=== PATIENT | male | born 1955 | race Caucasian/White ===

== ENCOUNTER 2018-03-10 09:08 | Inpatient (IN) ==
[2018-03-10 09:27] LABS: Baso % (Auto) 0.3 % (0.0-2.0); Eos % (Auto) 0.3 % (0.0-4.0); Hematocrit 37.7 % (39.0-51.0); Hemoglobin 12.7 gm/dL (13.0-17.0); Lymph % (Auto) 12.6 % (9.0-44.0); Mean Corpuscular HGB Conc 33.8 % (32.0-36.0); Mean Corpuscular Volume 94.7 fL (80.0-100.0); Mean Platelet Volume 7.2 fL (7.0-11.0); Mono # (Auto) 0.6 th/mm3 (0.0-0.9); Mono % (Auto) 8.1 % (0.0-8.0); Neut % (Auto) 78.7 % (16.0-70.0); Platelet Count 133 th/mm3 (150-450); Red Blood Count 3.98 mil/mm3 (4.50-5.90); Red Cell Distribution Width 14.2 % (11.6-17.2); White Blood Count 7.6 th/mm3 (4.0-11.0)
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
[2018-03-10 09:37] LABS: Activated Partial Thrombo Time 24.5 sec (24.3-30.1); INR 1.1 Ratio
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
[2018-03-10] MEDS ORDERED: Morphine Inj 4 MG/ML Vial IV.PUSH ONE (10:08)
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
[2018-03-10] MEDS ORDERED: HYDROmorphone PF Inj 1 MG/ML Ampul IV.PUSH PRN (11:00)
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
[2018-03-10 11:29] LABS: Bilirubin,Urine Negative (Negative); Clarity,Urine Clear (Clear); Color,Urine Straw (Yellw/Straw); Glucose,Urine (UA) Negative (Negative); Leukocyte Esterase,Urine Negative (Negative); Mucus,Urine Few /lpf (Occasional); Nitrite,Urine Negative (Negative); Specific Gravity,Urine 1.031 (1.002-1.035)
[2018-03-10 11:32] LABS: Amphetamine Screen,Urine Neg (Neg); Barbiturate Screen,Urine Neg (Neg); Cannabinoid Screen,Urine Neg (Neg); Cocaine Screen,Urine Neg (Neg)
[2018-03-10 11:38] LABS: Opiate Screen,Urine Neg (Neg)
--- NOTE | 2018-03-10 12:10 | P.CONNS ---
History of Present Illness Service: Neurosurgery Consult date: 03/10/18 Requesting Physician: Suzie Ardon Reason for Consult: Trauma alert/paraplegia Primary Care Provider: UNKNOWN History of Present Illness: 62-year-old obese gentleman who presented to [facility] as a trauma alert with the inability to move his lower extremities and numbness with incontinence. He relates that he is homeless and has no family members in town. He drinks heavily 15-20 beers a day and fell asleep on a [place] last night and fell off the [place] although he is not sure exactly what time this occurred and states that it may been some time last night or early this morning. He denies losing consciousness. He was brought to [facility] and trauma workup reveals a T11-10 fracture subluxation with jumped facets and T11, in the vertebral body and facet fractures. He relates that he has a history of calcifications in his cervical spine as well as poor circulation in his legs. His complaint is of neck pain and left hand and finger numbness as well as back pain with inability to move his legs with numbness from his wound along with incontinence. Review of Systems Constitutional: Denies anorexia, Denies body ache(s), Denies chills, Denies daytime sleepiness, Denies excessive sweating, Denies fatigue, Denies fever(s), Denies headache(s), Denies increased appetite, Denies lack of energy, Denies malaise, Denies night sweats, Denies weakness, Denies weight gain, Denies weight loss, Denies other Eyes: Denies blind spots, Denies blurry vision, Denies bulging eyes, Denies change in vision, Denies double vision, Denies discharge, Denies dry eyes, Denies floaters, Denies irritation, Denies itchy eyes, Denies loss of vision, Denies pain, Denies requires corrective lenses, Denies sensitivity to light, Denies other Ears, Nose, Mouth, and Throat: Denies abnormal hearing, Denies bleeding gums, Denies bad breath, Denies change in voice, Denies dental pain, Denies difficulty swallowing, Denies dizziness, Denies dry mouth, Denies ear discharge , Denies ear pain, Denies facial pain, Denies headache(s), Denies hearing loss, Denies hoarseness, Denies lip swelling, Denies nosebleed, Denies mouth lesions, Denies mouth pain, Denies nasal congestion, Denies nasal discharge, Denies nasal obstruction, Denies nasal trauma, Denies neck lump, Denies neck pain, Denies nose pain, Denies pain with swallowing, Denies poor balance, Denies post nasal drip, Denies ringing in the ears, Denies sinus pain, Denies sinus pressure , Denies sore throat, Denies throat swelling, Denies tongue swelling, Denies other Cardiovascular: Denies chest pain, Denies chest pain at rest, Denies chest pain with activity, Denies excessive sweating, Denies fainting, Denies fast heart rate, Denies foot swelling, Denies generalized swelling, Denies irregular heart rhythm, Denies leg pain with activity, Denies leg sores, Denies leg swelling, Denies lightheadedness, Denies radiating jaw, neck or arm pain, Denies rapid, pounding, or irregular heartbeat, Denies shortness of breath, Denies shortness of breath with activity, Denies shortness of breath when lying down, Denies shortness of breath causing sudden awakening, Denies slow heart rate, Denies other Respiratory: Denies change in phlegm color, Denies chest congestion, Denies cough, Denies coughing up blood, Denies excessive phlegm production, Denies pain on inspiration, Denies pain with cough, Denies shortness of breath, Denies shortness of breath with activity, Denies snoring, Denies stridor, Denies wheezing, Denies other Gastrointestinal: Reports incontinent of stools, Denies abdominal pain, Denies belching, Denies black, tarry stools, Denies bloating, Denies bright, red blood in stools, Denies change in bowel habits, Denies constant urge to pass stool, Denies change in stools, Denies coffee ground vomit, Denies constipation, Denies cramping, Denies difficulty swallowing, Denies excessive passing of gas, Denies feeling full early, Denies heartburn, Denies loose stools, Denies nausea , Denies pain with swallowing, Denies vomiting, Denies vomiting blood, Denies other Genitourinary: Reports difficulty urinating, Reports urinary incontinence, Denies blood in semen, Denies blood in urine, Denies decreased urination, Denies difficulty with ejaculations, Denies erectile dysfunction, Denies genital lesions, Denies genital pain, Denies painful urination, Denies side pain , Denies frequent nighttime urination, Denies painful ejaculations, Denies penile discharge, Denies scrotal swelling, Denies testicle lump, Denies testicle pain, Denies urinary frequency, Denies urinary hesitancy, Denies urinary urgency, Denies other Musculoskeletal: Reports back pain, Reports muscle weakness, Reports neck pain, Reports numbness, Reports tingling, Denies abnormal walking, Denies body aches, Denies decreased muscle mass, Denies deformity, Denies joint pain, Denies joint swelling, Denies limited joint movement, Denies loss of height, Denies muscle cramps, Denies radiating pain into limb, Denies stiffness, Denies other Comments: Complains of chronic peripheral neuropathy in his feet with difficulty wiggling his toes and numbness Skin/Breast: Denies acne, Denies bleeding lesions, Denies boil, Denies breast swelling, Denies breast skin changes, Denies breast pain, Denies breast lump, Denies change in breast shape, Denies change in hair, Denies change in skin color, Denies changing lesions, Denies dry skin, Denies excessive hair growth, Denies hair loss, Denies itching, Denies lesions, Denies nail changes, Denies new lesions, Denies nipple discharge, Denies non-healing lesions, Denies redness , Denies sensitivity to light, Denies rash, Denies skin pain, Denies skin ulcer , Denies sores, Denies stretch ivye, Denies unusual bruising, Denies wounds, Denies yellowing of the skin, Denies other Neurologic: Reports numbness, Reports weakness (Unable to move his legs bilaterally), Denies abnormal hearing, Denies abnormal movements, Denies abnormal speech, Denies abnormal walking, Denies behavioral changes, Denies burning sensations, Denies confusion, Denies dizziness, Denies fainting, Denies frequent falls, Denies headache(s), Denies lack of coordination, Denies localized weakness, Denies loss of vision, Denies memory loss, Denies other visual disturbances, Denies radiating pain, Denies restless legs, Denies convulsions, Denies seizure-like activity, Denies sensory deficit, Denies tingling, Denies tingling/numbness/burning sensations, Denies tremor(s), Denies unsteadiness, Denies other Comments: Complains of numbness in his left hand diffusely and inability to feel his legs from his groins down bilaterally Psychiatric: Denies abnormal sleep pattern, Denies anxiety, Denies behavioral changes, Denies change in appetite, Denies change in sex drive, Denies confusion , Denies depression, Denies difficulty concentrating, Denies hearing things others do not hear, Denies hopelessness, Denies irritability, Denies lack of enjoyment, Denies memory loss, Denies mood swings, Denies panic attacks, Denies paranoia, Denies seeing things others do not see, Denies sensing things others do not sense, Denies tactile hallucinations, Denies thoughts of hurting/killing others, Denies thoughts of hurting/killing yourself, Denies other Endocrine: Denies cold intolerance, Denies excessive sweating, Denies flushing, Denies heat intolerance, Denies increased hunger, Denies increased thirst, Denies increased urination, Denies rapid, pounding, or irregular heartbeat, Denies other Hematologic/Lymphatic: Denies easy bleeding, Denies easy bruising, Denies enlarged lymph nodes, Denies other Allergic/Immunologic: Denies GI upset with certain foods, Denies hives, Denies itchy eyes, Denies lip swelling, Denies seasonal runny nose, Denies throat swelling, Denies tongue swelling, Denies wheezing, Denies other PMFSH - History History Provided By: Patient - Medical History Medical History: Medical History (Last Updated 03/10/18 @ 12:02 by Rayray Mclean MD) Depression High cholesterol Neck pain Neuropathy Peripheral vascular disease Prostate asymmetry - Tobacco History Smoking Status: Unknown if ever smoked - Alcohol History How Often Do You Have a Drink Containing Alcohol: 4 or more times a week - Substance Use History Substance History: No History of Abuse - Substance Use Type Alcohol Status: Active Route Used: By Mouth Frequency: drinks "first 2 weeks of the month and then runs out of money" - Immunization History Tetanus Immunization: Unsure Hx Influenza Vaccine This Season: No Medications and Allergies Active Medications: Active Medications Bacitracin (Baciguent Oint) 1 applicatio TOPICAL BID TANO Chlorhexidine Gluconate (Chlorhexidine 2% Cloth) 3 pack TOPICAL DAILY@0400 TANO Stop: 03/16/18 03:59 Chlorhexidine Gluconate (Chlorhexidine 2% Cloth) 3 pack TOPICAL DAILY@0400 PRN PRN Reason: Extra cloth needed Stop: 03/16/18 03:59 Docusate Sodium (Colace) 100 mg PO BID TANO Enalaprilat (Vasotec Inj) 1.25 mg IV.PUSH Q8H PRN PRN Reason: Blood pressure 180/95 Hydromorphone HCl (Dilaudid Pf Inj) 1 mg IV.PUSH Q1H PRN PRN Reason: Break through pain Sodium Chloride (Ns Inj) 1,000 mls @ 100 mls/hr IV.CONT .Q10H TANO Ondansetron HCl (Zofran Inj) 4 mg IV.PUSH Q6H PRN PRN Reason: NAUSEA OR VOMITING Pantoprazole Sodium (Protonix Inj) 40 mg IV.PUSH Q24H TANO Sodium Chloride (Ns Flush) 2 ml IV.FLUSH UNSCH PRN PRN Reason: FLUSH AFTER USING IV ACCESS Allergies Allergy/AdvReac Type Severity Reaction Status Date / Time No Known Allergies Allergy Verified 03/10/18 10:29 Home Medications Medication Instructions Recorded Confirmed Type atorvastatin [Lipitor] 40 mg PO DAILY 03/10/18 03/10/18 History duloxetine [Cymbalta] 60 mg PO DAILY 03/10/18 03/10/18 History gabapentin 600 mg PO TID 03/10/18 03/10/18 History tamsulosin [Flomax] 0.4 mg PO DAILY 03/10/18 03/10/18 History Exam Vital signs: Vital Signs 03/10/18 09:18 03/10/18 10:22 03/10/18 10:24 Pulse Rate Respiratory Rate Blood Pressure Pulse Oximetry 97 98 98 03/10/18 10:40 03/10/18 10:41 Pulse Rate 80 Respiratory Rate 20 20 Blood Pressure 158/85 H Pulse Oximetry 97 - Constitutional obese - Routine HEENT Exam Head: Present: normocephalic, atraumatic Eye: Present: EOMI, PERRL ENT: Present: mucous membranes moist, oropharynx clear, nares patent, external ear normal - Routine Neck Exam Comments: Hard cervical collar in place - Routine Respiratory Exam Present: CTA bilaterally - Routine Cardiovascular Exam Present: RRR, S1, S2 - Routine Extremities Exam Present: edema - Routine Skin Exam Present: ecchymosis - Routine Neurological Exam Present: oriented X3, CN II-XII intact, sensory deficit (Complete sensory loss T11 level down with no pinprick or light touch sensation in the lower extremities; complains of numbness in his left hand and fingers), motor deficit (No rectal tone noticed and no sensory sacral sparing noted either), normal speech He moves his upper extremities with relatively good strength, left lower extremity 0/5 strength, right lower extremity iliopsoas quadriceps hamstrings 0/ 5 dorsiflexion plantarflexion 1/5 Results - Laboratory Findings CBC and BMP: 03/11/18 04:25 03/11/18 04:25 Abnormal lab findings: Abnormal Labs 03/10/18 03/10/18 03/10/18 09:12 09:12 10:50 RBC 3.98 L Hgb 12.7 L POC Hgb (Calc) 12.2 L Hct 37.7 L POC Hct 36.0 L Plt Count 133 L Neut % (Auto) 78.7 H [place] % (Auto) 8.1 H POC Potassium 3.2 L POC BUN 3 L POC Glucose 160 H Urine Occult Blood Large H Urine Mucus Few H - Diagnostic Findings Additional findings: Impressions Abdomen/Pelvis CT 03/10/18 00:00 CONCLUSION: 1. Severe comminuted compression fracture involving the body of T11. 2. Nondisplaced fracture involving the left transverse process of T10 and the right transverse process of T11. 3. Grade 2 anterior spondylolisthesis of T10 over T11 creating spinal canal stenosis at this level. 4. Diffuse fatty infiltration of the liver. 5. Midline anterior abdominal wall hernia containing loop of transverse colon without obstruction at this time. Chest X-Ray 03/10/18 09:10 CONCLUSION: No acute cardiopulmonary process. Right clavicle fracture indeterminant age. Pelvis X-Ray 03/10/18 09:10 CONCLUSION: The bony structures are grossly intact on this limited single AP view. Chest CT 03/10/18 09:23 CONCLUSION: 1. Severely comminuted fracture through the body of T11. 2. Grade 2 anterior spondylolisthesis of T10 over T11 with locked facets bilaterally causing spinal canal stenosis.. 3. Nondisplaced fractures involving the left transverse process of T10 and the right transverse process of T11. 4. Nondisplaced fractures involving bilateral ribs. 5. Nonspecific infiltrate right perihilar area and bibasilar atelectasis. Cervical Spine CT 03/10/18 09:24 CONCLUSION: 1. Nondisplaced fracture of the left aspect of C6 vertebral body. 2. No spondylolisthesis. 3. Degenerative changes. Head CT 03/10/18 09:24 CONCLUSION: 1. Unremarkable CT scan of the brain. . Lumbar Spine CT 03/10/18 09:24 CONCLUSION: 1. No fracture or subluxation. 2. Multilevel protrusions as above. Thoracic Spine CT 03/10/18 09:24 CONCLUSION: 1. Severely comminuted fracture through the body of T11. 2. Grade 2 anterior spondylolisthesis of T10 over T11 with bilateral locked facets. This is causing focal severe spinal canal stenosis at this level. There are some fractures of the posterior facets at T10. 3. Nondisplaced fractures involving the left transverse process of T10 and the right transverse process of T11. 4. Diffuse paraspinal soft tissue swelling. Assessment and Plan - Assessment (1) Burst fracture of thoracic spine at T10-T11 level Status: Acute (2) Complete lesion at T10 level of thoracic spinal cord Code(s): S24.113A - Complete lesion at T7-T10 level of thoracic spinal cord, initial encounter Status: Acute (3) Closed spinal subluxation with complete thoracic cord lesion Status: Acute (4) Traumatic compression fracture of T11 thoracic vertebra Code(s): S22.080A - Wedge compression fracture of T11-T12 vertebra, initial encounter for closed fracture Status: Acute (5) Closed cervical spine fracture Code(s): S12.9XXA - Fracture of neck, unspecified, initial encounter Status: Acute - Plan 62-year-old gentleman with paraplegia and sensory loss/incontinence after a fall some time last evening. He has suffered from a T11 vertebral body comminuted fracture which also involves the bilateral facets with jumped facets and T10-11 fracture subluxation and complete spinal cord injury. Also complains of numbness in his left hand and fingers and may have cervical spinal cord injury or nerve root irritation syndrome with the possible C6 vertebrae fracture along with the C5-6 and anterior osteophyte fractures. He has extensive anterior cervical osteophytes throughout his spine. He will be maintained in a cervical collar and spinal logroll precautions. MRI scan of the complete spine will be obtained to assess for spinal cord injury/stenosis and soft tissue/ligamentous injury. He will likely require thoracolumbar stabilization given the unstable T10-11 fracture subluxation although understands that the bilateral lower extremity paralysis/incontinence will likely not improve and will need extended spinal cord injury rehabilitation. He is also at high risk for alcohol withdrawal symptoms and has mild thrombocytopenia which is likely to worsen and complicate his recuperation. Further treatment plan for his spinal injuries will be outlined once the MRI scan and thoracic spine have been undertaken and reviewed. I have discussed the findings at length with the patient who understands. (5) Closed cervical spine fracture Qualifiers: Encounter type: initial encounter Cervical vertebra fracture level: C6 Fracture alignment: nondisplaced
[2018-03-10] MEDS ORDERED: Post-op Orders (for Pharmacy) OTHER ONE (14:25)
[2018-03-10] MEDS ORDERED: Naloxone Inj 0.4 MG/ML Vial IV.PUSH PRN (14:25)
[2018-03-10] MEDS ORDERED: Morphine Inj 4 MG/ML Vial IV.PUSH PRN (14:25)
[2018-03-10] MEDS ORDERED: Bisacodyl 10 MG Supp RECTAL PRN (14:25)
[2018-03-10] MEDS: Pantoprazole Inj 40 MG Vial IV.PUSH SCH (15:30)
[2018-03-10] MEDS: dilTIAZem Inj 125 MG in Sodium Chlor 0.9% Inj 100 ML IV.CONT PRN (15:30)
[2018-03-10] MEDS: Sod Chloride 0.9% Inj 1,000 ML IV.CONT SCH ×2 (15:30→22:02)
[2018-03-10 17:36] LABS: Magnesium 1.1 mg/dL (1.5-2.5)
--- NOTE | 2018-03-10 18:01 | MR ---
EXAM DATE: 03/10/2018 5:52 PM EDT AGE/SEX: 62 years / Male INDICATIONS: Fracture. Trauma. CLINICAL DATA: This is the patient's subsequent encounter. Patient reports that signs and symptoms h ave been present for 1 day and indicates a pain score of 0/10. MEDICAL/SURGICAL HISTORY: None. None. COMPARISON: [facility] – [place], [place] THORACIC SPINE W CONTRAST, 03/10/2018. . TECHNIQUE: Multiplanar, multisequence MRI of the thoracic spine was performed. FINDINGS: Vertebrae: There is abnormal increased T2 and decreased T1 signal identified within the T11 vertebra l body with fracture lines identified through the superior endplate on the T1 weighted sequences. Alignment: There is 1.3 cm of anterolisthesis of T10 on T11 with compression of the cord at this lev el and abnormal increased T2 signal identified within the cord just superior to this level at the lev el of T10. There is a extensive amount of paraspinal hematoma present through the anterior and purchasing engineer ior spine at this level. Cord: Cord compression at the level of T10/T11. CONCLUSION: 1. Comminuted fracture involving the T11 vertebral body, better visualized on comparison CT. There i s anterolisthesis of T10 with respect to T11 resulting in cord compression and abnormal increased T2 signal identified within the cord. There is extensive anterior posterior paraspinal hematoma present. Electronically signed by: Angelica Tejada MD 03/10/2018 6:00 PM EDT
--- NOTE | 2018-03-10 18:11 | MR ---
EXAM DATE: 03/10/2018 6:03 PM EDT AGE/SEX: 62 years / Male INDICATIONS: Trauma. CLINICAL DATA: This is the patient's subsequent encounter. Patient reports that signs and symptoms h ave been present for 1 day and indicates a pain score of 0/10. MEDICAL/SURGICAL HISTORY: None. None. COMPARISON: None. TECHNIQUE: Multiplanar, multisequence MRI examination of the cervical spine was performed without co ntrast. FINDINGS: Vertebrae: Normal vertebral body height. Homogeneous marrow signal. Alignment: Normal. Cord: Normal configuration and signal. Post Fossa: The cerebellar tonsils are normal in position. C2-C3: The thecal sac has a normal configuration. There is no evidence of disc herniation or spinal canal stenosis. The neural foramina are patent bilaterally. C3-C4: Moderate circumferential spinal stenosis is noted secondary to diffuse disc bulge, uncoverteb ral joint spurring and facet joint hypertrophy. Moderate bilateral foraminal narrowing is noted. No f ocal disc herniation is noted. C4-C5: The thecal sac has a normal configuration. There is no evidence of disc herniation or spinal canal stenosis. Mild left neuroforaminal narrowing is noted secondary to facet joint hypertrophy. Th e right neuroforamen is patent. C5-C6: Mild diffuse asymmetric disc osteophyte complex to the right is noted and results in mild effa cement of the anterior thecal sac but no spinal stenosis. Mild bilateral foraminal narrowing is noted . No focal disc herniation is noted. Facet joint hypertrophy is noted bilaterally. C6-C7: The thecal sac has a normal configuration. There is no evidence of disc herniation or spinal canal stenosis. Mild bilateral foraminal narrowing is noted. C7-T1: No epidural impressions seen. CONCLUSION: 1. Moderate spinal stenosis and bilateral foraminal narrowing at C3-4. 2. Mild bilateral foraminal narrowing at C5-6 and C6-7 as well as mild left neuroforaminal narrowing at C4-5. Electronically signed by: Wilfredo Henriquez MD 03/10/2018 6:10 PM EDT
--- NOTE | 2018-03-10 18:19 | MR ---
EXAM DATE: 03/10/2018 6:08 PM EDT AGE/SEX: 62 years / Male INDICATIONS: Trauma. CLINICAL DATA: This is the patient's subsequent encounter. Patient reports that signs and symptoms h ave been present for 1 day and indicates a pain score of 0/10. MEDICAL/SURGICAL HISTORY: None. None. COMPARISON: . TECHNIQUE: Multiplanar, multisequence MRI of the lumbar spine was performed without contrast. Patie nt was scanned in a sitting position; neutral, flexion, and extension scans were performed in the sa gittal plane. FINDINGS: Degenerative disc disease is noted from L2 through S1 with loss of disc signal at all levels and loss of disc height at L2-3. The lumbar vertebral bodies are normal in height and marrow intensity. T12-L1: The thecal sac has a normal diameter. No evidence of disc bulge or protrusion. The neural foramina are patent bilaterally. L1-L2: The thecal sac has a normal diameter. No evidence of disc bulge or protrusion. The neural foramina are patent bilaterally. L2-L3: Mild to moderate spinal stenosis and bilateral foraminal narrowing is noted secondary to dif fuse disc osteophyte complex, facet joint hypertrophy and ligamentous laxity. No focal disc herniatio n is noted. L3-L4: The thecal sac has a normal diameter. No evidence of disc bulge or protrusion. Mild to mode rate bilateral foraminal narrowing is noted secondary to diffuse disc bulge, facet joint hypertrophy and ligamentous laxity. No spinal stenosis is noted. L4-L5: The thecal sac has a normal diameter. No evidence of disc bulge or protrusion. Mild to mode rate bilateral foraminal narrowing is noted secondary to diffuse disc bulge, facet joint hypertrophy and ligamentous laxity. No spinal stenosis is noted. L5-S1: The thecal sac has a normal diameter. No evidence of disc bulge or protrusion. The neural foramina are patent bilaterally. CONCLUSION: 1. Mild to moderate spinal stenosis and bilateral foraminal narrowing at L2-3. 2. Mild to moderate bilateral foraminal narrowing at L3-4 and L4-5 without spinal stenosis. 3. Degenerative disc disease from L2 through S1. Electronically signed by: Wilfredo Henriquez MD 03/10/2018 6:18 PM EDT
--- NOTE | 2018-03-10 20:00 | P.PNCC ---
Subjective Brief History: 62-year-old male was drunk and fell off of some wall onto the sand on the beach from about 8 feet height. Details are not known patient was transferred to our institution as priority 1 trauma alert spinal board with c-collar in place. Patient is complaining about numbness and weakness in the left arm and the left leg as well as neck and back pain. He is heavily intoxicated at the time of arrival. Physical examination reveals patient to be awake alert and somewhat confused but oriented answering simple questions appropriately not really remembering what happened to him. On physical examination patient has bilateral equal strength in the arms however unable to lift the left leg off the bed and he can only slide it along making this 1/5 motoric deficit Decreased sensation in the left leg to the knee Patient underwent full diagnostic and clinical workup and appropriate services have been consulted patients placed in ICU for further care CT scan of the cervical thoracic and lumbar spine was performed followed by the MRI of the thoracic spine Final diagnoses 1. Severely comminuted fracture through the body of T11. 2. Grade 2 anterior spondylolisthesis of T10 over T11 with locked facets bilaterally causing spinal canal stenosis. 3. Nondisplaced fractures involving the left transverse process of T10 and the right transverse process of T11. 4. Nondisplaced fractures involving bilateral ribs. 5. Mild right pulmonary contusion and likely aspiration 7. Nondisplaced fracture of the left aspect of C6 vertebral body. Objective Vital Signs / I&O: Vital Signs 03/10/18 09:18 03/10/18 10:22 03/10/18 10:24 Pulse Rate Respiratory Rate Blood Pressure Pulse Oximetry 97 98 98 03/10/18 10:40 03/10/18 10:41 03/10/18 15:02 Pulse Rate 80 Respiratory Rate 20 20 Blood Pressure 158/85 H Pulse Oximetry 97 98 Result Diagrams: 03/10/18 09:12 Imaging: Impressions Abdomen/Pelvis CT 03/10/18 00:00 CONCLUSION: 1. Severe comminuted compression fracture involving the body of T11. 2. Nondisplaced fracture involving the left transverse process of T10 and the right transverse process of T11. 3. Grade 2 anterior spondylolisthesis of T10 over T11 creating spinal canal stenosis at this level. 4. Diffuse fatty infiltration of the liver. 5. Midline anterior abdominal wall hernia containing loop of transverse colon without obstruction at this time. Chest X-Ray 03/10/18 09:10 CONCLUSION: No acute cardiopulmonary process. Right clavicle fracture indeterminant age. Pelvis X-Ray 03/10/18 09:10 CONCLUSION: The bony structures are grossly intact on this limited single AP view. Chest CT 03/10/18 09:23 CONCLUSION: 1. Severely comminuted fracture through the body of T11. 2. Grade 2 anterior spondylolisthesis of T10 over T11 with locked facets bilaterally causing spinal canal stenosis.. 3. Nondisplaced fractures involving the left transverse process of T10 and the right transverse process of T11. 4. Nondisplaced fractures involving bilateral ribs. 5. Nonspecific infiltrate right perihilar area and bibasilar atelectasis. Cervical Spine CT 03/10/18 09:24 CONCLUSION: 1. Nondisplaced fracture of the left aspect of C6 vertebral body. 2. No spondylolisthesis. 3. Degenerative changes. Head CT 03/10/18 09:24 CONCLUSION: 1. Unremarkable CT scan of the brain. . Lumbar Spine CT 03/10/18 09:24 CONCLUSION: 1. No fracture or subluxation. 2. Multilevel protrusions as above. Thoracic Spine CT 03/10/18 09:24 CONCLUSION: 1. Severely comminuted fracture through the body of T11. 2. Grade 2 anterior spondylolisthesis of T10 over T11 with bilateral locked facets. This is causing focal severe spinal canal stenosis at this level. There are some fractures of the posterior facets at T10. 3. Nondisplaced fractures involving the left transverse process of T10 and the right transverse process of T11. 4. Diffuse paraspinal soft tissue swelling. Cervical Spine MRI 03/10/18 11:31 CONCLUSION: 1. Moderate spinal stenosis and bilateral foraminal narrowing at C3-4. 2. Mild bilateral foraminal narrowing at C5-6 and C6-7 as well as mild left neuroforaminal narrowing at C4-5. Lumbar Spine MRI 03/10/18 11:31 CONCLUSION: 1. Mild to moderate spinal stenosis and bilateral foraminal narrowing at L2-3. 2. Mild to moderate bilateral foraminal narrowing at L3-4 and L4-5 without spinal stenosis. 3. Degenerative disc disease from L2 through S1. Thoracic Spine MRI 03/10/18 11:31 CONCLUSION: 1. Comminuted fracture involving the T11 vertebral body, better visualized on comparison CT. There is anterolisthesis of T10 with respect to T11 resulting in cord compression and abnormal increased T2 signal identified within the cord. There is extensive anterior posterior paraspinal hematoma present.
[2018-03-10] MEDS ORDERED: Magnesium Oxide 400 MG Tablet PO PRN (20:01)
[2018-03-10] MEDS ORDERED: Potassium Phosphate 500 MG Soluble Tablet PO PRN ×2 (20:01)
[2018-03-10] MEDS ORDERED: Potassium Chlor 40 mEq Premix 40 MEQ/100 ML PIGGYBACK IV.SIG PRN ×2 (20:01)
[2018-03-10] MEDS ORDERED: Magnesium Sulfate Inj 4 GM in Sodium Chlor 0.9% Inj 92 ML IV.SIG PRN (20:01)
[2018-03-10] MEDS ORDERED: Sodium Phosphate Inj 30 MMOL in Sodium Chlor 0.9% Inj 250 ML IV.SIG PRN (20:01)
[2018-03-10] MEDS ORDERED: Magnesium Sulfate Inj 2 GM in Sodium Chlor 0.9% Inj 96 ML IV.SIG PRN (20:01)
[2018-03-10] MEDS ORDERED: Potassium Chloride 25 MEQ Effervescent Tablet PO PRN (20:01)
[2018-03-10] MEDS ORDERED: Potassium Phosphate Inj 30 MMOL in Sodium Chlor 0.9% Inj 250 ML IV.SIG PRN (20:01)
[2018-03-10] MEDS ORDERED: Potassium Chlor 20 mEq Premix 20 MEQ/100 ML PIGGYBACK IV.SIG PRN (20:01)
[2018-03-10] MEDS: Docusate Sodium 100 MG Capsule PO SCH (21:50)
[2018-03-10] MEDS: Senna/Docusate Sodium 8.6/50 MG Tablet PO SCH (21:50)
[2018-03-10] MEDS: Gabapentin 300 MG Capsule PO SCH (21:50)
[2018-03-10] MEDS: Morphine Inj 4 MG/ML Vial IV.PUSH PRN (22:00)
[2018-03-10] MEDS: HYDROmorphone PF Inj 2 MG/ML Vial IV.PUSH PRN (23:09)
--- NOTE | 2018-03-11 00:38 | MH ---
cc: Axel Cruz MD DATE OF ADMISSION: 03/10/2018 CHIEF COMPLAINT: Trauma alert, fall from [place]. HISTORY OF PRESENT ILLNESS: The patient is a 62-year-old male, status post fall from wall. The patient noted to be sleepy and positive ETOH, and noted to fall from [place] on to the beach and dirt. Currently, the patient was complaining of bilateral lower extremity numbness. He was able to move bilateral lower extremities. He was answering questions appropriately. He denied any loss of consciousness. He came to the emergency department for further evaluation including primary and secondary survey. Again, noted positive ETOH. He was taken to the CT scanner with findings of C6 spine fracture, T11 comminuted body fracture, bilateral rib fractures. He was taken to the ICU with consultation by neurosurgery. PAST MEDICAL HISTORY: Atrial fibrillation, hypercholesterolemia, neuropathy, depression, prostate issues. PAST SURGICAL HISTORY: No surgeries noted. SOCIAL HISTORY: He denied smoking. Positive ETOH, 15 beers per day. He denies IVDA. ALLERGIES: NO KNOWN DRUG ALLERGIES. MEDICATIONS: See EMR. FAMILY HISTORY: He denies diabetes or hypertension. REVIEW OF SYSTEMS: A 12-point review of systems done, otherwise negative except as above. PHYSICAL EXAMINATION: GENERAL: No acute distress. HEENT: Pupils equal, round, reactive. Head atraumatic, normocephalic. NECK: C-collar in place. CARDIAC: Irregular rhythm. S1, S2. ABDOMEN: Soft, nontender, nondistended. Palpable, reducible ventral hernia. EXTREMITIES: Warm, well perfused. Minimal abrasions. Loss of sensation in bilateral lower extremities, 3/5 motor in bilateral lower extremities. NEUROLOGIC: GCS of 15. PSYCHIATRIC: Appropriate mood, appropriate affect. LABORATORY AND DIAGNOSTIC DATA: WBC 7.6, hemoglobin 12.7, hematocrit 37.7, platelets 133. Sodium 144, potassium 3.2, chloride 104, BUN 3, creatinine 0.7, glucose 160. INR is 1.1. Neck CT is reviewed by myself. CT head: No evidence of fracture. CT C-spine: C6 fracture. T-spine: T11 comminuted body fracture. CT chest: Bilateral rib fractures, ribs 5 and 7 on right, rib 4 on the left. 2D abdomen and pelvis: No evidence of acute traumatic pathology. Fracture of the spine as above. Fatty liver. Abdominal wall hernia. ASSESSMENT: The patient is a 62-year-old male, status post fall, severe T11 comminuted spine fracture, C6 fracture, rib fractures. PLAN: After a full workup, the patient noted to have the above-named issues. At this point, the patient needs to go ICU with close monitoring. The patient will have consultation with neurosurgery. We will follow up recommendations and treatment with this. The patient will need pulmonary toilet, pain control, IV fluids, incentive spirometry. We will check a chest x-ray in the morning. Give again pain control for multiple rib fractures. I have discussed with the patient. The patient will be on cardiac monitoring for a history of atrial fibrillation and again will have close management with ICU. Discussed with Dr. Samuel. MD ELVI Mobley/rm/do , 11:37 PM , 11:48 PM ABRIL
[2018-03-11] MEDS: dilTIAZem Inj 125 MG in Sodium Chlor 0.9% Inj 100 ML IV.CONT PRN (01:57)
[2018-03-11] MEDS: Chlorhexidine Gluconate 2% 1 Pack (2 Cloths) TOPICAL SCH (03:27)
[2018-03-11] MEDS ORDERED: Chlorhexidine Gluconate 2% 1 Pack (2 Cloths) TOPICAL PRN (04:00)
[2018-03-11] MEDS ORDERED: Chlorhexidine Gluconate 2% 1 Pack (2 Cloths) TOPICAL ONE (04:53)
[2018-03-11] MEDS ORDERED: Sodium Chlor 0.9% Inj 500 ML IV.SIG SCH (05:00)
[2018-03-11] MEDS: HYDROmorphone PF Inj 2 MG/ML Vial IV.PUSH PRN (05:02)
[2018-03-11 05:15] LABS: Baso % (Auto) 0.1 % (0.0-2.0); Hematocrit 36.7 % (39.0-51.0); Hemoglobin 12.7 gm/dL (13.0-17.0); Lymph # (Auto) 0.5 th/mm3 (1.0-4.8); Lymph % (Auto) 6.9 % (9.0-44.0); Mean Corpuscular HGB Conc 34.6 % (32.0-36.0); Mean Corpuscular Hemoglobin 32.8 pg (27.0-34.0); Mean Corpuscular Volume 94.8 fL (80.0-100.0); Mean Platelet Volume 8.1 fL (7.0-11.0); Mono # (Auto) 0.8 th/mm3 (0.0-0.9); Mono % (Auto) 11.1 % (0.0-8.0); Neut # (Auto) 6.1 th/mm3 (1.8-7.7); Neut % (Auto) 81.9 % (16.0-70.0); Platelet Count 138 th/mm3 (150-450); Red Blood Count 3.87 mil/mm3 (4.50-5.90); Red Cell Distribution Width 14.1 % (11.6-17.2); White Blood Count 7.5 th/mm3 (4.0-11.0)
--- NOTE | 2018-03-11 05:27 | XR ---
EXAM DATE: 03/11/2018 5:21 AM EDT AGE/SEX: 62 years / Male INDICATIONS: Shortness of breath. CLINICAL DATA: This is the patient's subsequent encounter. Patient reports that signs and symptoms h ave been present for 2 days and indicates a pain score of Nonresponsive. MEDICAL/SURGICAL HISTORY: None. None. COMPARISON: [facility] [place], CT CHEST W CONTRAST, 03/10/2018. [facility] [place], CHEST 1V SINGLE AP, 03/10/2018. . FINDINGS: Rotated portable AP view of the chest demonstrates a normal-sized cardiac silhouette. EKG lines overl ie the patient. Lungs are underinflated with mild atelectasis at the lung bases. No pleural effusion or pneumothorax is identified. Bones and soft tissues demonstrate no acute abnormality. CONCLUSION: Underinflated examination with atelectasis at the lung bases. Otherwise, no acute finding is identifi ed. Electronically signed by: Shine Brown MD 03/11/2018 5:25 AM EDT
[2018-03-11 05:35] LABS: Anion Gap 10 meq/L (5-15); Blood Urea Nitrogen 6 mg/dL (7-18); Calcium 7.8 mg/dL (8.5-10.1); Chloride 102 meq/L (98-107); Glomerular Filtration Rate Greater Than 89 mL/min (>89); Glucose,Random 140 mg/dL (74-106); Potassium 3.4 meq/L (3.5-5.1); Sodium 145 meq/L (136-145)
[2018-03-11] MEDS: Sod Chloride 0.9% Inj 1,000 ML IV.CONT SCH ×2 (06:21→19:00)
[2018-03-11] MEDS: Potassium Chlor 20 mEq Premix 20 MEQ/100 ML PIGGYBACK IV.SIG PRN ×2 (06:54→09:17)
[2018-03-11] MEDS: Senna/Docusate Sodium 8.6/50 MG Tablet PO SCH ×2 (09:30→22:16)
[2018-03-11] MEDS: Gabapentin 300 MG Capsule PO SCH ×3 (09:30→19:00)
[2018-03-11] MEDS: Docusate Sodium 100 MG Capsule PO SCH ×2 (09:31→22:16)
[2018-03-11] MEDS: Morphine Inj 4 MG/ML Vial IV.PUSH PRN ×2 (09:38→12:25)
[2018-03-11] MEDS: dilTIAZem 60 MG Tablet PO SCH ×3 (10:18→22:24)
[2018-03-11] MEDS: Multivitamin Inj 10 ML, Thiamine Inj 100 MG, Folic Acid Inj 1 MG in Sodium Chlor 0.9% I... IV.SIG SCH (10:40)
--- NOTE | 2018-03-11 11:24 | P.PNCC ---
Subjective Brief History: 62-year-old male was drunk and fell off of some wall onto the sand on the beach from about 8 feet height. Details are not known patient was transferred to our institution as priority 1 trauma alert spinal board with c-collar in place. Patient is complaining about numbness and weakness in the left arm and the left leg as well as neck and back pain. He is heavily intoxicated at the time of arrival. Physical examination reveals patient to be awake alert and somewhat confused but oriented answering simple questions appropriately not really remembering what happened to him. On physical examination patient has bilateral equal strength in the arms however unable to lift the left leg off the bed and he can only slide it along making this 1/5 motoric deficit Decreased sensation in the left leg to the knee Patient underwent full diagnostic and clinical workup and appropriate services have been consulted patients placed in ICU for further care CT scan of the cervical thoracic and lumbar spine was performed followed by the MRI of the thoracic spine Final diagnoses 1. Severely comminuted fracture through the body of T11. 2. Grade 2 anterior spondylolisthesis of T10 over T11 with locked facets bilaterally causing spinal canal stenosis. 3. Nondisplaced fractures involving the left transverse process of T10 and the right transverse process of T11. 4. Nondisplaced fractures involving bilateral ribs. 5. Mild right pulmonary contusion and likely aspiration 7. Nondisplaced fracture of the left aspect of C6 vertebral body. 24 Hour Review/Hospital Course: 03/11/2018 Patient was admitted yesterday after falling off of a [place] while he was asleep and intoxicated. He suffered a C6 fracture right clavicle fracture T10 and 11 fracture as well as multiple rib fractures. Plan is to go to the operating room today to address his T11 compression fracture Objective Vital Signs / I&O: Vital Signs 03/10/18 12:00 03/10/18 12:10 03/10/18 15:02 Temperature 97.4 F L Pulse Rate 79 79 Respiratory Rate 23 Blood Pressure 160/95 H 160/95 H Pulse Oximetry 95 98 03/10/18 16:00 03/10/18 18:37 03/10/18 20:00 Temperature 98.0 F 97.7 F Pulse Rate 120 H 88 Respiratory Rate 18 27 H 17 Blood Pressure 150/85 H 162/94 H Pulse Oximetry 95 96 03/10/18 20:27 03/10/18 22:02 03/10/18 22:19 Temperature Pulse Rate Respiratory Rate 24 20 Blood Pressure Pulse Oximetry 96 03/10/18 22:54 03/11/18 00:00 03/11/18 00:23 Temperature 97.6 F Pulse Rate 90 Respiratory Rate 23 17 17 Blood Pressure 151/79 H Pulse Oximetry 97 03/11/18 04:00 03/11/18 06:21 03/11/18 08:18 Temperature 98.0 F Pulse Rate 78 Respiratory Rate 19 21 Blood Pressure 140/90 Pulse Oximetry 98 96 Intake & Output 03/10/18 03/11/18 03/11/18 18:59 06:59 18:59 Intake Total 2200 / 2200 100 / 100 Output Total 1700 / 1700 2800 / 2800 Balance -1700 / -1700 -600 / -600 100 / 100 Weight 113.2 kg Intake: IV 2100 / 2100 100 / 100 NS Inj 1,000 ML @ 100 mls/hr IV 1999 / 1999 .CONT .Q10H [facility] Rx#:[id number] Cardizem Inj 125 MG In NS Inj 100 / 100 100 ML @ 5 MG/HR 5 mls/hr IV. CONT TITRATE PRN Rx#:[id number] KCl 20 mEq Premix Inj 20 meq In 100 / 100 100 ml @ 50 mls/hr IV.SIG Q2H PRN Rx#:[id number] Oral 100 / 100 Output: Urine Amount (Catheter) 1700 / 1700 2800 / 2800 Condom 1700 / 1700 2800 / 2800 Other: Date of Last Bowel Movement 03/10/18 03/10/18 # Bowel Movements 1 # Incontinent Bowel Movements 1 Weight On Admission 113.2 kg Result Diagrams: 03/12/18 03:30 03/12/18 03:30 Imaging: Impressions Cervical Spine MRI 03/10/18 11:31 CONCLUSION: 1. Moderate spinal stenosis and bilateral foraminal narrowing at C3-4. 2. Mild bilateral foraminal narrowing at C5-6 and C6-7 as well as mild left neuroforaminal narrowing at C4-5. Lumbar Spine MRI 03/10/18 11:31 CONCLUSION: 1. Mild to moderate spinal stenosis and bilateral foraminal narrowing at L2-3. 2. Mild to moderate bilateral foraminal narrowing at L3-4 and L4-5 without spinal stenosis. 3. Degenerative disc disease from L2 through S1. Thoracic Spine MRI 03/10/18 11:31 CONCLUSION: 1. Comminuted fracture involving the T11 vertebral body, better visualized on comparison CT. There is anterolisthesis of T10 with respect to T11 resulting in cord compression and abnormal increased T2 signal identified within the cord. There is extensive anterior posterior paraspinal hematoma present. Chest X-Ray 03/11/18 06:00 CONCLUSION: Underinflated examination with atelectasis at the lung bases. Otherwise, no acute finding is identified. Aggression Score: 21.00 Lability Score: 14.00 - Exam [employer]: Awake alert answers questions appropriately and moving all 4 extremities Hemodynamic/Cardiac: Regular rate and rhythm Pulmonary/Respiratory: Clear to auscultation bilaterally Abdomen/GI Nutrition: Soft nontender nondistended Assessment and Plan Plan: OR today with neurosurgery Patient is high risk for alcohol withdrawal we will implement withdrawal prophylactic strategies postop
[2018-03-11] MEDS: Pantoprazole Inj 40 MG Vial IV.PUSH SCH (11:26)
[2018-03-11] MEDS ORDERED: SUFentanil Inj 250 MCG/5 ML Ampul ONE (13:20)
--- NOTE | 2018-03-11 13:20 | ECG ---
Date Performed: 03/10/2018 Time Performed: 14:15:50 PTAGE: 62 years EKG: Atrial fibrillation with rapid ventricular response Extensive ST-T changes may be due to my ocardial ischemia Abnormal ECG NO PREVIOUS TRACING DOCTOR: Jose David Calhoun Interpretating Date/Time 03/11/2018 13:19:59
[2018-03-11] MEDS ORDERED: Propofol Inj 500 MG/50 ML Vial ONE ×3 (13:21→18:35)
[2018-03-11] MEDS ORDERED: Gelatin Size 100 Topical Foam ONE ×4 (13:29→17:06)
[2018-03-11] MEDS ORDERED: Thrombin Topical Soln 5,000 UNIT Vial TOPICAL ONE ×4 (13:29→17:06)
[2018-03-11] MEDS ORDERED: Bupivacaine/Epinephrine 0.5% Inj 50 ML Vial ONE (13:34)
[2018-03-11] MEDS ORDERED: Heparin - SQ 10,000 UNITS/ML Vial ONE (13:36)
[2018-03-11] MEDS ORDERED: Lidocaine PF 1% Inj 5 ML Syringe OTHER ONE (13:50)
[2018-03-11] MEDS ORDERED: Phenylephrine/NS 1000 MCG/10ML Syringe IV.PUSH ONE (13:50)
[2018-03-11] MEDS ORDERED: Glycopyrrolate Inj 1 MG/5 ML Syringe IV.PUSH ONE (13:50)
--- NOTE | 2018-03-11 14:51 | P.PNNS ---
Physical Exam Vital signs: Vital Signs 03/10/18 15:02 03/10/18 16:00 03/10/18 18:37 Temperature 98.0 F Pulse Rate 120 H Respiratory Rate 18 27 H Blood Pressure 150/85 H Pulse Oximetry 98 95 03/10/18 20:00 03/10/18 20:27 03/10/18 22:02 Temperature 97.7 F Pulse Rate 88 Respiratory Rate 17 24 Blood Pressure 162/94 H Pulse Oximetry 96 96 03/10/18 22:19 03/10/18 22:54 03/11/18 00:00 Temperature 97.6 F Pulse Rate 90 Respiratory Rate 20 23 17 Blood Pressure 151/79 H Pulse Oximetry 97 03/11/18 00:23 03/11/18 04:00 03/11/18 06:21 Temperature 98.0 F Pulse Rate 78 Respiratory Rate 17 19 21 Blood Pressure 140/90 Pulse Oximetry 98 03/11/18 08:18 03/11/18 11:40 03/11/18 11:55 Temperature 98 F Pulse Rate 77 73 Respiratory Rate 16 16 Blood Pressure 155/81 H 149/80 H Pulse Oximetry 96 94 L 93 L 03/11/18 12:10 03/11/18 12:25 03/11/18 12:40 Temperature Pulse Rate 79 76 75 Respiratory Rate 14 12 13 Blood Pressure 148/67 H 140/70 145/80 H Pulse Oximetry 96 97 94 L 03/11/18 12:54 03/11/18 12:55 03/11/18 13:10 Temperature Pulse Rate 80 82 Respiratory Rate 16 13 Blood Pressure 161/90 H 155/82 H Pulse Oximetry 90 L 94 L 98 03/11/18 13:25 Temperature Pulse Rate 79 Respiratory Rate 13 Blood Pressure 158/84 H Pulse Oximetry 97 Intake & Output 03/10/18 03/11/18 03/11/18 18:59 06:59 18:59 Intake Total 2200 / 2200 100 / 100 Output Total 1700 / 1700 2800 / 2800 Balance -1700 / -1700 -600 / -600 100 / 100 Weight 113.2 kg Intake: IV 2099 / 2099 100 / 100 NS Inj 1,000 ML @ 100 mls/hr IV 1999 / 1999 .CONT .Q10H [facility] Rx#:[id number] Cardizem Inj 125 MG In NS Inj 100 / 100 100 ML @ 5 MG/HR 5 mls/hr IV. CONT TITRATE PRN Rx#:[id number] KCl 20 mEq Premix Inj 20 meq In 100 / 100 100 ml @ 50 mls/hr IV.SIG Q2H PRN Rx#:[id number] Oral 100 / 100 Output: Urine Amount (Catheter) 1700 / 1700 2800 / 2800 Condom 1700 / 1700 2800 / 2800 Other: Date of Last Bowel Movement 03/10/18 03/10/18 # Bowel Movements 1 # Incontinent Bowel Movements 1 Weight On Admission 113.2 kg - Additional findings Additional findings: Impressions Cervical Spine MRI 03/10/18 11:31 CONCLUSION: 1. Moderate spinal stenosis and bilateral foraminal narrowing at C3-4. 2. Mild bilateral foraminal narrowing at C5-6 and C6-7 as well as mild left neuroforaminal narrowing at C4-5. Lumbar Spine MRI 03/10/18 11:31 CONCLUSION: 1. Mild to moderate spinal stenosis and bilateral foraminal narrowing at L2-3. 2. Mild to moderate bilateral foraminal narrowing at L3-4 and L4-5 without spinal stenosis. 3. Degenerative disc disease from L2 through S1. Thoracic Spine MRI 03/10/18 11:31 CONCLUSION: 1. Comminuted fracture involving the T11 vertebral body, better visualized on comparison CT. There is anterolisthesis of T10 with respect to T11 resulting in cord compression and abnormal increased T2 signal identified within the cord. There is extensive anterior posterior paraspinal hematoma present. Chest X-Ray 03/11/18 06:00 CONCLUSION: Underinflated examination with atelectasis at the lung bases. Otherwise, no acute finding is identified. - Urinary Catheter Management Condom Cath placed during this visit: no Assessment and Plan - Assessment (1) Burst fracture of thoracic spine at T10-T11 level Status: Acute (2) Complete lesion at T10 level of thoracic spinal cord Code(s): S24.113A - Complete lesion at T7-T10 level of thoracic spinal cord, initial encounter Status: Acute (3) Closed spinal subluxation with complete thoracic cord lesion Status: Acute (4) Traumatic compression fracture of T11 thoracic vertebra Code(s): S22.080A - Wedge compression fracture of T11-T12 vertebra, initial encounter for closed fracture Status: Acute (5) Closed cervical spine fracture Code(s): S12.9XXA - Fracture of neck, unspecified, initial encounter Status: Acute Qualifiers: Encounter type: initial encounter Cervical vertebra fracture level: C6 Fracture alignment: nondisplaced - Plan 62-year-old gentleman with paraplegia and sensory loss/incontinence after a fall some time last evening. He has suffered from a T11 vertebral body comminuted fracture which also involves the bilateral facets with jumped facets and T10-11 fracture subluxation and complete spinal cord injury. Also complains of numbness in his left hand and fingers and may have cervical spinal cord injury or nerve root irritation syndrome with the possible C6 vertebrae fracture along with the C5-6 and anterior osteophyte fractures. He has extensive anterior cervical osteophytes throughout his spine. MRI scan cervical spine reveals stenosis at C3-4 level from a disc protrusion with cord compression along with multilevel anterior osteophytes. MRI scan of the thoracic/lumbar spine reveals T10-11 fracture subluxation with the level #2 body fractures and bilateral facet fractures with cord contusion and compression. The procedure of thoracolumbar decompression with stabilization pedicle screw fixation was discussed along the risks and benefits involved. He has no movement in his legs bilaterally and loss of sensation and incontinence which has not changed since yesterday. Also discussed staged procedure after the thoracic spine stabilization of anterior C3-4 discectomy with fusion along the risks and benefits involved as well as the option of nonsurgical management. He is requesting that we proceed with surgery and gives informed consent.
[2018-03-11 17:05] LABS: ABG Base Excess 2.7 mmol/L (-2-2); ABG PCO2 37 mmHg (38-42); ABG PO2 221 mmHG (61-120)
[2018-03-11] MEDS ORDERED: Propofol 1000 mg/100 ml Inj 1,000 MG/100 ML BOTTLE ONE (19:39)
--- NOTE | 2018-03-11 19:47 | P.OP ---
- Preoperative Diagnosis (1) Burst fracture of thoracic spine at T10-T11 level Comment: Trauma alert (2) Closed spinal subluxation with complete thoracic cord lesion Date of procedure: 03/12/18 Procedure: Posterior T9, T10, T11, T12, and L1 fusion; T10-11 laminectomy; T10-11 open reduction of the fracture subluxation; T9-L1 pedicle screw fixation; microsurgical technique Anesthesia: GETA Surgeon: Rayray Mclean MD Pitch Gatherer: Willa Randall Estimated blood loss (mL): 600 Operation and Findings: The procedure along with the risks and benefits involved were discussed with the patient including the option of nonsurgical management. He requested that we proceed with surgery and informed consent was obtained. Following initiation of a general endotracheal anesthesia with the neck maintained in a [place] J collar neutral position during the intubation and throughout the case, patient a Carrillo catheter placed on the sequential compression devices and was log rolled on a Xavier table on chest rolls in the prone position and all pressure points adequately padded. The posterior thoracic lumbar area was then shaved and prepped with alcohol along with ChloraPrep and sterilely draped with Ioban along with the usual sterile draping. Intraoperative fluoroscopy was used for level confirmation an incision in the midline made extending from that T9 to the L1 levels after infiltrating the skin with 0.5% Marcaine with epinephrine solution. The incision was extended down through the fascia and then using the subperiosteal plane the muscle attachments spinous processes and lamina along with the facets were detached from the T10 to L1 levels bilaterally. Self-retaining retractor was used for exposure and the T10-11 jumped facets with fractures and ligamentous disruption along with the T10 ventral subluxation relative to T11 was noted. We had corrected the kyphosis to some extent with the positioning also. Further dissection was undertaken using microtechnique with microscope magnification. The T10 and T11 lamina were resected with the drill bit and [place] and the jumped facet overlapping were also drilled out and with the [place] and towel clip we undertook reduction of this T10-11 fracture subluxation. Epidural venous stasis achieved with bipolar cautery along with Gelfoam and thrombin. No retraction or impingement of the thecal sac was undertaken for spinal canal decompression. Subsequently pedicle screw fixation was undertaken using [place] spine screws with the entry point ejection of the transverse process and facet at the T10 and T11 levels as well as T12 and L1 levels bilaterally. AP and lateral fluoroscopy guidance was used to and subsequently tap and screw placement bilaterally extending from T10 to the L1 levels which were then connected with the rods and locked in place with caps. I then decorticated the posterior lateral remnants of the laminae and facet lumbar transverse processes on the right side extending from T10 to L1 levels with a drill bit for posterolateral fusion. The local autograft bone from the laminectomy as well as demineralized bone matrix was then packed overlying the decorticated the posterior lateral elements extending from the T10 to the L1 level. A JOSE J 10 mm drain was also placed in the muscular layer which is then tunneled under the skin and secured at separate exit site and connected to a suction bulb. The area was copiously irrigated with vancomycin solution. AP and lateral fluoroscopy confirmed good placement of the construct as well as nondenominational of the spinal alignment. The muscle and fascia was then approximated using 2-0 Vicryl interrupted stitches and 3-0 Vicryl subcuticular interrupted stitches were also placed with final skin closure using carlos. Sterile dressings were then applied and he was then log roll supine position and extubated and taken recovery room. There were no intraoperative complications and all sponge and needle count was correct at the end the procedure. Estimated blood loss about 600 cc which was replaced Via Cell Saver. Patient also received packed red blood, platelet and cryoprecipitate intraoperative transfusion. Intraoperative neurologic monitoring was also undertaken which remained stable throughout the surgery. He was then taken to the intensive care unit.
[2018-03-11 20:04] LABS: Baso % (Auto) 0.2 % (0.0-2.0); Eos # (Auto) 0.3 th/mm3 (0.0-0.4); Eos % (Auto) 3.7 % (0.0-4.0); Hematocrit 40.9 % (39.0-51.0); Hemoglobin 13.7 gm/dL (13.0-17.0); Lymph # (Auto) 2.1 th/mm3 (1.0-4.8); Lymph % (Auto) 24.9 % (9.0-44.0); Mean Corpuscular HGB Conc 33.5 % (32.0-36.0); Mean Corpuscular Hemoglobin 28.6 pg (27.0-34.0); Mean Corpuscular Volume 85.2 fL (80.0-100.0); Mean Platelet Volume 9.4 fL (7.0-11.0); Mono # (Auto) 1.2 th/mm3 (0.0-0.9); Neut # (Auto) 4.9 th/mm3 (1.8-7.7); Neut % (Auto) 57.2 % (16.0-70.0); Platelet Count 189 th/mm3 (150-450); Red Blood Count 4.79 mil/mm3 (4.50-5.90); Red Cell Distribution Width 15.1 % (11.6-17.2); White Blood Count 8.5 th/mm3 (4.0-11.0)
[2018-03-11 20:14] LABS: Activated Partial Thrombo Time 26.9 sec (24.3-30.1); INR 1.1 Ratio; Prothrombin Time 10.9 sec (9.8-11.6)
[2018-03-11] MEDS ORDERED: fentaNYL Citrate Inj 100 MCG/2 ML Ampul ONE (20:27)
[2018-03-11 20:38] LABS: Calcium 7.9 mg/dL (8.5-10.1); Carbon Dioxide 23.9 meq/L (21.0-32.0); Potassium 4.1 meq/L (3.5-5.1)
--- NOTE | 2018-03-11 20:46 | XR ---
EXAM DATE: 03/11/2018 8:37 PM EDT AGE/SEX: 62 years / Male INDICATIONS: T9-L1 fusion. CLINICAL DATA: This is the patient's subsequent encounter. Patient reports that signs and symptoms h ave been present for 1 day and indicates a pain score of Nonresponsive. MEDICAL/SURGICAL HISTORY: Non-responsive. Non-responsive. COMPARISON: [facility] [place], MR THORACIC SPINE W/O CONTRAST, 03/10/2018. . FINDINGS: The patient is status post fusion extending from T9 through L1 with compression deformity involving T 11. Hardware appears to be in good position. CONCLUSION: Status post fusion from T9 through L1 with stable compression deformity of T11 and hardware in good p osition. Electronically signed by: Wilfredo Henriquez MD 03/11/2018 8:44 PM EDT
[2018-03-11] MEDS ORDERED: *morphine SULFATE 4 MG/ML PERIprocedure ONLY ONE (20:47)
[2018-03-11 21:30] LABS: ABG Base Excess 3.3 mmol/L (-2-2); ABG PCO2 45 mmHg (38-42); ABG PO2 131 mmHG (61-120)
[2018-03-11 21:38] LABS: Baso % (Auto) 0.1 % (0.0-2.0); Hematocrit 30.4 % (39.0-51.0); Hemoglobin 10.1 gm/dL (13.0-17.0); Lymph # (Auto) 0.4 th/mm3 (1.0-4.8); Lymph % (Auto) 3.8 % (9.0-44.0); Mean Corpuscular HGB Conc 33.4 % (32.0-36.0); Mean Corpuscular Hemoglobin 31.6 pg (27.0-34.0); Mean Corpuscular Volume 94.6 fL (80.0-100.0); Mono # (Auto) 0.5 th/mm3 (0.0-0.9); Mono % (Auto) 5.6 % (0.0-8.0); Neut # (Auto) 8.7 th/mm3 (1.8-7.7); Neut % (Auto) 90.5 % (16.0-70.0); Platelet Count 109 th/mm3 (150-450); Red Blood Count 3.21 mil/mm3 (4.50-5.90); Red Cell Distribution Width 15.6 % (11.6-17.2); White Blood Count 9.6 th/mm3 (4.0-11.0)
[2018-03-11 21:55] LABS: Anion Gap 7 meq/L (5-15); Blood Urea Nitrogen 5 mg/dL (7-18); Chloride 107 meq/L (98-107); Glomerular Filtration Rate Greater Than 89 mL/min (>89); Glucose,Random 156 mg/dL (74-106); Potassium 3.8 meq/L (3.5-5.1); Sodium 145 meq/L (136-145)
[2018-03-11 22:00] LABS: Activated Partial Thrombo Time 26.4 sec (24.3-30.1); Prothrombin Time 10.6 sec (9.8-11.6)
[2018-03-11 22:14] LABS: Total Protein 5.3 g/dL (6.4-8.2)
[2018-03-11 23:23] LABS: ABG PCO2 40 mmHg (38-42); ABG PO2 293 mmHG (61-120)
[2018-03-12] MEDS: Propofol 1000 mg/100 ml Inj 1,000 MG/100 ML BOTTLE IV.CONT PRN ×2 (01:38→05:06)
[2018-03-12] MEDS: dilTIAZem 60 MG Tablet PO SCH ×3 (03:21→21:06)
[2018-03-12] MEDS: Morphine Sulfate Inj 2 MG/ML Vial IV.PUSH PRN ×2 (03:35)
[2018-03-12 03:53] LABS: Hematocrit 27.8 % (39.0-51.0); Hemoglobin 9.4 gm/dL (13.0-17.0); Lymph # (Auto) 0.5 th/mm3 (1.0-4.8); Lymph % (Auto) 5.6 % (9.0-44.0); Mean Corpuscular HGB Conc 33.8 % (32.0-36.0); Mean Corpuscular Volume 94.8 fL (80.0-100.0); Mean Platelet Volume 8.2 fL (7.0-11.0); Mono # (Auto) 0.9 th/mm3 (0.0-0.9); Neut # (Auto) 7.4 th/mm3 (1.8-7.7); Neut % (Auto) 84.4 % (16.0-70.0); Platelet Count 104 th/mm3 (150-450); Red Blood Count 2.94 mil/mm3 (4.50-5.90); Red Cell Distribution Width 15.3 % (11.6-17.2); White Blood Count 8.8 th/mm3 (4.0-11.0)
[2018-03-12 04:33] LABS: Alanine Aminotransferase 50 U/L (12-78); Albumin 2.5 g/dL (3.4-5.0); Alkaline Phosphatase 77 U/L (45-117); Anion Gap 7 meq/L (5-15); Aspartate Aminotransferase 108 U/L (15-37); Blood Urea Nitrogen 6 mg/dL (7-18); Calcium 6.8 mg/dL (8.5-10.1); Carbon Dioxide 30.7 meq/L (21.0-32.0); Chloride 110 meq/L (98-107); Glomerular Filtration Rate Greater Than 89 mL/min (>89); Glucose,Random 138 mg/dL (74-106); Potassium 4.1 meq/L (3.5-5.1); Sodium 148 meq/L (136-145); Total Protein 5.3 g/dL (6.4-8.2)
[2018-03-12] MEDS: Chlorhexidine Gluconate 2% 1 Pack (2 Cloths) TOPICAL SCH (04:38)
[2018-03-12] MEDS ORDERED: fentaNYL 10 mcg/mL Premix Drip 2,500 MCG/250 ML BAG IV.SIG PRN (05:05)
--- NOTE | 2018-03-12 05:41 | XR ---
EXAM DATE: 03/12/2018 5:28 AM EDT AGE/SEX: 62 years / Male INDICATIONS: Shortness of breath. CLINICAL DATA: This is the patient's subsequent encounter. Patient reports that signs and symptoms h ave been present for 3 days and indicates a pain score of Nonresponsive. MEDICAL/SURGICAL HISTORY: None. None. COMPARISON: [facility] [place], CHEST 1V SINGLE AP, 03/11/2018. [facility] [place], CT CHEST W CONTRAST, 03/10/2018. . FINDINGS: Portable AP view of the chest demonstrates a normal-sized cardiac silhouette. ETT and nasogastric tub e are present. Lungs are underinflated. There is a partially visualized opacity at the visualized lef t base. The complete left base was not imaged on this examination. There is mild atelectasis at the r ight lung base. No pneumothorax is seen. Bones demonstrate no acute finding. CONCLUSION: Underinflated examination with suspected airspace opacity at the left lung base which is only partial ly visualized on this examination. The chest x-ray image does not completely evaluate the left lung b ase. Electronically signed by: Shine Brown MD 03/12/2018 5:40 AM EDT
[2018-03-12] MEDS ORDERED: Chlorhexidine 0.12% Oral Kit 15 ML UDC OROPHARYNG SCH (08:00)
[2018-03-12] MEDS: Sod Chloride 0.9% Inj 1,000 ML IV.CONT SCH ×2 (08:44→14:24)
[2018-03-12] MEDS: Senna/Docusate Sodium 8.6/50 MG Tablet PO SCH ×2 (09:09→21:07)
[2018-03-12] MEDS: Docusate Sodium 100 MG Capsule PO SCH ×2 (09:09→21:07)
[2018-03-12] MEDS: Gabapentin 300 MG Capsule PO SCH ×3 (09:09→17:30)
[2018-03-12] MEDS: Oral Hygiene Kit OROPHARYNG SCH ×2 (11:12→16:16)
[2018-03-12] MEDS: Multivitamin Inj 10 ML, Thiamine Inj 100 MG, Folic Acid Inj 1 MG in Sodium Chlor 0.9% I... IV.SIG SCH (11:12)
--- NOTE | 2018-03-12 12:22 | P.PNCC ---
Subjective Brief History: 62-year-old male was drunk and [place] 8 [place] height. Details are not known patient was transferred to our institution as priority 1 trauma alert spinal board with c-collar in place. Patient is complaining about numbness and weakness in the left arm and the left leg as well as neck and back pain. He is heavily intoxicated at the time of arrival. Physical examination reveals patient to be awake alert and somewhat confused but oriented answering simple questions appropriately not really remembering what happened to him. On physical examination patient has bilateral equal strength in the arms however unable to lift the left leg off the bed and he can only slide it along making this 1/5 motoric deficit Decreased sensation in the left leg to the knee Patient underwent full diagnostic and clinical workup and appropriate services have been consulted patients placed in ICU for further care CT scan of the cervical thoracic and lumbar spine was performed followed by the MRI of the thoracic spine Final diagnoses 1. Severely comminuted fracture through the body of T11. 2. Grade 2 anterior spondylolisthesis of T10 over T11 with locked facets bilaterally causing spinal canal stenosis. 3. Nondisplaced fractures involving the left transverse process of T10 and the right transverse process of T11. 4. Nondisplaced fractures involving bilateral ribs. 5. Mild right pulmonary contusion and likely aspiration 7. Nondisplaced fracture of the left aspect of C6 vertebral body. 24 Hour Review/Hospital Course: 03/11/2018 Patient was admitted yesterday after falling off of a [place] while he was asleep and intoxicated. He suffered a C6 fracture right clavicle fracture T10 and 11 fracture as well as multiple rib fractures. Plan is to go to the operating room today to address his T11 compression fracture 03/12/2018 Patient underwentPosterior T9, T10, T11, T12, and L1 fusion; T10-11 laminectomy ; T10-11 open reduction of the fracture subluxation; T9-L1 pedicle screw fixation yesterday, and remained intubated postoperatively. He is currently awake and meets criteria for extubation. We will extubate today Objective Vital Signs / I&O: Vital Signs 03/11/18 12:25 03/11/18 12:40 03/11/18 12:54 Temperature Pulse Rate 76 75 Respiratory Rate 12 13 Blood Pressure 140/70 145/80 H Pulse Oximetry 97 94 L 90 L 03/11/18 12:55 03/11/18 13:10 03/11/18 13:25 Temperature Pulse Rate 80 82 79 Respiratory Rate 16 13 13 Blood Pressure 161/90 H 155/82 H 158/84 H Pulse Oximetry 94 L 98 97 03/11/18 17:29 03/11/18 17:40 03/11/18 19:07 Temperature 96.6 F L 96.3 F L 97.3 F L Pulse Rate 77 80 75 Respiratory Rate 12 12 14 Blood Pressure 92/63 L 92/63 L 121/71 Pulse Oximetry 100 100 99 03/11/18 20:13 03/11/18 20:15 03/11/18 20:18 Temperature 98.1 F Pulse Rate 66 67 Respiratory Rate 14 14 14 Blood Pressure 91/54 L 117/57 L Pulse Oximetry 100 100 100 03/11/18 20:23 03/11/18 20:30 03/11/18 20:45 Temperature Pulse Rate 70 73 103 H Respiratory Rate 14 14 14 Blood Pressure 122/79 137/72 126/81 Pulse Oximetry 100 100 03/11/18 21:00 03/11/18 21:15 03/11/18 21:30 Temperature 98.8 F Pulse Rate 69 78 81 Respiratory Rate 14 14 14 Blood Pressure 127/65 120/69 132/73 Pulse Oximetry 100 100 100 03/11/18 21:52 03/11/18 22:00 03/12/18 00:00 Temperature 98.1 F 98.0 F Pulse Rate 77 67 Respiratory Rate 19 17 14 Blood Pressure 124/64 105/59 L Pulse Oximetry 100 100 100 03/12/18 00:28 03/12/18 02:00 03/12/18 04:00 Temperature 98.6 F Pulse Rate 69 72 Respiratory Rate 14 15 Blood Pressure 96/56 L Pulse Oximetry 99 100 03/12/18 04:07 03/12/18 06:00 03/12/18 08:00 Temperature 99.3 F Pulse Rate 79 85 Respiratory Rate 15 14 Blood Pressure 134/71 Pulse Oximetry 100 100 03/12/18 08:28 03/12/18 08:32 03/12/18 10:00 Temperature Pulse Rate 87 84 Respiratory Rate 20 16 Blood Pressure Pulse Oximetry 100 03/12/18 12:00 Temperature 98.5 F Pulse Rate 68 Respiratory Rate 12 Blood Pressure 127/71 Pulse Oximetry 97 Intake & Output 03/11/18 03/12/18 03/12/18 18:59 06:59 18:59 Intake Total 865 / 865 2782.2 / 2782.2 130 / 130 Output Total 50 / 50 1640 / 1640 Balance 815 / 815 1142.2 / 1142.2 130 / 130 Weight 119.8 kg Intake: IV 225 / 225 1911.2 / 1911.2 130 / 130 Diprivan 1000 mg/100 ml Inj 1, 100 / 100 000 mg In 100 ml @ 0 mls/hr . ROUTE .[facility] Rx#:[id number] Diprivan 1000 mg/100 ml Inj 1, 100 / 100 80 / 80 000 mg In 100 ml @ 5 MCG/KG/MIN 3.396 mls/hr IV.CONT TITRATE PRN Rx#:[id number] NS Inj 1,000 ML @ 100 mls/hr IV 1000 / 1000 .CONT .Q10H [facility] Rx#:[id number] Cardizem Inj 125 MG In NS Inj 25 / 25 100 ML @ 5 MG/HR 5 mls/hr IV. CONT TITRATE PRN Rx#:[id number] MVI-12 Inj 10 ML Thiamine Inj 511.2 / 511.2 100 MG Folvite Inj 1 MG In NS Inj 500 ML @ 127.8 mls/hr IV. SIG Q24H [facility] Rx#:[id number] KCl 20 mEq Premix Inj 20 meq In 200 / 200 100 ml @ 50 mls/hr IV.SIG Q2H [facility] Rx#:[id number] Ancef Inj 1,000 MG In NS Inj 200 / 200 100 ML @ 200 mls/hr IV.SIG Q8H [facility] Rx#:[id number] fentaNYL 10 mcg/mL Premix Drip 50 / 50 2,500 mcg In 250 ml @ 50 MCG/HR 5 mls/hr IV.SIG TITRATE PRN Rx #:[id number] Oral 240 / 240 Tube Irrigant 40 / 40 Intake (Blood Product) Amt 400 / 400 231 / 231 Plt Pheresis A Leukoreduced 0 / 0 Unit [id number] Pre-Pooled Cryo Thawed 10units 0 / 0 Unit [id number] Pre-Pooled Cryo Thawed 10units 231 / 231 Unit [id number] Rbc As-3 Leukoreduced Unit 400 / 400 [id number] Cell Saver Amount 600 / 600 Output: Urine Amount (Catheter) 50 / 50 1550 / 1550 Condom 50 / 50 Indwelling Urethral Catheter 1550 / 1550 Wound Drainage 90 / 90 # 1 Left Upper Back 40 / 40 Back 50 / 50 Other: Date of Last Bowel Movement 03/10/18 03/10/18 03/10/18 # Bowel Movements 0 Result Diagrams: 03/12/18 03:30 03/12/18 03:30 Imaging: Impressions Thoracolumbar Spine 03/11/18 00:00 CONCLUSION: Status post fusion from T9 through L1 with stable compression deformity of T11 and hardware in good position. Chest X-Ray 03/12/18 06:00 CONCLUSION: Underinflated examination with suspected airspace opacity at the left lung base which is only partially visualized on this examination. The chest x-ray image does not completely evaluate the left lung base. 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 Pain control and aggressive pulmonary toilet
--- NOTE | 2018-03-12 12:59 | P.PNNS ---
Subjective Interval history: Pt s/p Posterior T9, T10, T11, T12, and L1 fusion; T10-11 laminectomy; T10-11 open reduction of the fracture subluxation; T9-L1 pedicle screw fixation; microsurgical technique by Dr. Mclean on 03/11/18. He is intubated. He is agitated with tremors in UEs. <GloriaBlakeIsai - Last Filed: 03/12/18 12:49> Physical Exam Vital signs: Vital Signs 03/11/18 12:54 03/11/18 12:55 03/11/18 13:10 Temperature Pulse Rate 80 82 Respiratory Rate 16 13 Blood Pressure 161/90 H 155/82 H Pulse Oximetry 90 L 94 L 98 03/11/18 13:25 03/11/18 17:29 03/11/18 17:40 Temperature 96.6 F L 96.3 F L Pulse Rate 79 77 80 Respiratory Rate 13 12 12 Blood Pressure 158/84 H 92/63 L 92/63 L Pulse Oximetry 97 100 100 03/11/18 19:07 03/11/18 20:13 03/11/18 20:15 Temperature 97.3 F L 98.1 F Pulse Rate 75 66 Respiratory Rate 14 14 14 Blood Pressure 121/71 91/54 L Pulse Oximetry 99 100 100 03/11/18 20:18 03/11/18 20:23 03/11/18 20:30 Temperature Pulse Rate 67 70 73 Respiratory Rate 14 14 14 Blood Pressure 117/57 L 122/79 137/72 Pulse Oximetry 100 100 100 03/11/18 20:45 03/11/18 21:00 03/11/18 21:15 Temperature 98.8 F Pulse Rate 103 H 69 78 Respiratory Rate 14 14 14 Blood Pressure 126/81 127/65 120/69 Pulse Oximetry 100 100 03/11/18 21:30 03/11/18 21:52 03/11/18 22:00 Temperature 98.1 F Pulse Rate 81 77 Respiratory Rate 14 19 17 Blood Pressure 132/73 124/64 Pulse Oximetry 100 100 100 03/12/18 00:00 03/12/18 00:28 03/12/18 02:00 Temperature 98.0 F Pulse Rate 67 69 Respiratory Rate 14 14 Blood Pressure 105/59 L Pulse Oximetry 100 99 03/12/18 04:00 03/12/18 04:07 03/12/18 06:00 Temperature 98.6 F Pulse Rate 72 79 Respiratory Rate 15 15 Blood Pressure 96/56 L Pulse Oximetry 100 100 03/12/18 08:00 03/12/18 08:28 03/12/18 08:32 Temperature 99.3 F Pulse Rate 85 87 Respiratory Rate 14 20 16 Blood Pressure 134/71 Pulse Oximetry 100 100 03/12/18 10:00 03/12/18 12:00 Temperature 98.5 F Pulse Rate 84 68 Respiratory Rate 12 Blood Pressure 127/71 Pulse Oximetry 97 Intake & Output 03/11/18 03/12/18 03/12/18 18:59 06:59 18:59 Intake Total 865 / 865 2782.2 / 2782.2 130 / 130 Output Total 50 / 50 1640 / 1640 Balance 815 / 815 1142.2 / 1142.2 130 / 130 Weight 119.8 kg Intake: IV 225 / 225 1911.2 / 1911.2 130 / 130 Diprivan 1000 mg/100 ml Inj 1, 100 / 100 000 mg In 100 ml @ 0 mls/hr . R[facility]TE [facility] Rx#:[id number] Diprivan 1000 mg/100 ml Inj 1, 100 / 100 80 / 80 000 mg In 100 ml @ 5 MCG/KG/MIN 3.396 mls/hr IV.CONT TITRATE PRN Rx#:[id number] NS Inj 1,000 ML @ 100 mls/hr IV 1000 / 1000 .CONT .Q10H [facility] Rx#:[id number] Cardizem Inj 125 MG In NS Inj 25 / 25 100 ML @ 5 MG/HR 5 mls/hr IV. CONT TITRATE PRN Rx#:[id number] MVI-12 Inj 10 ML Thiamine Inj 511.2 / 511.2 100 MG Folvite Inj 1 MG In NS Inj 500 ML @ 127.8 mls/hr IV. SIG Q24H [facility] Rx#:[id number] KCl 20 mEq Premix Inj 20 meq In 200 / 200 100 ml @ 50 mls/hr IV.SIG Q2H [facility] Rx#:[id number] Ancef Inj 1,000 MG In NS Inj 200 / 200 100 ML @ 200 mls/hr IV.SIG Q8H [facility] Rx#:[id number] fentaNYL 10 mcg/mL Premix Drip 50 / 50 2,500 mcg In 250 ml @ 50 MCG/HR 5 mls/hr IV.SIG TITRATE PRN Rx #:[id number] Oral 240 / 240 Tube Irrigant 40 / 40 Intake (Blood Product) Amt 400 / 400 231 / 231 Plt Pheresis A Leukoreduced 0 / 0 Unit [id number] Pre-Pooled Cryo Thawed 10units 0 / 0 Unit [id number] Pre-Pooled Cryo Thawed 10units 231 / 231 Unit [id number] Rbc As-3 Leukoreduced Unit 400 / 400 [id number] Cell Saver Amount 600 / 600 Output: Urine Amount (Catheter) 50 / 50 1550 / 1550 Condom 50 / 50 Indwelling Urethral Catheter 1550 / 1550 Wound Drainage 90 / 90 # 1 Left Upper Back 40 / 40 Back 50 / 50 Other: Date of Last Bowel Movement 03/10/18 03/10/18 03/10/18 # Bowel Movements 0 - Constitutional obese, agitated - Routine HEENT Exam Head: Present: normocephalic, atraumatic Eye: Present: PERRL. Absent: conjunctival icterus ENT: Absent: oropharynx clear (ET intubated.) - Routine Neck Exam Present: trachea midline - Routine Respiratory Exam Present: patient mechanically ventilated, CTA bilaterally. Absent: respiratory distress, rhonchi, wheezes - Routine Cardiovascular Exam Present: S1, S2, tachycardia - Routine Abdominal Exam Present: soft. Absent: normoactive bowel sounds (decreased.), distended, firm - Routine Skin Exam Absent: cyanosis, erythema Comments: SCDs in place. - Routine Neurological Exam Present: alert, sensory deficit (Pt not able to feel painful stimulation in LEs. He indicated he is able to feel me touching his abdomen.), motor deficit ( No movement in LEs. UEs in restraings given his agitation. ). Absent: moving all extremities (No movement in LEs. Moves UEs well requires restraints.) - Detailed Neurological Exam: Coma Scale Eye Opening: Spontaneous Verbal Response: None Motor Response: Obey commands (UEs. and nods to questions.) Guicho Coma Scale Total: 11 - Routine Psychiatric Exam Present: agitated - Urinary Catheter Management Condom Cath placed during this visit: no Reason for continuing: Not indwelling catheter Indwelling Urethral Catheter Cath placed during this visit: yes Reason for continuing: Hourly intake/output Insertion date: 03/11/18 Insertion time: 14:30 <Isai Castro - Last Filed: 03/12/18 12:49> Vital signs: Vital Signs 03/11/18 17:29 03/11/18 17:40 03/11/18 19:07 Temperature 96.6 F L 96.3 F L 97.3 F L Pulse Rate 77 80 75 Respiratory Rate 12 12 14 Blood Pressure 92/63 L 92/63 L 121/71 Pulse Oximetry 100 100 99 03/11/18 20:13 03/11/18 20:15 03/11/18 20:18 Temperature 98.1 F Pulse Rate 66 67 Respiratory Rate 14 14 14 Blood Pressure 91/54 L 117/57 L Pulse Oximetry 100 100 100 03/11/18 20:23 03/11/18 20:30 03/11/18 20:45 Temperature Pulse Rate 70 73 103 H Respiratory Rate 14 14 14 Blood Pressure 122/79 137/72 126/81 Pulse Oximetry 100 100 03/11/18 21:00 03/11/18 21:15 03/11/18 21:30 Temperature 98.8 F Pulse Rate 69 78 81 Respiratory Rate 14 14 14 Blood Pressure 127/65 120/69 132/73 Pulse Oximetry 100 100 100 03/11/18 21:52 03/11/18 22:00 03/12/18 00:00 Temperature 98.1 F 98.0 F Pulse Rate 77 67 Respiratory Rate 19 17 14 Blood Pressure 124/64 105/59 L Pulse Oximetry 100 100 100 03/12/18 00:28 03/12/18 02:00 03/12/18 04:00 Temperature 98.6 F Pulse Rate 69 72 Respiratory Rate 14 15 Blood Pressure 96/56 L Pulse Oximetry 99 100 03/12/18 04:07 03/12/18 06:00 03/12/18 08:00 Temperature 99.3 F Pulse Rate 79 85 Respiratory Rate 15 14 Blood Pressure 134/71 Pulse Oximetry 100 100 03/12/18 08:28 03/12/18 08:32 03/12/18 10:00 Temperature Pulse Rate 87 84 Respiratory Rate 20 16 Blood Pressure Pulse Oximetry 100 03/12/18 12:00 03/12/18 14:00 Temperature 98.5 F Pulse Rate 68 76 Respiratory Rate 12 Blood Pressure 127/71 Pulse Oximetry 97 Intake & Output 03/11/18 03/12/18 03/12/18 18:59 06:59 18:59 Intake Total 865 / 865 2782.2 / 2782.2 1741.2 / 1741.2 Output Total 50 / 50 1640 / 1640 Balance 815 / 815 1142.2 / 1142.2 1741.2 / 1741.2 Weight 119.8 kg Intake: IV 225 / 225 1911.2 / 1911.2 1741.2 / 1741.2 Diprivan 1000 mg/100 ml Inj 1, 100 / 100 000 mg In 100 ml @ 0 mls/hr . ROUTE .[facility] Rx#:[id number] Diprivan 1000 mg/100 ml Inj 1, 100 / 100 80 / 80 000 mg In 100 ml @ 5 MCG/KG/MIN 3.396 mls/hr IV.CONT TITRATE PRN Rx#:[id number] NS Inj 1,000 ML @ 100 mls/hr IV 1000 / 1000 .CONT .Q10H [facility] Rx#:[id number] Cardizem Inj 125 MG In NS Inj 25 / 25 100 ML @ 5 MG/HR 5 mls/hr IV. CONT TITRATE PRN Rx#:[id number] LR 1000 mL Inj 1,000 ML @ 30 1000 / 1000 mls/hr IV.SIG .Q24H [facility] Rx#: [id number] MVI-12 Inj 10 ML Thiamine Inj 511.2 / 511.2 511.2 / 511.2 100 MG Folvite Inj 1 MG In NS Inj 500 ML @ 127.8 mls/hr IV. SIG Q24H [facility] Rx#:[id number] KCl 20 mEq Premix Inj 20 meq In 200 / 200 100 ml @ 50 mls/hr IV.SIG Q2H [facility] Rx#:[id number] Ancef Inj 1,000 MG In NS Inj 200 / 200 100 / 100 100 ML @ 200 mls/hr IV.SIG Q8H [facility] Rx#:[id number] fentaNYL 10 mcg/mL Premix Drip 50 / 50 2,500 mcg In 250 ml @ 50 MCG/HR 5 mls/hr IV.SIG TITRATE PRN Rx #:[id number] Oral 240 / 240 Tube Irrigant 40 / 40 Intake (Blood Product) Amt 400 / 400 231 / 231 Plt Pheresis A Leukoreduced 0 / 0 Unit [id number] Pre-Pooled Cryo Thawed 10units 0 / 0 Unit [id number] Pre-Pooled Cryo Thawed 10units 231 / 231 Unit [id number] Rbc As-3 Leukoreduced Unit 400 / 400 [id number] Cell Saver Amount 600 / 600 Output: Urine Amount (Catheter) 50 / 50 1550 / 1550 Condom 50 / 50 Indwelling Urethral Catheter 1550 / 1550 Wound Drainage 90 / 90 # 1 Left Upper Back 40 / 40 Back 50 / 50 Other: Date of Last Bowel Movement 03/10/18 03/10/18 03/10/18 # Bowel Movements 0 - Urinary Catheter Management Condom Cath placed during this visit: no Indwelling Urethral Catheter Cath placed during this visit: no <Rayray Mclean - Last Filed: 03/12/18 16:25> Assessment and Plan - Assessment (1) Closed rib fracture Code(s): S22.39XA - Fracture of one rib, unspecified side, initial encounter for closed fracture Status: Acute (2) Traumatic compression fracture of T11 thoracic vertebra Code(s): S22.080A - Wedge compression fracture of T11-T12 vertebra, initial encounter for closed fracture Status: Acute (3) Fracture of rib Code(s): S22.39XA - Fracture of one rib, unspecified side, initial encounter for closed fracture Status: Acute (4) Burst fracture of thoracic spine at T10-T11 level Status: Acute (5) Complete lesion at T10 level of thoracic spinal cord Code(s): S24.113A - Complete lesion at T7-T10 level of thoracic spinal cord, initial encounter Status: Acute (6) Closed spinal subluxation with complete thoracic cord lesion Status: Acute (7) Closed cervical spine fracture Code(s): S12.9XXA - Fracture of neck, unspecified, initial encounter Status: Acute Qualifiers: Encounter type: initial encounter Cervical vertebra fracture level: C6 Fracture alignment: nondisplaced - Plan 62-year-old gentleman with paraplegia and sensory loss/incontinence after a fall some time last evening. He has suffered from a T11 vertebral body comminuted fracture which also involves the bilateral facets with jumped facets and T10-11 fracture subluxation and complete spinal cord injury. Also complains of numbness in his left hand and fingers and may have cervical spinal cord injury or nerve root irritation syndrome with the possible C6 vertebrae fracture along with the C5-6 and anterior osteophyte fractures. He has extensive anterior cervical osteophytes throughout his spine. MRI scan cervical spine reveals stenosis at C3-4 level from a disc protrusion with cord compression along with multilevel anterior osteophytes. MRI scan of the thoracic/lumbar spine reveals T10-11 fracture subluxation with the level #2 body fractures and bilateral facet fractures with cord contusion and compression. The procedure of thoracolumbar decompression with stabilization pedicle screw fixation was discussed along the risks and benefits involved. He has no movement in his legs bilaterally and loss of sensation and incontinence which has not changed since yesterday. Also discussed staged procedure after the thoracic spine stabilization of anterior C3-4 discectomy with fusion along the risks and benefits involved as well as the option of nonsurgical management. He is requesting that we proceed with surgery and gives informed consent. Pt s/p Posterior T9, T10, T11, T12, and L1 fusion; T10-11 laminectomy; T10-11 open reduction of the fracture subluxation; T9-L1 pedicle screw fixation; microsurgical technique by Dr. Mclean on 03/11/18. P: Continue with post op surgical current care Continue to monitor Continue with GI prophylaxis Continue with SCDs for DVT prophylaxis <Isai Castro - Last Filed: 03/12/18 12:49> - Assessment (1) Burst fracture of thoracic spine at T10-T11 level Status: Acute (2) Complete lesion at T10 level of thoracic spinal cord Code(s): S24.113A - Complete lesion at T7-T10 level of thoracic spinal cord, initial encounter Status: Acute (3) Closed spinal subluxation with complete thoracic cord lesion Status: Acute (4) Traumatic compression fracture of T11 thoracic vertebra Code(s): S22.080A - Wedge compression fracture of T11-T12 vertebra, initial encounter for closed fracture Status: Acute (5) Closed cervical spine fracture Code(s): S12.9XXA - Fracture of neck, unspecified, initial encounter Status: Acute Qualifiers: Encounter type: initial encounter Cervical vertebra fracture level: C6 Fracture alignment: nondisplaced - Attending Attestation The exam, history, and the medical decision-making described in the above note were completed with the assistance of the mid-level provider. I reviewed and agree with the findings presented. I attest that I had a [id number] encounter with the patient on the same day, and personally performed and documented my assessment and findings in the medical record. Patient extubated and updated on thoracic spine surgery and condition all of his questions answered. We discussed treatment options for the cervical stenosis with cord compression at C3-4 level from a disc osteophyte complex including surgery as well as nonsurgical management. He is requesting that we proceed with surgery and accordingly we will schedule this for tomorrow. Informed consent obtained. <Rayray Mclean - Last Filed: 03/12/18 16:25>
[2018-03-12] MEDS: Lidocaine 5% Patch T-DERMAL SCH (14:29)
[2018-03-12] MEDS ORDERED: Enoxaparin Inj 30 MG/0.3 ML Syringe SQ SCH (21:00)
[2018-03-13] MEDS: Sod Chloride 0.9% Inj 1,000 ML IV.CONT SCH ×3 (00:13→18:28)
[2018-03-13] MEDS: Morphine Sulfate Inj 2 MG/ML Vial IV.PUSH PRN ×3 (00:14→12:00)
[2018-03-13] MEDS: Oral Hygiene Kit OROPHARYNG SCH ×4 (01:53→18:21)
--- NOTE | 2018-03-13 04:25 | XR ---
EXAM DATE: 03/13/2018 4:16 AM EDT AGE/SEX: 62 years / Male INDICATIONS: Follow up trauma alert. CLINICAL DATA: This is the patient's subsequent encounter. Patient reports that signs and symptoms h ave been present for 4 - 6 days and indicates a pain score of Nonresponsive. MEDICAL/SURGICAL HISTORY: Non-responsive. Non-responsive. COMPARISON: [facility], CHEST 1V SINGLE AP, 03/12/2018. [facility], CT CHEST W CONTRAST, 03/10/2018. . FINDINGS: Interval extubation and removal of gastric tube. There is persisting consolidation in the medial left lower lung with loss of delineation of the left hemidiaphragm. No infiltrates seen in the right lung . Along the lateral left chest wall is a horizontal lucency which is of uncertain significance; this could be external to the chest or represent a pneumothorax. The heart is normal size. Hardware in the thoracolumbar spine. CONCLUSION: 1. Persistent left lower lobe consolidation. 2. Horizontal lucency adjacent to the lateral left chest wall of uncertain significance, cannot excl ude pneumothorax. Recommend expiratory upright view of the chest or noncontrast CT thorax if an uprig ht view cannot be performed. Electronically signed by: Macario Aden MD 03/13/2018 4:23 AM EDT
[2018-03-13 05:18] LABS: Baso % (Auto) 0.1 % (0.0-2.0); Eos % (Auto) 0.1 % (0.0-4.0); Hematocrit 25.4 % (39.0-51.0); Hemoglobin 8.5 gm/dL (13.0-17.0); Lymph # (Auto) 1.4 th/mm3 (1.0-4.8); Lymph % (Auto) 18.5 % (9.0-44.0); Mean Corpuscular HGB Conc 33.5 % (32.0-36.0); Mean Corpuscular Hemoglobin 32.1 pg (27.0-34.0); Mean Corpuscular Volume 95.8 fL (80.0-100.0); Mean Platelet Volume 8.4 fL (7.0-11.0); Mono # (Auto) 0.9 th/mm3 (0.0-0.9); Mono % (Auto) 11.1 % (0.0-8.0); Neut # (Auto) 5.4 th/mm3 (1.8-7.7); Neut % (Auto) 70.2 % (16.0-70.0); Platelet Count 114 th/mm3 (150-450); Red Blood Count 2.65 mil/mm3 (4.50-5.90); Red Cell Distribution Width 14.6 % (11.6-17.2); White Blood Count 7.7 th/mm3 (4.0-11.0)
[2018-03-13] MEDS: dilTIAZem 60 MG Tablet PO SCH ×3 (05:21→18:28)
[2018-03-13] MEDS: Chlorhexidine Gluconate 2% 1 Pack (2 Cloths) TOPICAL SCH (05:21)
[2018-03-13 05:51] LABS: Alanine Aminotransferase 58 U/L (12-78); Albumin 2.7 g/dL (3.4-5.0); Alkaline Phosphatase 81 U/L (45-117); Anion Gap 8 meq/L (5-15); Aspartate Aminotransferase 128 U/L (15-37); Blood Urea Nitrogen 6 mg/dL (7-18); Calcium 7.5 mg/dL (8.5-10.1); Carbon Dioxide 29.8 meq/L (21.0-32.0); Chloride 107 meq/L (98-107); Glomerular Filtration Rate Greater Than 89 mL/min (>89); Glucose,Random 102 mg/dL (74-106); Potassium 3.2 meq/L (3.5-5.1); Sodium 145 meq/L (136-145); Total Protein 5.7 g/dL (6.4-8.2)
[2018-03-13] MEDS ORDERED: Gelatin Size 100 Topical Foam ONE (06:47)
[2018-03-13] MEDS ORDERED: Bupivacaine/Epinephrine 0.5% Inj 50 ML Vial ONE (06:47)
[2018-03-13] MEDS ORDERED: methylPREDNISolone acetate 40 MG/ML VIAL ONE (06:47)
[2018-03-13] MEDS ORDERED: Thrombin Topical Soln 5,000 UNIT Vial TOPICAL ONE (06:51)
[2018-03-13] MEDS: Gabapentin 300 MG Capsule PO SCH ×3 (08:32→18:28)
[2018-03-13] MEDS: Lidocaine 5% Patch T-DERMAL SCH (08:32)
[2018-03-13] MEDS: Senna/Docusate Sodium 8.6/50 MG Tablet PO SCH ×2 (08:32→21:54)
[2018-03-13] MEDS: Docusate Sodium 100 MG Capsule PO SCH ×2 (08:32→21:55)
[2018-03-13] MEDS: Multivitamin Inj 10 ML, Thiamine Inj 100 MG, Folic Acid Inj 1 MG in Sodium Chlor 0.9% I... IV.SIG SCH (10:39)
--- NOTE | 2018-03-13 11:32 | P.PNCC ---
Subjective Brief History: 62-year-old male was drunk and fell off of some wall [place] 8 feet height. Details are not known patient was transferred to our institution as priority 1 trauma alert spinal board with c-collar in place. Patient is complaining about numbness and weakness in the left arm and the left leg as well as neck and back pain. He is heavily intoxicated at the time of arrival. Physical examination reveals patient to be awake alert and somewhat confused but oriented answering simple questions appropriately not really remembering what happened to him. On physical examination patient has bilateral equal strength in the arms however unable to lift the left leg off the bed and he can only slide it along making this 1/5 motoric deficit Decreased sensation in the left leg to the knee Patient underwent full diagnostic and clinical workup and appropriate services have been consulted patients placed in ICU for further care CT scan of the cervical thoracic and lumbar spine was performed followed by the MRI of the thoracic spine Final diagnoses 1. Severely comminuted fracture through the body of T11. 2. Grade 2 anterior spondylolisthesis of T10 over T11 with locked facets bilaterally causing spinal canal stenosis. 3. Nondisplaced fractures involving the left transverse process of T10 and the right transverse process of T11. 4. Nondisplaced fractures involving bilateral ribs. 5. Mild right pulmonary contusion and likely aspiration 7. Nondisplaced fracture of the left aspect of C6 vertebral body. 24 Hour Review/Hospital Course: 03/11/2018 Patient was admitted yesterday after falling off of a [place] while he was asleep and intoxicated. He suffered a C6 fracture right clavicle fracture T10 and 11 fracture as well as multiple rib fractures. Plan is to go to the operating room today to address his T11 compression fracture 03/12/2018 Patient underwentPosterior T9, T10, T11, T12, and L1 fusion; T10-11 laminectomy ; T10-11 open reduction of the fracture subluxation; T9-L1 pedicle screw fixation yesterday, and remained intubated postoperatively. He is currently awake and meets criteria for extubation. We will extubate today 03/13/2018 Patient was extubated yesterday and doing well. Librium has controlled his resting tremor very well, will continue that for alcohol withdrawal prophylaxis He is scheduled to go down for cervical fixation today and will likely return intubated but hopefully not Objective Vital Signs / I&O: Vital Signs 03/12/18 12:00 03/12/18 14:00 03/12/18 16:00 Temperature 98.5 F 98.9 F Pulse Rate 68 76 104 H Respiratory Rate 12 19 Blood Pressure 127/71 137/74 Pulse Oximetry 97 100 03/12/18 17:08 03/12/18 18:00 03/12/18 20:00 Temperature 98.7 F Pulse Rate 69 72 78 Respiratory Rate 12 18 Blood Pressure 147/85 H Pulse Oximetry 100 03/12/18 20:45 03/12/18 22:00 03/13/18 00:00 Temperature 98.8 F Pulse Rate 102 H 79 88 Respiratory Rate 17 18 Blood Pressure 130/71 Pulse Oximetry 96 99 03/13/18 02:00 03/13/18 04:00 03/13/18 06:00 Temperature 98.7 F Pulse Rate 85 75 72 Respiratory Rate 13 Blood Pressure 140/80 Pulse Oximetry 99 03/13/18 08:00 03/13/18 08:16 03/13/18 08:21 Temperature 98.5 F Pulse Rate 71 85 Respiratory Rate 23 12 Blood Pressure 152/89 H Pulse Oximetry 99 99 03/13/18 10:00 Temperature Pulse Rate 67 Respiratory Rate Blood Pressure Pulse Oximetry Intake & Output 03/12/18 03/13/18 03/13/18 18:59 06:59 18:59 Intake Total 3541.2 / 3541.2 1000 / 1000 Output Total 2040 / 2040 1850 / 1850 Balance 1501.2 / 1501.2 -1850 / -1850 1000 / 1000 Weight 119.4 kg Intake: IV 2741.2 / 2741.2 1000 / 1000 Diprivan 1000 mg/100 ml Inj 1, 80 / 80 000 mg In 100 ml @ 5 MCG/KG/MIN 3.396 mls/hr IV.CONT TITRATE PRN Rx#:[id number] NS Inj 1,000 ML @ 100 mls/hr IV 1000 / 1000 1000 / 1000 .CONT .Q10H [facility] Rx#:[id number] LR 1000 mL Inj 1,000 ML @ 30 1000 / 1000 mls/hr IV.SIG .Q24H [facility] Rx#: [id number] MVI-12 Inj 10 ML Thiamine Inj 511.2 / 511.2 100 MG Folvite Inj 1 MG In NS Inj 500 ML @ 127.8 mls/hr IV. SIG Q24H [facility] Rx#:[id number] Ancef Inj 1,000 MG In NS Inj 100 / 100 100 ML @ 200 mls/hr IV.SIG Q8H [facility] Rx#:[id number] fentaNYL 10 mcg/mL Premix Drip 50 / 50 2,500 mcg In 250 ml @ 50 MCG/HR 5 mls/hr IV.SIG TITRATE PRN Rx #:[id number] Oral 800 / 800 Output: Urine 1900 / 1900 Urine Amount (Catheter) 1849 / 0 Indwelling Urethral Catheter 1849 Wound Drainage 140 / 140 # 1 Left Upper Back 140 / 140 Other: Date of Last Bowel Movement 03/10/18 03/10/18 03/10/18 Result Diagrams: 03/13/18 04:00 03/13/18 04:00 Imaging: Impressions Chest X-Ray 03/13/18 06:00 CONCLUSION: 1. Persistent left lower lobe consolidation. 2. Horizontal lucency adjacent to the lateral left chest wall of uncertain significance, cannot exclude pneumothorax. Recommend expiratory upright view of the chest or noncontrast CT thorax if an upright view cannot be performed. Disinhibition Score: 14.00 Aggression Score: 14.00 Lability Score: 14.00 Agitated Behavior Total Score: 14 - Exam FRUIT DUMPER: Awake alert no acute distress, cervical collar in place Hemodynamic/Cardiac: Regular rate and rhythm stable Pulmonary/Respiratory: Clear to auscultation bilaterally but diminished Abdomen/GI Nutrition: Soft nontender nondistended Assessment and Plan Plan: OR today with neurosurgery for cervical fixation We will provide postoperative care, hopefully he returns extubated, if not we will wean
[2018-03-13] MEDS ORDERED: Propofol Inj 500 MG/50 ML Vial ONE ×2 (13:39→15:37)
[2018-03-13] MEDS ORDERED: Phenylephrine/NS 1000 MCG/10ML Syringe IV.PUSH ONE (14:15)
[2018-03-13] MEDS ORDERED: Lidocaine PF 1% Inj 5 ML Syringe OTHER ONE (14:15)
[2018-03-13] MEDS ORDERED: fentaNYL Citrate Inj 100 MCG/2 ML Ampul ONE ×2 (15:36→17:41)
--- NOTE | 2018-03-13 16:58 | P.OP ---
- Preoperative Diagnosis (1) Stenosis of cervical spine with myelopathy Comment: Trauma alert (2) Closed cervical spine fracture Date of procedure: 03/13/18 Procedure: Anterior cervical C3 and C4 partial corpectomies; C3-4 interbody fusion; anterior C3-4 cervical plate placement; C3-4 interbody cage placement; microsurgical technique Anesthesia: YELENAA Surgeon: Rayray Mclean MD Assistant Farm Operations Manager: Willa Randall Estimated blood loss (mL): 50 Operation and Findings: Following administration of general endotracheal anesthesia with the neck maintaining a neutral position in a [place] J collar, the patient received a gram of vancomycin and Decadron 10 mg intravenously. Sequential compression devices were placed in supine position on a Xavier table and all pressure points adequately padded. The head secured in a donut and anterior cervical region then shaved and prepped with Chloraprep and sterilely draped with Ioban along with the usual sterile draping. A transverse skin incision on the left side of the neck was then made after infiltrating the skin with 0.5% Marcaine with epinephrine solution extending down through the platysma. At the anterior border of the sternocleidomastoid further dissection was undertaken developing a plane between the carotid sheath laterally and the trachea esophagus medially. The prevertebral fascia was exposed and dissected out. The medial attachments of the longus colli muscles were detached and a self-retaining retractor used for exposure. There was significant disruption of the interphalangeal ligament as well as large osteophytes noted at the C3-4 and C4- 5 and C5-6 levels also with fracture of the anterior osteophytes. The large anterior osteophytes at C3-4 were resected with a Leksell and the disc space was localized with a marking the disc space using lateral fluoroscopy. Canadensis distraction screws 14 mm length were placed one in the C3 and one in the C4 body interbody distraction and exposure. There was significant disc degeneration with disc height collapse and annulus incised with a 15 blade and further dissection undertaken using microtechnique with microscope magnification. Diskectomy was undertaken with pituitaries and the endplates were also decorticated with curettes and drill bit. And more posteriorly there was disk osteophyte complex compressing the thecal sac along with a significant uncovertebral joint hypertrophy with foraminal stenosis which was decompressed along with removal of the posterior longitudinal ligaments at both levels. The foramen was decompressed bilaterally using a Kerrison's and palpation with a nerve hook, the exiting nerve roots were felt to be free. Resection of the osteophytes and spinal canal decompression required partial corpectomies with inferior half of the C3 and superior at the C4 body resection. The area was then copiously irrigated. I then placed a 12 mm height peek cage packed with local autograft bone at the C3-4 interspace under fluoroscopy guidance. Canadensis distraction pins were removed and the holes plugged with Gelfoam for hemostasis. In order to facilitate the fusion and provide stabilization, a Precision spine cervical plate was then placed with two 16 mm variable angle screws in the C3 body and two 16 mm fixed angle screws in the C4 body. The plate screw locking mechanism was then engaged. AP and lateral fluoroscopy confirmed good placement of the construct and the retractor was then removed. Muscular bleeding points were cauterized with bipolar cautery and Gelfoam was then also used for hemostasis which was removed. The platysma was then approximated using 3-0 Vicryl interrupted stitches and 3-0 Vicryl subcuticular stitch also placed in an interrupted fashion, and final skin closure was with Mastisol and Steri-Strips. Sterile dressing was then applied. The neck immobilized in a [place] J collar and the patient was then extubated and taken to the recovery room. There were no intraoperative complications and all sponge and needle counts were correct at the end of procedure. Estimated blood loss was about 50 cc. The patient did undergo intraoperative neurologic monitoring which remained stable throughout the surgery.
--- NOTE | 2018-03-13 17:10 | XR ---
EXAM DATE: 03/13/2018 5:08 PM EDT AGE/SEX: 62 years / Male INDICATIONS: Fusion C3,C4 with screw and plate placement. CLINICAL DATA: This is the patient's subsequent encounter. Patient reports that signs and symptoms h ave been present for 1 week and indicates a pain score of Nonresponsive. MEDICAL/SURGICAL HISTORY: . Trauma. Fusion, thoracic. COMPARISON: No prior exams available for comparison. FINDINGS: Status post anterior cervical fusion C3-C4 in anatomic alignment. CONCLUSION: Anatomic alignment following fusion at C3-C4 Electronically signed by: Jorge Pickard MD 03/13/2018 5:09 PM EDT
[2018-03-13 18:02] LABS: Hematocrit 24.3 % (39.0-51.0); Hemoglobin 8.3 gm/dL (13.0-17.0); Mean Corpuscular HGB Conc 34.2 % (32.0-36.0); Mean Corpuscular Hemoglobin 32.2 pg (27.0-34.0); Mean Corpuscular Volume 94.3 fL (80.0-100.0); Mean Platelet Volume 7.7 fL (7.0-11.0); Platelet Count 129 th/mm3 (150-450); Red Blood Count 2.57 mil/mm3 (4.50-5.90); Red Cell Distribution Width 14.7 % (11.6-17.2); White Blood Count 6.9 th/mm3 (4.0-11.0)
[2018-03-13 18:16] LABS: Anion Gap 11 meq/L (5-15); Blood Urea Nitrogen 6 mg/dL (7-18); Calcium 7.5 mg/dL (8.5-10.1); Carbon Dioxide 28.6 meq/L (21.0-32.0); Chloride 105 meq/L (98-107); Glomerular Filtration Rate Greater Than 89 mL/min (>89); Glucose,Random 146 mg/dL (74-106); Potassium 3.5 meq/L (3.5-5.1); Sodium 145 meq/L (136-145)
[2018-03-14] MEDS: Oral Hygiene Kit OROPHARYNG SCH ×4 (02:02→16:16)
[2018-03-14] MEDS: dilTIAZem 60 MG Tablet PO SCH ×3 (02:02→18:09)
[2018-03-14] MEDS: oxyCODONE/Acetaminophen 10/325 Tablet PO PRN ×4 (02:11→18:10)
[2018-03-14] MEDS: Sod Chloride 0.9% Inj 1,000 ML IV.CONT SCH (05:06)
[2018-03-14] MEDS: Chlorhexidine Gluconate 2% 1 Pack (2 Cloths) TOPICAL SCH (05:09)
--- NOTE | 2018-03-14 06:20 | XR ---
EXAM DATE: 03/14/2018 5:50 AM EDT AGE/SEX: 62 years / Male INDICATIONS: Follow up trauma. Respiratory status. CLINICAL DATA: This is the patient's subsequent encounter. Patient reports that signs and symptoms h ave been present for 4 - 6 days and indicates a pain score of Nonresponsive. MEDICAL/SURGICAL HISTORY: Non-responsive. Non-responsive. COMPARISON: C, CHEST 1V SINGLE AP, 03/13/2018. . FINDINGS: There is persisting consolidation in the left lower lung with loss of delineation of the left hemidia phragm. The right lung is clear. No evidence of pneumothorax. The heart is stable in size and appeara nce. Posterior fixation hardware in the thoracolumbar spine. Fracture mid shaft right clavicle. CONCLUSION: Persistent left lower lung consolidation. Electronically signed by: Macario Aden MD 03/14/2018 6:19 AM EDT
[2018-03-14 06:35] LABS: Hematocrit 23.5 % (39.0-51.0); Hemoglobin 8.1 gm/dL (13.0-17.0); Lymph # (Auto) 0.4 th/mm3 (1.0-4.8); Lymph % (Auto) 5.7 % (9.0-44.0); Mean Corpuscular HGB Conc 34.6 % (32.0-36.0); Mean Corpuscular Hemoglobin 32.4 pg (27.0-34.0); Mean Corpuscular Volume 93.8 fL (80.0-100.0); Mean Platelet Volume 7.4 fL (7.0-11.0); Mono # (Auto) 0.5 th/mm3 (0.0-0.9); Mono % (Auto) 7.4 % (0.0-8.0); Neut # (Auto) 6.4 th/mm3 (1.8-7.7); Neut % (Auto) 86.9 % (16.0-70.0); Platelet Count 135 th/mm3 (150-450); Red Blood Count 2.51 mil/mm3 (4.50-5.90); Red Cell Distribution Width 14.4 % (11.6-17.2); White Blood Count 7.3 th/mm3 (4.0-11.0)
[2018-03-14 06:52] LABS: Alanine Aminotransferase 48 U/L (12-78); Albumin 2.4 g/dL (3.4-5.0); Anion Gap 9 meq/L (5-15); Aspartate Aminotransferase 71 U/L (15-37); Blood Urea Nitrogen 7 mg/dL (7-18); Calcium 7.9 mg/dL (8.5-10.1); Carbon Dioxide 29.2 meq/L (21.0-32.0); Chloride 105 meq/L (98-107); Glomerular Filtration Rate Greater Than 89 mL/min (>89); Glucose,Random 145 mg/dL (74-106); Potassium 3.6 meq/L (3.5-5.1); Sodium 143 meq/L (136-145)
[2018-03-14 06:55] LABS: Alkaline Phosphatase 73 U/L (45-117); Total Protein 5.8 g/dL (6.4-8.2)
[2018-03-14] MEDS: Gabapentin 300 MG Capsule PO SCH ×3 (08:47→17:16)
[2018-03-14] MEDS: Senna/Docusate Sodium 8.6/50 MG Tablet PO SCH ×2 (08:47→20:51)
[2018-03-14] MEDS: Docusate Sodium 100 MG Capsule PO SCH ×2 (08:47→20:51)
[2018-03-14] MEDS: Lidocaine 5% Patch T-DERMAL SCH (08:48)
--- NOTE | 2018-03-14 10:07 | P.PNNS ---
Subjective Interval history: patient reports improved pain control. tolerating diet this am. denies any dysphagia Physical Exam Vital signs: Vital Signs 03/13/18 11:50 03/13/18 12:00 03/13/18 13:00 Temperature 98.9 F Pulse Rate 74 69 69 Respiratory Rate 12 12 15 Blood Pressure 142/80 H 146/79 H 146/80 H Pulse Oximetry 99 98 98 03/13/18 14:00 03/13/18 17:23 03/13/18 17:30 Temperature 98.4 F Pulse Rate 72 81 87 Respiratory Rate 18 22 12 Blood Pressure 146/79 H 155/87 H 151/85 H Pulse Oximetry 99 98 95 03/13/18 17:45 03/13/18 18:00 03/13/18 20:00 Temperature 98.3 F 98.4 F Pulse Rate 84 84 80 Respiratory Rate 14 14 22 Blood Pressure 153/66 H 153/66 H 164/84 H Pulse Oximetry 98 98 97 03/13/18 20:55 03/13/18 22:00 03/14/18 00:00 Temperature 98.6 F Pulse Rate 75 82 78 Respiratory Rate 16 15 Blood Pressure 148/73 H Pulse Oximetry 100 97 03/14/18 02:00 03/14/18 04:00 03/14/18 06:00 Temperature 98.4 F Pulse Rate 76 72 78 Respiratory Rate 11 L Blood Pressure 176/93 H Pulse Oximetry 100 03/14/18 08:28 Temperature Pulse Rate 66 Respiratory Rate 20 Blood Pressure Pulse Oximetry 100 Intake & Output 03/13/18 03/14/18 03/14/18 18:59 06:59 18:59 Intake Total 4050 / 4050 1000 / 1000 Output Total 3125 / 3125 3350 / 3350 Balance 925 / 925 -2350 / -2350 Weight 122 kg Intake: IV 1999 1000 / 1000 NS Inj 1,000 ML @ 100 mls/hr IV 1999 1000 / 1000 .CONT .Q10H [facility] Rx#:[id number] Oral 0 / 0 Anesthesia Amount 2049 Output: Estimated Blood Loss 50 / 50 Urine Amount (Catheter) 3050 / 3050 3350 / 3350 Indwelling Urethral Catheter 3050 / 3050 3350 / 3350 Wound Drainage # 1 Left Upper Back Other: Date of Last Bowel Movement 03/10/18 03/10/18 # Bowel Movements 0 Narrative: E4 AOx3 FC in the upper extremities at least antigravity in the uppers no movement in the lower extremities without sensation in the LE Triple flexion to painful stimulus in the LE In TLSO and cervical collar - Urinary Catheter Management Condom Cath placed during this visit: no Reason for continuing: Hourly intake/output Indwelling Urethral Catheter Cath placed during this visit: yes Reason for continuing: Hourly intake/output Insertion date: 03/11/18 Insertion time: 14:30 Assessment and Plan - Plan A/P: 62 yo POD 2 T9-11 fusion for T11 burst fracture, POD 1 C3-4 ACDF -Collar and TLSO at all times -Normalize: diet, dc lora (bladder scans and IO cath), PT/OT (activity as tolerated) -pain control
--- NOTE | 2018-03-14 11:18 | P.PNCC ---
Subjective Brief History: 62-year-old male was drunk and fell off of some wall [place] 8 feet height. Details are not known patient was transferred to our institution as priority 1 trauma alert spinal board with c-collar in place. Patient is complaining about numbness and weakness in the left arm and the left leg as well as neck and back pain. He is heavily intoxicated at the time of arrival. Physical examination reveals patient to be awake alert and somewhat confused but oriented answering simple questions appropriately not really remembering what happened to him. On physical examination patient has bilateral equal strength in the arms however unable to lift the left leg off the bed and he can only slide it along making this 1/5 motoric deficit Decreased sensation in the left leg to the knee Patient underwent full diagnostic and clinical workup and appropriate services have been consulted patients placed in ICU for further care CT scan of the cervical thoracic and lumbar spine was performed followed by the MRI of the thoracic spine Final diagnoses 1. Severely comminuted fracture through the body of T11. 2. Grade 2 anterior spondylolisthesis of T10 over T11 with locked facets bilaterally causing spinal canal stenosis. 3. Nondisplaced fractures involving the left transverse process of T10 and the right transverse process of T11. 4. Nondisplaced fractures involving bilateral ribs. 5. Mild right pulmonary contusion and likely aspiration 7. Nondisplaced fracture of the left aspect of C6 vertebral body. 24 Hour Review/Hospital Course: 03/11/2018 Patient was admitted yesterday after falling off of a [place] while he was asleep and intoxicated. He suffered a C6 fracture right clavicle fracture T10 and 11 fracture as well as multiple rib fractures. Plan is to go to the operating room today to address his T11 compression fracture 03/12/2018 Patient underwentPosterior T9, T10, T11, T12, and L1 fusion; T10-11 laminectomy ; T10-11 open reduction of the fracture subluxation; T9-L1 pedicle screw fixation yesterday, and remained intubated postoperatively. He is currently awake and meets criteria for extubation. We will extubate today 03/13/2018 Patient was extubated yesterday and doing well. Librium has controlled his resting tremor very well, will continue that for alcohol withdrawal prophylaxis He is scheduled to go down for cervical fixation today and will likely return intubated but hopefully not 03/14/2018 Patient who fell drunk off a wall sustaining the above-noted injuries underwent 2 distinct surgeries the first consisting of thoracic fusion and laminectomy of levels T9-L1 and second surgery consisting of C3-C4 fusion and cage Neurologically patient is improved he has function in both arms which is about 3 /5 and no function in the legs so patient is functionally paraplegic He is disabled 100% for the rest of his life Hemodynamically remains stable Bilateral breath sounds good inspiratory effort and normal pulmonary function Infiltrates in both lower lobes consistent with aspiration time of accident Transfer patient to floor and whenever bed available patient needs to be transferred to rehab for further care Objective Vital Signs / I&O: Vital Signs 03/13/18 11:50 03/13/18 12:00 03/13/18 13:00 Temperature 98.9 F Pulse Rate 74 69 69 Respiratory Rate 12 12 15 Blood Pressure 142/80 H 146/79 H 146/80 H Pulse Oximetry 99 98 98 03/13/18 14:00 03/13/18 17:23 03/13/18 17:30 Temperature 98.4 F Pulse Rate 72 81 87 Respiratory Rate 18 22 12 Blood Pressure 146/79 H 155/87 H 151/85 H Pulse Oximetry 99 98 95 03/13/18 17:45 03/13/18 18:00 03/13/18 20:00 Temperature 98.3 F 98.4 F Pulse Rate 84 84 80 Respiratory Rate 14 14 22 Blood Pressure 153/66 H 153/66 H 164/84 H Pulse Oximetry 98 98 97 03/13/18 20:55 03/13/18 22:00 03/14/18 00:00 Temperature 98.6 F Pulse Rate 75 82 78 Respiratory Rate 16 15 Blood Pressure 148/73 H Pulse Oximetry 100 97 03/14/18 02:00 03/14/18 04:00 03/14/18 06:00 Temperature 98.4 F Pulse Rate 76 72 78 Respiratory Rate 11 L Blood Pressure 176/93 H Pulse Oximetry 100 03/14/18 08:28 Temperature Pulse Rate 66 Respiratory Rate 20 Blood Pressure Pulse Oximetry 100 Intake & Output 03/13/18 03/14/18 03/14/18 18:59 06:59 18:59 Intake Total 4050 / 4050 1000 / 1000 500 / 500 Output Total 3125 / 3125 3350 / 3350 Balance 925 / 925 -2350 / -2350 500 / 500 Weight 122 kg Intake: IV 1999 / 1999 1000 / 1000 500 / 500 NS Inj 1,000 ML @ 100 mls/hr IV 1999 / 1999 1000 / 1000 500 / 500 .CONT .Q10H [facility] Rx#:[id number] Oral 0 / 0 Anesthesia Amount 2049 Output: Estimated Blood Loss 50 / 50 Urine Amount (Catheter) 3050 / 3050 3350 / 3350 Indwelling Urethral Catheter 305 / 3050 3350 / 3350 Wound Drainage # 1 Left Upper Back Other: Date of Last Bowel Movement 03/10/18 03/10/18 # Bowel Movements 0 Result Diagrams: 03/14/18 06:02 03/14/18 06:02 Imaging: Impressions Cervical Spine X-Ray 03/13/18 00:00 CONCLUSION: Anatomic alignment following fusion at C3-C4 Chest X-Ray 03/14/18 06:00 CONCLUSION: Persistent left lower lung consolidation. Disinhibition Score: 14.00 Aggression Score: 14.00 Lability Score: 14.00 Agitated Behavior Total Score: 14 - Exam WATCH DIAL MAKER: Patient who fell drunk off a wall sustaining the above-noted injuries underwent 2 distinct surgeries the first consisting of thoracic fusion and laminectomy of levels T9-L1 and second surgery consisting of C3-C4 fusion and cage Neurologically patient is improved he has function in both arms which is about 3 /5 and no function in the legs so patient is functionally paraplegic He is disabled 100% for the rest of his life Hemodynamic/Cardiac: Hemodynamically remains stable Pulmonary/Respiratory: Bilateral breath sounds good inspiratory effort and normal pulmonary function Infiltrates in both lower lobes consistent with aspiration time of accident Abdomen/GI Nutrition: Abdomen soft active bowel sounds will advance to mechanical soft diet consistent with recommendations of speech therapy Renal/I&O: Renal function preserved Assessment and Plan Plan: OR today with neurosurgery for cervical fixation We will provide postoperative care, hopefully he returns extubated, if not we will wean Attestation: Transfer patient to floor and whenever bed available patient needs to be transferred to rehab for further care Critical care 32 minutes
[2018-03-14] MEDS: Morphine Sulfate Inj 2 MG/ML Vial IV.PUSH PRN ×2 (16:20→20:53)
[2018-03-15] MEDS: Oral Hygiene Kit OROPHARYNG SCH ×4 (02:56→16:08)
[2018-03-15] MEDS: dilTIAZem 60 MG Tablet PO SCH ×3 (02:57→18:00)
[2018-03-15] MEDS: Chlorhexidine Gluconate 2% 1 Pack (2 Cloths) TOPICAL SCH (06:17)
[2018-03-15] MEDS ORDERED: Bisacodyl 10 MG Supp RECTAL ONE (07:21)
[2018-03-15] MEDS: Enoxaparin Inj 30 MG/0.3 ML Syringe SQ SCH ×2 (08:33→21:58)
[2018-03-15] MEDS: Gabapentin 300 MG Capsule PO SCH ×3 (08:34→17:58)
[2018-03-15] MEDS: Senna/Docusate Sodium 8.6/50 MG Tablet PO SCH ×2 (08:34→21:56)
--- NOTE | 2018-03-15 08:34 | P.PNNS ---
Subjective Interval history: refuses to answer any questions "i dont want to be woken up this early, Im fine " Physical Exam Vital signs: Vital Signs 03/14/18 10:00 03/14/18 12:00 03/14/18 13:34 Temperature 98.6 F 98.3 F Pulse Rate 88 72 75 Respiratory Rate 15 18 Blood Pressure 127/69 130/73 Pulse Oximetry 96 95 03/14/18 16:00 03/14/18 17:02 03/14/18 20:00 Temperature 98.2 F 98.5 F Pulse Rate 98 H 83 104 H Respiratory Rate 18 18 22 Blood Pressure 134/82 135/75 Pulse Oximetry 96 95 03/15/18 00:00 Temperature 98.2 F Pulse Rate 104 H Respiratory Rate 22 Blood Pressure 123/73 Pulse Oximetry 95 Intake & Output 03/14/18 03/15/18 03/15/18 18:59 06:59 18:59 Intake Total 1460 / 1460 Output Total 1500 / 1500 Balance -40 / -40 Weight 126.2 kg Intake: IV 500 / 500 NS Inj 1,000 ML @ 100 mls/hr IV 500 / 500 .CONT .Q10H [facility] Rx#:[id number] Oral 960 / 960 Output: Urine Amount (Catheter) 1500 / 1500 Indwelling Urethral Catheter 1500 / 1500 Other: Date of Last Bowel Movement 03/10/18 # Bowel Movements 0 Narrative: E4 AOx3 FC in the upper extremities at least antigravity in the uppers further exam deferred per patient request in c collar and TLSO - Urinary Catheter Management Condom Cath placed during this visit: no Reason for continuing: Not indwelling catheter Indwelling Urethral Catheter Cath placed during this visit: yes, but has since been removed by the nurse Reason for continuing: Decision to DC catheter Insertion date: 03/11/18 Insertion time: 14:30 Removal date: 03/14/18 Removal time: 10:45 Assessment and Plan - Plan A/P: 62 yo POD 3 T9-11 fusion for T11 burst fracture, POD 2 C3-4 ACDF -Collar and TLSO at all times -regular diet, bladder scans and IO cath, PT/OT (activity as tolerated) -pain control -please DC back JOSE J -dispo pending
[2018-03-15] MEDS: Lidocaine 5% Patch T-DERMAL SCH (08:40)
[2018-03-15] MEDS: Docusate Sodium 100 MG Capsule PO SCH ×2 (08:41→21:56)
--- NOTE | 2018-03-15 08:51 | P.PN ---
Subjective Interval history: TRAUMA PTD: 5 Patient lying in bed. Yelling and screaming that he wants to "get out of here. " 3 RNs at bedside assisting to restrain patient for his safety, as he was removing collar, and TLSO brace. Patient is alert and oriented. He knows he is in the hospital because he fell. He knows his hospital room number. Patient is able to recite the date, and year. "what do you think, I am brain- ?" Patient states, "I want a shot. Something strong. The strongest you got." Patient is complaining of back pain. Patient states that he drinks alcohol frequently. "I drink as much as I can. Beer, whiskey, wine." Patient is continually stating that he wants to leave. Reminded patient that he cannot walk at this time. Patient states, "I know. I do not care. I will crawl out of here on my knees." Physical Exam Vital signs: Vital Signs 03/14/18 10:00 03/14/18 12:00 03/14/18 13:34 Temperature 98.6 F 98.3 F Pulse Rate 88 72 75 Respiratory Rate 15 18 Blood Pressure 127/69 130/73 Pulse Oximetry 96 95 03/14/18 16:00 03/14/18 17:02 03/14/18 20:00 Temperature 98.2 F 98.5 F Pulse Rate 98 H 83 104 H Respiratory Rate 18 18 22 Blood Pressure 134/82 135/75 Pulse Oximetry 96 95 03/15/18 00:00 Temperature 98.2 F Pulse Rate 104 H Respiratory Rate 22 Blood Pressure 123/73 Pulse Oximetry 95 Intake & Output 03/14/18 03/15/18 03/15/18 18:59 06:59 18:59 Intake Total 1460 / 1460 Output Total 1500 / 1500 Balance -40 / -40 Weight 126.2 kg Intake: IV 500 / 500 NS Inj 1,000 ML @ 100 mls/hr IV 500 / 500 .CONT .Q10H TANO Rx#:[id number] Oral 960 / 960 Output: Urine Amount (Catheter) 1500 / 1500 Indwelling Urethral Catheter 1500 / 1500 Other: Date of Last Bowel Movement 03/10/18 # Bowel Movements 0 Narrative: GENERAL: This is a 62-year-old male lying in bed. Angry, yelling and screaming that he wants to leave. SKIN: Warm and dry. HEAD: Atraumatic. Normocephalic. EYES: PERRLA ENT: No nasal bleeding or discharge. Mucous membranes pink and moist. NECK: Trachea midline. No JVD. CARDIOVASCULAR: Regular rate and rhythm. RESPIRATORY: No accessory muscle use. Lungs are clear to auscultation. Breath sounds equal bilaterally. No distress or dyspnea. GASTROINTESTINAL: BS + x 4 quads. Abdomen soft, non-tender, nondistended. MUSCULOSKELETAL: Extremities without cyanosis, or edema. + peripheral pulses x 4 extremities. Warm with good capillary refill and sensation. Patient is able to move bilateral upper extremities well, equal and to command. Patient is not able to move lower bilateral extremities spontaneously or to command, however withdraws to pain in bilateral lower extremities. NEUROLOGICAL: Awake and alert. Normal speech and pattern. - Urinary Catheter Management Condom Cath placed during this visit: yes, but has since been removed by the nurse Reason for continuing: Not indwelling catheter Removal date: 03/18/18 Removal time: 14:30 Indwelling Urethral Catheter Cath placed during this visit: yes, but has since been removed by the nurse Reason for continuing: Decision to DC catheter Insertion date: 03/11/18 Insertion time: 14:30 Removal date: 03/14/18 Removal time: 10:45 Straight Cath placed during this visit: yes, but has since been removed by the nurse Reason for continuing: Chronic Urinary Retention Insertion date: 03/19/18 Insertion time: 03:00 Removal date: 03/19/18 Removal time: 03:30 Results - Labs CBC & Chem 7: 04/23/18 04:41 04/23/18 04:41 Assessment and Plan - Plan [place]: This is a 62-year-old male who sustained a fall. He was sleeping on a [place], and fell off. He fell approximately 7-8 feet. He was unable to move or ambulate after the fall. EtOH 230. INJURIES: C6 vetebral body fx RIGHT clavicle fx T10 over T11 spondylolisthesis w/ spinal canal stenosis T10 transverse process fx T11 Compression fx RIGHT rib fx (4, 5, 7) LEFT rib fx (5) Atelectesis *Midline abdominal wall hernia. PMHx: Neuropathy. ETOH (15 beers/day) Procedures: 03/10: Afib - Cardizem. 03/11: Posterior T9, T10, T11, T12, and L1 fusion; T10-11 laminectomy; T10-11 open reduction of the fracture subluxation; T9-L1 pedicle screw fixation; 03/11: RETURNED from OR INTUBATED 03/12: Extubated. 03/13: Anterior cervical C3 and C4 partial corpectomies; C3-4 interbody fusion; anterior C3-4 cervical plate placement; C3-4 interbody cage placement Consults: Neurosurgery. Case management. Diet: Regular. Diet with honey thick liquids. Diet. Tolerating po diet. Encourage good po intake with each meal. May have 1 beer with each meal. Pulmonary: Encourage good pulmonary toileting. IS and acapella at bedside and pt encouraged to use. Rationale for use explained to patient, and verbalized understanding. PAIN Management: Percocet 5-10 mg q 4h. Morphine 2 mg q 3h. Neurontin 600 mg TID. Lidoderm patch ETOH: Librium 10 mg q 8h. Added Ativan 1 mg q 4 hours as needed for withdrawal symptoms. Restraints for safety. Activity: BR. Pt and OT ordered. (Edilberto SERVIN) GI prophylaxis: Protonix 40 mg po. Bowel regimen: Colace. MOM. Lactulose. Bisacodyl PRN. LBM: 0. Intensified with bisacodyl P/AZ 1 dose today DVT prophylaxis: Mechanical VTE with SCDs. Chemical management with Lovenox 30 mg BID SQ. DC Planning: Case management consulted for assistance with final discharge disposition. Patient will need rehab placement. Emotional support provided to patient at bedside and plan of care discussed. Discussed with RN at bedside. Discussed pt condition and plan of care with collaborating trauma surgeon. Patient is hemodynamically stable and being managed on the med/surg floor. The trauma team will round each day, and evaluate plan of care on a daily basis. C6 vetebral body fx RIGHT clavicle fx T10 over T11 spondylolisthesis w/ spinal canal stenosis T10 transverse process fx T11 Compression fx Neurosurgery consulted and assisting in management and care 03/11: Posterior T9, T10, T11, T12, and L1 fusion; T10-11 laminectomy; T10-11 open reduction of the fracture subluxation; T9-L1 pedicle screw fixation; 03/13: Anterior cervical C3 and C4 partial corpectomies; C3-4 interbody fusion; anterior C3-4 cervical plate placement; C3-4 interbody cage placement Supportive care Serial neuro checks Pain management PT and OT ordered [place] J collar at all times TLSO brace when out of bed Surgical dressings per neurosurgery Bowel regimen Lovenox for DVT prophylaxis Speech therapy following Pured diet with honey thick liquids RIGHT rib fx (4, 5, 7) LEFT rib fx (5) Atelectesis 03/11: RETURNED from OR INTUBATED 03/12: Extubated O2 nasal cannula as needed Supportive care Aggressive pulmonary toileting Chest x-ray as needed Pain management PT and OT ordered Encourage out of bed Bowel regimen Lovenox for DVT prophylaxis EtOH withdrawal Supportive care Restraints for patient safety Librium 10 mg every 8 hours Ativan 1 mg every 4 hours for withdrawal symptoms Patient may have 1 beer with each meal tray - Attending Attestation The exam, history, and the medical decision-making described in the above note were completed with the assistance of the mid-level provider. I reviewed and agree with the findings presented. I attest that I had a [id number] encounter with the patient on the same day, and personally performed and documented my assessment and findings in the medical record.
[2018-03-15] MEDS ORDERED: Duloxetine 60 MG DR Capsule PO SCH (09:15)
[2018-03-15 11:57] LABS: Baso # (Auto) 0.1 th/mm3 (0.0-0.2); Baso % (Auto) 0.4 % (0.0-2.0); Eos % (Auto) 0.1 % (0.0-4.0); Hematocrit 27.5 % (39.0-51.0); Hemoglobin 9.4 gm/dL (13.0-17.0); Lymph # (Auto) 1.6 th/mm3 (1.0-4.8); Lymph % (Auto) 11.5 % (9.0-44.0); Mean Corpuscular HGB Conc 34.3 % (32.0-36.0); Mean Corpuscular Hemoglobin 32.3 pg (27.0-34.0); Mean Corpuscular Volume 94.2 fL (80.0-100.0); Mean Platelet Volume 8.5 fL (7.0-11.0); Mono % (Auto) 14.2 % (0.0-8.0); Neut # (Auto) 10.6 th/mm3 (1.8-7.7); Neut % (Auto) 73.8 % (16.0-70.0); Platelet Count 233 th/mm3 (150-450); Red Blood Count 2.92 mil/mm3 (4.50-5.90); Red Cell Distribution Width 15.2 % (11.6-17.2); White Blood Count 14.3 th/mm3 (4.0-11.0)
[2018-03-15] MEDS: Duloxetine 60 MG DR Capsule PO SCH (12:04)
[2018-03-15 12:24] LABS: Alanine Aminotransferase 53 U/L (12-78); Alkaline Phosphatase 84 U/L (45-117); Anion Gap 9 meq/L (5-15); Aspartate Aminotransferase 84 U/L (15-37); Blood Urea Nitrogen 15 mg/dL (7-18); Calcium 8.7 mg/dL (8.5-10.1); Carbon Dioxide 28.9 meq/L (21.0-32.0); Chloride 103 meq/L (98-107); Glomerular Filtration Rate Greater Than 89 mL/min (>89); Glucose,Random 108 mg/dL (74-106); Platelet Estimate Normal (Normal); Platelet Morphology Normal (Normal); Potassium 3.6 meq/L (3.5-5.1); Sodium 141 meq/L (136-145); Total Protein 6.7 g/dL (6.4-8.2)
[2018-03-15] MEDS: Morphine Sulfate Inj 2 MG/ML Vial IV.PUSH PRN (14:35)
[2018-03-16] MEDS: Oral Hygiene Kit OROPHARYNG SCH ×4 (03:42→17:32)
[2018-03-16] MEDS: dilTIAZem 60 MG Tablet PO SCH ×3 (05:44→18:27)
[2018-03-16] MEDS ORDERED: Magnesium Citrate Liq 300 ML Bottle PO ONE (09:00)
[2018-03-16] MEDS: oxyCODONE/Acetaminophen 10/325 Tablet PO PRN ×2 (09:43→17:28)
[2018-03-16] MEDS: Gabapentin 300 MG Capsule PO SCH ×3 (09:45→17:28)
[2018-03-16] MEDS: Enoxaparin Inj 30 MG/0.3 ML Syringe SQ SCH ×2 (09:45→21:54)
[2018-03-16] MEDS: Lidocaine 5% Patch T-DERMAL SCH (09:55)
[2018-03-16] MEDS: Senna/Docusate Sodium 8.6/50 MG Tablet PO SCH ×2 (09:56→21:53)
[2018-03-16] MEDS: Duloxetine 60 MG DR Capsule PO SCH (09:57)
--- NOTE | 2018-03-16 09:57 | P.PNNS ---
Subjective Interval history: Pt awake and alert. Complains of neck pain. No radiculopathy or paresthesias in UEs. He has no movement in LEs. Physical Exam Vital signs: Vital Signs 03/15/18 12:00 03/15/18 12:45 03/15/18 16:00 Temperature 98.1 F 98.2 F Pulse Rate 83 75 Respiratory Rate 18 18 18 Blood Pressure 149/82 H 137/74 Pulse Oximetry 92 L 91 L 03/15/18 17:23 03/15/18 19:15 03/15/18 20:00 Temperature 97.9 F Pulse Rate 110 H 89 Respiratory Rate 20 20 Blood Pressure 120/64 Pulse Oximetry 91 L 03/15/18 23:45 03/16/18 00:00 03/16/18 04:00 Temperature 98.7 F 98.4 F Pulse Rate 87 109 H 92 H Respiratory Rate 20 20 Blood Pressure 116/63 136/69 Pulse Oximetry 90 L 95 03/16/18 08:00 Temperature 98.3 F Pulse Rate 88 Respiratory Rate 18 Blood Pressure 129/71 Pulse Oximetry 93 L Intake & Output 03/15/18 03/16/18 03/16/18 18:59 06:59 18:59 Intake Total 1000 / 1000 480 / 480 Output Total 1800 / 1800 1550 / 1550 Balance -800 / -800 -1070 / -1070 Weight 118.6 kg Intake: IV 100 / 100 KCl 20 mEq Premix Inj 20 meq In 100 / 100 100 ml @ 50 mls/hr IV.SIG Q2H PRN Rx#:[id number] Oral 900 / 900 480 / 480 Output: Urine 1800 / 1800 Urine Amount (Catheter) 1550 / 1550 Indwelling Urethral Catheter 775 / 775 Straight 775 / 775 Other: # Bowel Movements 4 - Constitutional no acute distress, obese - Routine HEENT Exam Head: Present: normocephalic, atraumatic Eye: Present: PERRL. Absent: conjunctival icterus ENT: Present: oropharynx clear - Routine Neck Exam Present: trachea midline - Routine Respiratory Exam Present: CTA bilaterally, rhonchi, wheezes. Absent: respiratory distress - Routine Cardiovascular Exam Present: RRR, S1, S2. Absent: murmur - Routine Abdominal Exam Present: soft, normoactive bowel sounds - Routine Skin Exam Absent: cyanosis, erythema Comments: Cervical incision clean and dry without signs of infection or complication. Thoracic reportedly changed. - Routine Neurological Exam Present: alert, sensory deficit (No sensation in LEs.), motor deficit (No movement in LEs. Multipodus boots in place. Cervical collar inplace. Pt moves UEs with 4/5 HI bilaterally 4+ UEs otherwise.), normal speech. Absent: altered mental status, moving all extremities (No movement in LEs. ) - Detailed Neurological Exam: Coma Scale Eye Opening: Spontaneous Verbal Response: Oriented Motor Response: Obey commands [place] Coma Scale Total: 15 - Routine Psychiatric Exam Present: normal affect, cooperative - Urinary Catheter Management Condom Cath placed during this visit: no Reason for continuing: Not indwelling catheter Indwelling Urethral Catheter Cath placed during this visit: yes, but has since been removed by the nurse Reason for continuing: Acute urinary retention Insertion date: 03/16/18 Insertion time: 04:30 Removal date: 03/14/18 Removal time: 10:45 Straight Cath placed during this visit: no Assessment and Plan - Assessment (1) Closed rib fracture Code(s): S22.39XA - Fracture of one rib, unspecified side, initial encounter for closed fracture Status: Acute (2) Traumatic compression fracture of T11 thoracic vertebra Code(s): S22.080A - Wedge compression fracture of T11-T12 vertebra, initial encounter for closed fracture Status: Acute (3) Fracture of rib Code(s): S22.39XA - Fracture of one rib, unspecified side, initial encounter for closed fracture Status: Acute (4) Burst fracture of thoracic spine at T10-T11 level Status: Acute (5) Complete lesion at T10 level of thoracic spinal cord Code(s): S24.113A - Complete lesion at T7-T10 level of thoracic spinal cord, initial encounter Status: Acute (6) Closed spinal subluxation with complete thoracic cord lesion Status: Acute (7) Closed cervical spine fracture Code(s): S12.9XXA - Fracture of neck, unspecified, initial encounter Status: Acute Qualifiers: Encounter type: initial encounter Cervical vertebra fracture level: C6 Fracture alignment: nondisplaced - Plan A/P: 62 yo s/p T9-L1 fusion for T11 burst fracture on 03/12, s/p C3-4 ACDF on 03/13 P: -Collar and TLSO at all times -PT/OT OOB with TLSO brace. -pain control
[2018-03-16] MEDS: Docusate Sodium 100 MG Capsule PO SCH ×2 (09:58→21:53)
--- NOTE | 2018-03-16 10:23 | P.PN ---
Subjective Interval history: Trauma PTD: 6 Patient lying in bed. No distress noted. Patient noted to be incontinent of stool. Patient states, "all this shit is coming out of me. They gave me stool softeners -I told them I did not want them." Physical Exam Vital signs: Vital Signs 03/15/18 12:00 03/15/18 12:45 03/15/18 16:00 Temperature 98.1 F 98.2 F Pulse Rate 83 75 Respiratory Rate 18 18 18 Blood Pressure 149/82 H 137/74 Pulse Oximetry 92 L 91 L 03/15/18 17:23 03/15/18 19:15 03/15/18 20:00 Temperature 97.9 F Pulse Rate 110 H 89 Respiratory Rate 20 20 Blood Pressure 120/64 Pulse Oximetry 91 L 03/15/18 23:45 03/16/18 00:00 03/16/18 04:00 Temperature 98.7 F 98.4 F Pulse Rate 87 109 H 92 H Respiratory Rate 20 20 Blood Pressure 116/63 136/69 Pulse Oximetry 90 L 95 03/16/18 08:00 03/16/18 09:54 Temperature 98.3 F Pulse Rate 88 88 Respiratory Rate 18 16 Blood Pressure 129/71 Pulse Oximetry 93 L Intake & Output 03/15/18 03/16/18 03/16/18 18:59 06:59 18:59 Intake Total 1000 / 1000 480 / 480 Output Total 1800 / 1800 1550 / 1550 Balance -800 / -800 -1070 / -1070 Weight 118.6 kg Intake: IV 100 / 100 KCl 20 mEq Premix Inj 20 meq In 100 / 100 100 ml @ 50 mls/hr IV.SIG Q2H PRN Rx#:[id number] Oral 900 / 900 480 / 480 Output: Urine 1800 / 1800 Urine Amount (Catheter) 1550 / 1550 Indwelling Urethral Catheter 775 / 775 Straight 775 / 775 Other: # Bowel Movements 4 Narrative: GENERAL: This is a 62-year-old male lying in bed. No distress noted. SKIN: Warm and dry. HEAD: Atraumatic. Normocephalic. EYES: PERRLA ENT: No nasal bleeding or discharge. Mucous membranes pink and moist. NECK: Trachea midline. No JVD. CARDIOVASCULAR: Regular rate and rhythm. RESPIRATORY: No accessory muscle use. Lungs are clear to auscultation. Breath sounds equal bilaterally. No distress or dyspnea. GASTROINTESTINAL: BS + x 4 quads. Abdomen soft, non-tender, nondistended. MUSCULOSKELETAL: Extremities without cyanosis, or edema. + peripheral pulses x 4 extremities. Warm with good capillary refill and sensation. Patient is able to move bilateral upper extremities well, equal and to command. Patient is not able to move lower bilateral extremities spontaneously or to command, however withdraws to pain in bilateral lower extremities. Patient incontinent of bowels. NEUROLOGICAL: Awake and alert. Normal speech and pattern. - Urinary Catheter Management Condom Cath placed during this visit: no Reason for continuing: Not indwelling catheter Indwelling Urethral Catheter Cath placed during this visit: yes, but has since been removed by the nurse Reason for continuing: Acute urinary retention Insertion date: 03/16/18 Insertion time: 04:30 Removal date: 03/14/18 Removal time: 10:45 Straight Cath placed during this visit: no Results - Labs CBC & Chem 7: 04/23/18 04:41 04/23/18 04:41 Laboratory Results - last 24 hr 03/13/18 03/15/18 03/15/18 14:09 11:30 11:30 WBC 14.3 H RBC 2.92 L Hgb 9.4 L Hct 27.5 L MCV 94.2 MCH 32.3 MCHC 34.3 RDW 15.2 Plt Count 233 D MPV 8.5 Prelim Diff (Auto) Slide review pending Neut % (Auto) 73.8 H Lymph % (Auto) 11.5 Green % (Auto) 14.2 H Eos % (Auto) 0.1 Baso % (Auto) 0.4 Neut # (Auto) 10.6 H Lymph # (Auto) 1.6 Green # (Auto) 2.0 H Eos # (Auto) 0.0 Baso # (Auto) 0.1 WBC Differential . Diff Scan Auto diff confirmed Differential Comment . Platelet Estimate Normal Platelet Morphology Normal Hematology Comments Sodium 141 Potassium 3.6 Chloride 103 Carbon Dioxide 28.9 Anion Gap 9 BUN 15 Creatinine 0.78 Estimated GFR Greater than 89 Random Glucose 108 H Calcium 8.7 D Total Bilirubin 1.1 H AST 84 H ALT 53 Alkaline Phosphatase 84 Total Protein 6.7 D Albumin 3.0 L D MTS Gel Crossmatch See Detail Assessment and Plan - Plan [place]: This is a 62-year-old male who sustained a fall. He was sleeping on a [place], and fell off. He fell approximately 7-8 feet. He was unable to move or ambulate after the fall. EtOH 230. INJURIES: C6 vetebral body fx RIGHT clavicle fx T10 over T11 spondylolisthesis w/ spinal canal stenosis T10 transverse process fx T11 Compression fx RIGHT rib fx (4, 5, 7) LEFT rib fx (5) Atelectesis *Midline abdominal wall hernia. PMHx: Neuropathy. ETOH (15 beers/day) Procedures: 03/10: Afib - Cardizem. 03/11: Posterior T9, T10, T11, T12, and L1 fusion; T10-11 laminectomy; T10-11 open reduction of the fracture subluxation; T9-L1 pedicle screw fixation; 03/11: RETURNED from OR INTUBATED 03/12: Extubated. 03/13: Anterior cervical C3 and C4 partial corpectomies; C3-4 interbody fusion; anterior C3-4 cervical plate placement; C3-4 interbody cage placement Consults: Neurosurgery. Case management. WBC = 14.3. Afebrile. Monitor closely -repeat labs tomorrow for further evaluation. Diet: Regular. Diet with honey thick liquids. Diet. Tolerating po diet. Encourage good po intake with each meal. May have 1 beer with each meal. Pulmonary: Encourage good pulmonary toileting. IS and acapella at bedside and pt encouraged to use. Rationale for use explained to patient, and verbalized understanding. PAIN Management: Percocet 5-10 mg q 4h. Morphine 2 mg q 3h for breakthrough pain. Neurontin 600 mg TID. Lidoderm patch ETOH: Librium 10 mg q 8h. Ativan 1 mg q 4 hours as needed for withdrawal symptoms. Restraints for safety. Activity: OOB. Pt and OT ordered. (Edilberto SERVIN) GI prophylaxis: Protonix 40 mg po. Bowel regimen: Colace. MOM. Lactulose. Bisacodyl PRN. LBM: 03/16 DVT prophylaxis: Mechanical VTE with SCDs. Chemical management with Lovenox 30 mg BID SQ. DC Planning: Case management consulted for assistance with final discharge disposition. Patient will need rehab placement. Emotional support provided to patient at bedside and plan of care discussed. Discussed with RN at bedside. Discussed pt condition and plan of care with collaborating trauma surgeon. Patient is hemodynamically stable and being managed on the med/surg floor. The trauma team will round each day, and evaluate plan of care on a daily basis. C6 vertebral body fx RIGHT clavicle fx T10 over T11 spondylolisthesis w/ spinal canal stenosis T10 transverse process fx T11 Compression fx Neurosurgery consulted and assisting in management and care 03/11: Posterior T9, T10, T11, T12, and L1 fusion; T10-11 laminectomy; T10-11 open reduction of the fracture subluxation; T9-L1 pedicle screw fixation; 03/13: Anterior cervical C3 and C4 partial corpectomies; C3-4 interbody fusion; anterior C3-4 cervical plate placement; C3-4 interbody cage placement Supportive care Serial neuro checks Pain management PT and OT ordered [place] J collar at all times TLSO brace when out of bed Surgical dressings per neurosurgery Bowel regimen Lovenox for DVT prophylaxis Speech therapy following Pured diet with honey thick liquids RIGHT rib fx (4, 5, 7) LEFT rib fx (5) Atelectesis 03/11: RETURNED from OR INTUBATED 03/12: Extubated O2 nasal cannula as needed Supportive care Aggressive pulmonary toileting Chest x-ray as needed Pain management PT and OT ordered Encourage out of bed Bowel regimen Lovenox for DVT prophylaxis EtOH withdrawal Supportive care Restraints for patient safety Librium 10 mg every 8 hours Ativan 1 mg every 4 hours for withdrawal symptoms Patient may have 1 beer with each meal tray - Attending Attestation The exam, history, and the medical decision-making described in the above note were completed with the assistance of the mid-level provider. I reviewed and agree with the findings presented. I attest that I had a [id number] encounter with the patient on the same day, and personally performed and documented my assessment and findings in the medical record.
[2018-03-17] MEDS: dilTIAZem 60 MG Tablet PO SCH ×3 (03:07→18:27)
[2018-03-17] MEDS: Oral Hygiene Kit OROPHARYNG SCH ×4 (03:07→18:27)
[2018-03-17 04:56] LABS: Baso % (Auto) 0.1 % (0.0-2.0); Eos # (Auto) 0.1 th/mm3 (0.0-0.4); Eos % (Auto) 0.6 % (0.0-4.0); Hematocrit 28.4 % (39.0-51.0); Hemoglobin 9.4 gm/dL (13.0-17.0); Lymph # (Auto) 1.2 th/mm3 (1.0-4.8); Lymph % (Auto) 13.3 % (9.0-44.0); Mean Corpuscular Hemoglobin 31.6 pg (27.0-34.0); Mean Corpuscular Volume 95.9 fL (80.0-100.0); Mean Platelet Volume 7.8 fL (7.0-11.0); Mono # (Auto) 1.7 th/mm3 (0.0-0.9); Mono % (Auto) 19.2 % (0.0-8.0); Neut % (Auto) 66.8 % (16.0-70.0); Platelet Count 246 th/mm3 (150-450); Red Blood Count 2.96 mil/mm3 (4.50-5.90)
[2018-03-17 05:25] LABS: Albumin 2.6 g/dL (3.4-5.0); Anion Gap 9 meq/L (5-15); Aspartate Aminotransferase 106 U/L (15-37); Blood Urea Nitrogen 10 mg/dL (7-18); Calcium 8.3 mg/dL (8.5-10.1); Carbon Dioxide 29.8 meq/L (21.0-32.0); Chloride 101 meq/L (98-107); Glomerular Filtration Rate Greater Than 89 mL/min (>89); Glucose,Random 118 mg/dL (74-106); Potassium 3.3 meq/L (3.5-5.1); Sodium 140 meq/L (136-145)
[2018-03-17 05:26] LABS: Alanine Aminotransferase 51 U/L (12-78)
[2018-03-17 05:28] LABS: Alkaline Phosphatase 81 U/L (45-117); Total Protein 6.3 g/dL (6.4-8.2)
--- NOTE | 2018-03-17 08:58 | P.PN ---
Subjective Interval history: TRAUMA PTD: 7 Pt lying in bed. No distress noted. Pt states that he did not get OOB yesterday. "I can't get out of bed. I have no legs." " I would have remembered if they got me out of bed." Physical Exam Vital signs: Vital Signs 03/16/18 09:54 03/16/18 11:39 03/16/18 12:00 Temperature 98.2 F Pulse Rate 88 99 H Respiratory Rate 16 18 Blood Pressure 126/62 Pulse Oximetry 96 92 L 03/16/18 16:00 03/16/18 20:00 03/17/18 00:00 Temperature 97.9 F 97.6 F 97.5 F L Pulse Rate 89 80 84 Respiratory Rate 18 20 20 Blood Pressure 138/64 114/58 L 141/65 H Pulse Oximetry 95 94 L 94 L 03/17/18 04:00 Temperature 98.1 F Pulse Rate 87 Respiratory Rate 20 Blood Pressure 138/66 Pulse Oximetry 96 Intake & Output 03/16/18 03/17/18 03/17/18 18:59 06:59 18:59 Intake Total 720 / 720 Output Total 350 / 350 Balance 370 / 370 Weight 117 kg Intake: Oral 720 / 720 Output: Urine Amount (Catheter) 350 / 350 Straight 350 / 350 Other: # Voids 0 # Bowel Movements 4 0 Narrative: GENERAL: This is a 62-year-old male lying in bed. No distress noted. SKIN: Warm and dry. HEAD: Atraumatic. Normocephalic. EYES: PERRLA ENT: No nasal bleeding or discharge. Mucous membranes pink and moist. NECK: [place] J collar in place. Trachea midline. No JVD. CARDIOVASCULAR: Regular rate and rhythm. RESPIRATORY: No accessory muscle use. Lungs are clear to auscultation. Breath sounds equal bilaterally. No distress or dyspnea. GASTROINTESTINAL: BS + x 4 quads. Abdomen soft, non-tender, nondistended. MUSCULOSKELETAL: Extremities without cyanosis, or edema. TLSO brace in place. + peripheral pulses x 4 extremities. Warm with good capillary refill and sensation. Patient is able to move bilateral upper extremities well, equal and to command. Patient is not able to move lower bilateral extremities spontaneously or to command, however withdraws to pain in bilateral lower extremities. NEUROLOGICAL: Awake and alert. Normal speech and pattern. - Urinary Catheter Management Condom Cath placed during this visit: no Reason for continuing: Not indwelling catheter Indwelling Urethral Catheter Cath placed during this visit: yes, but has since been removed by the nurse Reason for continuing: Acute urinary retention Insertion date: 03/16/18 Insertion time: 04:30 Removal date: 03/14/18 Removal time: 10:45 Straight Cath placed during this visit: yes, but has since been removed by the nurse Reason for continuing: Acute urinary retention Insertion date: 03/17/18 Insertion time: 03:30 Removal date: 03/16/18 Removal time: 17:40 Results - Labs CBC & Chem 7: 04/23/18 04:41 04/23/18 04:41 Laboratory Results - last 24 hr 03/17/18 03/17/18 03:58 03:58 WBC 9.0 RBC 2.96 L Hgb 9.4 L Hct 28.4 L MCV 95.9 MCH 31.6 MCHC 33.0 RDW 15.0 Plt Count 246 MPV 7.8 Neut % (Auto) 66.8 Lymph % (Auto) 13.3 [place] % (Auto) 19.2 H Eos % (Auto) 0.6 Baso % (Auto) 0.1 Neut # (Auto) 6.0 Lymph # (Auto) 1.2 [place] # (Auto) 1.7 H Eos # (Auto) 0.1 Baso # (Auto) 0.0 WBC Differential . Differential Comment Auto diff final Sodium 140 Potassium 3.3 L Chloride 101 Carbon Dioxide 29.8 Anion Gap 9 BUN 10 Creatinine 0.61 Estimated GFR Greater than 89 Random Glucose 118 H Calcium 8.3 L Total Bilirubin 1.1 H AST 106 H ALT 51 Alkaline Phosphatase 81 Total Protein 6.3 L Albumin 2.6 L Assessment and Plan - Plan [place]: This is a 62-year-old male who sustained a fall. He was sleeping on a [place], and fell off. He fell approximately 7-8 feet. He was unable to move or ambulate after the fall. EtOH 230. INJURIES: C6 vetebral body fx RIGHT clavicle fx T10 over T11 spondylolisthesis w/ spinal canal stenosis T10 transverse process fx T11 Compression fx RIGHT rib fx (4, 5, 7) LEFT rib fx (5) Atelectasis *Midline abdominal wall hernia. PMHx: Neuropathy. ETOH (15 beers/day) Procedures: 03/10: Afib - Cardizem. 03/11: Posterior T9, T10, T11, T12, and L1 fusion; T10-11 laminectomy; T10-11 open reduction of the fracture subluxation; T9-L1 pedicle screw fixation; 03/11: RETURNED from OR INTUBATED 03/12: Extubated. 03/13: Anterior cervical C3 and C4 partial corpectomies; C3-4 interbody fusion; anterior C3-4 cervical plate placement; C3-4 interbody cage placement Consults: Neurosurgery. Case management. WBC = 9.0. Afebrile. Monitor closely. Diet: Pureed diet with honey thick liquids. Tolerating po diet. Encourage good po intake with each meal. May have 1 beer with each meal. Pulmonary: Encourage good pulmonary toileting. IS and acapella at bedside and pt encouraged to use. Rationale for use explained to patient, and verbalized understanding. PAIN Management: Percocet 5-10 mg q 4h. Morphine 2 mg q 3h for breakthrough pain. Neurontin 600 mg TID. Lidoderm patch ETOH: Librium 10 mg q 8h. Ativan 1 mg q 4 hours as needed for withdrawal symptoms. Activity: OOB TID with meals. PtTand OT ordered. (Edilberto SERVIN) GI prophylaxis: Protonix 40 mg po. Bowel regimen: Colace. MOM. Lactulose. Bisacodyl PRN. LBM: 03/16 DVT prophylaxis: Mechanical VTE with SCDs. Chemical management with Lovenox 30 mg BID SQ. DC Planning: Case management consulted for assistance with final discharge disposition. Patient is clear from a trauma surgery standpoint for transition and DC to rehab at this time. Emotional support provided to patient at bedside and plan of care discussed. Discussed with RN at bedside. Discussed pt condition and plan of care with collaborating trauma surgeon. Patient is hemodynamically stable and being managed on the med/surg floor. The trauma team will round each day, and evaluate plan of care on a daily basis. C6 vertebral body fx RIGHT clavicle fx T10 over T11 spondylolisthesis w/ spinal canal stenosis T10 transverse process fx T11 Compression fx Neurosurgery consulted and assisting in management and care 03/11: Posterior T9, T10, T11, T12, and L1 fusion; T10-11 laminectomy; T10-11 open reduction of the fracture subluxation; T9-L1 pedicle screw fixation; 03/13: Anterior cervical C3 and C4 partial corpectomies; C3-4 interbody fusion; anterior C3-4 cervical plate placement; C3-4 interbody cage placement Supportive care Serial neuro checks Pain management PT and OT ordered [place] J collar at all times TLSO brace when out of bed Surgical dressings per neurosurgery - plan for thoracic staple removal on 03/24 Bowel regimen Lovenox for DVT prophylaxis Speech therapy following Pured diet with honey thick liquids RIGHT rib fx (4, 5, 7) LEFT rib fx (5) Atelectesis 03/11: RETURNED from OR INTUBATED 03/12: Extubated O2 nasal cannula as needed Supportive care Aggressive pulmonary toileting Chest x-ray as needed Pain management PT and OT ordered Encourage out of bed Bowel regimen Lovenox for DVT prophylaxis EtOH withdrawal Supportive care Librium 10 mg every 8 hours Ativan 1 mg every 4 hours for withdrawal symptoms Patient may have 1 beer with each meal tray - Attending Attestation The exam, history, and the medical decision-making described in the above note were completed with the assistance of the mid-level provider. I reviewed and agree with the findings presented. I attest that I had a [id number] encounter with the patient on the same day, and personally performed and documented my assessment and findings in the medical record.
--- NOTE | 2018-03-17 09:28 | P.PNNS ---
Subjective Interval history: Pt awake and alert. When I entered the room he had front portion of his cervical collar undone and state she did that so he can watch TV. He has neck pain but no radiculopathy or paresthesias in UEs. No movement or sensation in LEs. Physical Exam Vital signs: Vital Signs 03/16/18 09:54 03/16/18 11:39 03/16/18 12:00 Temperature 98.2 F Pulse Rate 88 99 H Respiratory Rate 16 18 Blood Pressure 126/62 Pulse Oximetry 96 92 L 03/16/18 16:00 03/16/18 20:00 03/17/18 00:00 Temperature 97.9 F 97.6 F 97.5 F L Pulse Rate 89 80 84 Respiratory Rate 18 20 20 Blood Pressure 138/64 114/58 L 141/65 H Pulse Oximetry 95 94 L 94 L 03/17/18 04:00 Temperature 98.1 F Pulse Rate 87 Respiratory Rate 20 Blood Pressure 138/66 Pulse Oximetry 96 Intake & Output 03/16/18 03/17/18 03/17/18 18:59 06:59 18:59 Intake Total 720 / 720 Output Total 350 / 350 Balance 370 / 370 Weight 117 kg Intake: Oral 720 / 720 Output: Urine Amount (Catheter) 350 / 350 Straight 350 / 350 Other: # Voids 0 # Bowel Movements 4 0 - Constitutional no acute distress - Routine HEENT Exam Head: Present: normocephalic, atraumatic Eye: Present: PERRL. Absent: conjunctival icterus ENT: Present: oropharynx clear - Routine Neck Exam Present: trachea midline - Routine Respiratory Exam Present: CTA bilaterally. Absent: respiratory distress, rhonchi, wheezes - Routine Cardiovascular Exam Present: RRR, S1, S2. Absent: murmur - Routine Abdominal Exam Present: soft, normoactive bowel sounds. Absent: firm - Routine Extremities Exam Absent: cyanosis, full ROM Comments: SCDs and multipodus boots in place. - Routine Skin Exam Absent: cyanosis, erythema (Anterior cervical incision clean and dry without signs of infection.) - Routine Neurological Exam Present: alert, oriented X3, sensory deficit (Abdomen down to toes.), motor deficit (No movement in LEs. Moves his UEs well 4-4+/5 strength. Cervical collar and TLSO brace in place.), normal speech. Absent: altered mental status , moving all extremities - Routine Psychiatric Exam Present: normal affect, cooperative. Absent: anxious, agitated - Urinary Catheter Management Condom Cath placed during this visit: no Reason for continuing: Not indwelling catheter Indwelling Urethral Catheter Cath placed during this visit: yes, but has since been removed by the nurse Reason for continuing: Acute urinary retention Insertion date: 03/16/18 Insertion time: 04:30 Removal date: 03/14/18 Removal time: 10:45 Straight Cath placed during this visit: yes, but has since been removed by the nurse Reason for continuing: Acute urinary retention Insertion date: 03/17/18 Insertion time: 03:30 Removal date: 03/16/18 Removal time: 17:40 Assessment and Plan - Assessment (1) Closed rib fracture Code(s): S22.39XA - Fracture of one rib, unspecified side, initial encounter for closed fracture Status: Acute (2) Traumatic compression fracture of T11 thoracic vertebra Code(s): S22.080A - Wedge compression fracture of T11-T12 vertebra, initial encounter for closed fracture Status: Acute (3) Fracture of rib Code(s): S22.39XA - Fracture of one rib, unspecified side, initial encounter for closed fracture Status: Acute (4) Burst fracture of thoracic spine at T10-T11 level Status: Acute (5) Complete lesion at T10 level of thoracic spinal cord Code(s): S24.113A - Complete lesion at T7-T10 level of thoracic spinal cord, initial encounter Status: Acute (6) Closed spinal subluxation with complete thoracic cord lesion Status: Acute (7) Closed cervical spine fracture Code(s): S12.9XXA - Fracture of neck, unspecified, initial encounter Status: Acute Qualifiers: Encounter type: initial encounter Cervical vertebra fracture level: C6 Fracture alignment: nondisplaced - Plan A/P: 62 yo s/p T9-L1 fusion for T11 burst fracture on 03/12, s/p C3-4 ACDF on 03/13 P: -Collar and TLSO at all times. Advised pt he needs to be compliant or risk poor healing and further injury. -PT/OT OOB with TLSO brace. -pain control Remove thoracic skin carlos on 03/24. Neurosurgically stable for rehab placement. Follow up in 6 weeks from surgery with x-rays of cervical and thoracic/lumbar spine. Call office for follow up appt. [phone].
[2018-03-17] MEDS: Gabapentin 300 MG Capsule PO SCH ×3 (10:10→18:27)
[2018-03-17] MEDS: Docusate Sodium 100 MG Capsule PO SCH ×2 (10:11→22:00)
[2018-03-17] MEDS: Lidocaine 5% Patch T-DERMAL SCH (10:12)
[2018-03-17] MEDS: Duloxetine 60 MG DR Capsule PO SCH (10:12)
[2018-03-17] MEDS: Enoxaparin Inj 30 MG/0.3 ML Syringe SQ SCH ×2 (10:12→22:00)
[2018-03-17] MEDS: Senna/Docusate Sodium 8.6/50 MG Tablet PO SCH ×2 (10:13→22:00)
[2018-03-17] MEDS ORDERED: Magnesium Oxide 400 MG Tablet PO ONE (14:05)
[2018-03-18] MEDS: dilTIAZem 60 MG Tablet PO SCH ×3 (03:14→18:50)
[2018-03-18] MEDS: Oral Hygiene Kit OROPHARYNG SCH ×4 (03:14→16:44)
[2018-03-18] MEDS: Enoxaparin Inj 30 MG/0.3 ML Syringe SQ SCH ×2 (09:14→22:07)
[2018-03-18] MEDS: Gabapentin 300 MG Capsule PO SCH ×3 (09:15→17:20)
[2018-03-18] MEDS: Duloxetine 60 MG DR Capsule PO SCH (09:15)
[2018-03-18] MEDS: Docusate Sodium 100 MG Capsule PO SCH ×2 (09:15→22:07)
[2018-03-18] MEDS: oxyCODONE/Acetaminophen 10/325 Tablet PO PRN ×2 (09:15→17:19)
[2018-03-18] MEDS: Senna/Docusate Sodium 8.6/50 MG Tablet PO SCH ×2 (09:15→22:07)
[2018-03-18] MEDS: Lidocaine 5% Patch T-DERMAL SCH (09:16)
--- NOTE | 2018-03-18 11:40 | P.PN ---
Subjective Interval history: Trauma PTd: 8 Patient lying in bed. No distress noted. Patient states he has not gotten out of bed yet. Patient states that he does sit up when he eats. Patient states, "it hurts my back when I am up on an angle." Physical Exam Vital signs: Vital Signs 03/17/18 12:00 03/17/18 13:14 03/17/18 16:00 Temperature 98.5 F 98.3 F Pulse Rate 97 H 96 H Respiratory Rate 18 18 Blood Pressure 121/69 111/65 Pulse Oximetry 93 L 95 93 L 03/17/18 20:00 03/18/18 00:00 03/18/18 04:00 Temperature 98.5 F 99.3 F 98.1 F Pulse Rate 95 H 95 H 92 H Respiratory Rate 20 20 20 Blood Pressure 128/70 118/64 133/68 Pulse Oximetry 93 L 95 96 03/18/18 08:00 Temperature 97.7 F Pulse Rate 88 Respiratory Rate 19 Blood Pressure 139/80 Pulse Oximetry 94 L Intake & Output 03/17/18 03/18/18 03/18/18 18:59 06:59 18:59 Intake Total 620 / 620 Output Total 1700 / 1700 Balance 620 / 620 -1700 / -1700 Weight 117.1 kg Intake: Oral 620 / 620 Output: Urine Amount (Catheter) 1700 / 1700 Straight 1700 / 1700 Other: # Bowel Movements 0 Narrative: GENERAL: This is a 62-year-old male lying in bed. No distress noted. SKIN: Warm and dry. HEAD: Atraumatic. Normocephalic. EYES: PERRLA ENT: No nasal bleeding or discharge. Mucous membranes pink and moist. NECK: [place] J collar in place. Trachea midline. No JVD. CARDIOVASCULAR: Regular rate and rhythm. RESPIRATORY: No accessory muscle use. Lungs are clear to auscultation. Breath sounds equal bilaterally. No distress or dyspnea. GASTROINTESTINAL: BS + x 4 quads. Abdomen soft, non-tender, nondistended. MUSCULOSKELETAL: Extremities without cyanosis, or edema. TLSO brace in place. + peripheral pulses x 4 extremities. Warm with good capillary refill and sensation. Patient is able to move bilateral upper extremities well, equal and to command. Patient is not able to move lower bilateral extremities spontaneously or to command, however withdraws to pain in bilateral lower extremities. NEUROLOGICAL: Awake and alert. Normal speech and pattern. - Urinary Catheter Management Condom Cath placed during this visit: no Reason for continuing: Not indwelling catheter Indwelling Urethral Catheter Cath placed during this visit: yes, but has since been removed by the nurse Reason for continuing: Acute urinary retention Insertion date: 03/16/18 Insertion time: 04:30 Removal date: 03/14/18 Removal time: 10:45 Straight Cath placed during this visit: yes, but has since been removed by the nurse Reason for continuing: Acute urinary retention Insertion date: 03/17/18 Insertion time: 03:30 Removal date: 03/16/18 Removal time: 17:40 Results - Labs CBC & Chem 7: 04/23/18 04:41 04/23/18 04:41 Assessment and Plan - Plan [place]: This is a 62-year-old male who sustained a fall. He was sleeping on a [place], and fell off. He fell approximately 7-8 feet. He was unable to move or ambulate after the fall. EtOH 230. INJURIES: C6 vetebral body fx RIGHT clavicle fx T10 over T11 spondylolisthesis w/ spinal canal stenosis T10 transverse process fx T11 Compression fx RIGHT rib fx (4, 5, 7) LEFT rib fx (5) Atelectasis *Midline abdominal wall hernia. PMHx: Neuropathy. ETOH (15 beers/day) Procedures: 03/10: Afib - Cardizem. 03/11: Posterior T9, T10, T11, T12, and L1 fusion; T10-11 laminectomy; T10-11 open reduction of the fracture subluxation; T9-L1 pedicle screw fixation; 03/11: RETURNED from OR INTUBATED 03/12: Extubated. 03/13: Anterior cervical C3 and C4 partial corpectomies; C3-4 interbody fusion; anterior C3-4 cervical plate placement; C3-4 interbody cage placement Consults: Neurosurgery. Case management. Diet: Mechanical soft diet with Necter thick liquids. Tolerating po diet. Encourage good po intake with each meal. May have 1 beer with each meal. Pulmonary: Encourage good pulmonary toileting. IS and acapella at bedside and pt encouraged to use. Rationale for use explained to patient, and verbalized understanding. PAIN Management: Percocet 5-10 mg q 4h. Morphine 2 mg q 3h for breakthrough pain. Neurontin 600 mg TID. Lidoderm patch ETOH: Librium 10 mg q 8h. Ativan 1 mg q 4 hours as needed for withdrawal symptoms. Activity: OOB TID with meals to recliner chair stretcher chair. PT 7 days a week and OT ordered. ([place]-J. TLSO) GI prophylaxis: Protonix 40 mg po. Bowel regimen: Colace. MOM. Lactulose. Bisacodyl PRN. LBM: 03/16 DVT prophylaxis: Mechanical VTE with SCDs. Chemical management with Lovenox 30 mg BID SQ. DC Planning: Case management consulted for assistance with final discharge disposition. Patient is clear from a trauma surgery standpoint for transition and DC to rehab at this time. However, patient has been denied from 10 different facilities. Emotional support provided to patient at bedside and plan of care discussed. Discussed with RN at bedside. Discussed pt condition and plan of care with collaborating trauma surgeon. Patient is hemodynamically stable and being managed on the med/surg floor. The trauma team will round each day, and evaluate plan of care on a daily basis. C6 vertebral body fx RIGHT clavicle fx T10 over T11 spondylolisthesis w/ spinal canal stenosis T10 transverse process fx T11 Compression fx Neurosurgery consulted and assisting in management and care 03/11: Posterior T9, T10, T11, T12, and L1 fusion; T10-11 laminectomy; T10-11 open reduction of the fracture subluxation; T9-L1 pedicle screw fixation; 03/13: Anterior cervical C3 and C4 partial corpectomies; C3-4 interbody fusion; anterior C3-4 cervical plate placement; C3-4 interbody cage placement Supportive care Serial neuro checks Pain management PT 7 days a week and OT ordered OOB 3 x a day with meals [place] J collar at all times TLSO brace when out of bed Surgical dressings per neurosurgery - plan for thoracic staple removal on 03/24 Bowel regimen Lovenox for DVT prophylaxis Speech therapy following Pured diet with honey thick liquids RIGHT rib fx (4, 5, 7) LEFT rib fx (5) Atelectesis 03/11: RETURNED from OR INTUBATED 03/12: Extubated O2 nasal cannula as needed Supportive care Aggressive pulmonary toileting Chest x-ray as needed Pain management PT and OT ordered Encourage out of bed Bowel regimen Lovenox for DVT prophylaxis EtOH withdrawal Supportive care Librium 10 mg every 8 hours Ativan 1 mg every 4 hours for withdrawal symptoms Patient may have 1 beer with each meal tray - Attending Attestation The exam, history, and the medical decision-making described in the above note were completed with the assistance of the mid-level provider. I reviewed and agree with the findings presented. I attest that I had a [id number] encounter with the patient on the same day, and personally performed and documented my assessment and findings in the medical record.
--- NOTE | 2018-03-18 16:41 | P.PNNS ---
Subjective Interval history: Pt awake and alert. States he is participating with PT. Denies any paresthesias hands and states good strength in UEs. No movement in LEs. Physical Exam Vital signs: Vital Signs 03/17/18 20:00 03/18/18 00:00 03/18/18 04:00 Temperature 98.5 F 99.3 F 98.1 F Pulse Rate 95 H 95 H 92 H Respiratory Rate 20 20 20 Blood Pressure 128/70 118/64 133/68 Pulse Oximetry 93 L 95 96 03/18/18 08:00 03/18/18 12:00 03/18/18 14:50 Temperature 97.7 F 97.9 F Pulse Rate 88 96 H Respiratory Rate 19 19 16 Blood Pressure 139/80 123/75 Pulse Oximetry 94 L 94 L 03/18/18 15:36 Temperature 98 F Pulse Rate 103 H Respiratory Rate 19 Blood Pressure 124/73 Pulse Oximetry 91 L Intake & Output 03/17/18 03/18/18 03/18/18 18:59 06:59 18:59 Intake Total 620 / 620 Output Total 1700 / 1700 1500 / 1500 Balance 620 / 620 -1700 / -1700 -1500 / -1500 Weight 117.1 kg Intake: Oral 620 / 620 Output: Urine 1500 / 1500 Urine Amount (Catheter) 1700 / 1700 Straight 1700 / 1700 Other: # Bowel Movements 0 - Constitutional no acute distress, obese, cooperative - Routine HEENT Exam Head: Present: normocephalic, atraumatic Eye: Present: PERRL. Absent: conjunctival icterus ENT: Present: oropharynx clear - Routine Neck Exam Present: trachea midline. Absent: full ROM ([place] J cervical collar in place.) - Routine Respiratory Exam Present: CTA bilaterally. Absent: respiratory distress, rhonchi, wheezes - Routine Cardiovascular Exam Present: RRR, S1, S2. Absent: murmur - Routine Abdominal Exam Present: soft, normoactive bowel sounds. Absent: firm - Routine Skin Exam Absent: cyanosis, erythema - Routine Neurological Exam Present: alert, motor deficit (Good strength in UEs 4+/5. No movement in LEs. He has spasms in LEs. ), normal speech. Absent: moving all extremities - Urinary Catheter Management Condom Cath placed during this visit: yes, but has since been removed by the nurse Reason for continuing: Decision to DC catheter Removal date: 03/18/18 Removal time: 14:30 Indwelling Urethral Catheter Cath placed during this visit: yes, but has since been removed by the nurse Reason for continuing: Not indwelling catheter Insertion date: 03/16/18 Insertion time: 04:30 Removal date: 03/14/18 Removal time: 10:45 Straight Cath placed during this visit: yes, but has since been removed by the nurse Reason for continuing: Not indwelling catheter Insertion date: 03/18/18 Insertion time: 14:00 Removal date: 03/16/18 Removal time: 17:40 Assessment and Plan - Assessment (1) Closed rib fracture Code(s): S22.39XA - Fracture of one rib, unspecified side, initial encounter for closed fracture Status: Acute (2) Traumatic compression fracture of T11 thoracic vertebra Code(s): S22.080A - Wedge compression fracture of T11-T12 vertebra, initial encounter for closed fracture Status: Acute (3) Fracture of rib Code(s): S22.39XA - Fracture of one rib, unspecified side, initial encounter for closed fracture Status: Acute (4) Burst fracture of thoracic spine at T10-T11 level Status: Acute (5) Complete lesion at T10 level of thoracic spinal cord Code(s): S24.113A - Complete lesion at T7-T10 level of thoracic spinal cord, initial encounter Status: Acute (6) Closed spinal subluxation with complete thoracic cord lesion Status: Acute (7) Closed cervical spine fracture Code(s): S12.9XXA - Fracture of neck, unspecified, initial encounter Status: Acute Qualifiers: Encounter type: initial encounter Cervical vertebra fracture level: C6 Fracture alignment: nondisplaced - Plan A/P: 62 yo s/p T9-L1 fusion for T11 burst fracture on 03/12, s/p C3-4 ACDF on 03/13 P: -Collar and TLSO at all times. Advised pt he needs to be compliant or risk poor healing and further injury. -PT/OT OOB with TLSO brace. -pain control Remove thoracic skin carlos on 03/24. Neurosurgically stable for rehab placement. Follow up in 6 weeks from surgery with x-rays of cervical and thoracic/lumbar spine. Call office for follow up appt. [phone].
[2018-03-19] MEDS: Oral Hygiene Kit OROPHARYNG SCH ×2 (01:44→04:37)
[2018-03-19] MEDS: dilTIAZem 60 MG Tablet PO SCH ×3 (04:36→18:04)
[2018-03-19] MEDS: Duloxetine 60 MG DR Capsule PO SCH (08:29)
[2018-03-19] MEDS: Gabapentin 300 MG Capsule PO SCH ×3 (08:30→18:04)
[2018-03-19] MEDS: Enoxaparin Inj 30 MG/0.3 ML Syringe SQ SCH ×2 (08:31→21:35)
[2018-03-19] MEDS: Lidocaine 5% Patch T-DERMAL SCH (08:31)
[2018-03-19] MEDS: Senna/Docusate Sodium 8.6/50 MG Tablet PO SCH ×2 (08:40→21:35)
--- NOTE | 2018-03-19 10:18 | P.PN ---
Subjective Interval history: Patient has been requiring intermittent straight caths for urinary retention since Carrillo was removed on 03/14 RN reports hypotension after Cardizem given Physical Exam Vital signs: Vital Signs 03/18/18 12:00 03/18/18 14:50 03/18/18 15:36 Temperature 97.9 F 98 F Pulse Rate 96 H 103 H Respiratory Rate 19 16 19 Blood Pressure 123/75 124/73 Pulse Oximetry 94 L 91 L 03/18/18 19:43 03/18/18 20:00 03/19/18 00:00 Temperature 98.9 F 98.6 F Pulse Rate 104 H 98 H 87 Respiratory Rate 20 20 Blood Pressure 108/68 92/55 L Pulse Oximetry 90 L 90 L 03/19/18 04:00 03/19/18 07:58 Temperature 98 F 98.5 F Pulse Rate 81 99 H Respiratory Rate 20 20 Blood Pressure 112/66 116/65 Pulse Oximetry 94 L 92 L Intake & Output 03/18/18 03/19/18 03/19/18 18:59 06:59 18:59 Intake Total 720 / 720 Output Total 2500 / 2500 800 / 800 Balance -1780 / -1780 -800 / -800 Weight 114.6 kg Intake: Oral 720 / 720 Output: Urine 1500 / 1500 Urine Amount (Catheter) 1000 / 1000 800 / 800 Straight 1000 / 1000 800 / 800 Narrative: GENERAL: 62-year-old well-nourished male lying in bed. SKIN: Warm and dry. HEAD: Normocephalic. ENT: No nasal bleeding or discharge. Mucous membranes pink and moist. NECK: Trachea midline. No JVD. [place] J collar. CARDIOVASCULAR: Regular rate and rhythm. RESPIRATORY: Lungs are clear to auscultation. Breath sounds equal bilaterally. GASTROINTESTINAL: BS + Abdomen soft, non-tender, nondistended. MUSCULOSKELETAL: Extremities without cyanosis, or edema. TLSO brace in place. 5 /5 strength BUE. 0/5 strength BLE, withdrawals to noxious stimuli. + perfused. MPB in place on BLE. NEUROLOGICAL: Awake and alert. Normal speech. - Urinary Catheter Management Condom Cath placed during this visit: yes, but has since been removed by the nurse Reason for continuing: Decision to DC catheter Removal date: 03/18/18 Removal time: 14:30 Indwelling Urethral Catheter Cath placed during this visit: yes, but has since been removed by the nurse Reason for continuing: Not indwelling catheter Insertion date: 03/16/18 Insertion time: 04:30 Removal date: 03/14/18 Removal time: 10:45 Straight Cath placed during this visit: yes, but has since been removed by the nurse Reason for continuing: Not indwelling catheter Insertion date: 03/19/18 Insertion time: 03:00 Removal date: 03/19/18 Removal time: 03:30 Results - Labs CBC & Chem 7: 03/17/18 03:58 03/17/18 03:58 Assessment and Plan - Plan ANGOON: Sleeping on a sea wall, and fell off. Fell approx 7-8 feet. Unable to move or ambulate after the fall. ETOH = 230 INJURIES: C3-4 spinal stenosis w/ disc protrusion and cord compression C6 vertebral body fx RIGHT clavicle fx (no-op) T10 transverse process fx T11 burst fx w/ cord contusion and compression RIGHT rib fxs (4, 5, 7) LEFT rib fx (5) BILAT pulmonary contusions PMHx: Neuropathy. 03/10: Afib - Cardizem. 03/11: T9, T10, T11, T12, and L1 posterior fusion; T10-11 laminectomy; T10-11 open reduction of the fracture subluxation; T9-L1 pedicle screw fixation; 03/12: Extubated. 03/13: Anterior cervical C3 and C4 partial corpectomies; C3-4 interbody fusion; anterior C3-4 cervical plate placement; C3-4 interbody cage placement C3-4 spinal stenosis w/ disc protrusion and cord compression, C6 vertebral body fx, T10 over T11 spondylolisthesis w/ spinal canal stenosis, T10 transverse process fx, T11 burst fx w/ cord contusion and compression, Paraplegia Neurosurgery consulted 03/11: T9, T10, T11, T12, and L1 posterior fusion; T10-11 open reduction of the fracture subluxation; T9-L1 pedicle screw fixation; 03/13: Anterior cervical C3 and C4 partial corpectomies; C3-4 interbody fusion; anterior C3-4 cervical plate placement; C3-4 interbody cage placement Supportive care Serial neuro checks Pain control Bowel regimen PT 7 days a week. OT ordered [place] J collar at all times OOB with TLSO brace Surgical dressings per neurosurgery Specialty bed, MPB BLE Lovenox 30mg BID Rehab placement Dysphagia Speech therapy consulted Mechanical soft diet with nectar thick liquids Atrial fibrillation Tele Decrease Cardizem to 30mg PO q8h d/t hypotension Monitor BPs/HR AM labs RIGHT rib fxs, LEFT rib fx, BILAT pulmonary contusions 03/11: Intubated for OR 03/12: Extubated Supportive care Pulmonary toileting Chest x-ray as needed Pain control Bowel regimen OOB-PT and OT ordered Lovenox EtOH withdrawal Supportive care Urinary retention Continue Flomax Failed Carrillo removal and has been requiring intermittent straight caths since 03/14 Reinsert Carrillo catheter Plan of care discussed with patient and RN at bedside. Collaborating Trauma surgeon agrees with plan. Case management consulted to assist with discharge planning. Patient has an active DC to rehab and is clear to DC once arrangements made.
[2018-03-20] MEDS: dilTIAZem 60 MG Tablet PO SCH ×3 (02:53→18:12)
[2018-03-20 04:54] LABS: Baso % (Auto) 0.3 % (0.0-2.0); Eos # (Auto) 0.1 th/mm3 (0.0-0.4); Hematocrit 26.6 % (39.0-51.0); Hemoglobin 8.7 gm/dL (13.0-17.0); Lymph % (Auto) 14.9 % (9.0-44.0); Mean Corpuscular HGB Conc 32.7 % (32.0-36.0); Mean Corpuscular Hemoglobin 30.9 pg (27.0-34.0); Mean Corpuscular Volume 94.7 fL (80.0-100.0); Mean Platelet Volume 8.1 fL (7.0-11.0); Mono # (Auto) 1.9 th/mm3 (0.0-0.9); Mono % (Auto) 13.8 % (0.0-8.0); Neut # (Auto) 9.4 th/mm3 (1.8-7.7); Platelet Count 435 th/mm3 (150-450); Red Blood Count 2.81 mil/mm3 (4.50-5.90); White Blood Count 13.4 th/mm3 (4.0-11.0)
[2018-03-20 05:05] LABS: Anion Gap 11 meq/L (5-15); Blood Urea Nitrogen 12 mg/dL (7-18); Calcium 8.3 mg/dL (8.5-10.1); Carbon Dioxide 26.3 meq/L (21.0-32.0); Chloride 103 meq/L (98-107); Glomerular Filtration Rate Greater Than 89 mL/min (>89); Glucose,Random 113 mg/dL (74-106); Potassium 3.7 meq/L (3.5-5.1); Sodium 140 meq/L (136-145)
[2018-03-20] MEDS: Gabapentin 300 MG Capsule PO SCH ×3 (08:37→18:12)
[2018-03-20] MEDS: Senna/Docusate Sodium 8.6/50 MG Tablet PO SCH ×2 (08:38→21:38)
[2018-03-20] MEDS: Duloxetine 60 MG DR Capsule PO SCH (08:38)
[2018-03-20] MEDS: Lidocaine 5% Patch T-DERMAL SCH (08:39)
[2018-03-20] MEDS: Enoxaparin Inj 30 MG/0.3 ML Syringe SQ SCH ×2 (08:39→21:38)
--- NOTE | 2018-03-20 12:10 | P.PN ---
Subjective Interval history: PT reports patient has pressure wounds on his buttocks and bilateral heels from MPB NS wants his TLSO brace to stay on at all times which is also causing skin breakdown and causing the [place] J collar to not fit properly while patient lies in bed Pain controlled Physical Exam Vital signs: Vital Signs 03/19/18 16:00 03/19/18 20:00 03/20/18 00:00 Temperature 99.0 F 98.0 F 99.5 F Pulse Rate 96 H 97 H 98 H Respiratory Rate 18 Blood Pressure 121/72 121/69 120/67 Pulse Oximetry 95 92 L 93 L 03/20/18 04:00 03/20/18 08:00 Temperature 98.0 F 98.2 F Pulse Rate 91 H 88 Respiratory Rate 14 Blood Pressure 132/79 120/74 Pulse Oximetry 95 92 L Intake & Output 03/19/18 03/20/18 03/20/18 18:59 06:59 18:59 Intake Total 620 / 620 360 / 360 Output Total 400 / 400 1000 / 1000 Balance 220 / 220 -640 / -640 Weight 114.1 kg Intake: Oral 620 / 620 360 / 360 Output: Urine 400 / 400 1000 / 1000 Other: Date of Last Bowel Movement 03/18/18 03/20/18 # Bowel Movements 0 1 Narrative: GENERAL: 62-year-old well-nourished male lying in bed. SKIN: Warm and dry. HEAD: Normocephalic. ENT: No nasal bleeding or discharge. Mucous membranes pink and moist. NECK: Trachea midline. No JVD. [place] J collar. CARDIOVASCULAR: Regular rate and rhythm. RESPIRATORY: Lungs are clear to auscultation. Breath sounds equal bilaterally. GASTROINTESTINAL: BS + Abdomen soft, non-tender, nondistended. MUSCULOSKELETAL: Extremities without cyanosis, or edema. TLSO brace in place. 5 /5 strength BUE. 0/5 strength BLE, withdrawals to noxious stimuli. + perfused. MPB in place on BLE. NEUROLOGICAL: Awake and alert. Normal speech. - Urinary Catheter Management Condom Cath placed during this visit: yes, but has since been removed by the nurse Reason for continuing: Decision to DC catheter Removal date: 03/18/18 Removal time: 14:30 Indwelling Urethral Catheter Cath placed during this visit: yes, but has since been removed by the nurse Reason for continuing: Not indwelling catheter Insertion date: 03/16/18 Insertion time: 04:30 Removal date: 03/14/18 Removal time: 10:45 Straight Cath placed during this visit: yes, but has since been removed by the nurse Reason for continuing: Chronic Urinary Retention Insertion date: 03/19/18 Insertion time: 03:00 Removal date: 03/19/18 Removal time: 03:30 Results - Labs CBC & Chem 7: 03/20/18 03:19 03/20/18 03:19 Laboratory Results - last 24 hr 03/20/18 03/20/18 03:19 03:19 WBC 13.4 H RBC 2.81 L Hgb 8.7 L Hct 26.6 L MCV 94.7 MCH 30.9 MCHC 32.7 RDW 15.0 Plt Count 435 D MPV 8.1 Neut % (Auto) 70.0 Lymph % (Auto) 14.9 [place] % (Auto) 13.8 H Eos % (Auto) 1.0 Baso % (Auto) 0.3 Neut # (Auto) 9.4 H Lymph # (Auto) 2.0 [place] # (Auto) 1.9 H Eos # (Auto) 0.1 Baso # (Auto) 0.0 WBC Differential . Differential Comment Auto diff final Sodium 140 Potassium 3.7 Chloride 103 Carbon Dioxide 26.3 Anion Gap 11 BUN 12 Creatinine 0.55 L Estimated GFR Greater than 89 Random Glucose 113 H Calcium 8.3 L Assessment and Plan - Plan EYAK: Sleeping on a sea wall, and fell off. Fell approx 7-8 feet. Unable to move or ambulate after the fall. ETOH = 230 INJURIES: C3-4 spinal stenosis w/ disc protrusion and cord compression C6 vertebral body fx RIGHT clavicle fx (no-op) T10 transverse process fx T11 burst fx w/ cord contusion and compression RIGHT rib fxs (4, 5, 7) LEFT rib fx (5) BILAT pulmonary contusions PMHx: Neuropathy. 03/10: Afib - Cardizem. 03/11: T9, T10, T11, T12, and L1 posterior fusion; T10-11 laminectomy; T10-11 open reduction of the fracture subluxation; T9-L1 pedicle screw fixation; 03/12: Extubated. 03/13: Anterior cervical C3 and C4 partial corpectomies; C3-4 interbody fusion; anterior C3-4 cervical plate placement; C3-4 interbody cage placement C3-4 spinal stenosis w/ disc protrusion and cord compression, C6 vertebral body fx, T10 over T11 spondylolisthesis w/ spinal canal stenosis, T10 transverse process fx, T11 burst fx w/ cord contusion and compression, Paraplegia Neurosurgery consulted 03/11: T9, T10, T11, T12, and L1 posterior fusion; T10-11 open reduction of the fracture subluxation; T9-L1 pedicle screw fixation; 03/13: Anterior cervical C3 and C4 partial corpectomies; C3-4 interbody fusion; anterior C3-4 cervical plate placement; C3-4 interbody cage placement Supportive care Serial neuro checks Pain control Bowel regimen PT 7 days a week. OT ordered [place] J collar at all times OOB with TLSO brace Surgical dressings per neurosurgery Specialty bed, turn Q2H- D/W electrical unit rebuilder to check on specialty bed order that was placed yesterday Roho cushion when OOB in chair plc programmer consulted for pressure wounds MPB BLE- 4 hours on 4 hours off Lovenox 30mg BID Rehab placement Dysphagia Speech therapy consulted Mechanical soft diet with nectar thick liquids Atrial fibrillation Tele Cardizem 30mg PO q8h- BP improved Monitor BPs/HR AM labs RIGHT rib fxs, LEFT rib fx, BILAT pulmonary contusions 03/11: Intubated for OR 03/12: Extubated Supportive care Pulmonary toileting Chest x-ray as needed Pain control Bowel regimen OOB-PT and OT ordered Lovenox EtOH withdrawal Supportive care Urinary retention Continue Flomax Failed Carrillo removal and has been requiring intermittent straight caths since 03/14 Continue Carrillo catheter Urology consulted Plan of care discussed with patient at bedside. Collaborating Trauma surgeon agrees with plan. Case management consulted to assist with discharge planning. Patient has an active DC to rehab and is clear to DC once arrangements made. - Attending Attestation Patient overall stable continue physical therapy continue pain control continue DVT prophylaxis discharge planning
--- NOTE | 2018-03-20 12:20 | P.NPEVAL ---
Patient History - Record/History Review Reason for Referral: The patient is a 62 year old unknown handed male status post SCI 2T fall on 2017. The patient has a history of EtOH dependence and was intoxicated at the time of the injury, which included T11 and C6 fractures. He is referred for baseline neurobehavioral status examination per trauma protocol to assess cognitive, behavioral and emotional aspects of the injury and to provide treatment recommendations. [facility] - History History Provided By: Patient - Medical History Medical History: Medical History (Last Reviewed 03/19/18 @ 09:28 by Nicole Chávez) Depression High cholesterol Neck pain Neuropathy Peripheral vascular disease Prostate asymmetry - Tobacco History Second Hand Smoke Exposure: No Smoking Status: Unknown if ever smoked Tobacco Type: Cigarettes - Alcohol History How Often Do You Have a Drink Containing Alcohol: 4 or more times a week - Substance Use History Substance History: Active Abuse - Substance Use Type Alcohol Status: Active Route Used: By Mouth Frequency: drinks "first 2 weeks of the month and then runs out of money" - Immunization History Tetanus Immunization: Unsure Hx Influenza Vaccine This Season: No Medications Active Medications Al Hydroxide/Mg Hydroxide (Milk Of Margarito Hay) 30 ml PO BID [facility] Last Admin: 03/20/18 08:38 Dose: Not Given Albuterol (Duoneb Neb (Prn)) 1 ampul NEB Q2HR NEB PRN PRN Reason: WHEEZING Atorvastatin Calcium (Lipitor) 40 mg PO DAILY [facility] Last Admin: 03/20/18 08:37 Dose: 40 mg Bacitracin (Baciguent Oint) 1 applicatio TOPICAL BID [facility] Last Admin: 03/20/18 08:39 Dose: 1 applicatio Bisacodyl (Dulcolax Supp) 10 mg RECTAL DAILY PRN PRN Reason: SEVERE CONSITIPATION Diltiazem HCl (Cardizem) 30 mg PO Q8H [facility] Last Admin: 03/20/18 08:37 Dose: 30 mg Duloxetine HCl (Cymbalta) 60 mg PO DAILY [facility] Last Admin: 03/20/18 08:38 Dose: 60 mg Enalaprilat (Vasotec Inj) 1.25 mg IV.PUSH Q8H PRN PRN Reason: Blood pressure 180/95 Enoxaparin Sodium (Lovenox Inj) 30 mg SQ Q12HR [facility] Last Admin: 03/20/18 08:39 Dose: 30 mg Gabapentin (Neurontin) 600 mg PO TID [facility] Last Admin: 03/20/18 08:37 Dose: 600 mg Lactulose (Lactulose Liq) 30 ml PO DAILY [facility] Last Admin: 03/20/18 08:38 Dose: Not Given Lidocaine HCl (Lidoderm 5% Patch.12 Hr) 1 patch T-DERMAL DAILY [facility] Last Admin: 03/20/18 08:39 Dose: 1 patch Naloxone HCl (Narcan Inj) 0.4 mg IV.PUSH UNSCH PRN PRN Reason: SEE LABEL COMMENTS Ondansetron HCl (Zofran Inj) 4 mg IV.PUSH Q6H PRN PRN Reason: NAUSEA OR VOMITING Oxycodone/Acetaminophen (Percocet 10/325 Mg) 1 tab PO Q4H PRN PRN Reason: Acute Pain Last Admin: 03/18/18 17:19 Dose: 1 tab Oxycodone/Acetaminophen (Percocet 5/325 Mg) 1 tab PO Q4H PRN PRN Reason: Acute Pain Last Admin: 03/18/18 13:55 Dose: 1 tab Pantoprazole Sodium (Protonix) 40 mg PO DAILY [facility] Last Admin: 03/20/18 08:37 Dose: 40 mg Patch Removal (Remove Old Patch) 1 each T-DERMAL Q3D [facility] Last Admin: 03/19/18 21:38 Dose: Not Given Patch Removal (Remove Old Patch) 1 each T-DERMAL HS [facility] Last Admin: 03/19/18 21:37 Dose: 1 each Senna/Docusate Sodium (Mey-Colace) 1 tab PO BID [facility] Last Admin: 03/20/18 08:38 Dose: Not Given Sennosides (Senokot) 17.2 mg PO Q12H PRN PRN Reason: Moderate Constipation Sodium Chloride (Ns Flush) 2 ml IV.FLUSH UNSCH PRN PRN Reason: FLUSH AFTER USING IV ACCESS Last Admin: 03/14/18 20:54 Dose: 2 ml Tamsulosin HCl (Flomax) 0.4 mg PO DAILY [facility] Last Admin: 03/20/18 08:37 Dose: 0.4 mg Mental Status Assessment - Mental Status Orientation: oriented to: Self, Place, Time, Situation Mental Status: WFL: Language/interactions, Attention, Variable: Learning/memory , Problem-solving, Impaired: Thought processing Absent: Hallucinations, Delusions Adjustment/Coping Assessment - Adjustment/Coping Adjustment/Coping: Mild: Awareness, Insight - Observation In terms of emotional functioning, the patient demonstrated challenges. This patient demonstrated no present signs of agitation, impulsivity or disinhibition , nor was there remarkable evidence of a formal thought disorder or psychosis. There was no evidence of depression or anxiety. Thought content was free from suicidal, homicidal or paranoid ideation, and thought processes were bradyphrenic. The patients mood was anxious, and his affect was stable and but worrisome. The patient appears to possess limited insight and awareness into their situation and within the limits of this brief evaluation, limited judgment. Behavior - Behavior Agitation: Mild Treatment Engagement: Minimal - Observation Behaviorally, the patient demonstrated no signs of agitation, impulsivity or disinhibition. There was no remarkable evidence of a formal thought disorder or psychosis. - Goals LTG Status: Deferred STG Status: Deferred - Team Members Team Members: Neuropsychologist Diagnosis/Discharge Plan - Diagnosis (1) Alcohol dependence in controlled environment Status: Acute (2) Mild neurocognitive disorder Status: Acute Impression: 62 year old male s/p SCI 2T fall on 03/10/2018 with history of alcohol dependence. Disinhibition Score: 14.00 Aggression Score: 14.00 Lability Score: 14.00 Agitated Behavior Total Score: 14 Maximizing Acute Care Outcome: It is recommended that the patient be monitored for emergent behavioral impulsivity as the medical condition evolves. This patients neuropathological challenges may limit rehabilitation potential going forward, and these challenges will require specialized therapeutic skills to maximize outcome. Additionally, the patients family is experiencing ongoing issues of adjustment given the traumatic nature of the injury, and they may benefit from ongoing psychological assistance. At this point in the recovery process, the patient does have marginal decision making capacity as the patient is able to understand most aspects of a situation and its likely consequences, and he is able to manipulate information rationally. Cognitive capacity will be assessed throughout the recovery process. - Discharge Planning Anticipated Problems: Ongoing areas of concern will include behavioral impulsivity, lack of insight and judgment, which is expected to improve with time and treatment. Treatment Plan: This clinician will continue to follow with you throughout the course of this patients rehabilitation treatment, and I will be available to meet with the patients family/support system to facilitate their understanding and the ongoing care of their family member. The goals of neuropsychological intervention shall be both educational and supportive to the family/support system as is deemed clinically appropriate. Thank you for the opportunity to assist in this patients care. Stevie Vargas, Ph.D., ABPP Board Certified in Clinical Neuropsychology [place] [employer] [place] Licensed Psychologist #[id number]
--- NOTE | 2018-03-20 12:26 | P.PNWCN ---
Wound Care Nurse Consult Description: Wound consult ordered by for wound management Communicated with: Trey Stinson RN PRINTING SHOP SUPERVISOR Recommendation: 1. Manually reposition patient every 2 hours for comfort and offloading. 2. Please use only single layer UltraSorb underpad or flat sheet no cotton underpad. 3. Apply Calazime to open areas BID or as needed for incontinence. Additional information: Patient was seen today by lyric writer for wound management .Specialty bed evaluation.Patient alert in bed laying in supine position.Patient was assisted by lyric writer and SHOP HELPER to left side.Patient noted to have a beginning stage 1 pressure injury to left ischial.Non blanchable intact skin.Moisture associated denuded areas noted.Patient currently unable to reposition self or perform ROM.Patient does meet criteria for a specialty surface base on new paraplegic.patient offloaded to right side with use of pillow. Wound/Pressure Injury - Patient Status Premedicated for Pain Prior to Dressing Change: No - Wound Left Foot Wound Assessment: Ongoing Wound Type: Blister Dressing Status: Open to Air Right Foot Wound Assessment: Ongoing Wound Type: Blister Dressing Status: Open to Air Right Thigh Wound Assessment: Ongoing Wound Type: Abrasion Dressing Status: Open to Air Posterior Back Wound Assessment: Ongoing Is This a Chronic Wound: No Dressing Status: Dry & Intact Primary Dressing: Gauze Pad Left Buttocks Wound Assessment: Ongoing Wound Type: Pressure Injury Wound Bed Appearance: Peeling Skin, [place], Red, Shiny Surrounding Tissue Appearance: Bright Red, Erythema, [place], Shiny Surrounding Tissue Temperature: Warm Drainage Amount: None Drainage Odor: No Odor Dressing Status: Dry & Intact Cleansing Solution: Saline Primary Dressing: primapore Left Ishium Wound Assessment: Ongoing Wound Type: Pressure Injury Is This a Chronic Wound: No Requested from Provider a Wound Care Consult: No Wound Bed Appearance: Peeling Skin, [place] Surrounding Tissue Appearance: [place] Surrounding Tissue Temperature: Warm Drainage Description: Serous Drainage Amount: Scant Dressing Status: Changed Primary Dressing: primapore Left Ischial Wound Assessment: Ongoing Wound Type: Pressure Injury Is This a Chronic Wound: No Requested from Provider a Wound Care Consult: No Wound Bed Appearance: Peeling Skin, [place] Surrounding Tissue Appearance: [place] Wound Drain - Drain # 1 Left Upper Back Drainage Description: Sanguinous Drainage Odor: None/Absent Drain Removal Date: 03/13/18 Drain Removal Time: 17:00 Drain Removed By: Willa Randall Incision - Patient Status Premedicated for Pain Prior to Dressing Change: No - Incision Neck Incision/Surgery Date: 03/13/18
--- NOTE | 2018-03-20 19:49 | MB ---
cc: Evan Sorto DO DATE: 03/20/2018 HISTORY OF PRESENT ILLNESS: Mr. Plunkett is a pleasant 62-year-old male who sustained a spinal cord injury after falling from a wall. He denied any loss of consciousness. He did have a C6 spinal cord injury as well as a T11 comminuted body fracture with bilateral rib fractures. He underwent a neurosurgical procedure on 03/13/2018 with C3 and C4 partial corpectomies with interbody fusion, C3-C4 cervical plate placement and C3-C4 interbody cage placement. He does admit to a history of BPH prior to his hospitalization and was on Flomax 1 tablet p.o. at bedtime. He denies any urinary tract infections, hematuria or stones. PAST MEDICAL HISTORY: Includes atrial fibrillation, hypercholesterolemia, neuropathy, depression, BPH. PAST SURGICAL HISTORY: Denies any prior surgery. SOCIAL HISTORY: Denies smoking. He is a drinker. Denies IV drug abuse. ALLERGIES: HE HAS NO ALLERGIES. FAMILY HISTORY: He denies any prostate cancer history. REVIEW OF SYSTEMS: Notes difficulty with urination. No sensation in the lower extremities, unable to move. Does have a history of BPH. Denies chest pain, shortness of breath, headaches, skin lesions, prior neurologic problems. Remaining review of systems were reviewed and were negative. PHYSICAL EXAMINATION: VITAL SIGNS: Today, temperature 97.8, heart rate 79, respiratory rate 18, blood pressure 117/60. GENERAL: He is a well-developed, well-nourished, 62-year-old male in no acute distress. HEENT: Normocephalic, atraumatic. Pupils equal, round, regular, reactive to light. Extraocular movements intact. NECK: C-collar is in place. HEART: Regular rate and rhythm. LUNGS: Clear bilaterally. ABDOMEN: Soft, nontender, nondistended. GENITOURINARY: Carrillo catheter is currently in place. Testes descended. EXTREMITIES: Show no cyanosis, clubbing or edema. LABORATORY DATA: White count 13.4, hemoglobin 8.7, hematocrit 26.6, platelet count 435,000. PT 10.6, INR 1.0, PTT 26.4. Sodium 140, potassium 3.7, chloride 103, CO2 of 26.3, BUN 12, creatinine 0.55, glucose 113. Urinalysis shows less than 1 red cell, negative leukocyte esterase, negative nitrite. IMAGING DATA: A CT scan of the abdomen and pelvis showed a comminuted compression fracture of T11, nondisplaced fracture of T10 and right transverse process fracture of T11. Bladder was within normal limits, as well as the kidneys. No hydronephrosis was noted. ASSESSMENT AND PLAN: This is a 62-year-old male status post fall resulting in spinal cord injury. This could result in a neurogenic bladder. Continue Flomax 0.4 mg p.o. at bedtime for his history of benign prostatic hypertrophy. We will maintain Carrillo catheter now. Would leave Carrillo catheter until the patient is on rehabilitation and we will give him a void trial at that time. Wean pain medicine as appropriate as this will increase the risk of urinary retention. We will follow with you. Thank you for the consult and allowing me to participate in the care of this patient. DO Fan Walsh , 04:26 PM , 04:35 PM
[2018-03-20] MEDS: oxyCODONE/Acetaminophen 10/325 Tablet PO PRN (21:42)
[2018-03-21] MEDS: oxyCODONE/Acetaminophen 10/325 Tablet PO PRN ×3 (01:54→20:13)
[2018-03-21] MEDS: dilTIAZem 60 MG Tablet PO SCH ×3 (01:57→17:36)
--- NOTE | 2018-03-21 06:03 | XR ---
EXAM DATE: 03/21/2018 5:32 AM EDT AGE/SEX: 62 years / Male INDICATIONS: Follow up trauma. Respiratory status. CLINICAL DATA: This is the patient's subsequent encounter. Patient reports that signs and symptoms h ave been present for 1 week and indicates a pain score of Nonresponsive. MEDICAL/SURGICAL HISTORY: Non-responsive. Non-responsive. COMPARISON: C, CHEST 1V SINGLE AP, 03/14/2018. . FINDINGS: Improved aeration in the left lower lung zone. Cardiomediastinal contours are within normal limits. R emainder of the exam is unchanged. CONCLUSION: 1. Improved aeration in the left lower lung zone. Electronically signed by: Boyd Fay MD 03/21/2018 6:02 AM EDT
[2018-03-21] MEDS: Duloxetine 60 MG DR Capsule PO SCH (10:09)
[2018-03-21] MEDS: Gabapentin 300 MG Capsule PO SCH ×3 (10:09→17:36)
[2018-03-21] MEDS: Lidocaine 5% Patch T-DERMAL SCH (10:10)
[2018-03-21] MEDS: Senna/Docusate Sodium 8.6/50 MG Tablet PO SCH ×2 (10:12→20:15)
[2018-03-21] MEDS: Enoxaparin Inj 30 MG/0.3 ML Syringe SQ SCH ×2 (10:12→20:13)
--- NOTE | 2018-03-21 12:43 | P.DS ---
<Sarah Brand M - Last Filed: 03/21/18 12:36> Date of admission: 03/10/18 11:06 Primary care physician: UNKNOWN Brief History from admission: S/P Fall DS: Diagnosis - Discharge Diagnosis (1) Clavicle fracture Status: Acute (2) Closed rib fracture Status: Acute (3) Fracture of rib Status: Acute (4) Burst fracture of thoracic spine at T10-T11 level Status: Acute (5) Complete lesion at T10 level of thoracic spinal cord Status: Acute (6) Closed spinal subluxation with complete thoracic cord lesion Status: Acute (7) Stenosis of cervical spine with myelopathy Status: Acute DS: Summary Hospital Course: [place]: Sleeping on a sea wall, and fell off approx 7-8 feet. Unable to move or ambulate after the fall. ETOH = 230 INJURIES: C3-4 spinal stenosis w/ disc protrusion and cord compression C6 vertebral body fx RIGHT clavicle fx (no-op) T10 transverse process fx T11 burst fx w/ cord contusion and compression RIGHT rib fxs (4, 5, 7) LEFT rib fx (5) BILAT pulmonary contusions PMHx: Neuropathy. 03/10: Afib - Cardizem. 03/11: T9, T10, T11, T12, and L1 posterior fusion; T10-11 laminectomy; T10-11 open reduction of the fracture subluxation; T9-L1 pedicle screw fixation; 03/13: Anterior cervical C3 and C4 partial corpectomies; C3-4 interbody fusion; anterior C3-4 cervical plate placement; C3-4 interbody cage placement C3-4 spinal stenosis w/ disc protrusion and cord compression, C6 vertebral body fx, T10 over T11 spondylolisthesis w/ spinal canal stenosis, T10 transverse process fx, T11 burst fx w/ cord contusion and compression, Paraplegia Neurosurgery consulted 03/11: T9, T10, T11, T12, and L1 posterior fusion; T10-11 open reduction of the fracture subluxation; T9-L1 pedicle screw fixation; 03/13: Anterior cervical C3 and C4 partial corpectomies; C3-4 interbody fusion; anterior C3-4 cervical plate placement; C3-4 interbody cage placement Supportive care Serial neuro checks Pain control Bowel regimen PT 7 days a week. OT ordered [place] J collar at all times OOB with TLSO brace Surgical dressings per neurosurgery Specialty bed, turn Q2H Roho cushion when OOB in chair clinical training specialist consulted for pressure wounds MPB BLE- 4 hours on 4 hours off Lovenox 30mg BID Rehab placement Dysphagia Speech therapy consulted Mechanical soft diet with nectar thick liquids Atrial fibrillation Tele Cardizem 30mg PO q8h- BP improved Labs stable RIGHT rib fxs, LEFT rib fx, BILAT pulmonary contusions 03/11: Intubated for OR 03/12: Extubated Supportive care Pulmonary toileting Chest x-ray as needed Pain control Bowel regimen OOB-PT and OT ordered Lovenox EtOH abuse Supportive care Counselled on abstaining from ETOH Urinary retention Urology consulted Continue Flomax Continue Carrillo catheter per Urologist Plan of care discussed with patient at bedside. Collaborating Trauma surgeon agrees with plan. Case management consulted to assist with discharge planning. Patient has an active DC to rehab and is clear to DC once arrangements made. CM having difficulty finding a facility to accept the patient. Hospitalist consulted to assume medical management of patient as of 03/22. - Time Spent with Patient Total time spent providing and/or coordinating discharge services: Greater than 30 minutes - Quality: VTE Deep Vein Thrombosis/Pulmonary Embolism Present on Admission: No Exam Vital signs: Vital Signs 03/20/18 16:00 03/20/18 20:00 03/21/18 00:00 Temperature 97.8 F 98.7 F 98.6 F Pulse Rate 79 93 H 87 Respiratory Rate 16 20 20 Blood Pressure 117/68 120/58 L 114/62 Pulse Oximetry 94 L 97 96 03/21/18 04:00 03/21/18 08:00 03/21/18 12:00 Temperature 97.3 F L 97.6 F 97.4 F L Pulse Rate 77 71 69 Respiratory Rate 20 17 18 Blood Pressure 109/65 123/58 L 120/60 Pulse Oximetry 93 L 96 93 L Intake & Output 03/20/18 03/21/18 03/21/18 18:59 06:59 18:59 Intake Total 600 / 600 Output Total 1000 / 1000 1000 / 1000 Balance -400 / -400 -1000 / -1000 Intake: Oral 600 / 600 Output: Urine 1000 / 1000 1000 / 1000 Narrative: GENERAL: 62-year-old well-nourished male lying in bed with TLSO brace and [place] J collar on. SKIN: Warm and dry. HEAD: Normocephalic. ENT: No nasal bleeding or discharge. Mucous membranes pink and moist. NECK: Trachea midline. No JVD. [place] J collar. CARDIOVASCULAR: Regular rate and rhythm. RESPIRATORY: Lungs are clear to auscultation. Breath sounds equal bilaterally. GASTROINTESTINAL: BS + Abdomen soft, non-tender, nondistended. MUSCULOSKELETAL: Extremities without cyanosis, +1 generalized edema. TLSO brace in place. 5/5 strength BUE. 0/5 strength BLE, withdrawals to noxious stimuli. + perfused. NEUROLOGICAL: Awake and alert. Normal speech. Results Procedures completed during hospitalization: 03/11: T9, T10, T11, T12, and L1 posterior fusion; T10-11 laminectomy; T10-11 open reduction of the fracture subluxation; T9-L1 pedicle screw fixation; 03/13: Anterior cervical C3 and C4 partial corpectomies; C3-4 interbody fusion; anterior C3-4 cervical plate placement; C3-4 interbody cage placement - Impressions ITS Impressions Abdomen/Pelvis CT 03/10/18 00:00 CONCLUSION: 1. Severe comminuted compression fracture involving the body of T11. 2. Nondisplaced fracture involving the left transverse process of T10 and the right transverse process of T11. 3. Grade 2 anterior spondylolisthesis of T10 over T11 creating spinal canal stenosis at this level. 4. Diffuse fatty infiltration of the liver. 5. Midline anterior abdominal wall hernia containing loop of transverse colon without obstruction at this time. Pelvis X-Ray 03/10/18 09:10 CONCLUSION: The bony structures are grossly intact on this limited single AP view. Chest CT 03/10/18 09:23 CONCLUSION: 1. Severely comminuted fracture through the body of T11. 2. Grade 2 anterior spondylolisthesis of T10 over T11 with locked facets bilaterally causing spinal canal stenosis.. 3. Nondisplaced fractures involving the left transverse process of T10 and the right transverse process of T11. 4. Nondisplaced fractures involving bilateral ribs. 5. Nonspecific infiltrate right perihilar area and bibasilar atelectasis. Cervical Spine CT 03/10/18 09:24 CONCLUSION: 1. Nondisplaced fracture of the left aspect of C6 vertebral body. 2. No spondylolisthesis. 3. Degenerative changes. Head CT 03/10/18 09:24 CONCLUSION: 1. Unremarkable CT scan of the brain. . Lumbar Spine CT 03/10/18 09:24 CONCLUSION: 1. No fracture or subluxation. 2. Multilevel protrusions as above. Thoracic Spine CT 03/10/18 09:24 CONCLUSION: 1. Severely comminuted fracture through the body of T11. 2. Grade 2 anterior spondylolisthesis of T10 over T11 with bilateral locked facets. This is causing focal severe spinal canal stenosis at this level. There are some fractures of the posterior facets at T10. 3. Nondisplaced fractures involving the left transverse process of T10 and the right transverse process of T11. 4. Diffuse paraspinal soft tissue swelling. Cervical Spine MRI 03/10/18 11:31 CONCLUSION: 1. Moderate spinal stenosis and bilateral foraminal narrowing at C3-4. 2. Mild bilateral foraminal narrowing at C5-6 and C6-7 as well as mild left neuroforaminal narrowing at C4-5. Lumbar Spine MRI 03/10/18 11:31 CONCLUSION: 1. Mild to moderate spinal stenosis and bilateral foraminal narrowing at L2-3. 2. Mild to moderate bilateral foraminal narrowing at L3-4 and L4-5 without spinal stenosis. 3. Degenerative disc disease from L2 through S1. Thoracic Spine MRI 03/10/18 11:31 CONCLUSION: 1. Comminuted fracture involving the T11 vertebral body, better visualized on comparison CT. There is anterolisthesis of T10 with respect to T11 resulting in cord compression and abnormal increased T2 signal identified within the cord. There is extensive anterior posterior paraspinal hematoma present. Thoracolumbar Spine 03/11/18 00:00 CONCLUSION: Status post fusion from T9 through L1 with stable compression deformity of T11 and hardware in good position. Cervical Spine X-Ray 03/13/18 00:00 CONCLUSION: Anatomic alignment following fusion at C3-C4 Chest X-Ray 03/21/18 00:00 CONCLUSION: 1. Improved aeration in the left lower lung zone. <Hyun Price E - Last Filed: 03/22/18 13:45> Date of admission: 03/10/18 11:06 Primary care physician: UNKNOWN DS: Summary - Time Spent with Patient Total time spent providing and/or coordinating discharge services: Exam Vital signs: Vital Signs 03/21/18 16:00 03/21/18 20:00 03/22/18 00:00 Temperature 97.2 F L 97.9 F Pulse Rate 73 82 75 Respiratory Rate 18 18 Blood Pressure 119/67 111/69 Pulse Oximetry 97 96 03/22/18 00:38 03/22/18 04:00 03/22/18 04:27 Temperature 98.0 F 97.9 F Pulse Rate 83 78 86 Respiratory Rate 18 19 18 Blood Pressure 112/83 124/58 L Pulse Oximetry 95 96 03/22/18 08:00 03/22/18 09:37 03/22/18 12:00 Temperature 97.5 F L 97.6 F Pulse Rate 79 77 102 H Respiratory Rate 18 19 Blood Pressure 106/58 L 127/60 Pulse Oximetry 95 96 100 Intake & Output 03/21/18 03/22/18 03/22/18 18:59 06:59 18:59 Intake Total 100 / 100 360 / 360 Output Total 650 / 650 1000 / 1000 Balance -550 / -550 -640 / -640 Weight 114 kg Intake: Oral 100 / 100 360 / 360 Output: Urine 650 / 650 1000 / 1000 Other: Date of Last Bowel Movement 03/21/18 03/21/18 03/22/18 # Bowel Movements 2 Results - Impressions ITS Impressions Abdomen/Pelvis CT 03/10/18 00:00 CONCLUSION: 1. Severe comminuted compression fracture involving the body of T11. 2. Nondisplaced fracture involving the left transverse process of T10 and the right transverse process of T11. 3. Grade 2 anterior spondylolisthesis of T10 over T11 creating spinal canal stenosis at this level. 4. Diffuse fatty infiltration of the liver. 5. Midline anterior abdominal wall hernia containing loop of transverse colon without obstruction at this time. Pelvis X-Ray 03/10/18 09:10 CONCLUSION: The bony structures are grossly intact on this limited single AP view. Chest CT 03/10/18 09:23 CONCLUSION: 1. Severely comminuted fracture through the body of T11. 2. Grade 2 anterior spondylolisthesis of T10 over T11 with locked facets bilaterally causing spinal canal stenosis.. 3. Nondisplaced fractures involving the left transverse process of T10 and the right transverse process of T11. 4. Nondisplaced fractures involving bilateral ribs. 5. Nonspecific infiltrate right perihilar area and bibasilar atelectasis. Cervical Spine CT 03/10/18 09:24 CONCLUSION: 1. Nondisplaced fracture of the left aspect of C6 vertebral body. 2. No spondylolisthesis. 3. Degenerative changes. Head CT 03/10/18 09:24 CONCLUSION: 1. Unremarkable CT scan of the brain. . Lumbar Spine CT 03/10/18 09:24 CONCLUSION: 1. No fracture or subluxation. 2. Multilevel protrusions as above. Thoracic Spine CT 03/10/18 09:24 CONCLUSION: 1. Severely comminuted fracture through the body of T11. 2. Grade 2 anterior spondylolisthesis of T10 over T11 with bilateral locked facets. This is causing focal severe spinal canal stenosis at this level. There are some fractures of the posterior facets at T10. 3. Nondisplaced fractures involving the left transverse process of T10 and the right transverse process of T11. 4. Diffuse paraspinal soft tissue swelling. Cervical Spine MRI 03/10/18 11:31 CONCLUSION: 1. Moderate spinal stenosis and bilateral foraminal narrowing at C3-4. 2. Mild bilateral foraminal narrowing at C5-6 and C6-7 as well as mild left neuroforaminal narrowing at C4-5. Lumbar Spine MRI 03/10/18 11:31 CONCLUSION: 1. Mild to moderate spinal stenosis and bilateral foraminal narrowing at L2-3. 2. Mild to moderate bilateral foraminal narrowing at L3-4 and L4-5 without spinal stenosis. 3. Degenerative disc disease from L2 through S1. Thoracic Spine MRI 03/10/18 11:31 CONCLUSION: 1. Comminuted fracture involving the T11 vertebral body, better visualized on comparison CT. There is anterolisthesis of T10 with respect to T11 resulting in cord compression and abnormal increased T2 signal identified within the cord. There is extensive anterior posterior paraspinal hematoma present. Thoracolumbar Spine 03/11/18 00:00 CONCLUSION: Status post fusion from T9 through L1 with stable compression deformity of T11 and hardware in good position. Cervical Spine X-Ray 03/13/18 00:00 CONCLUSION: Anatomic alignment following fusion at C3-C4 Chest X-Ray 03/21/18 00:00 CONCLUSION: 1. Improved aeration in the left lower lung zone. Addendum No acute trauma issues left patient has multiple medical problems rehab is pending he will be transferred to the medical service Discharge Plan - Discharge Order Discharge Orders: Discharge Order (Routine); Ordered 03/17/18 Ordered By: Joceline Abdul - Physicians Team Primary Care Provider: UNKNOWN, Attending Provider: Juancarlos Flores Other Providers: Dru Meng MD ; Darnell Beckwith MD ; [facility] ; Luis Tatum MD ; Joceline Abdul ARNP ; Axel Cruz MD ; Hyun Price MD ; Sarah Brand ARNP ; Eugenia Samuel MD ; Rayray Mclean MD ; Rehab,[facility] ; [facility] ; Stevie Vargas, PhD ; Evan Sorto DO ; Maya Rodgers MD
[2018-03-22] MEDS: oxyCODONE/Acetaminophen 10/325 Tablet PO PRN ×3 (00:37→21:46)
[2018-03-22] MEDS: dilTIAZem 60 MG Tablet PO SCH ×3 (00:38→17:30)
[2018-03-22] MEDS: Gabapentin 300 MG Capsule PO SCH ×3 (09:37→17:30)
[2018-03-22] MEDS: Enoxaparin Inj 30 MG/0.3 ML Syringe SQ SCH ×2 (09:38→21:47)
[2018-03-22] MEDS: Lidocaine 5% Patch T-DERMAL SCH (09:38)
[2018-03-22] MEDS: Duloxetine 60 MG DR Capsule PO SCH (09:38)
[2018-03-22] MEDS: Senna/Docusate Sodium 8.6/50 MG Tablet PO SCH ×2 (09:39→21:50)
--- NOTE | 2018-03-22 10:34 | P.PN ---
Subjective Interval history: In bed, says he has more pain. He was up in the chair with the brace for 1 hour in the morning and he has pain at this time. Otherwise other concerns., Palpitations nausea vomiting diarrhea or constipation. Physical Exam Vital signs: Vital Signs 03/21/18 12:00 03/21/18 16:00 03/21/18 20:00 Temperature 97.4 F L 97.2 F L 97.9 F Pulse Rate 69 73 82 Respiratory Rate 18 18 18 Blood Pressure 120/60 119/67 111/69 Pulse Oximetry 93 L 97 96 03/22/18 00:00 03/22/18 00:38 03/22/18 04:00 Temperature 98.0 F Pulse Rate 75 83 78 Respiratory Rate 18 19 Blood Pressure 112/83 Pulse Oximetry 95 03/22/18 04:27 03/22/18 08:00 Temperature 97.9 F 97.5 F L Pulse Rate 86 79 Respiratory Rate 18 18 Blood Pressure 124/58 L 106/58 L Pulse Oximetry 96 95 Intake & Output 03/21/18 03/22/18 03/22/18 18:59 06:59 18:59 Intake Total 100 / 100 360 / 360 Output Total 650 / 650 1000 / 1000 Balance -550 / -550 -640 / -640 Weight 114 kg Intake: Oral 100 / 100 360 / 360 Output: Urine 650 / 650 1000 / 1000 Other: Date of Last Bowel Movement 03/21/18 03/21/18 # Bowel Movements 2 Narrative: GENERAL: Pleasant 62-year-old well-developed, well-nourished male lying in bed. SKIN: Warm and dry. HEAD: Normocephalic. ENT: No nasal bleeding or discharge. Mucous membranes pink and moist. NECK: Trachea midline. No JVD. [place] J collar. CARDIOVASCULAR: Regular rate and rhythm. RESPIRATORY: Lungs are clear to auscultation. Breath sounds equal bilaterally. GASTROINTESTINAL: BS + Abdomen soft, non-tender, nondistended. MUSCULOSKELETAL: Extremities without cyanosis, or edema. TLSO brace in place. 5 /5 strength BUE. 0/5 strength BLE, withdrawals to noxious stimuli. + perfused. MPB in place on BLE. NEUROLOGICAL: Awake and alert. Normal speech. - Urinary Catheter Management Condom Cath placed during this visit: yes, but has since been removed by the nurse Reason for continuing: Decision to DC catheter Removal date: 03/18/18 Removal time: 14:30 Indwelling Urethral Catheter Cath placed during this visit: yes, but has since been removed by the nurse Reason for continuing: Not indwelling catheter Insertion date: 03/16/18 Insertion time: 04:30 Removal date: 03/14/18 Removal time: 10:45 Straight Cath placed during this visit: yes, but has since been removed by the nurse Reason for continuing: Acute urinary retention Insertion date: 03/19/18 Insertion time: 03:00 Removal date: 03/19/18 Removal time: 03:30 Results - Labs CBC & Chem 7: 03/20/18 03:19 03/20/18 03:19 - Procedures 03/11: T9, T10, T11, T12, and L1 posterior fusion; T10-11 laminectomy; T10-11 open reduction of the fracture subluxation; T9-L1 pedicle screw fixation; 03/13: Anterior cervical C3 and C4 partial corpectomies; C3-4 interbody fusion; anterior C3-4 cervical plate placement; C3-4 interbody cage placement Assessment and Plan - Plan [place]: Sleeping on a sea wall, and fell off approx 7-8 feet. Unable to move or ambulate after the fall. ETOH = 230 on admission. INJURIES: C3-4 spinal stenosis w/ disc protrusion and cord compression C6 vertebral body fx RIGHT clavicle fx (no-op) T10 transverse process fx T11 burst fx w/ cord contusion and compression RIGHT rib fxs (4, 5, 7) LEFT rib fx (5) BILAT pulmonary contusions PMHx: Neuropathy. 03/10: Afib - Cardizem. 03/11: T9, T10, T11, T12, and L1 posterior fusion; T10-11 laminectomy; T10-11 open reduction of the fracture subluxation; T9-L1 pedicle screw fixation; 03/13: Anterior cervical C3 and C4 partial corpectomies; C3-4 interbody fusion; anterior C3-4 cervical plate placement; C3-4 interbody cage placement C3-4 spinal stenosis w/ disc protrusion and cord compression, C6 vertebral body fx, T10 over T11 spondylolisthesis w/ spinal canal stenosis, T10 transverse process fx, T11 burst fx w/ cord contusion and compression, Paraplegia Neurosurgery consulted 03/11: T9, T10, T11, T12, and L1 posterior fusion; T10-11 open reduction of the fracture subluxation; T9-L1 pedicle screw fixation; 03/13: Anterior cervical C3 and C4 partial corpectomies; C3-4 interbody fusion; anterior C3-4 cervical plate placement; C3-4 interbody cage placement Supportive care Serial neuro checks Pain control Bowel regimen PT 7 days a week. OT ordered [place] J collar at all times OOB with TLSO brace Surgical dressings per neurosurgery Specialty bed, turn Q2H Roho cushion when OOB in chair meter reader inspector consulted for pressure wounds MPB BLE- 4 hours on 4 hours off Lovenox 30mg BID Rehab placement Dysphagia Speech therapy consulted Mechanical soft diet with nectar thick liquids Atrial fibrillation Tele Cardizem 30mg PO q8h- BP improved Labs stable RIGHT rib fxs, LEFT rib fx, BILAT pulmonary contusions 03/11: Intubated for OR 03/12: Extubated Supportive care Pulmonary toileting Chest x-ray as needed Pain control Bowel regimen OOB-PT and OT ordered Lovenox EtOH abuse Supportive care Counselled on abstaining from ETOH Urinary retention Urology consulted Continue Flomax Continue Carrillo catheter per Urologist Case management consulted to assist with discharge planning. Patient has an active DC to rehab and is clear to DC once arrangements made. CM having difficulty finding a facility to accept the patient.
[2018-03-23] MEDS: dilTIAZem 60 MG Tablet PO SCH ×3 (01:36→17:07)
[2018-03-23] MEDS: Senna/Docusate Sodium 8.6/50 MG Tablet PO SCH ×2 (08:50→21:28)
[2018-03-23] MEDS: Gabapentin 300 MG Capsule PO SCH ×3 (08:51→17:07)
[2018-03-23] MEDS: Lidocaine 5% Patch T-DERMAL SCH (08:51)
[2018-03-23] MEDS: Enoxaparin Inj 30 MG/0.3 ML Syringe SQ SCH ×2 (08:51→21:27)
[2018-03-23] MEDS: Duloxetine 60 MG DR Capsule PO SCH (08:55)
[2018-03-23] MEDS: oxyCODONE/Acetaminophen 10/325 Tablet PO PRN ×2 (08:59→17:07)
--- NOTE | 2018-03-23 10:26 | P.PN ---
Subjective Interval history: Appears in nad In bed says his back hurts with the TLSO brace and today he was not in the chair. No palpitations. No n/v/d/c. Physical Exam Vital signs: Vital Signs 03/22/18 12:00 03/22/18 16:00 03/22/18 20:00 Temperature 97.6 F 98.0 F 98.6 F Pulse Rate 102 H 86 93 H Respiratory Rate 19 18 18 Blood Pressure 127/60 108/63 128/67 Pulse Oximetry 100 95 96 03/22/18 23:08 03/23/18 00:36 03/23/18 04:21 Temperature 97.2 F L 97.3 F L Pulse Rate 87 82 Respiratory Rate 20 18 18 Blood Pressure 148/72 H 114/66 Pulse Oximetry 94 L 98 03/23/18 08:00 Temperature 97.4 F L Pulse Rate 92 H Respiratory Rate 18 Blood Pressure 139/77 Pulse Oximetry 96 Intake & Output 03/22/18 03/23/18 03/23/18 18:59 06:59 18:59 Intake Total 200 / 200 240 / 240 Output Total 400 / 400 1000 / 1000 Balance -200 / -200 -760 / -760 Weight 114 kg Intake: Oral 200 / 200 240 / 240 Output: Urine 400 / 400 1000 / 1000 Other: Date of Last Bowel Movement 03/22/18 # Bowel Movements 0 Narrative: GENERAL: Pleasant 62-year-old well-developed, well-nourished male lying in bed. SKIN: Warm and dry. HEAD: Normocephalic. ENT: No nasal bleeding or discharge. Mucous membranes pink and moist. NECK: Trachea midline. No JVD. [place] J collar. CARDIOVASCULAR: Regular rate and rhythm. RESPIRATORY: Lungs are clear to auscultation. Breath sounds equal bilaterally. GASTROINTESTINAL: BS + Abdomen soft, non-tender, nondistended. MUSCULOSKELETAL: Extremities without cyanosis, or edema. TLSO brace in place. 5 /5 strength BUE. 0/5 strength BLE, withdrawals to noxious stimuli. + perfused. MPB in place on BLE. NEUROLOGICAL: Awake and alert. Normal speech. - Urinary Catheter Management Condom Cath placed during this visit: yes, but has since been removed by the nurse Reason for continuing: Decision to DC catheter Removal date: 03/18/18 Removal time: 14:30 Indwelling Urethral Catheter Cath placed during this visit: yes, but has since been removed by the nurse Reason for continuing: Not indwelling catheter Insertion date: 03/16/18 Insertion time: 04:30 Removal date: 03/14/18 Removal time: 10:45 Straight Cath placed during this visit: yes, but has since been removed by the nurse Reason for continuing: Chronic Urinary Retention Insertion date: 03/19/18 Insertion time: 03:00 Removal date: 03/19/18 Removal time: 03:30 Results - Labs CBC & Chem 7: 03/20/18 03:19 03/20/18 03:19 - Procedures 03/11: T9, T10, T11, T12, and L1 posterior fusion; T10-11 laminectomy; T10-11 open reduction of the fracture subluxation; T9-L1 pedicle screw fixation; 03/13: Anterior cervical C3 and C4 partial corpectomies; C3-4 interbody fusion; anterior C3-4 cervical plate placement; C3-4 interbody cage placement Assessment and Plan - Plan 03/23: in nad. MALATHI is bothering him says he has pain in his back with TSLO brace [place]: Sleeping on a sea wall, and fell off approx 7-8 feet. Unable to move or ambulate after the fall. ETOH = 230 on admission. INJURIES: C3-4 spinal stenosis w/ disc protrusion and cord compression C6 vertebral body fx RIGHT clavicle fx (no-op) T10 transverse process fx T11 burst fx w/ cord contusion and compression RIGHT rib fxs (4, 5, 7) LEFT rib fx (5) BILAT pulmonary contusions PMHx: Neuropathy. 03/10: Afib - Cardizem. 03/11: T9, T10, T11, T12, and L1 posterior fusion; T10-11 laminectomy; T10-11 open reduction of the fracture subluxation; T9-L1 pedicle screw fixation; 03/13: Anterior cervical C3 and C4 partial corpectomies; C3-4 interbody fusion; anterior C3-4 cervical plate placement; C3-4 interbody cage placement C3-4 spinal stenosis w/ disc protrusion and cord compression, C6 vertebral body fx, T10 over T11 spondylolisthesis w/ spinal canal stenosis, T10 transverse process fx, T11 burst fx w/ cord contusion and compression, Paraplegia Neurosurgery consulted 03/11: T9, T10, T11, T12, and L1 posterior fusion; T10-11 open reduction of the fracture subluxation; T9-L1 pedicle screw fixation; 03/13: Anterior cervical C3 and C4 partial corpectomies; C3-4 interbody fusion; anterior C3-4 cervical plate placement; C3-4 interbody cage placement Supportive care Serial neuro checks Pain control Bowel regimen PT 7 days a week. OT ordered [place] J collar at all times OOB with TLSO brace Surgical dressings per neurosurgery Specialty bed, turn Q2H Roho cushion when OOB in chair eastern philosophy professor consulted for pressure wounds MPB BLE- 4 hours on 4 hours off Lovenox 30mg BID Rehab placement Dysphagia Speech therapy consulted Mechanical soft diet with nectar thick liquids Atrial fibrillation Tele Cardizem 30mg PO q8h- BP improved Labs stable RIGHT rib fxs, LEFT rib fx, BILAT pulmonary contusions 03/11: Intubated for OR 03/12: Extubated Supportive care Pulmonary toileting Chest x-ray as needed Pain control Bowel regimen OOB-PT and OT ordered Lovenox EtOH abuse Supportive care Counselled on abstaining from ETOH Urinary retention Urology consulted Continue Flomax Continue Carrillo catheter per Urologist Case management consulted to assist with discharge planning. Patient has an active DC to rehab and is clear to DC once arrangements made. CM having difficulty finding a facility to accept the patient.
[2018-03-24] MEDS: dilTIAZem 60 MG Tablet PO SCH ×3 (01:26→16:55)
[2018-03-24] MEDS: Enoxaparin Inj 30 MG/0.3 ML Syringe SQ SCH ×2 (08:27→20:05)
[2018-03-24] MEDS: Gabapentin 300 MG Capsule PO SCH ×4 (08:28→17:01)
[2018-03-24] MEDS: Duloxetine 60 MG DR Capsule PO SCH (08:30)
[2018-03-24] MEDS: Senna/Docusate Sodium 8.6/50 MG Tablet PO SCH ×2 (08:30→20:05)
[2018-03-24] MEDS: Lidocaine 5% Patch T-DERMAL SCH (08:31)
--- NOTE | 2018-03-24 12:25 | P.PNURO ---
Subjective Patient symptoms today: Pt seen and examined. Objective Vital Signs: Vital Signs 03/23/18 15:00 03/23/18 16:00 03/23/18 20:00 Temperature 98.0 F 97.6 F Pulse Rate 79 83 84 Respiratory Rate 15 18 Blood Pressure 108/56 L 125/68 Pulse Oximetry 98 96 03/24/18 00:00 03/24/18 04:00 03/24/18 07:50 Temperature 97.9 F 97 F L 97.4 F L Pulse Rate 84 75 77 Respiratory Rate 17 17 17 Blood Pressure 128/65 127/62 130/77 Pulse Oximetry 97 96 97 03/24/18 08:00 03/24/18 11:50 Temperature 97.4 F L Pulse Rate 95 H 94 H Respiratory Rate 17 Blood Pressure 121/70 Pulse Oximetry 95 Intake & Output 03/23/18 03/24/18 03/24/18 18:59 06:59 18:59 Intake Total 1400 / 1400 Output Total 400 / 400 1100 / 1100 Balance 1000 / 1000 -1100 / -1100 Intake: Oral 1400 / 1400 Output: Urine 400 / 400 Urine Amount (Catheter) 1100 / 1100 Indwelling Urethral Catheter 1100 / 1100 Other: # Incontinent Bowel Movements 1 Result Diagrams: 03/20/18 03:19 03/20/18 03:19 Medications and IVs: Active Medications Generic Name Dose Route Start Last Admin Trade Name Freq PRN Reason Stop Dose Admin Albuterol 1 ampul 03/12/18 06:59 Duoneb Neb (Prn) NEB Q2HR NEB PRN WHEEZING Atorvastatin Calcium 40 mg 03/15/18 09:15 03/24/18 08:29 Lipitor PO 40 mg DAILY TANO Administration Bacitracin 1 applicatio 03/10/18 21:00 03/24/18 08:30 Baciguent Oint TOPICAL 1 applicatio BID TANO Administration Bisacodyl 10 mg 03/10/18 14:25 Dulcolax Supp RECTAL DAILY PRN SEVERE CONSITIPATION Diltiazem HCl 30 mg 03/19/18 17:00 03/24/18 08:28 Cardizem PO 30 mg Q8H TANO Administration Duloxetine HCl 60 mg 03/15/18 11:00 03/24/18 08:30 Cymbalta PO 60 mg DAILY TANO Administration Enalaprilat 1.25 mg 03/10/18 11:00 Vasotec Inj IV.PUSH Q8H PRN Blood pressure 180/95 Enoxaparin Sodium 30 mg 03/15/18 09:00 03/24/18 08:27 Lovenox Inj SQ 30 mg Q12HR TANO Administration Gabapentin 600 mg 03/10/18 20:30 03/24/18 08:28 Neurontin PO 600 mg TID TANO Administration Lidocaine HCl 1 patch 03/12/18 13:00 03/24/18 08:31 Lidoderm 5% Patch.12 Hr T-DERMAL 1 patch DAILY TANO Administration Naloxone HCl 0.4 mg 03/10/18 14:25 Narcan Inj IV.PUSH UNSCH PRN SEE LABEL COMMENTS Ondansetron HCl 4 mg 03/10/18 14:25 Zofran Inj IV.PUSH Q6H PRN NAUSEA OR VOMITING Oxycodone/Acetaminophen 1 tab 03/12/18 12:43 03/23/18 17:07 Percocet 10/325 Mg PO 1 tab Q4H PRN Administration Acute Pain Oxycodone/Acetaminophen 1 tab 03/12/18 12:43 03/18/18 13:55 Percocet 5/325 Mg PO 1 tab Q4H PRN Administration Acute Pain Pantoprazole Sodium 40 mg 03/10/18 14:30 03/24/18 08:30 Protonix PO 40 mg DAILY TANO Administration Patch Removal 1 each 03/13/18 21:00 03/22/18 21:51 Remove Old Patch T-DERMAL 1 each Q3D TANO Administration Patch Removal 1 each 03/12/18 21:00 03/23/18 21:28 Remove Old Patch T-DERMAL 1 each HS TANO Administration Senna/Docusate Sodium 1 tab 03/10/18 21:00 03/24/18 08:30 Mey-Colace PO Not Given BID TANO Sennosides 17.2 mg 03/10/18 14:25 Senokot PO Q12H PRN Moderate Constipation Sodium Chloride 2 ml 03/10/18 11:00 03/14/18 20:54 Ns Flush IV.FLUSH 2 ml UNSCH PRN Administration FLUSH AFTER USING IV ACCESS Tamsulosin HCl 0.4 mg 03/15/18 09:15 03/24/18 08:30 Flomax PO 0.4 mg DAILY TANO Administration Objective Remarks: Abd:soft,nt,nd Carrillo with clear urine Assessment and Plan - Plan 62 yo male s/p SCI with urinary retention Maintain catheter for now Rehab Void trial in future; if fails may need to learn CIC and urodynamics as outpt.
[2018-03-24] MEDS: oxyCODONE/Acetaminophen 10/325 Tablet PO PRN ×2 (12:58→16:56)
--- NOTE | 2018-03-24 17:23 | P.PN ---
Subjective Interval history: The patient was seen earlier today. Denies having any pain in his back at this time. However he was up in the chair with the brace and he has back pain at that time. Otherwise denies any palpitations, chest pain shortness of breath. No fever or chills. Had a bowel movement. Physical Exam Vital signs: Vital Signs 03/23/18 20:00 03/24/18 00:00 03/24/18 04:00 Temperature 97.6 F 97.9 F 97 F L Pulse Rate 84 84 75 Respiratory Rate 18 17 17 Blood Pressure 125/68 128/65 127/62 Pulse Oximetry 96 97 96 03/24/18 07:50 03/24/18 08:00 03/24/18 11:50 Temperature 97.4 F L 97.4 F L Pulse Rate 77 95 H 94 H Respiratory Rate 17 Blood Pressure 130/77 121/70 Pulse Oximetry 97 95 03/24/18 12:00 03/24/18 16:00 Temperature 98.1 F Pulse Rate 99 H 92 H Respiratory Rate 17 Blood Pressure 114/68 Pulse Oximetry 97 Intake & Output 03/23/18 03/24/18 03/24/18 18:59 06:59 18:59 Intake Total 1400 / 1400 Output Total 400 / 400 1100 / 1100 Balance 1000 / 1000 -1100 / -1100 Intake: Oral 1400 / 1400 Output: Urine 400 / 400 Urine Amount (Catheter) 1100 / 1100 Indwelling Urethral Catheter 1100 / 1100 Other: # Incontinent Bowel Movements 1 Narrative: GENERAL: Pleasant 62-year-old well-developed, well-nourished male lying in bed. SKIN: Warm and dry. HEAD: Normocephalic. ENT: No nasal bleeding or discharge. Mucous membranes pink and moist. NECK: Trachea midline. No JVD. [place] J collar. CARDIOVASCULAR: Regular rate and rhythm. RESPIRATORY: Lungs are clear to auscultation. Breath sounds equal bilaterally. GASTROINTESTINAL: BS + Abdomen soft, non-tender, nondistended. MUSCULOSKELETAL: Extremities without cyanosis, or edema. TLSO brace in place. 5 /5 strength BUE. 0/5 strength BLE, withdrawals to noxious stimuli. + perfused. MPB in place on BLE. NEUROLOGICAL: Awake and alert. Normal speech. - Urinary Catheter Management Condom Cath placed during this visit: yes, but has since been removed by the nurse Reason for continuing: Decision to DC catheter Removal date: 03/18/18 Removal time: 14:30 Indwelling Urethral Catheter Cath placed during this visit: yes, but has since been removed by the nurse Reason for continuing: Chronic Urinary Retention Insertion date: 03/19/18 Insertion time: 04:30 Removal date: 03/14/18 Removal time: 10:45 Straight Cath placed during this visit: yes, but has since been removed by the nurse Reason for continuing: Chronic Urinary Retention Insertion date: 03/19/18 Insertion time: 03:00 Removal date: 03/19/18 Removal time: 03:30 Results - Labs CBC & Chem 7: 03/20/18 03:19 03/20/18 03:19 - Procedures 03/11: T9, T10, T11, T12, and L1 posterior fusion; T10-11 laminectomy; T10-11 open reduction of the fracture subluxation; T9-L1 pedicle screw fixation; 03/13: Anterior cervical C3 and C4 partial corpectomies; C3-4 interbody fusion; anterior C3-4 cervical plate placement; C3-4 interbody cage placement Assessment and Plan - Plan 03/23: in nad. NAIDAO is bothering him says he has pain in his back with TSLO brace KNIK: Sleeping on a sea wall, and fell off approx 7-8 feet. Unable to move or ambulate after the fall. ETOH = 230 on admission. INJURIES: C3-4 spinal stenosis w/ disc protrusion and cord compression C6 vertebral body fx RIGHT clavicle fx (no-op) T10 transverse process fx T11 burst fx w/ cord contusion and compression RIGHT rib fxs (4, 5, 7) LEFT rib fx (5) BILAT pulmonary contusions PMHx: Neuropathy. 03/10: Afib - Cardizem. 03/11: T9, T10, T11, T12, and L1 posterior fusion; T10-11 laminectomy; T10-11 open reduction of the fracture subluxation; T9-L1 pedicle screw fixation; 03/13: Anterior cervical C3 and C4 partial corpectomies; C3-4 interbody fusion; anterior C3-4 cervical plate placement; C3-4 interbody cage placement C3-4 spinal stenosis w/ disc protrusion and cord compression, C6 vertebral body fx, T10 over T11 spondylolisthesis w/ spinal canal stenosis, T10 transverse process fx, T11 burst fx w/ cord contusion and compression, Paraplegia Neurosurgery consulted 03/11: T9, T10, T11, T12, and L1 posterior fusion; T10-11 open reduction of the fracture subluxation; T9-L1 pedicle screw fixation; 03/13: Anterior cervical C3 and C4 partial corpectomies; C3-4 interbody fusion; anterior C3-4 cervical plate placement; C3-4 interbody cage placement Supportive care Serial neuro checks Pain control Bowel regimen PT 7 days a week. OT ordered [place] J collar at all times OOB with TLSO brace Surgical dressings per neurosurgery Specialty bed, turn Q2H Roho cushion when OOB in chair rural health consultant consulted for pressure wounds MPB BLE- 4 hours on 4 hours off Lovenox 30mg BID Rehab placement Dysphagia Speech therapy consulted Mechanical soft diet with nectar thick liquids Atrial fibrillation Tele Cardizem 30mg PO q8h- BP improved Labs stable RIGHT rib fxs, LEFT rib fx, BILAT pulmonary contusions 03/11: Intubated for OR 03/12: Extubated Supportive care Pulmonary toileting Chest x-ray as needed Pain control Bowel regimen OOB-PT and OT ordered Lovenox EtOH abuse Supportive care Counselled on abstaining from ETOH Urinary retention Urology consulted Continue Flomax Continue Carrillo catheter per Urologist Case management consulted to assist with discharge planning. Patient has an active DC to rehab and is clear to DC once arrangements made. CM having difficulty finding a facility to accept the patient.
--- NOTE | 2018-03-24 18:35 | P.PNWCN ---
Wound Care Nurse Consult Description: Received Vocera call from MIKE Cleveland regarding worsening of wound on left buttock. Communicated with: Dr Ana Maria Cleveland, RN [facility] Recommendation: 1. Manually reposition patient every 2 hours for comfort and offloading. 2. Please use only single layer UltraSorb underpad or flat sheet NO COTTON UNDERPAD may be used with low airloss mattress. 3. Change outer dressing of ABD pad DAILY or as needed for incontinence. 4. Leave Versatel One contact layer dressing in place until Friday03/30/18. Additional information: Patient seen on for Stage 3 pressure injury to left buttock with surrounding moisture related skin damage extending to right buttock and anus. Per nursing the patient was found this morning to have had a dressing in place over the wound on left buttock, calazime surrounding the dressing, and cotton pull pads underneath him that were restricting air flow from mattress. Per nursing the patient had been refusing to turn and reposition. Patient was positioned to his right side for assessment. Bordered gauzes and maxorb II removed from bilateral buttocks. Wound on bilateral buttocks measured as a whole @ 10cm x 18cm x <0.1cm. Wound bed from left to right buttocks, encompassing the sacrum and coccyx, consisted of yellow adipose tissue indicating a Stage 3 pressure injury, pink tissue, and friable skin flaps. The wound was visualized with multiple friable non adherent/adherent skin flaps indicating a moisture and friction etiology. Wound edges @8o'clock were noted with non blanching purple discoloration underneath torn skin flap indicating deep tissue injury. Wound margins on left buttock were jagged and even with wound bed. Wound edges on right buttock were noted with attached friable skin flaps that were attempted to be approximated after cleansing with NS. Wound has no active drainage and no odor noted. Dressing of [place]atel One contact layer was applied to entire wound bed after cleansing with NS and gauze and may remain in place for up to 7 days. ABD pads were used to cover the contact layer dressing and should be changed daily and prn for saturation or dislodgement. Patient is noted to be laying on a low air loss mattress with one fitted sheet and staggered ultrasorb underpads for moisture. Patient was educated on the need to be turned from left to right sides only every 2 hours. Left medial foot is noted with a dry deflated blood blister measuring approximately 3cm x 2cm x 0cm indicating deep tissue injury that is to be left open to air and free of pressure. Right foot second digit is noted with a dry deflated blood blister indicating deep tissue injury measuring ~1cm x 0.5cm x 0cm left open to air.
[2018-03-25] MEDS: dilTIAZem 60 MG Tablet PO SCH ×3 (00:38→16:55)
[2018-03-25] MEDS: Enoxaparin Inj 30 MG/0.3 ML Syringe SQ SCH ×2 (08:08→20:53)
[2018-03-25] MEDS: oxyCODONE/Acetaminophen 10/325 Tablet PO PRN (08:09)
[2018-03-25] MEDS: Gabapentin 300 MG Capsule PO SCH ×3 (08:10→16:55)
[2018-03-25] MEDS: Senna/Docusate Sodium 8.6/50 MG Tablet PO SCH ×2 (08:11→20:53)
[2018-03-25] MEDS: Duloxetine 60 MG DR Capsule PO SCH (08:11)
[2018-03-25] MEDS: Lidocaine 5% Patch T-DERMAL SCH (08:12)
--- NOTE | 2018-03-25 11:41 | P.PN ---
Physical Exam Vital signs: Vital Signs 03/24/18 11:50 03/24/18 12:00 03/24/18 16:00 Temperature 97.4 F L 98.1 F Pulse Rate 94 H 99 H 92 H Respiratory Rate 17 17 Blood Pressure 121/70 114/68 Pulse Oximetry 95 97 03/24/18 20:00 03/25/18 00:00 03/25/18 00:39 Temperature 98.1 F 97.6 F Pulse Rate 97 H 90 92 H Respiratory Rate 18 18 Blood Pressure 115/61 129/78 Pulse Oximetry 96 96 03/25/18 04:00 03/25/18 08:00 Temperature 97.7 F 97.6 F Pulse Rate 96 H 87 Respiratory Rate 20 17 Blood Pressure 139/81 129/73 Pulse Oximetry 95 94 L Intake & Output 03/24/18 03/25/18 03/25/18 18:59 06:59 18:59 Intake Total 1200 / 1200 600 / 600 Output Total 800 / 800 Balance 400 / 400 600 / 600 Weight 110.8 kg Intake: Oral 1200 / 1200 600 / 600 Output: Urine 800 / 800 Other: Post Void Residual 900 # Bowel Movements 0 Narrative: GENERAL: Pleasant 62-year-old well-developed, well-nourished male lying in bed. SKIN: Warm and dry. Decub stage 3 ulcer HEAD: Normocephalic. ENT: No nasal bleeding or discharge. Mucous membranes pink and moist. NECK: Trachea midline. No JVD. [place] J collar. CARDIOVASCULAR: Regular rate and rhythm. RESPIRATORY: Lungs are clear to auscultation. Breath sounds equal bilaterally. GASTROINTESTINAL: BS + Abdomen soft, non-tender, nondistended. MUSCULOSKELETAL: Extremities without cyanosis, or edema. TLSO brace in place. 5 /5 strength BUE. 0/5 strength BLE, withdrawals to noxious stimuli. + perfused. MPB in place on BLE. NEUROLOGICAL: Awake and alert. Normal speech. - Urinary Catheter Management Condom Cath placed during this visit: yes, but has since been removed by the nurse Reason for continuing: Decision to DC catheter Removal date: 03/18/18 Removal time: 14:30 Indwelling Urethral Catheter Cath placed during this visit: yes, but has since been removed by the nurse Reason for continuing: Chronic Urinary Retention Insertion date: 03/19/18 Insertion time: 04:30 Removal date: 03/14/18 Removal time: 10:45 Straight Cath placed during this visit: yes, but has since been removed by the nurse Reason for continuing: Chronic Urinary Retention Insertion date: 03/19/18 Insertion time: 03:00 Removal date: 03/19/18 Removal time: 03:30 Results - Labs CBC & Chem 7: 03/20/18 03:19 03/20/18 03:19 - Procedures 03/11: T9, T10, T11, T12, and L1 posterior fusion; T10-11 laminectomy; T10-11 open reduction of the fracture subluxation; T9-L1 pedicle screw fixation; 03/13: Anterior cervical C3 and C4 partial corpectomies; C3-4 interbody fusion; anterior C3-4 cervical plate placement; C3-4 interbody cage placement Assessment and Plan - Plan 03/23: in nad. TLSO is bothering him says he has pain in his back with TSLO brace NIKOLAI: Sleeping on a sea wall, and fell off approx 7-8 feet. Unable to move or ambulate after the fall. ETOH = 230 on admission. INJURIES: C3-4 spinal stenosis w/ disc protrusion and cord compression C6 vertebral body fx RIGHT clavicle fx (no-op) T10 transverse process fx T11 burst fx w/ cord contusion and compression RIGHT rib fxs (4, 5, 7) LEFT rib fx (5) BILAT pulmonary contusions PMHx: Neuropathy. 03/10: Afib - Cardizem. 03/11: T9, T10, T11, T12, and L1 posterior fusion; T10-11 laminectomy; T10-11 open reduction of the fracture subluxation; T9-L1 pedicle screw fixation; 03/13: Anterior cervical C3 and C4 partial corpectomies; C3-4 interbody fusion; anterior C3-4 cervical plate placement; C3-4 interbody cage placement C3-4 spinal stenosis w/ disc protrusion and cord compression, C6 vertebral body fx, T10 over T11 spondylolisthesis w/ spinal canal stenosis, T10 transverse process fx, T11 burst fx w/ cord contusion and compression, Paraplegia Neurosurgery consulted 03/11: T9, T10, T11, T12, and L1 posterior fusion; T10-11 open reduction of the fracture subluxation; T9-L1 pedicle screw fixation; 03/13: Anterior cervical C3 and C4 partial corpectomies; C3-4 interbody fusion; anterior C3-4 cervical plate placement; C3-4 interbody cage placement Supportive care Serial neuro checks Pain control Bowel regimen PT 7 days a week. OT ordered [place] J collar at all times OOB with TLSO brace Surgical dressings per neurosurgery Specialty bed, turn Q2H Roho cushion when OOB in chair clinical reviewer consulted for pressure wounds MPB BLE- 4 hours on 4 hours off Lovenox 30mg BID Rehab placement Dysphagia Speech therapy consulted Mechanical soft diet with nectar thick liquids Atrial fibrillation Tele Cardizem 30mg PO q8h- BP improved Labs stable RIGHT rib fxs, LEFT rib fx, BILAT pulmonary contusions 03/11: Intubated for OR 03/12: Extubated Supportive care Pulmonary toileting Chest x-ray as needed Pain control Bowel regimen OOB-PT and OT ordered Lovenox EtOH abuse Supportive care Counselled on abstaining from ETOH Urinary retention Urology consulted Continue Flomax Continue Carrillo catheter per Urologist Stage 3 decubitus ulcer. Consult wound care appreciate recommendations. Spoke with Namrata from wound care. Case management consulted to assist with discharge planning. Patient has an active DC to rehab and is clear to DC once arrangements made. CM having difficulty finding a facility to accept the patient.
[2018-03-26] MEDS: dilTIAZem 60 MG Tablet PO SCH ×3 (01:13→18:38)
[2018-03-26] MEDS: Senna/Docusate Sodium 8.6/50 MG Tablet PO SCH ×3 (09:33→21:10)
[2018-03-26] MEDS: Gabapentin 300 MG Capsule PO SCH ×3 (09:33→18:38)
[2018-03-26] MEDS: Enoxaparin Inj 30 MG/0.3 ML Syringe SQ SCH ×2 (09:33→21:10)
[2018-03-26] MEDS: Lidocaine 5% Patch T-DERMAL SCH (09:38)
[2018-03-26] MEDS: Duloxetine 60 MG DR Capsule PO SCH (09:38)
[2018-03-26] MEDS: oxyCODONE/Acetaminophen 10/325 Tablet PO PRN ×2 (09:43→21:13)
--- NOTE | 2018-03-26 15:29 | P.PN ---
Subjective Interval history: Patient is in the chair with the brace on. Says he has back pain when he is in the chair. Denies any palpitations, chest pain or shortness of breath. Says he feels good otherwise, no complaints at this time. Physical Exam Vital signs: Vital Signs 03/25/18 15:31 03/25/18 16:00 03/25/18 20:00 Temperature 98.4 F 98 F Pulse Rate 87 86 Respiratory Rate 16 18 20 Blood Pressure 109/63 114/65 Pulse Oximetry 94 L 95 03/26/18 00:00 03/26/18 04:00 03/26/18 08:00 Temperature 98 F 98.3 F 97.8 F Pulse Rate 85 95 H 93 H Respiratory Rate 18 Blood Pressure 124/68 118/61 115/75 Pulse Oximetry 95 94 L 97 03/26/18 12:00 Temperature Pulse Rate 105 H Respiratory Rate Blood Pressure Pulse Oximetry Intake & Output 03/25/18 03/26/18 03/26/18 18:59 06:59 18:59 Intake Total 240 / 240 Output Total 1700 / 1700 850 / 850 Balance -1460 / -1460 -850 / -850 Weight 110.7 kg Intake: Oral 240 / 240 Output: Urine Amount (Catheter) 1700 / 1700 850 / 850 Indwelling Urethral Catheter 1700 / 1700 850 / 850 Narrative: GENERAL: Pleasant 62-year-old well-developed, well-nourished male lying in bed. SKIN: Warm and dry. Decub stage 3 ulcer HEAD: Normocephalic. ENT: No nasal bleeding or discharge. Mucous membranes pink and moist. NECK: Trachea midline. No JVD. [place] J collar. CARDIOVASCULAR: Regular rate and rhythm. RESPIRATORY: Lungs are clear to auscultation. Breath sounds equal bilaterally. GASTROINTESTINAL: BS + Abdomen soft, non-tender, nondistended. MUSCULOSKELETAL: Extremities without cyanosis, or edema. TLSO brace in place. 5 /5 strength BUE. 0/5 strength BLE, withdrawals to noxious stimuli. + perfused. MPB in place on BLE. NEUROLOGICAL: Awake and alert. Normal speech. - Urinary Catheter Management Condom Cath placed during this visit: yes, but has since been removed by the nurse Reason for continuing: Decision to DC catheter Removal date: 03/18/18 Removal time: 14:30 Indwelling Urethral Catheter Cath placed during this visit: yes, but has since been removed by the nurse Reason for continuing: Chronic Urinary Retention Insertion date: 03/19/18 Insertion time: 04:30 Removal date: 03/14/18 Removal time: 10:45 Straight Cath placed during this visit: yes, but has since been removed by the nurse Reason for continuing: Chronic Urinary Retention Insertion date: 03/19/18 Insertion time: 03:00 Removal date: 03/19/18 Removal time: 03:30 Results - Labs CBC & Chem 7: 03/20/18 03:19 03/20/18 03:19 - Procedures 03/11: T9, T10, T11, T12, and L1 posterior fusion; T10-11 laminectomy; T10-11 open reduction of the fracture subluxation; T9-L1 pedicle screw fixation; 03/13: Anterior cervical C3 and C4 partial corpectomies; C3-4 interbody fusion; anterior C3-4 cervical plate placement; C3-4 interbody cage placement Assessment and Plan - Plan 03/23: in nad. NAIDAO is bothering him says he has pain in his back with TSLO brace MENOMINEE: Sleeping on a sea wall, and fell off approx 7-8 feet. Unable to move or ambulate after the fall. ETOH = 230 on admission. INJURIES: C3-4 spinal stenosis w/ disc protrusion and cord compression C6 vertebral body fx RIGHT clavicle fx (no-op) T10 transverse process fx T11 burst fx w/ cord contusion and compression RIGHT rib fxs (4, 5, 7) LEFT rib fx (5) BILAT pulmonary contusions PMHx: Neuropathy. 03/10: Afib - Cardizem. 03/11: T9, T10, T11, T12, and L1 posterior fusion; T10-11 laminectomy; T10-11 open reduction of the fracture subluxation; T9-L1 pedicle screw fixation; 03/13: Anterior cervical C3 and C4 partial corpectomies; C3-4 interbody fusion; anterior C3-4 cervical plate placement; C3-4 interbody cage placement C3-4 spinal stenosis w/ disc protrusion and cord compression, C6 vertebral body fx, T10 over T11 spondylolisthesis w/ spinal canal stenosis, T10 transverse process fx, T11 burst fx w/ cord contusion and compression, Paraplegia Neurosurgery consulted 03/11: T9, T10, T11, T12, and L1 posterior fusion; T10-11 open reduction of the fracture subluxation; T9-L1 pedicle screw fixation; 03/13: Anterior cervical C3 and C4 partial corpectomies; C3-4 interbody fusion; anterior C3-4 cervical plate placement; C3-4 interbody cage placement Supportive care Serial neuro checks Pain control Bowel regimen PT 7 days a week. OT ordered [place] J collar at all times OOB with TLSO brace Surgical dressings per neurosurgery Specialty bed, turn Q2H Roho cushion when OOB in chair sdv pilot/navigator/dds operator consulted for pressure wounds MPB BLE- 4 hours on 4 hours off Lovenox 30mg BID Rehab placement Dysphagia Speech therapy consulted Mechanical soft diet with nectar thick liquids Atrial fibrillation Tele Cardizem 30mg PO q8h- BP improved Labs stable RIGHT rib fxs, LEFT rib fx, BILAT pulmonary contusions 03/11: Intubated for OR 03/12: Extubated Supportive care Pulmonary toileting Chest x-ray as needed Pain control Bowel regimen OOB-PT and OT ordered Lovenox EtOH abuse Supportive care Counselled on abstaining from ETOH Urinary retention Urology consulted Continue Flomax Continue Carrillo catheter per Urologist Stage 3 decubitus ulcer. Consult wound care appreciate recommendations. Spoke with Namrata from wound care. Case management consulted to assist with discharge planning. Patient has an active DC to rehab and is clear to DC once arrangements made. CM having difficulty finding a facility to accept the patient.
[2018-03-27] MEDS: dilTIAZem 60 MG Tablet PO SCH ×3 (01:33→17:42)
[2018-03-27] MEDS: Lidocaine 5% Patch T-DERMAL SCH (08:31)
[2018-03-27] MEDS: Duloxetine 60 MG DR Capsule PO SCH (08:35)
[2018-03-27] MEDS: Senna/Docusate Sodium 8.6/50 MG Tablet PO SCH ×2 (08:35→20:42)
[2018-03-27] MEDS: Enoxaparin Inj 30 MG/0.3 ML Syringe SQ SCH ×2 (08:36→20:42)
[2018-03-27] MEDS: Gabapentin 300 MG Capsule PO SCH ×3 (08:36→17:42)
[2018-03-27] MEDS: oxyCODONE/Acetaminophen 10/325 Tablet PO PRN (12:10)
--- NOTE | 2018-03-27 14:00 | P.PN ---
Subjective Interval history: The patient is in bed says he was up in the chair yesterday for 2 hours and he complains of more back pain and also shoulders pain. No fever or chills. No palpitations. He is not coughing. We will add incentive spirometry however. Physical Exam Vital signs: Vital Signs 03/26/18 16:00 03/26/18 20:00 03/27/18 00:00 Temperature 97.9 F 97.7 F 98.8 F Pulse Rate 92 H 89 83 Respiratory Rate 18 20 20 Blood Pressure 120/73 125/61 120/66 Pulse Oximetry 97 97 96 03/27/18 04:00 03/27/18 08:00 03/27/18 12:00 Temperature 97.7 F 97.4 F L 98.1 F Pulse Rate 75 79 103 H Respiratory Rate 20 16 18 Blood Pressure 113/72 144/79 H 118/73 Pulse Oximetry 97 97 96 Intake & Output 03/26/18 03/27/18 03/27/18 18:59 06:59 18:59 Intake Total 740 / 740 Output Total 1200 / 1200 1100 / 1100 Balance -460 / -460 -1100 / -1100 Weight 109.6 kg Intake: Oral 740 / 740 Output: Urine 350 / 350 Urine Amount (Catheter) 850 / 850 1100 / 1100 Indwelling Urethral Catheter 850 / 850 1100 / 1100 Other: # Bowel Movements 1 Narrative: GENERAL: Pleasant 62-year-old well-developed, well-nourished male lying in bed. SKIN: Warm and dry. Decub stage 3 ulcer HEAD: Normocephalic. ENT: No nasal bleeding or discharge. Mucous membranes pink and moist. NECK: Trachea midline. No JVD. [place] J collar. CARDIOVASCULAR: Regular rate and rhythm. RESPIRATORY: Lungs are clear to auscultation. Breath sounds equal bilaterally. GASTROINTESTINAL: BS + Abdomen soft, non-tender, nondistended. MUSCULOSKELETAL: Extremities without cyanosis, or edema. TLSO brace in place. 5 /5 strength BUE. 0/5 strength BLE, withdrawals to noxious stimuli. + perfused. MPB in place on BLE. NEUROLOGICAL: Awake and alert. Normal speech. - Urinary Catheter Management Condom Cath placed during this visit: yes, but has since been removed by the nurse Reason for continuing: Decision to DC catheter Removal date: 03/18/18 Removal time: 14:30 Indwelling Urethral Catheter Cath placed during this visit: yes, but has since been removed by the nurse Reason for continuing: Chronic Urinary Retention Insertion date: 03/19/18 Insertion time: 04:30 Removal date: 03/14/18 Removal time: 10:45 Straight Cath placed during this visit: yes, but has since been removed by the nurse Reason for continuing: Chronic Urinary Retention Insertion date: 03/19/18 Insertion time: 03:00 Removal date: 03/19/18 Removal time: 03:30 Results - Labs CBC & Chem 7: 03/20/18 03:19 03/20/18 03:19 - Procedures 03/11: T9, T10, T11, T12, and L1 posterior fusion; T10-11 laminectomy; T10-11 open reduction of the fracture subluxation; T9-L1 pedicle screw fixation; 03/13: Anterior cervical C3 and C4 partial corpectomies; C3-4 interbody fusion; anterior C3-4 cervical plate placement; C3-4 interbody cage placement Assessment and Plan - Plan 03/23: in nad. TLSO is bothering him says he has pain in his back with TSLO brace [place]: Sleeping on a sea wall, and fell off approx 7-8 feet. Unable to move or ambulate after the fall. ETOH = 230 on admission. INJURIES: C3-4 spinal stenosis w/ disc protrusion and cord compression C6 vertebral body fx RIGHT clavicle fx (no-op) T10 transverse process fx T11 burst fx w/ cord contusion and compression RIGHT rib fxs (4, 5, 7) LEFT rib fx (5) BILAT pulmonary contusions PMHx: Neuropathy. 03/10: Afib - Cardizem. 03/11: T9, T10, T11, T12, and L1 posterior fusion; T10-11 laminectomy; T10-11 open reduction of the fracture subluxation; T9-L1 pedicle screw fixation; 03/13: Anterior cervical C3 and C4 partial corpectomies; C3-4 interbody fusion; anterior C3-4 cervical plate placement; C3-4 interbody cage placement C3-4 spinal stenosis w/ disc protrusion and cord compression, C6 vertebral body fx, T10 over T11 spondylolisthesis w/ spinal canal stenosis, T10 transverse process fx, T11 burst fx w/ cord contusion and compression, Paraplegia Neurosurgery consulted 03/11: T9, T10, T11, T12, and L1 posterior fusion; T10-11 open reduction of the fracture subluxation; T9-L1 pedicle screw fixation; 03/13: Anterior cervical C3 and C4 partial corpectomies; C3-4 interbody fusion; anterior C3-4 cervical plate placement; C3-4 interbody cage placement Supportive care Serial neuro checks Pain control Bowel regimen PT 7 days a week. 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 for pressure wounds MPB BLE- 4 hours on 4 hours off Lovenox 30mg BID Rehab placement Dysphagia Speech therapy consulted Mechanical soft diet with nectar thick liquids, advance diet per St recommendations Atrial fibrillation Tele Cardizem 30mg PO q8h- BP improved Labs stable RIGHT rib fxs, LEFT rib fx, BILAT pulmonary contusions 03/11: Intubated for OR 03/12: Extubated Supportive care Pulmonary toileting Chest x-ray as needed Pain control Bowel regimen OOB-PT and OT ordered Lovenox Encourage IS EtOH abuse Supportive care Counselled on abstaining from ETOH Urinary retention Urology consulted Continue Flomax Continue Carrillo catheter per Urologist Stage 3 decubitus ulcer. Consult wound care appreciate recommendations. Spoke with Namrata from wound care. Case management consulted to assist with discharge planning. Patient has an active DC to rehab and is clear to DC once arrangements made. CM having difficulty finding a facility to accept the patient.
--- NOTE | 2018-03-27 14:05 | P.PNNS ---
Subjective Interval history: Pt awake and alert. He states he is doing well. No back or neck pain. No change in exam. No sensation or movement in his legs. Physical Exam Vital signs: Vital Signs 03/26/18 16:00 03/26/18 20:00 03/27/18 00:00 Temperature 97.9 F 97.7 F 98.8 F Pulse Rate 92 H 89 83 Respiratory Rate 18 20 20 Blood Pressure 120/73 125/61 120/66 Pulse Oximetry 97 97 96 03/27/18 04:00 03/27/18 08:00 03/27/18 12:00 Temperature 97.7 F 97.4 F L 98.1 F Pulse Rate 75 79 103 H Respiratory Rate 20 16 18 Blood Pressure 113/72 144/79 H 118/73 Pulse Oximetry 97 97 96 Intake & Output 03/26/18 03/27/18 03/27/18 18:59 06:59 18:59 Intake Total 740 / 740 Output Total 1200 / 1200 1100 / 1100 Balance -460 / -460 -1100 / -1100 Weight 109.6 kg Intake: Oral 740 / 740 Output: Urine 350 / 350 Urine Amount (Catheter) 850 / 850 1100 / 1100 Indwelling Urethral Catheter 850 / 850 1100 / 1100 Other: # Bowel Movements 1 - Constitutional no acute distress, cooperative - Routine HEENT Exam Head: Present: normocephalic, atraumatic Eye: Present: PERRL - Routine Neck Exam Absent: full ROM ([place] J collar in place.) - Routine Respiratory Exam Present: CTA bilaterally. Absent: respiratory distress, rhonchi, wheezes - Routine Cardiovascular Exam Present: RRR, S1, S2. Absent: murmur - Routine Abdominal Exam Present: normoactive bowel sounds. Absent: distended, firm - Routine Skin Exam Absent: cyanosis, erythema Comments: Incision healing well without any signs of infection. Pt has some skin breakdown on his buttocks that is being treated. - Routine Neurological Exam Present: alert, oriented X3, sensory deficit (No sensation in LEs. Some sensation in lower abdoment but diminished.), motor deficit (No movement in LEs. ), normal speech. Absent: moving all extremities - Routine Psychiatric Exam Present: normal affect. Absent: anxious, agitated - Urinary Catheter Management Condom Cath placed during this visit: yes, but has since been removed by the nurse Reason for continuing: Decision to DC catheter Removal date: 03/18/18 Removal time: 14:30 Indwelling Urethral Catheter Cath placed during this visit: yes, but has since been removed by the nurse Reason for continuing: Chronic Urinary Retention Insertion date: 03/19/18 Insertion time: 04:30 Removal date: 03/14/18 Removal time: 10:45 Straight Cath placed during this visit: yes, but has since been removed by the nurse Reason for continuing: Chronic Urinary Retention Insertion date: 03/19/18 Insertion time: 03:00 Removal date: 03/19/18 Removal time: 03:30 Assessment and Plan - Assessment (1) Closed rib fracture Code(s): S22.39XA - Fracture of one rib, unspecified side, initial encounter for closed fracture Status: Acute (2) Traumatic compression fracture of T11 thoracic vertebra Code(s): S22.080A - Wedge compression fracture of T11-T12 vertebra, initial encounter for closed fracture Status: Acute (3) Fracture of rib Code(s): S22.39XA - Fracture of one rib, unspecified side, initial encounter for closed fracture Status: Acute (4) Burst fracture of thoracic spine at T10-T11 level Status: Acute (5) Complete lesion at T10 level of thoracic spinal cord Code(s): S24.113A - Complete lesion at T7-T10 level of thoracic spinal cord, initial encounter Status: Acute (6) Closed spinal subluxation with complete thoracic cord lesion Status: Acute (7) Closed cervical spine fracture Code(s): S12.9XXA - Fracture of neck, unspecified, initial encounter Status: Acute - Plan A/P: 62 yo s/p T9-L1 fusion for T11 burst fracture on 03/12, s/p C3-4 ACDF on 03/13 P: -Collar and TLSO at all times. Advised pt he needs to be compliant or risk poor healing and further injury. -PT/OT OOB with TLSO brace. -pain control Neurosurgically stable for rehab placement. Follow up in 6 weeks from surgery with x-rays of cervical and thoracic/lumbar spine. Call office for follow up appt. [phone].
[2018-03-28] MEDS: dilTIAZem 60 MG Tablet PO SCH ×3 (00:22→17:14)
[2018-03-28] MEDS: Lidocaine 5% Patch T-DERMAL SCH (08:23)
[2018-03-28] MEDS: Enoxaparin Inj 30 MG/0.3 ML Syringe SQ SCH ×2 (08:24→20:57)
[2018-03-28] MEDS: Duloxetine 60 MG DR Capsule PO SCH (08:24)
[2018-03-28] MEDS: Gabapentin 300 MG Capsule PO SCH ×3 (08:24→17:15)
[2018-03-28] MEDS: Senna/Docusate Sodium 8.6/50 MG Tablet PO SCH ×2 (08:25→20:58)
[2018-03-28] MEDS: oxyCODONE/Acetaminophen 10/325 Tablet PO PRN ×4 (08:32→21:05)
--- NOTE | 2018-03-28 08:48 | P.PN ---
Subjective Interval history: No pain in his back. Is not up in the chair so far today does not have the brace on when lying in bed. No chest pain or palpitations. Physical Exam Vital signs: Vital Signs 03/27/18 12:00 03/27/18 16:00 03/27/18 20:00 Temperature 98.1 F 97.5 F L Pulse Rate 103 H 91 H 98 H Respiratory Rate 18 18 Blood Pressure 118/73 100/71 Pulse Oximetry 96 94 L 03/27/18 20:13 03/28/18 00:00 03/28/18 00:22 Temperature 98.7 F 98.4 F Pulse Rate 94 H 96 H 88 Respiratory Rate 20 18 Blood Pressure 146/80 H 112/65 Pulse Oximetry 97 96 03/28/18 04:38 03/28/18 04:56 03/28/18 08:00 Temperature 98.1 F 98.0 F Pulse Rate 83 85 80 Respiratory Rate 18 17 Blood Pressure 122/69 125/71 Pulse Oximetry 96 96 Intake & Output 03/27/18 03/28/18 03/28/18 18:59 06:59 18:59 Intake Total 560 / 560 240 / 240 Output Total 1600 / 1600 1000 / 1000 Balance -1040 / -1040 -760 / -760 Weight 109 kg Intake: Oral 560 / 560 240 / 240 Output: Urine 1000 / 1000 Urine Amount (Catheter) 1600 / 1600 Indwelling Urethral Catheter 1600 / 1600 Other: Date of Last Bowel Movement 03/27/18 # Bowel Movements 1 Narrative: GENERAL: Pleasant 62-year-old well-developed, well-nourished male lying in bed. SKIN: Warm and dry. Decub stage 3 ulcer NECK: Trachea midline. No JVD. [place] J collar. CARDIOVASCULAR: Regular rate and rhythm. RESPIRATORY: Lungs are clear to auscultation. Breath sounds equal bilaterally. GASTROINTESTINAL: BS + Abdomen soft, non-tender, nondistended. MUSCULOSKELETAL: Extremities without cyanosis, or edema. TLSO brace in place. 5 /5 strength BUE. 0/5 strength BLE, withdrawals to noxious stimuli. + perfused. MPB in place on BLE. NEUROLOGICAL: Awake and alert. Normal speech. - Urinary Catheter Management Condom Cath placed during this visit: yes, but has since been removed by the nurse Reason for continuing: Decision to DC catheter Removal date: 03/18/18 Removal time: 14:30 Indwelling Urethral Catheter Cath placed during this visit: yes, but has since been removed by the nurse Reason for continuing: Chronic Urinary Retention Insertion date: 03/19/18 Insertion time: 04:30 Removal date: 03/14/18 Removal time: 10:45 Straight Cath placed during this visit: yes, but has since been removed by the nurse Reason for continuing: Chronic Urinary Retention Insertion date: 03/19/18 Insertion time: 03:00 Removal date: 03/19/18 Removal time: 03:30 Results - Labs CBC & Chem 7: 03/20/18 03:19 03/20/18 03:19 - Procedures 03/11: T9, T10, T11, T12, and L1 posterior fusion; T10-11 laminectomy; T10-11 open reduction of the fracture subluxation; T9-L1 pedicle screw fixation; 03/13: Anterior cervical C3 and C4 partial corpectomies; C3-4 interbody fusion; anterior C3-4 cervical plate placement; C3-4 interbody cage placement Assessment and Plan - Plan 03/28: in nad. No events overnight. No change in management. [place]: Sleeping on a sea wall, and fell off approx 7-8 feet. Unable to move or ambulate after the fall. ETOH = 230 on admission. INJURIES: C3-4 spinal stenosis w/ disc protrusion and cord compression C6 vertebral body fx RIGHT clavicle fx (no-op) T10 transverse process fx T11 burst fx w/ cord contusion and compression RIGHT rib fxs (4, 5, 7) LEFT rib fx (5) BILAT pulmonary contusions PMHx: Neuropathy. 03/10: Afib - Cardizem. 03/11: T9, T10, T11, T12, and L1 posterior fusion; T10-11 laminectomy; T10-11 open reduction of the fracture subluxation; T9-L1 pedicle screw fixation; 03/13: Anterior cervical C3 and C4 partial corpectomies; C3-4 interbody fusion; anterior C3-4 cervical plate placement; C3-4 interbody cage placement C3-4 spinal stenosis w/ disc protrusion and cord compression, C6 vertebral body fx, T10 over T11 spondylolisthesis w/ spinal canal stenosis, T10 transverse process fx, T11 burst fx w/ cord contusion and compression, Paraplegia Neurosurgery consulted 03/11: T9, T10, T11, T12, and L1 posterior fusion; T10-11 open reduction of the fracture subluxation; T9-L1 pedicle screw fixation; 03/13: Anterior cervical C3 and C4 partial corpectomies; C3-4 interbody fusion; anterior C3-4 cervical plate placement; C3-4 interbody cage placement Supportive care Serial neuro checks Pain control Bowel regimen PT 7 days a week. 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 MPB BLE- 4 hours on 4 hours off Lovenox 30mg BID Rehab placement Dysphagia Speech therapy consulted Mechanical soft diet with nectar thick liquids, advance diet per St recommendations Atrial fibrillation Tele Cardizem 30mg PO q8h- BP improved Labs stable RIGHT rib fxs, LEFT rib fx, BILAT pulmonary contusions 03/11: Intubated for OR 03/12: Extubated Supportive care Pulmonary toileting Chest x-ray as needed Pain control Bowel regimen OOB-PT and OT ordered Lovenox Encourage IS EtOH abuse Supportive care Counselled on abstaining from ETOH Urinary retention Urology consulted Continue Flomax Continue Carrillo catheter per Urologist Stage 3 decubitus ulcer. Consult wound care appreciate recommendations. Spoke with Namrata from wound care. Case management consulted to assist with discharge planning. Patient has an active DC to rehab and is clear to DC once arrangements made. CM having difficulty finding a facility to accept the patient.
[2018-03-29] MEDS: dilTIAZem 60 MG Tablet PO SCH ×3 (03:44→17:50)
[2018-03-29] MEDS: oxyCODONE/Acetaminophen 10/325 Tablet PO PRN ×3 (03:45→21:07)
[2018-03-29] MEDS: Enoxaparin Inj 30 MG/0.3 ML Syringe SQ SCH ×2 (09:59→21:06)
[2018-03-29] MEDS: Lidocaine 5% Patch T-DERMAL SCH (09:59)
[2018-03-29] MEDS: Gabapentin 300 MG Capsule PO SCH ×3 (10:00→17:50)
[2018-03-29] MEDS: Senna/Docusate Sodium 8.6/50 MG Tablet PO SCH ×2 (10:00→21:07)
[2018-03-29] MEDS: Duloxetine 60 MG DR Capsule PO SCH (10:00)
--- NOTE | 2018-03-29 14:06 | P.PN ---
Subjective Interval history: She was up in the chair yesterday. Since still with back pain. Feels tired today. No pain at this time. Encouraged to turn every 2 hours to prevent skin breakdown and decubitus ulcers. Patient expressed understanding. Physical Exam Vital signs: Vital Signs 03/28/18 16:00 03/28/18 20:00 03/28/18 21:50 Temperature 97.7 F 97.7 F Pulse Rate 84 86 Respiratory Rate 18 18 17 Blood Pressure 107/67 122/75 Pulse Oximetry 95 98 03/29/18 00:00 03/29/18 04:00 03/29/18 08:00 Temperature 98.2 F 98.0 F 97.5 F L Pulse Rate 94 H 85 89 Respiratory Rate 18 18 16 Blood Pressure 122/71 110/66 134/64 Pulse Oximetry 95 94 L 95 03/29/18 11:53 Temperature 97.5 F L Pulse Rate 82 Respiratory Rate 16 Blood Pressure 121/64 Pulse Oximetry 96 Intake & Output 03/28/18 03/29/18 03/29/18 18:59 06:59 18:59 Output Total 800 / 800 Balance -800 / -800 Weight 110.4 kg Output: Urine 800 / 800 Other: # Bowel Movements 1 Narrative: GENERAL: Pleasant 62-year-old well-developed, well-nourished male lying in bed. SKIN: Warm and dry. Decub stage 3 ulcer NECK: Trachea midline. No JVD. [place] J collar. CARDIOVASCULAR: Regular rate and rhythm. RESPIRATORY: Lungs are clear to auscultation. Breath sounds equal bilaterally. GASTROINTESTINAL: BS + Abdomen soft, non-tender, nondistended. MUSCULOSKELETAL: Extremities without cyanosis, or edema. TLSO brace in place. 5 /5 strength BUE. 0/5 strength BLE, withdrawals to noxious stimuli. + perfused. MPB in place on BLE. NEUROLOGICAL: Awake and alert. Normal speech. - Urinary Catheter Management Condom Cath placed during this visit: yes, but has since been removed by the nurse Reason for continuing: Decision to DC catheter Removal date: 03/18/18 Removal time: 14:30 Indwelling Urethral Catheter Cath placed during this visit: yes, but has since been removed by the nurse Reason for continuing: Acute urinary retention Insertion date: 03/19/18 Insertion time: 04:30 Removal date: 03/14/18 Removal time: 10:45 Straight Cath placed during this visit: yes, but has since been removed by the nurse Reason for continuing: Chronic Urinary Retention Insertion date: 03/19/18 Insertion time: 03:00 Removal date: 03/19/18 Removal time: 03:30 Results - Labs CBC & Chem 7: 03/20/18 03:19 03/20/18 03:19 - Procedures 03/11: T9, T10, T11, T12, and L1 posterior fusion; T10-11 laminectomy; T10-11 open reduction of the fracture subluxation; T9-L1 pedicle screw fixation; 03/13: Anterior cervical C3 and C4 partial corpectomies; C3-4 interbody fusion; anterior C3-4 cervical plate placement; C3-4 interbody cage placement Assessment and Plan - Plan 03/28: in nad. No events overnight. No change in management. [place]: Sleeping on a sea wall, and fell off approx 7-8 feet. Unable to move or ambulate after the fall. ETOH = 230 on admission. INJURIES: C3-4 spinal stenosis w/ disc protrusion and cord compression C6 vertebral body fx RIGHT clavicle fx (no-op) T10 transverse process fx T11 burst fx w/ cord contusion and compression RIGHT rib fxs (4, 5, 7) LEFT rib fx (5) BILAT pulmonary contusions PMHx: Neuropathy. 03/10: Afib - Cardizem. 03/11: T9, T10, T11, T12, and L1 posterior fusion; T10-11 laminectomy; T10-11 open reduction of the fracture subluxation; T9-L1 pedicle screw fixation; 03/13: Anterior cervical C3 and C4 partial corpectomies; C3-4 interbody fusion; anterior C3-4 cervical plate placement; C3-4 interbody cage placement C3-4 spinal stenosis w/ disc protrusion and cord compression, C6 vertebral body fx, T10 over T11 spondylolisthesis w/ spinal canal stenosis, T10 transverse process fx, T11 burst fx w/ cord contusion and compression, Paraplegia Neurosurgery consulted 03/11: T9, T10, T11, T12, and L1 posterior fusion; T10-11 open reduction of the fracture subluxation; T9-L1 pedicle screw fixation; 03/13: Anterior cervical C3 and C4 partial corpectomies; C3-4 interbody fusion; anterior C3-4 cervical plate placement; C3-4 interbody cage placement Supportive care Serial neuro checks Pain control Bowel regimen PT 7 days a week. OT ordered [place] J collar at all times OOB with TLSO brace Surgical dressings per neurosurgery Specialty bed, turn Q2H Roho cushion when OOB in chair clinical faculty consulted for pressure wounds MPB BLE- 4 hours on 4 hours off Lovenox 30mg BID Rehab placement Dysphagia Speech therapy consulted Mechanical soft diet with nectar thick liquids, advance diet per St recommendations Atrial fibrillation Tele Cardizem 30mg PO q8h- BP improved Labs stable RIGHT rib fxs, LEFT rib fx, BILAT pulmonary contusions 03/11: Intubated for OR 03/12: Extubated Supportive care Pulmonary toileting Chest x-ray as needed Pain control Bowel regimen OOB-PT and OT ordered Lovenox Encourage IS EtOH abuse Supportive care Counselled on abstaining from ETOH Urinary retention Urology consulted Continue Flomax Continue Carrillo catheter per Urologist Stage 3 decubitus ulcer. Consult wound care appreciate recommendations. Spoke with Namrata from wound care. Case management consulted to assist with discharge planning. Patient has an active DC to rehab and is clear to DC once arrangements made. CM having difficulty finding a facility to accept the patient.
[2018-03-30] MEDS: dilTIAZem 60 MG Tablet PO SCH ×3 (02:39→17:31)
[2018-03-30] MEDS: oxyCODONE/Acetaminophen 10/325 Tablet PO PRN ×5 (02:40→21:35)
[2018-03-30] MEDS: Gabapentin 300 MG Capsule PO SCH ×3 (09:20→17:31)
[2018-03-30] MEDS: Lidocaine 5% Patch T-DERMAL SCH (09:20)
[2018-03-30] MEDS: Senna/Docusate Sodium 8.6/50 MG Tablet PO SCH ×2 (09:22→21:34)
[2018-03-30] MEDS: Enoxaparin Inj 30 MG/0.3 ML Syringe SQ SCH ×2 (09:23→21:34)
[2018-03-30] MEDS: Duloxetine 60 MG DR Capsule PO SCH (09:23)
--- NOTE | 2018-03-30 17:28 | P.PN ---
Subjective Interval history: Was up in the chair for 2.5 hours. Says he has pain in his hips. No palpitations. No chest pain. No fever or chills. No nausea vomiting. Physical Exam Vital signs: Vital Signs 03/29/18 19:45 03/29/18 20:00 03/30/18 00:00 Temperature 97.9 F 98.4 F Pulse Rate 72 81 83 Respiratory Rate 18 18 Blood Pressure 121/62 108/57 L Pulse Oximetry 96 97 03/30/18 00:22 03/30/18 04:00 03/30/18 08:00 Temperature 97.6 F 97.6 F Pulse Rate 81 77 Respiratory Rate 16 18 16 Blood Pressure 111/56 L 135/72 Pulse Oximetry 96 97 03/30/18 12:00 Temperature 99.1 F Pulse Rate 106 H Respiratory Rate 18 Blood Pressure 113/65 Pulse Oximetry 95 Intake & Output 03/29/18 03/30/18 03/30/18 18:59 06:59 18:59 Output Total 1550 / 1550 Balance -1550 / -1550 Weight 110.7 kg Output: Urine 1550 / 1550 Other: Date of Last Bowel Movement 03/30/18 # Bowel Movements 1 Narrative: GENERAL: Pleasant 62-year-old well-developed, well-nourished male lying in bed. SKIN: Warm and dry. Decub stage 3 ulcer NECK: Trachea midline. No JVD. [place] J collar. CARDIOVASCULAR: Regular rate and rhythm. RESPIRATORY: Lungs are clear to auscultation. Breath sounds equal bilaterally. GASTROINTESTINAL: BS + Abdomen soft, non-tender, nondistended. MUSCULOSKELETAL: Extremities without cyanosis, or edema. TLSO brace in place. 5 /5 strength BUE. 0/5 strength BLE, withdrawals to noxious stimuli. + perfused. MPB in place on BLE. NEUROLOGICAL: Awake and alert. Normal speech. - Urinary Catheter Management Condom Cath placed during this visit: yes, but has since been removed by the nurse Reason for continuing: Decision to DC catheter Removal date: 03/18/18 Removal time: 14:30 Indwelling Urethral Catheter Cath placed during this visit: yes, but has since been removed by the nurse Reason for continuing: Acute urinary retention Insertion date: 03/19/18 Insertion time: 04:30 Removal date: 09/08/18 Removal time: 10:45 Straight Cath placed during this visit: yes, but has since been removed by the nurse Reason for continuing: Chronic Urinary Retention Insertion date: 03/19/18 Insertion time: 03:00 Removal date: 03/19/18 Removal time: 03:30 Results - Labs CBC & Chem 7: 03/20/18 03:19 03/20/18 03:19 - Procedures 03/11: T9, T10, T11, T12, and L1 posterior fusion; T10-11 laminectomy; T10-11 open reduction of the fracture subluxation; T9-L1 pedicle screw fixation; 03/13: Anterior cervical C3 and C4 partial corpectomies; C3-4 interbody fusion; anterior C3-4 cervical plate placement; C3-4 interbody cage placement Assessment and Plan - Plan 03/30: in nad. No events overnight. No change in management. [place]: Sleeping on a sea wall, and fell off approx 7-8 feet. Unable to move or ambulate after the fall. ETOH = 230 on admission. INJURIES: C3-4 spinal stenosis w/ disc protrusion and cord compression C6 vertebral body fx RIGHT clavicle fx (no-op) T10 transverse process fx T11 burst fx w/ cord contusion and compression RIGHT rib fxs (4, 5, 7) LEFT rib fx (5) BILAT pulmonary contusions PMHx: Neuropathy. 03/10: Afib - Cardizem. 03/11: T9, T10, T11, T12, and L1 posterior fusion; T10-11 laminectomy; T10-11 open reduction of the fracture subluxation; T9-L1 pedicle screw fixation; 03/13: Anterior cervical C3 and C4 partial corpectomies; C3-4 interbody fusion; anterior C3-4 cervical plate placement; C3-4 interbody cage placement C3-4 spinal stenosis w/ disc protrusion and cord compression, C6 vertebral body fx, T10 over T11 spondylolisthesis w/ spinal canal stenosis, T10 transverse process fx, T11 burst fx w/ cord contusion and compression, Paraplegia Neurosurgery consulted 03/11: T9, T10, T11, T12, and L1 posterior fusion; T10-11 open reduction of the fracture subluxation; T9-L1 pedicle screw fixation; 03/13: Anterior cervical C3 and C4 partial corpectomies; C3-4 interbody fusion; anterior C3-4 cervical plate placement; C3-4 interbody cage placement Supportive care Serial neuro checks Pain control Bowel regimen PT 7 days a week. OT ordered [place] J collar at all times OOB with TLSO brace Surgical dressings per neurosurgery Specialty bed, turn Q2H Roho cushion when OOB in chair experimental plastics fabricator consulted for pressure wounds MPB BLE- 4 hours on 4 hours off Lovenox 30mg BID Rehab placement Dysphagia Speech therapy consulted Mechanical soft diet with nectar thick liquids, advance diet per St recommendations Atrial fibrillation Tele Cardizem 30mg PO q8h- BP improved Labs stable RIGHT rib fxs, LEFT rib fx, BILAT pulmonary contusions 03/11: Intubated for OR 03/12: Extubated Supportive care Pulmonary toileting Chest x-ray as needed Pain control Bowel regimen OOB-PT and OT ordered Lovenox Encourage IS EtOH abuse Supportive care Counselled on abstaining from ETOH Urinary retention Urology consulted Continue Flomax Continue Carrillo catheter per Urologist Stage 3 decubitus ulcer. Consult wound care appreciate recommendations. Spoke with Namrata from wound care. Case management consulted to assist with discharge planning. Patient has an active DC to rehab and is clear to DC once arrangements made. CM having difficulty finding a facility to accept the patient.
--- NOTE | 2018-03-30 17:39 | P.PNWCN ---
Wound Care Nurse Consult Description: Received Vocera call from MIKE Silva regarding dressing on left buttock. Communicated with: MIKE Silva Recommendation: 1. Manually reposition patient every 2 hours for comfort and offloading. 2. Please use only single layer UltraSorb underpad for moisture and flat sheet for repositioning NO COTTON UNDERPAD may be used with low airloss mattress. 3. Cleanse left buttock and gluteal cleft wounds with NORMAL SALINE only. 4. Apply nickel thick Santyl to NS moistened gauze and place on wound bed ensuring Santyl covers wound from edge to edge. 5. Change DAILY or as needed for saturation or dislodgement. Additional information: Patient seen on for re-evaluation of left buttock wound. Wound/Pressure Injury - Wound Left Buttock Wound Staging: Stage III Wound Assessment: Ongoing Wound Type: Pressure Injury Length: 7 (cm) Width: 10 (cm) Depth: 0.1 (cm) Wound Bed Appearance: [place], Shiny, Yellow Surrounding Tissue Appearance: Bright Red, Erythema, Indurated, [place], Shiny Drainage Amount: None Drainage Odor: No Odor Dressing Status: Changed Cleansing Solution: Saline Primary Dressing: Maxorb II (moistened) Cover Dressing: Bordered Gauze Wound Dressing Change Date: 03/30/18 Gluteal cleft Wound Staging: Stage IV Wound Assessment: Ongoing Wound Type: Pressure Injury Length: 3.3 (cm) Width: 1.3 (cm) Depth: 0.3 (cm) Wound Bed Appearance: White Wound Bed Appearance: 100% fascia Surrounding Tissue Appearance: [place] Surrounding Tissue Temperature: Warm Drainage Amount: None Drainage Odor: No Odor Dressing Status: Changed Cleansing Solution: Saline Primary Dressing: Maxorb II (moistened) Cover Dressing: Bordered gauze Wound Dressing Change Date: 03/30/18 - Additional Information One ultrasorb was noted under patient for moisture and patient was positioned on right side when entering patient room. Patient turned to his left side for assessment. ABD pad was removed from right side of buttock with Versatel One noted to be pushed off of wound bed from left buttock. All dressings removed from left buttock and right buttock. Right buttock wound has closed and was noted with pink intact tissue that was cleansed and an absorbant transparent film placed. Left buttock is a full thickness wound with ~50% adipose tissue, ~ 45% pink tissue, and ~5% necrotic tissue noted. Wound margins are open, jagged, and even with wound bed. Wound has no odor and no active drainage. Periwound is red blanching erythema and warm to touch. Gluteal cleft is noted with a full thickness wound with jagged wound margins, no odor, no active drainage, and erythematous macerated periwound. All periwounds were sprayed with Cavilon skin barrier film prior to placing temporary dressing of Maxorb II and bordered gauze until order for Santyl could be obtained.
[2018-03-31] MEDS: dilTIAZem 60 MG Tablet PO SCH ×3 (02:14→16:47)
[2018-03-31] MEDS: Duloxetine 60 MG DR Capsule PO SCH (08:28)
[2018-03-31] MEDS: Gabapentin 300 MG Capsule PO SCH ×3 (08:29→17:00)
[2018-03-31] MEDS: Lidocaine 5% Patch T-DERMAL SCH (08:29)
[2018-03-31] MEDS: Senna/Docusate Sodium 8.6/50 MG Tablet PO SCH ×2 (08:29→20:50)
[2018-03-31] MEDS: Enoxaparin Inj 30 MG/0.3 ML Syringe SQ SCH ×2 (08:32→20:49)
[2018-03-31] MEDS: oxyCODONE/Acetaminophen 10/325 Tablet PO PRN ×3 (08:32→16:51)
--- NOTE | 2018-03-31 17:40 | P.PN ---
Subjective Interval history: Reevaluated by wound care discussed with all drop. Patient with worsening wounds discussed at length with the patient turning full side. Added Santyl. He has no fever or chills. Physical Exam Vital signs: Vital Signs 03/30/18 20:00 03/31/18 00:00 03/31/18 04:00 Temperature 98.0 F 98.5 F 97.8 F Pulse Rate 96 H 92 H 86 Respiratory Rate 17 18 16 Blood Pressure 103/59 L 110/62 118/67 Pulse Oximetry 96 95 96 03/31/18 08:00 03/31/18 09:02 03/31/18 12:00 Temperature 97.8 F 98.2 F Pulse Rate 101 H 110 H Respiratory Rate 16 17 16 Blood Pressure 133/75 95/68 L Pulse Oximetry 95 94 L 03/31/18 12:10 03/31/18 13:08 03/31/18 16:00 Temperature Pulse Rate 91 H Respiratory Rate 18 Blood Pressure 102/71 Pulse Oximetry Intake & Output 03/30/18 03/31/18 03/31/18 18:59 06:59 18:59 Intake Total 1200 / 1200 180 / 180 Output Total 500 / 500 680 / 680 625 / 625 Balance 700 / 700 -500 / -500 -625 / -625 Weight 111.6 kg Intake: Oral 1200 / 1200 180 / 180 Output: Urine Amount (Catheter) 500 / 500 680 / 680 625 / 625 Indwelling Urethral Catheter 500 / 500 680 / 680 625 / 625 Other: Date of Last Bowel Movement 03/30/18 03/31/18 # Bowel Movements 2 Narrative: GENERAL: Pleasant 62-year-old well-developed, well-nourished male lying in bed. SKIN: Warm and dry. 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 No JVD. [place] J collar. CARDIOVASCULAR: Regular rate and rhythm. RESPIRATORY: Lungs are clear to auscultation. Breath sounds equal bilaterally. GASTROINTESTINAL: BS + Abdomen soft, non-tender, nondistended. MUSCULOSKELETAL: Extremities without cyanosis, or edema. TLSO brace in place. 5 /5 strength BUE. 0/5 strength BLE, withdrawals to noxious stimuli. + perfused. MPB in place on BLE. NEUROLOGICAL: Awake and alert. Normal speech. - Urinary Catheter Management Condom Cath placed during this visit: yes, but has since been removed by the nurse Reason for continuing: Decision to DC catheter Removal date: 03/18/18 Removal time: 14:30 Indwelling Urethral Catheter Cath placed during this visit: yes, but has since been removed by the nurse Reason for continuing: Chronic Urinary Retention Insertion date: 03/19/18 Insertion time: 04:30 Removal date: 03/14/18 Removal time: 10:45 Straight Cath placed during this visit: yes, but has since been removed by the nurse Reason for continuing: Chronic Urinary Retention Insertion date: 03/19/18 Insertion time: 03:00 Removal date: 03/19/18 Removal time: 03:30 Results - Labs CBC & Chem 7: 03/20/18 03:19 03/20/18 03:19 - Procedures 03/11: T9, T10, T11, T12, and L1 posterior fusion; T10-11 laminectomy; T10-11 open reduction of the fracture subluxation; T9-L1 pedicle screw fixation; 03/13: Anterior cervical C3 and C4 partial corpectomies; C3-4 interbody fusion; anterior C3-4 cervical plate placement; C3-4 interbody cage placement Assessment and Plan - Plan 03/31: in nad. Decub stage 3 left buttock and stage 4 gluteal cleft ulcers . Decubitus ulcers worsening. Turn every 2 hours completely on his sides. The dressing changes with Yasmeenyl for wound recommendations discussed with Namrata. [place]: Sleeping on a sea wall, and fell off approx 7-8 feet. Unable to move or ambulate after the fall. ETOH = 230 on admission. INJURIES: C3-4 spinal stenosis w/ disc protrusion and cord compression C6 vertebral body fx RIGHT clavicle fx (no-op) T10 transverse process fx T11 burst fx w/ cord contusion and compression RIGHT rib fxs (4, 5, 7) LEFT rib fx (5) BILAT pulmonary contusions PMHx: Neuropathy. 03/10: Afib - Cardizem. 03/11: T9, T10, T11, T12, and L1 posterior fusion; T10-11 laminectomy; T10-11 open reduction of the fracture subluxation; T9-L1 pedicle screw fixation; 03/13: Anterior cervical C3 and C4 partial corpectomies; C3-4 interbody fusion; anterior C3-4 cervical plate placement; C3-4 interbody cage placement C3-4 spinal stenosis w/ disc protrusion and cord compression, C6 vertebral body fx, T10 over T11 spondylolisthesis w/ spinal canal stenosis, T10 transverse process fx, T11 burst fx w/ cord contusion and compression, Paraplegia Neurosurgery consulted 03/11: T9, T10, T11, T12, and L1 posterior fusion; T10-11 open reduction of the fracture subluxation; T9-L1 pedicle screw fixation; 03/13: Anterior cervical C3 and C4 partial corpectomies; C3-4 interbody fusion; anterior C3-4 cervical plate placement; C3-4 interbody cage placement Supportive care Serial neuro checks Pain control Bowel regimen PT 7 days a week. OT ordered [place] J collar at all times OOB with TLSO brace Surgical dressings per neurosurgery Specialty bed, turn Q2H Roho cushion when OOB in chair glass installer consulted for pressure wounds MPB BLE- 4 hours on 4 hours off Lovenox 30mg BID Rehab placement Dysphagia Speech therapy consulted Mechanical soft diet with nectar thick liquids, advance diet per St recommendations Atrial fibrillation Tele Cardizem 30mg PO q8h- BP improved Labs stable RIGHT rib fxs, LEFT rib fx, BILAT pulmonary contusions 03/11: Intubated for OR 03/12: Extubated Supportive care Pulmonary toileting Chest x-ray as needed Pain control Bowel regimen OOB-PT and OT ordered Lovenox Encourage IS EtOH abuse Supportive care Counselled on abstaining from ETOH Urinary retention Urology consulted Continue Flomax Continue Carrillo catheter per Urologist Decub stage 3 left buttock and stage 4 gluteal cleft ulcers . Turn every 2 hours completely on his sides. The dressing changes with Santyl for wound recommendations discussed with Namrata. Case management consulted to assist with discharge planning. Patient has an active DC to rehab and is clear to DC once arrangements made. CM having difficulty finding a facility to accept the patient.
[2018-03-31] MEDS: Collagenase Oint 30 GM Tube TOPICAL SCH (18:19)
[2018-04-01] MEDS: dilTIAZem 60 MG Tablet PO SCH ×3 (01:07→16:46)
[2018-04-01] MEDS: Enoxaparin Inj 30 MG/0.3 ML Syringe SQ SCH ×2 (08:01→20:44)
[2018-04-01] MEDS: Gabapentin 300 MG Capsule PO SCH ×3 (08:02→17:10)
[2018-04-01] MEDS: Duloxetine 60 MG DR Capsule PO SCH (08:04)
[2018-04-01] MEDS: Lidocaine 5% Patch T-DERMAL SCH (08:05)
[2018-04-01] MEDS: Senna/Docusate Sodium 8.6/50 MG Tablet PO SCH ×2 (08:53→20:46)
[2018-04-01] MEDS: Collagenase Oint 30 GM Tube TOPICAL SCH (08:54)
--- NOTE | 2018-04-01 11:38 | P.PN ---
Subjective Interval history: The patient is in the chair No events overnight Physical Exam Vital signs: Vital Signs 03/31/18 12:00 03/31/18 12:10 03/31/18 13:08 Temperature 98.2 F Pulse Rate 110 H Respiratory Rate 16 18 Blood Pressure 95/68 L 102/71 Pulse Oximetry 94 L 03/31/18 16:00 03/31/18 17:21 03/31/18 20:00 Temperature 98.3 F 98.9 F Pulse Rate 94 H 87 Respiratory Rate 17 18 18 Blood Pressure 112/65 121/60 Pulse Oximetry 94 L 95 04/01/18 00:00 04/01/18 04:00 04/01/18 07:05 Temperature 98.5 F 99.1 F 99.1 F Pulse Rate 86 91 H 84 Respiratory Rate 18 18 18 Blood Pressure 100/56 L 109/62 117/69 Pulse Oximetry 94 L 96 88 L 04/01/18 08:00 Temperature Pulse Rate 84 Respiratory Rate Blood Pressure Pulse Oximetry Intake & Output 03/31/18 04/01/18 04/01/18 18:59 06:59 18:59 Intake Total 400 / 400 180 / 180 Output Total 1075 / 1075 1225 / 1225 700 / 700 Balance -675 / -675 -1045 / -1045 -700 / -700 Weight 111.6 kg Intake: Oral 400 / 400 180 / 180 Output: Urine 450 / 450 1225 / 1225 700 / 700 Urine Amount (Catheter) 625 / 625 Indwelling Urethral Catheter 625 / 625 Other: Date of Last Bowel Movement 03/31/18 03/31/18 # Bowel Movements 0 Narrative: GENERAL: Pleasant 62-year-old well-developed, well-nourished male lying in bed. SKIN: Warm and dry. 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 No JVD. [place] J collar. CARDIOVASCULAR: Regular rate and rhythm. RESPIRATORY: Lungs are clear to auscultation. Breath sounds equal bilaterally. GASTROINTESTINAL: BS + Abdomen soft, non-tender, nondistended. MUSCULOSKELETAL: Extremities without cyanosis, or edema. TLSO brace in place. 5 /5 strength BUE. 0/5 strength BLE, withdrawals to noxious stimuli. + perfused. MPB in place on BLE. NEUROLOGICAL: Awake and alert. Normal speech. - Urinary Catheter Management Condom Cath placed during this visit: yes, but has since been removed by the nurse Reason for continuing: Decision to DC catheter Removal date: 03/18/18 Removal time: 14:30 Indwelling Urethral Catheter Cath placed during this visit: yes, but has since been removed by the nurse Reason for continuing: Chronic Urinary Retention Insertion date: 03/19/18 Insertion time: 04:30 Removal date: 03/14/18 Removal time: 10:45 Straight Cath placed during this visit: yes, but has since been removed by the nurse Reason for continuing: Chronic Urinary Retention Insertion date: 03/19/18 Insertion time: 03:00 Removal date: 03/19/18 Removal time: 03:30 Results - Labs CBC & Chem 7: 03/20/18 03:19 03/20/18 03:19 - Procedures 03/11: T9, T10, T11, T12, and L1 posterior fusion; T10-11 laminectomy; T10-11 open reduction of the fracture subluxation; T9-L1 pedicle screw fixation; 03/13: Anterior cervical C3 and C4 partial corpectomies; C3-4 interbody fusion; anterior C3-4 cervical plate placement; C3-4 interbody cage placement Assessment and Plan - Plan 04/01 no change. Continue the same medical management 03/31: in nad. Decub stage 3 left buttock and stage 4 gluteal cleft ulcers . Decubitus ulcers worsening. Turn every 2 hours completely on his sides. The dressing changes with Santyl for wound recommendations discussed with Namrata. [place]: Sleeping on a sea wall, and fell off approx 7-8 feet. Unable to move or ambulate after the fall. ETOH = 230 on admission. INJURIES: C3-4 spinal stenosis w/ disc protrusion and cord compression C6 vertebral body fx RIGHT clavicle fx (no-op) T10 transverse process fx T11 burst fx w/ cord contusion and compression RIGHT rib fxs (4, 5, 7) LEFT rib fx (5) BILAT pulmonary contusions PMHx: Neuropathy. 03/10: Afib - Cardizem. 03/11: T9, T10, T11, T12, and L1 posterior fusion; T10-11 laminectomy; T10-11 open reduction of the fracture subluxation; T9-L1 pedicle screw fixation; 9/7: Anterior cervical C3 and C4 partial corpectomies; C3-4 interbody fusion; anterior C3-4 cervical plate placement; C3-4 interbody cage placement C3-4 spinal stenosis w/ disc protrusion and cord compression, C6 vertebral body fx, T10 over T11 spondylolisthesis w/ spinal canal stenosis, T10 transverse process fx, T11 burst fx w/ cord contusion and compression, Paraplegia Neurosurgery consulted 03/11: T9, T10, T11, T12, and L1 posterior fusion; T10-11 open reduction of the fracture subluxation; T9-L1 pedicle screw fixation; 03/13: Anterior cervical C3 and C4 partial corpectomies; C3-4 interbody fusion; anterior C3-4 cervical plate placement; C3-4 interbody cage placement Supportive care Serial neuro checks Pain control Bowel regimen PT 7 days a week. OT ordered [place] J collar at all times OOB with TLSO brace Surgical dressings per neurosurgery Specialty bed, turn Q2H Roho cushion when OOB in chair educational psychology teacher consulted for pressure wounds MPB BLE- 4 hours on 4 hours off Lovenox 30mg BID Rehab placement Dysphagia Speech therapy consulted Mechanical soft diet with nectar thick liquids, advance diet per St recommendations Atrial fibrillation Tele Cardizem 30mg PO q8h- BP improved Labs stable RIGHT rib fxs, LEFT rib fx, BILAT pulmonary contusions 03/11: Intubated for OR 03/12: Extubated Supportive care Pulmonary toileting Chest x-ray as needed Pain control Bowel regimen OOB-PT and OT ordered Lovenox Encourage IS EtOH abuse Supportive care Counselled on abstaining from ETOH Urinary retention Urology consulted Continue Flomax Continue Carrillo catheter per Urologist Decub stage 3 left buttock and stage 4 gluteal cleft ulcers . Turn every 2 hours completely on his sides. The dressing changes with Yasmeenyl for wound recommendations discussed with Namrata. Case management consulted to assist with discharge planning. Patient has an active DC to rehab and is clear to DC once arrangements made. CM having difficulty finding a facility to accept the patient.
[2018-04-01] MEDS: oxyCODONE/Acetaminophen 10/325 Tablet PO PRN (12:31)
[2018-04-02] MEDS: dilTIAZem 60 MG Tablet PO SCH ×3 (00:23→16:34)
[2018-04-02] MEDS: Duloxetine 60 MG DR Capsule PO SCH (08:55)
[2018-04-02] MEDS: Senna/Docusate Sodium 8.6/50 MG Tablet PO SCH ×2 (08:55→21:01)
[2018-04-02] MEDS: Gabapentin 300 MG Capsule PO SCH ×3 (08:55→17:02)
[2018-04-02] MEDS: Enoxaparin Inj 30 MG/0.3 ML Syringe SQ SCH ×2 (08:55→21:03)
[2018-04-02] MEDS: Lidocaine 5% Patch T-DERMAL SCH (08:55)
[2018-04-02] MEDS: Collagenase Oint 30 GM Tube TOPICAL SCH (08:56)
--- NOTE | 2018-04-02 12:15 | P.PN ---
Subjective Interval history: Is in bed leaning fully on one side for pressure wound prevention. Has no back pain at this time. He was more up yesterday. No fever or chills. Physical Exam Vital signs: Vital Signs 04/01/18 16:00 04/01/18 20:00 04/02/18 08:00 Temperature 98.1 F 99.1 F 98.5 F Pulse Rate 90 89 85 Respiratory Rate 18 16 18 Blood Pressure 124/72 105/58 L 115/72 Pulse Oximetry 94 L 96 96 04/02/18 11:52 Temperature 98.3 F Pulse Rate 82 Respiratory Rate 18 Blood Pressure 119/66 Pulse Oximetry 95 Intake & Output 04/01/18 04/02/18 04/02/18 18:59 06:59 18:59 Intake Total 840 / 840 Output Total 1800 / 1800 Balance -960 / -960 Intake: Oral 840 / 840 Output: Urine 1800 / 1800 Other: Date of Last Bowel Movement 03/31/18 03/31/18 03/31/18 # Bowel Movements 0 Narrative: GENERAL: Pleasant 62-year-old well-developed, well-nourished male lying in bed. SKIN: Warm and dry. 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 No JVD. [place] J collar. CARDIOVASCULAR: Regular rate and rhythm. RESPIRATORY: Lungs are clear to auscultation. Breath sounds equal bilaterally. GASTROINTESTINAL: BS + Abdomen soft, non-tender, nondistended. MUSCULOSKELETAL: Extremities without cyanosis, or edema. TLSO brace in place. 5 /5 strength BUE. 0/5 strength BLE, withdrawals to noxious stimuli. + perfused. MPB in place on BLE. NEUROLOGICAL: Awake and alert. Normal speech. - Urinary Catheter Management Condom Cath placed during this visit: yes, but has since been removed by the nurse Reason for continuing: Decision to DC catheter Removal date: 03/18/18 Removal time: 14:30 Indwelling Urethral Catheter Cath placed during this visit: yes, but has since been removed by the nurse Reason for continuing: Chronic Urinary Retention Insertion date: 03/19/18 Insertion time: 04:30 Removal date: 03/14/18 Removal time: 10:45 Straight Cath placed during this visit: yes, but has since been removed by the nurse Reason for continuing: Chronic Urinary Retention Insertion date: 03/19/18 Insertion time: 03:00 Removal date: 03/19/18 Removal time: 03:30 Results - Labs CBC & Chem 7: 03/20/18 03:19 03/20/18 03:19 - Procedures 03/11: T9, T10, T11, T12, and L1 posterior fusion; T10-11 laminectomy; T10-11 open reduction of the fracture subluxation; T9-L1 pedicle screw fixation; 03/13: Anterior cervical C3 and C4 partial corpectomies; C3-4 interbody fusion; anterior C3-4 cervical plate placement; C3-4 interbody cage placement Assessment and Plan - Plan 04/01 no change. Continue the same medical management 03/31: in nad. Decub stage 3 left buttock and stage 4 gluteal cleft ulcers . Decubitus ulcers worsening. Turn every 2 hours completely on his sides. The dressing changes with Yasmeenyl for wound recommendations discussed with Namrata. [place]: Sleeping on a sea wall, and fell off approx 7-8 feet. Unable to move or ambulate after the fall. ETOH = 230 on admission. INJURIES: C3-4 spinal stenosis w/ disc protrusion and cord compression C6 vertebral body fx RIGHT clavicle fx (no-op) T10 transverse process fx T11 burst fx w/ cord contusion and compression RIGHT rib fxs (4, 5, 7) LEFT rib fx (5) BILAT pulmonary contusions PMHx: Neuropathy. 03/10: Afib - Cardizem. 03/11: T9, T10, T11, T12, and L1 posterior fusion; T10-11 laminectomy; T10-11 open reduction of the fracture subluxation; T9-L1 pedicle screw fixation; 03/13: Anterior cervical C3 and C4 partial corpectomies; C3-4 interbody fusion; anterior C3-4 cervical plate placement; C3-4 interbody cage placement C3-4 spinal stenosis w/ disc protrusion and cord compression, C6 vertebral body fx, T10 over T11 spondylolisthesis w/ spinal canal stenosis, T10 transverse process fx, T11 burst fx w/ cord contusion and compression, Paraplegia Neurosurgery consulted 03/11: T9, T10, T11, T12, and L1 posterior fusion; T10-11 open reduction of the fracture subluxation; T9-L1 pedicle screw fixation; 03/13: Anterior cervical C3 and C4 partial corpectomies; C3-4 interbody fusion; anterior C3-4 cervical plate placement; C3-4 interbody cage placement Supportive care Serial neuro checks Pain control Bowel regimen PT 7 days a week. OT ordered [place] J collar at all times OOB with TLSO brace Surgical dressings per neurosurgery Specialty bed, turn Q2H Roho cushion when OOB in chair performance improvement analyst consulted for pressure wounds MPB BLE- 4 hours on 4 hours off Lovenox 30mg BID Rehab placement Dysphagia Speech therapy consulted Mechanical soft diet with nectar thick liquids, advance diet per St recommendations Atrial fibrillation Tele Cardizem 30mg PO q8h- BP improved Labs stable RIGHT rib fxs, LEFT rib fx, BILAT pulmonary contusions 03/11: Intubated for OR 03/12: Extubated Supportive care Pulmonary toileting Chest x-ray as needed Pain control Bowel regimen OOB-PT and OT ordered Lovenox Encourage IS EtOH abuse Supportive care Counselled on abstaining from ETOH Urinary retention Urology consulted Continue Flomax Continue Carrillo catheter per Urologist Decub stage 3 left buttock and stage 4 gluteal cleft ulcers . Turn every 2 hours completely on his sides. The dressing changes with Santyl for wound recommendations discussed with Namrata. Case management consulted to assist with discharge planning. Patient has an active DC to rehab and is clear to DC once arrangements made. CM having difficulty finding a facility to accept the patient.
[2018-04-02] MEDS: oxyCODONE/Acetaminophen 10/325 Tablet PO PRN (13:47)
[2018-04-03] MEDS: dilTIAZem 60 MG Tablet PO SCH ×3 (00:52→17:18)
[2018-04-03] MEDS: Gabapentin 300 MG Capsule PO SCH ×3 (09:01→17:18)
[2018-04-03] MEDS: Duloxetine 60 MG DR Capsule PO SCH (09:04)
[2018-04-03] MEDS: Enoxaparin Inj 30 MG/0.3 ML Syringe SQ SCH ×2 (09:04→22:10)
[2018-04-03] MEDS: Lidocaine 5% Patch T-DERMAL SCH (09:05)
[2018-04-03] MEDS: Collagenase Oint 30 GM Tube TOPICAL SCH (09:06)
[2018-04-03] MEDS: Senna/Docusate Sodium 8.6/50 MG Tablet PO SCH ×2 (09:07→22:10)
--- NOTE | 2018-04-03 13:07 | P.PN ---
Subjective Interval history: In bed says she is starting every 2 hours in bed to prevent sores. No back pain. No fever or chills overnight. Physical Exam Vital signs: Vital Signs 04/02/18 15:47 04/02/18 20:00 04/03/18 00:00 Temperature 98.8 F 97.7 F 98.5 F Pulse Rate 120 H 100 H 93 H Respiratory Rate 18 18 18 Blood Pressure 119/78 136/68 132/63 Pulse Oximetry 98 98 96 04/03/18 08:00 04/03/18 12:00 Temperature 98.7 F 98.9 F Pulse Rate 83 81 Respiratory Rate 16 18 Blood Pressure 141/84 H 115/62 Pulse Oximetry 96 98 Intake & Output 04/02/18 04/03/18 04/03/18 18:59 06:59 18:59 Intake Total 1160 / 1160 Output Total 1000 / 1000 900 / 900 Balance 160 / 160 -900 / -900 Weight 107.5 kg Intake: Oral 1160 / 1160 Output: Urine 1000 / 1000 900 / 900 Other: Date of Last Bowel Movement 04/02/18 04/02/18 # Bowel Movements 1 1 Narrative: GENERAL: Pleasant 62-year-old well-developed, well-nourished male lying in bed. SKIN: Warm and dry. 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 No JVD. [place] J collar. CARDIOVASCULAR: Regular rate and rhythm. RESPIRATORY: Lungs are clear to auscultation. Breath sounds equal bilaterally. GASTROINTESTINAL: BS + Abdomen soft, non-tender, nondistended. MUSCULOSKELETAL: Extremities without cyanosis, or edema. TLSO brace in place. 5 /5 strength BUE. 0/5 strength BLE, withdrawals to noxious stimuli. + perfused. MPB in place on BLE. NEUROLOGICAL: Awake and alert. Normal speech. - Urinary Catheter Management Condom Cath placed during this visit: yes, but has since been removed by the nurse Reason for continuing: Decision to DC catheter Removal date: 03/18/18 Removal time: 14:30 Indwelling Urethral Catheter Cath placed during this visit: yes, but has since been removed by the nurse Reason for continuing: Chronic Urinary Retention Insertion date: 03/19/18 Insertion time: 04:30 Removal date: 03/14/18 Removal time: 10:45 Straight Cath placed during this visit: yes, but has since been removed by the nurse Reason for continuing: Chronic Urinary Retention Insertion date: 03/19/18 Insertion time: 03:00 Removal date: 03/19/18 Removal time: 03:30 Results - Labs CBC & Chem 7: 03/20/18 03:19 03/20/18 03:19 - Procedures 03/11: T9, T10, T11, T12, and L1 posterior fusion; T10-11 laminectomy; T10-11 open reduction of the fracture subluxation; T9-L1 pedicle screw fixation; 03/13: Anterior cervical C3 and C4 partial corpectomies; C3-4 interbody fusion; anterior C3-4 cervical plate placement; C3-4 interbody cage placement Assessment and Plan - Plan 04/02 no change. Continue the same medical management 03/31: in nad. Decub stage 3 left buttock and stage 4 gluteal cleft ulcers . Decubitus ulcers worsening. Turn every 2 hours completely on his sides. The dressing changes with Jeannie for wound recommendations discussed with Namrata. [place]: Sleeping on a sea wall, and fell off approx 7-8 feet. Unable to move or ambulate after the fall. ETOH = 230 on admission. INJURIES: C3-4 spinal stenosis w/ disc protrusion and cord compression C6 vertebral body fx RIGHT clavicle fx (no-op) T10 transverse process fx T11 burst fx w/ cord contusion and compression RIGHT rib fxs (4, 5, 7) LEFT rib fx (5) BILAT pulmonary contusions PMHx: Neuropathy. 03/10: Afib - Cardizem. 03/11: T9, T10, T11, T12, and L1 posterior fusion; T10-11 laminectomy; T10-11 open reduction of the fracture subluxation; T9-L1 pedicle screw fixation; 03/13: Anterior cervical C3 and C4 partial corpectomies; C3-4 interbody fusion; anterior C3-4 cervical plate placement; C3-4 interbody cage placement C3-4 spinal stenosis w/ disc protrusion and cord compression, C6 vertebral body fx, T10 over T11 spondylolisthesis w/ spinal canal stenosis, T10 transverse process fx, T11 burst fx w/ cord contusion and compression, Paraplegia Neurosurgery consulted 03/11: T9, T10, T11, T12, and L1 posterior fusion; T10-11 open reduction of the fracture subluxation; T9-L1 pedicle screw fixation; 03/13: Anterior cervical C3 and C4 partial corpectomies; C3-4 interbody fusion; anterior C3-4 cervical plate placement; C3-4 interbody cage placement Supportive care Serial neuro checks Pain control Bowel regimen PT 7 days a week. OT ordered [place] J collar at all times OOB with TLSO brace Surgical dressings per neurosurgery Specialty bed, turn Q2H Roho cushion when OOB in chair clerical support specialist consulted for pressure wounds MPB BLE- 4 hours on 4 hours off Lovenox 30mg BID Rehab placement Dysphagia Speech therapy consulted Mechanical soft diet with nectar thick liquids, advance diet per St recommendations Atrial fibrillation Tele Cardizem 30mg PO q8h- BP improved Labs stable RIGHT rib fxs, LEFT rib fx, BILAT pulmonary contusions 03/11: Intubated for OR 03/12: Extubated Supportive care Pulmonary toileting Chest x-ray as needed Pain control Bowel regimen OOB-PT and OT ordered Lovenox Encourage IS EtOH abuse Supportive care Counselled on abstaining from ETOH Urinary retention Urology consulted Continue Flomax Continue Carrillo catheter per Urologist Decub stage 3 left buttock and stage 4 gluteal cleft ulcers . Turn every 2 hours completely on his sides. The dressing changes with Yasmeenyl for wound recommendations discussed with Namrata. Case management consulted to assist with discharge planning. Patient has an active DC to rehab and is clear to DC once arrangements made. CM having difficulty finding a facility to accept the patient.
[2018-04-03] MEDS: oxyCODONE/Acetaminophen 10/325 Tablet PO PRN (14:25)
[2018-04-04] MEDS: dilTIAZem 60 MG Tablet PO SCH ×3 (01:42→17:39)
[2018-04-04] MEDS: oxyCODONE/Acetaminophen 10/325 Tablet PO PRN ×4 (06:27→21:42)
[2018-04-04] MEDS: Collagenase Oint 30 GM Tube TOPICAL SCH (08:01)
[2018-04-04] MEDS: Enoxaparin Inj 30 MG/0.3 ML Syringe SQ SCH ×2 (08:01→20:22)
[2018-04-04] MEDS: Gabapentin 300 MG Capsule PO SCH ×3 (08:01→17:39)
[2018-04-04] MEDS: Duloxetine 60 MG DR Capsule PO SCH (08:02)
[2018-04-04] MEDS: Senna/Docusate Sodium 8.6/50 MG Tablet PO SCH ×2 (08:02→20:20)
[2018-04-04] MEDS: Lidocaine 5% Patch T-DERMAL SCH (08:02)
--- NOTE | 2018-04-04 12:30 | P.PN ---
Subjective Interval history: No events overnight No fever or chills No n/v/d/c. Physical Exam Vital signs: Vital Signs 04/03/18 16:00 04/03/18 20:00 04/04/18 00:00 Temperature 98.9 F 98.5 F 98.1 F Pulse Rate 96 H 99 H 86 Respiratory Rate 16 17 17 Blood Pressure 121/68 108/68 114/65 Pulse Oximetry 95 93 L 98 04/04/18 04:00 04/04/18 08:00 Temperature 98.7 F 98.0 F Pulse Rate 90 88 Respiratory Rate 17 17 Blood Pressure 105/61 115/56 L Pulse Oximetry 94 L 96 Intake & Output 04/03/18 04/04/18 04/04/18 18:59 06:59 18:59 Intake Total 1200 / 1200 480 / 480 Output Total 800 / 800 500 / 500 Balance 400 / 400 -20 / -20 Weight 108.2 kg Intake: Oral 1200 / 1200 480 / 480 Output: Urine Amount (Catheter) 800 / 800 500 / 500 Indwelling Urethral Catheter 800 / 800 500 / 500 Other: Date of Last Bowel Movement 04/02/18 # Incontinent Bowel Movements 1 Narrative: GENERAL: Pleasant 62-year-old well-developed, well-nourished male lying in bed. SKIN: Warm and dry. 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 No JVD. [place] J collar. CARDIOVASCULAR: Regular rate and rhythm. RESPIRATORY: Lungs are clear to auscultation. Breath sounds equal bilaterally. GASTROINTESTINAL: BS + Abdomen soft, non-tender, nondistended. MUSCULOSKELETAL: Extremities without cyanosis, or edema. TLSO brace in place. 5 /5 strength BUE. 0/5 strength BLE, withdrawals to noxious stimuli. + perfused. MPB in place on BLE. NEUROLOGICAL: Awake and alert. Normal speech. - Urinary Catheter Management Condom Cath placed during this visit: yes, but has since been removed by the nurse Reason for continuing: Decision to DC catheter Removal date: 03/18/18 Removal time: 14:30 Indwelling Urethral Catheter Cath placed during this visit: yes, but has since been removed by the nurse Reason for continuing: Chronic Urinary Retention Insertion date: 03/19/18 Insertion time: 04:30 Removal date: 03/14/18 Removal time: 10:45 Straight Cath placed during this visit: yes, but has since been removed by the nurse Reason for continuing: Chronic Urinary Retention Insertion date: 03/19/18 Insertion time: 03:00 Removal date: 03/19/18 Removal time: 03:30 Results - Labs CBC & Chem 7: 03/20/18 03:19 03/20/18 03:19 - Procedures 03/11: T9, T10, T11, T12, and L1 posterior fusion; T10-11 laminectomy; T10-11 open reduction of the fracture subluxation; T9-L1 pedicle screw fixation; 03/13: Anterior cervical C3 and C4 partial corpectomies; C3-4 interbody fusion; anterior C3-4 cervical plate placement; C3-4 interbody cage placement Assessment and Plan - Plan 04/04 No change. Continue the same medical management Decub stage 3 left buttock and stage 4 gluteal cleft ulcers . Decubitus ulcers worsening. Turn every 2 hours completely on his sides. The dressing changes with Jeannie for wound recommendations discussed with Namrata. [place]: Sleeping on a sea wall, and fell off approx 7-8 feet. Unable to move or ambulate after the fall. ETOH = 230 on admission. INJURIES: C3-4 spinal stenosis w/ disc protrusion and cord compression C6 vertebral body fx RIGHT clavicle fx (no-op) T10 transverse process fx T11 burst fx w/ cord contusion and compression RIGHT rib fxs (4, 5, 7) LEFT rib fx (5) BILAT pulmonary contusions PMHx: Neuropathy. 03/10: Afib - Cardizem. 03/11: T9, T10, T11, T12, and L1 posterior fusion; T10-11 laminectomy; T10-11 open reduction of the fracture subluxation; T9-L1 pedicle screw fixation; 03/13: Anterior cervical C3 and C4 partial corpectomies; C3-4 interbody fusion; anterior C3-4 cervical plate placement; C3-4 interbody cage placement C3-4 spinal stenosis w/ disc protrusion and cord compression, C6 vertebral body fx, T10 over T11 spondylolisthesis w/ spinal canal stenosis, T10 transverse process fx, T11 burst fx w/ cord contusion and compression, Paraplegia Neurosurgery consulted 03/11: T9, T10, T11, T12, and L1 posterior fusion; T10-11 open reduction of the fracture subluxation; T9-L1 pedicle screw fixation; 03/13: Anterior cervical C3 and C4 partial corpectomies; C3-4 interbody fusion; anterior C3-4 cervical plate placement; C3-4 interbody cage placement Supportive care Serial neuro checks Pain control Bowel regimen PT 7 days a week. OT ordered [place] J collar at all times OOB with TLSO brace Surgical dressings per neurosurgery Specialty bed, turn Q2H Roho cushion when OOB in chair care assistant consulted for pressure wounds MPB BLE- 4 hours on 4 hours off Lovenox 30mg BID Rehab placement Dysphagia Speech therapy consulted Mechanical soft diet with nectar thick liquids, advance diet per St recommendations Atrial fibrillation Tele Cardizem 30mg PO q8h- BP improved Labs stable RIGHT rib fxs, LEFT rib fx, BILAT pulmonary contusions 03/11: Intubated for OR 03/12: Extubated Supportive care Pulmonary toileting Chest x-ray as needed Pain control Bowel regimen OOB-PT and OT ordered Lovenox Encourage IS EtOH abuse Supportive care Counselled on abstaining from ETOH Urinary retention Urology consulted Continue Flomax Continue Carrillo catheter per Urologist Decub stage 3 left buttock and stage 4 gluteal cleft ulcers . Turn every 2 hours completely on his sides. The dressing changes with Santyl for wound recommendations discussed with Namrata. Case management consulted to assist with discharge planning. Patient has an active DC to rehab and is clear to DC once arrangements made. CM having difficulty finding a facility to accept the patient.
[2018-04-05] MEDS: dilTIAZem 60 MG Tablet PO SCH ×3 (01:33→17:48)
[2018-04-05] MEDS: Senna/Docusate Sodium 8.6/50 MG Tablet PO SCH ×2 (09:37→21:54)
[2018-04-05] MEDS: Duloxetine 60 MG DR Capsule PO SCH (09:38)
[2018-04-05] MEDS: oxyCODONE/Acetaminophen 10/325 Tablet PO PRN ×4 (09:39→21:54)
[2018-04-05] MEDS: Gabapentin 300 MG Capsule PO SCH ×3 (09:40→17:48)
[2018-04-05] MEDS: Enoxaparin Inj 30 MG/0.3 ML Syringe SQ SCH ×2 (09:40→21:55)
[2018-04-05] MEDS: Lidocaine 5% Patch T-DERMAL SCH (09:40)
[2018-04-05] MEDS: Collagenase Oint 30 GM Tube TOPICAL SCH (09:41)
--- NOTE | 2018-04-05 15:11 | P.PN ---
Subjective Interval history: No events overnight. He is in the chair, has pain at the wound site. No fever or chills overnight. Physical Exam Vital signs: Vital Signs 04/04/18 16:00 04/04/18 20:00 04/05/18 00:00 Temperature 98.5 F 98.0 F 98.8 F Pulse Rate 88 93 H 92 H Respiratory Rate 19 19 18 Blood Pressure 105/63 119/69 107/56 L Pulse Oximetry 95 95 95 04/05/18 00:51 04/05/18 04:00 04/05/18 04:58 Temperature 97.8 F Pulse Rate 88 85 79 Respiratory Rate 18 Blood Pressure 115/63 Pulse Oximetry 96 04/05/18 08:00 04/05/18 12:00 Temperature 98.0 F 98.7 F Pulse Rate 80 105 H Respiratory Rate 17 18 Blood Pressure 116/73 139/85 Pulse Oximetry 95 95 Intake & Output 04/04/18 04/05/18 04/05/18 18:59 06:59 18:59 Intake Total 440 / 440 120 / 120 Output Total 875 / 875 625 / 625 Balance -435 / -435 -505 / -505 Weight 109 kg Intake: Oral 440 / 440 120 / 120 Output: Urine 875 / 875 625 / 625 Other: Date of Last Bowel Movement 04/02/18 # Bowel Movements 0 Narrative: GENERAL: Pleasant 62-year-old well-developed, well-nourished male lying in bed. SKIN: Warm and dry. 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 No JVD. [place] J collar. CARDIOVASCULAR: Regular rate and rhythm. RESPIRATORY: Lungs are clear to auscultation. Breath sounds equal bilaterally. GASTROINTESTINAL: BS + Abdomen soft, non-tender, nondistended. MUSCULOSKELETAL: Extremities without cyanosis, or edema. TLSO brace in place. 5 /5 strength BUE. 0/5 strength BLE, withdrawals to noxious stimuli. + perfused. MPB in place on BLE. NEUROLOGICAL: Awake and alert. Normal speech. - Urinary Catheter Management Condom Cath placed during this visit: yes, but has since been removed by the nurse Reason for continuing: Decision to DC catheter Removal date: 03/18/18 Removal time: 14:30 Indwelling Urethral Catheter Cath placed during this visit: yes, but has since been removed by the nurse Reason for continuing: Acute urinary retention Insertion date: 03/19/18 Insertion time: 04:30 Removal date: 03/14/18 Removal time: 10:45 Straight Cath placed during this visit: yes, but has since been removed by the nurse Reason for continuing: Chronic Urinary Retention Insertion date: 03/19/18 Insertion time: 03:00 Removal date: 03/19/18 Removal time: 03:30 Results - Labs CBC & Chem 7: 03/20/18 03:19 03/20/18 03:19 - Procedures 03/11: T9, T10, T11, T12, and L1 posterior fusion; T10-11 laminectomy; T10-11 open reduction of the fracture subluxation; T9-L1 pedicle screw fixation; 03/13: Anterior cervical C3 and C4 partial corpectomies; C3-4 interbody fusion; anterior C3-4 cervical plate placement; C3-4 interbody cage placement Assessment and Plan - Plan 04/05 No change. Continue the same medical management Decub stage 3 left buttock and stage 4 gluteal cleft ulcers . Decubitus ulcers worsening. Turn every 2 hours completely on his sides. The dressing changes with Yasmeenyl for wound recommendations discussed with Namrata. [place]: Sleeping on a sea wall, and fell off approx 7-8 feet. Unable to move or ambulate after the fall. ETOH = 230 on admission. INJURIES: C3-4 spinal stenosis w/ disc protrusion and cord compression C6 vertebral body fx RIGHT clavicle fx (no-op) T10 transverse process fx T11 burst fx w/ cord contusion and compression RIGHT rib fxs (4, 5, 7) LEFT rib fx (5) BILAT pulmonary contusions PMHx: Neuropathy. 03/10: Afib - Cardizem. 03/11: T9, T10, T11, T12, and L1 posterior fusion; T10-11 laminectomy; T10-11 open reduction of the fracture subluxation; T9-L1 pedicle screw fixation; 03/13: Anterior cervical C3 and C4 partial corpectomies; C3-4 interbody fusion; anterior C3-4 cervical plate placement; C3-4 interbody cage placement C3-4 spinal stenosis w/ disc protrusion and cord compression, C6 vertebral body fx, T10 over T11 spondylolisthesis w/ spinal canal stenosis, T10 transverse process fx, T11 burst fx w/ cord contusion and compression, Paraplegia Neurosurgery consulted 03/11: T9, T10, T11, T12, and L1 posterior fusion; T10-11 open reduction of the fracture subluxation; T9-L1 pedicle screw fixation; 03/13: Anterior cervical C3 and C4 partial corpectomies; C3-4 interbody fusion; anterior C3-4 cervical plate placement; C3-4 interbody cage placement Supportive care Serial neuro checks Pain control Bowel regimen PT 7 days a week. OT ordered [place] J collar at all times OOB with TLSO brace Surgical dressings per neurosurgery Specialty bed, turn Q2H Roho cushion when OOB in chair defence force senior officer consulted for pressure wounds MPB BLE- 4 hours on 4 hours off Lovenox 30mg BID Rehab placement Dysphagia Speech therapy consulted Mechanical soft diet with nectar thick liquids, advance diet per St recommendations Atrial fibrillation Tele Cardizem 30mg PO q8h- BP improved Labs stable RIGHT rib fxs, LEFT rib fx, BILAT pulmonary contusions 03/11: Intubated for OR 03/12: Extubated Supportive care Pulmonary toileting Chest x-ray as needed Pain control Bowel regimen OOB-PT and OT ordered Lovenox Encourage IS EtOH abuse Supportive care Counselled on abstaining from ETOH Urinary retention Urology consulted Continue Flomax Continue Carrillo catheter per Urologist Decub stage 3 left buttock and stage 4 gluteal cleft ulcers . Turn every 2 hours completely on his sides. The dressing changes with Santyl for wound recommendations discussed with Namrata. Discharge plan: Case management consulted to assist with discharge planning. Patient has an active DC to rehab and is clear to DC once arrangements made. CM having difficulty finding a facility to accept the patient.
[2018-04-06] MEDS: dilTIAZem 60 MG Tablet PO SCH ×3 (01:46→17:55)
[2018-04-06] MEDS: oxyCODONE/Acetaminophen 10/325 Tablet PO PRN ×4 (01:46→20:43)
[2018-04-06] MEDS: Enoxaparin Inj 30 MG/0.3 ML Syringe SQ SCH ×2 (08:45→20:43)
[2018-04-06] MEDS: Gabapentin 300 MG Capsule PO SCH ×3 (08:46→17:56)
[2018-04-06] MEDS: Lidocaine 5% Patch T-DERMAL SCH (08:48)
[2018-04-06] MEDS: Duloxetine 60 MG DR Capsule PO SCH (08:48)
[2018-04-06] MEDS: Collagenase Oint 30 GM Tube TOPICAL SCH (08:49)
[2018-04-06] MEDS: Senna/Docusate Sodium 8.6/50 MG Tablet PO SCH ×2 (09:52→20:41)
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
[2018-04-07] MEDS: dilTIAZem 60 MG Tablet PO SCH ×3 (00:03→17:49)
[2018-04-07] MEDS: oxyCODONE/Acetaminophen 10/325 Tablet PO PRN ×3 (00:47→22:16)
[2018-04-07] MEDS: Duloxetine 60 MG DR Capsule PO SCH (08:34)
[2018-04-07] MEDS: Lidocaine 5% Patch T-DERMAL SCH (08:34)
[2018-04-07] MEDS: Gabapentin 300 MG Capsule PO SCH ×3 (08:34→17:48)
[2018-04-07] MEDS: Enoxaparin Inj 30 MG/0.3 ML Syringe SQ SCH ×2 (08:34→22:17)
[2018-04-07] MEDS: Senna/Docusate Sodium 8.6/50 MG Tablet PO SCH ×2 (08:39→22:17)
[2018-04-07] MEDS: Collagenase Oint 30 GM Tube TOPICAL SCH (08:39)
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
[2018-04-08] MEDS: dilTIAZem 60 MG Tablet PO SCH ×3 (01:36→18:32)
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
[2018-04-08] MEDS: oxyCODONE/Acetaminophen 10/325 Tablet PO PRN ×3 (10:50→22:18)
[2018-04-08] MEDS: Duloxetine 60 MG DR Capsule PO SCH (10:52)
[2018-04-08] MEDS: Gabapentin 300 MG Capsule PO SCH ×3 (10:52→18:37)
[2018-04-08] MEDS: Enoxaparin Inj 30 MG/0.3 ML Syringe SQ SCH ×2 (10:56→21:12)
[2018-04-08] MEDS: Lidocaine 5% Patch T-DERMAL SCH (10:59)
[2018-04-08] MEDS: Senna/Docusate Sodium 8.6/50 MG Tablet PO SCH ×2 (11:00→21:12)
[2018-04-08] MEDS: Collagenase Oint 30 GM Tube TOPICAL SCH (14:07)
[2018-04-09] MEDS: dilTIAZem 60 MG Tablet PO SCH ×3 (00:24→17:33)
[2018-04-09] MEDS: Senna/Docusate Sodium 8.6/50 MG Tablet PO SCH ×2 (09:17→20:50)
[2018-04-09] MEDS: Lidocaine 5% Patch T-DERMAL SCH (09:18)
[2018-04-09] MEDS: Enoxaparin Inj 30 MG/0.3 ML Syringe SQ SCH ×2 (09:18→20:49)
[2018-04-09] MEDS: Duloxetine 60 MG DR Capsule PO SCH (09:19)
[2018-04-09] MEDS: Gabapentin 300 MG Capsule PO SCH ×3 (09:19→17:33)
[2018-04-09] MEDS: oxyCODONE/Acetaminophen 10/325 Tablet PO PRN ×4 (09:19→21:58)
[2018-04-09] MEDS: Collagenase Oint 30 GM Tube TOPICAL SCH (09:20)
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
[2018-04-10] MEDS: dilTIAZem 60 MG Tablet PO SCH ×3 (00:44→16:20)
[2018-04-10] MEDS: oxyCODONE/Acetaminophen 10/325 Tablet PO PRN ×4 (08:14→20:55)
[2018-04-10] MEDS: Collagenase Oint 30 GM Tube TOPICAL SCH (08:15)
[2018-04-10] MEDS: Enoxaparin Inj 30 MG/0.3 ML Syringe SQ SCH ×2 (08:16→20:37)
[2018-04-10] MEDS: Senna/Docusate Sodium 8.6/50 MG Tablet PO SCH ×2 (08:16→20:37)
[2018-04-10] MEDS: Gabapentin 300 MG Capsule PO SCH ×3 (08:16→17:18)
[2018-04-10] MEDS: Duloxetine 60 MG DR Capsule PO SCH (08:16)
[2018-04-10] MEDS: Lidocaine 5% Patch T-DERMAL SCH (08:17)
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
[2018-04-11] MEDS: dilTIAZem 60 MG Tablet PO SCH ×3 (01:08→16:29)
[2018-04-11] MEDS: Gabapentin 300 MG Capsule PO SCH ×3 (08:40→17:07)
[2018-04-11] MEDS: Lidocaine 5% Patch T-DERMAL SCH (08:40)
[2018-04-11] MEDS: Duloxetine 60 MG DR Capsule PO SCH (08:40)
[2018-04-11] MEDS: Senna/Docusate Sodium 8.6/50 MG Tablet PO SCH ×3 (08:40→20:26)
[2018-04-11] MEDS: Enoxaparin Inj 30 MG/0.3 ML Syringe SQ SCH ×2 (08:41→20:25)
[2018-04-11] MEDS: Collagenase Oint 30 GM Tube TOPICAL SCH (08:41)
[2018-04-11] MEDS: oxyCODONE/Acetaminophen 10/325 Tablet PO PRN (08:46)
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
[2018-04-11] MEDS: Baclofen 10 MG Tablet PO SCH (23:13)
[2018-04-12] MEDS: dilTIAZem 60 MG Tablet PO SCH ×3 (00:56→17:10)
[2018-04-12] MEDS: oxyCODONE/Acetaminophen 10/325 Tablet PO PRN ×3 (00:59→18:18)
[2018-04-12] MEDS: Baclofen 10 MG Tablet PO SCH ×3 (05:22→21:10)
[2018-04-12] MEDS: Duloxetine 60 MG DR Capsule PO SCH (08:34)
[2018-04-12] MEDS: Gabapentin 300 MG Capsule PO SCH ×3 (08:34→17:10)
[2018-04-12] MEDS: Lidocaine 5% Patch T-DERMAL SCH (08:34)
[2018-04-12] MEDS: Enoxaparin Inj 30 MG/0.3 ML Syringe SQ SCH ×2 (08:35→20:21)
[2018-04-12] MEDS: Collagenase Oint 30 GM Tube TOPICAL SCH (08:35)
[2018-04-12] MEDS: Senna/Docusate Sodium 8.6/50 MG Tablet PO SCH ×2 (08:35→20:21)
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
[2018-04-13] MEDS: dilTIAZem 60 MG Tablet PO SCH ×3 (00:09→16:52)
[2018-04-13] MEDS: Baclofen 10 MG Tablet PO SCH ×3 (05:20→21:11)
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
[2018-04-13 10:35] LABS: Hematocrit 34.7 % (39.0-51.0); Hemoglobin 11.5 gm/dL (13.0-17.0); Mean Corpuscular Hemoglobin 28.8 pg (27.0-34.0); Mean Corpuscular Volume 87.2 fL (80.0-100.0); Mean Platelet Volume 7.9 fL (7.0-11.0); Platelet Count 378 th/mm3 (150-450); Red Blood Count 3.98 mil/mm3 (4.50-5.90); Red Cell Distribution Width 15.8 % (11.6-17.2); White Blood Count 10.9 th/mm3 (4.0-11.0)
[2018-04-13] MEDS: oxyCODONE/Acetaminophen 10/325 Tablet PO PRN ×3 (10:40→21:11)
[2018-04-13] MEDS: Duloxetine 60 MG DR Capsule PO SCH (10:42)
[2018-04-13] MEDS: Gabapentin 300 MG Capsule PO SCH ×3 (10:42→18:00)
[2018-04-13] MEDS: Senna/Docusate Sodium 8.6/50 MG Tablet PO SCH ×2 (10:43→20:46)
[2018-04-13] MEDS: Lidocaine 5% Patch T-DERMAL SCH (10:43)
[2018-04-13] MEDS: Enoxaparin Inj 30 MG/0.3 ML Syringe SQ SCH ×2 (10:43→20:46)
[2018-04-13] MEDS: Collagenase Oint 30 GM Tube TOPICAL SCH (10:47)
[2018-04-13 10:58] LABS: Anion Gap 9 meq/L (5-15); Blood Urea Nitrogen 11 mg/dL (7-18); Calcium 9.3 mg/dL (8.5-10.1); Carbon Dioxide 28.2 meq/L (21.0-32.0); Chloride 103 meq/L (98-107); Glomerular Filtration Rate Greater Than 89 mL/min (>89); Glucose,Random 106 mg/dL (74-106); Magnesium 1.5 mg/dL (1.5-2.5); Phosphorus 3.3 mg/dL (2.5-4.9); Potassium 3.9 meq/L (3.5-5.1); Sodium 140 meq/L (136-145)
[2018-04-13] MEDS ORDERED: Magnesium Oxide 400 MG Tablet PO ONE (11:28)
[2018-04-14] MEDS: dilTIAZem 60 MG Tablet PO SCH ×3 (00:38→16:50)
[2018-04-14] MEDS: Baclofen 10 MG Tablet PO SCH ×3 (05:37→21:58)
[2018-04-14] MEDS: Senna/Docusate Sodium 8.6/50 MG Tablet PO SCH ×2 (09:03→20:19)
[2018-04-14] MEDS: Duloxetine 60 MG DR Capsule PO SCH (09:04)
[2018-04-14] MEDS: Gabapentin 300 MG Capsule PO SCH ×3 (09:04→17:00)
[2018-04-14] MEDS: Enoxaparin Inj 30 MG/0.3 ML Syringe SQ SCH ×2 (09:06→20:19)
[2018-04-14] MEDS: Collagenase Oint 30 GM Tube TOPICAL SCH (09:13)
[2018-04-14] MEDS: Lidocaine 5% Patch T-DERMAL SCH (09:13)
--- NOTE | 2018-04-14 10:04 | P.PN ---
Subjective Interval history: Nursing denies any deterioration since last night. Patient himself has no new complaints. Physical Exam Vital signs: Vital Signs 04/13/18 11:40 04/13/18 12:00 04/13/18 16:00 Temperature 98.4 F 98.1 F Pulse Rate 88 85 Respiratory Rate 17 18 20 Blood Pressure 117/64 96/58 L Pulse Oximetry 95 93 L 04/13/18 18:00 04/13/18 20:00 04/14/18 00:12 Temperature 98.8 F 97.5 F L Pulse Rate 84 79 Respiratory Rate 16 20 17 Blood Pressure 106/66 112/65 Pulse Oximetry 98 96 04/14/18 08:00 Temperature 98.7 F Pulse Rate 84 Respiratory Rate 16 Blood Pressure 108/66 Pulse Oximetry 94 L Intake & Output 04/13/18 04/14/18 04/14/18 18:59 06:59 18:59 Intake Total 720 / 720 600 / 600 Output Total 400 / 400 1000 / 1000 Balance 320 / 320 -400 / -400 Weight 109.8 kg Intake: Oral 720 / 720 600 / 600 Output: Urine 400 / 400 Urine Amount (Catheter) 1000 / 1000 Indwelling Urethral Catheter 1000 / 1000 Other: # Bowel Movements 0 1 Narrative: Heart sounds regular rate rhythm no murmurs Clear lungs bilaterally - Urinary Catheter Management Condom Cath placed during this visit: yes, but has since been removed by the nurse Reason for continuing: Decision to DC catheter Removal date: 03/18/18 Removal time: 14:30 Indwelling Urethral Catheter Cath placed during this visit: yes, but has since been removed by the nurse Reason for continuing: Chronic Urinary Retention Insertion date: 03/19/18 Insertion time: 04:30 Removal date: 03/14/18 Removal time: 10:45 Straight Cath placed during this visit: yes, but has since been removed by the nurse Reason for continuing: Chronic Urinary Retention Insertion date: 03/19/18 Insertion time: 03:00 Removal date: 03/19/18 Removal time: 03:30 Results - Labs CBC & Chem 7: 04/13/18 10:10 04/13/18 10:10 Laboratory Results - last 24 hr 04/13/18 04/13/18 10:10 10:10 WBC 10.9 RBC 3.98 L Hgb 11.5 L Hct 34.7 L MCV 87.2 MCH 28.8 MCHC 33.0 RDW 15.8 Plt Count 378 MPV 7.9 Sodium 140 Potassium 3.9 Chloride 103 Carbon Dioxide 28.2 Anion Gap 9 BUN 11 Creatinine 0.63 Estimated GFR Greater than 89 Random Glucose 106 Calcium 9.3 Phosphorus 3.3 Magnesium 1.5 - Procedures 03/11: T9, T10, T11, T12, and L1 posterior fusion; T10-11 laminectomy; T10-11 open reduction of the fracture subluxation; T9-L1 pedicle screw fixation; 03/13: Anterior cervical C3 and C4 partial corpectomies; C3-4 interbody fusion; anterior C3-4 cervical plate placement; C3-4 interbody cage placement Assessment and Plan - Assessment (1) Closed rib fracture Code(s): S22.39XA - Fracture of one rib, unspecified side, initial encounter for closed fracture Status: Acute (2) Traumatic compression fracture of T11 thoracic vertebra Code(s): S22.080A - Wedge compression fracture of T11-T12 vertebra, initial encounter for closed fracture Status: Acute (3) Burst fracture of thoracic spine at T10-T11 level Status: Acute (4) Complete lesion at T10 level of thoracic spinal cord Code(s): S24.113A - Complete lesion at T7-T10 level of thoracic spinal cord, initial encounter Status: Acute (5) Closed cervical spine fracture Code(s): S12.9XXA - Fracture of neck, unspecified, initial encounter Status: Acute (6) Stenosis of cervical spine with myelopathy Code(s): M47.12 - Other spondylosis with myelopathy, cervical region Status: Acute - Plan 62 year old male with AFIB, HLD neuropathy, depression, and BPH admitted on 03/10 as a trauma after falling from a seaw[place]. Trauma/fall from seawall Injuries: * C3-4 spinal stenosis w/ disc protrusion and cord compression * C6 vertebral body fx * RIGHT clavicle fx (no-op) * T10 transverse process fx * T11 burst fx w/ cord contusion and compression * R rib fxs (4, 5, 7) * L rib fx (5) * Bilateral pulmonary contusions * Paraplegia Neurosurgery consulted earlier in course * 03/11: T9, T10, T11, T12, and L1 posterior fusion; T10-11 open reduction of the fracture subluxation; T9-L1 pedicle screw fixation; * 03/13: Anterior cervical C3 and C4 partial corpectomies; C3-4 interbody fusion; anterior C3-4 cervical plate placement; C3-4 interbody cage placement Supportive care Pain control, low-dose baclofen for spasms. PT/OT [place] J collar at all times OOB with TLSO brace. Incentive spirometer Atrial fibrillation Cardizem -BMP this morning reviewed, provide KCl p.o. along with magnesium. (Goal potassium level 4.0, goal magnesium level 2 or above) Pressure wounds: left buttock and gluteal cleft Change positions Q2H Wound care following Dressing changes Specialty bed Roho cushion when out of bed in chair Urinary retention Continue Flomax Continue Carrillo catheter EtOH abuse EtOH level elevated on admission Prior counseling provided on abstaining DVT prophylaxis: Lovenox Discussed Condition With: Discussed with patient, RN, Dr. Carlos. Discharge Planning: CM following for proper discharge arrangements. Patient is medically stable for discharge. (5) Closed cervical spine fracture Qualifiers: Encounter type: initial encounter Cervical vertebra fracture level: C6 Fracture alignment: nondisplaced
[2018-04-14] MEDS: oxyCODONE/Acetaminophen 10/325 Tablet PO PRN ×2 (14:05→20:19)
[2018-04-15] MEDS: dilTIAZem 60 MG Tablet PO SCH ×3 (00:21→17:29)
[2018-04-15] MEDS: Baclofen 10 MG Tablet PO SCH ×3 (06:21→21:18)
[2018-04-15] MEDS: Lidocaine 5% Patch T-DERMAL SCH (08:52)
[2018-04-15] MEDS: Duloxetine 60 MG DR Capsule PO SCH (08:52)
[2018-04-15] MEDS: Gabapentin 300 MG Capsule PO SCH ×3 (08:52→17:29)
[2018-04-15] MEDS: Enoxaparin Inj 30 MG/0.3 ML Syringe SQ SCH ×2 (08:52→21:17)
[2018-04-15] MEDS: oxyCODONE/Acetaminophen 10/325 Tablet PO PRN ×4 (09:06→21:19)
[2018-04-15] MEDS: Collagenase Oint 30 GM Tube TOPICAL SCH (09:07)
[2018-04-15] MEDS: Senna/Docusate Sodium 8.6/50 MG Tablet PO SCH ×2 (09:07→21:18)
--- NOTE | 2018-04-15 16:20 | P.PN ---
Subjective Interval history: Nursing denies any deterioration since last night. Patient himself vocalizes no new complaints. Physical Exam Vital signs: Vital Signs 04/14/18 20:17 04/15/18 00:19 04/15/18 08:00 Temperature 98.1 F 98.3 F 98.3 F Pulse Rate 85 79 88 Respiratory Rate 20 18 17 Blood Pressure 118/67 113/67 116/70 Pulse Oximetry 96 96 96 04/15/18 09:36 04/15/18 12:00 Temperature 98.7 F Pulse Rate 82 Respiratory Rate 17 16 Blood Pressure 116/65 Pulse Oximetry 93 L Intake & Output 04/14/18 04/15/18 04/15/18 18:59 06:59 18:59 Intake Total 1000 / 1000 480 / 480 120 / 120 Output Total 800 / 800 900 / 900 125 / 125 Balance 200 / 200 -420 / -420 -5 / -5 Weight 108.7 kg Intake: Oral 1000 / 1000 480 / 480 120 / 120 Output: Urine 800 / 800 900 / 900 125 / 125 Other: Date of Last Bowel Movement 04/13/18 04/15/18 Narrative: Clear lungs bilaterally, unlabored breathing Heart sounds regular rate rhythm, no murmurs - Urinary Catheter Management Condom Cath placed during this visit: yes, but has since been removed by the nurse Reason for continuing: Decision to DC catheter Removal date: 03/18/18 Removal time: 14:30 Indwelling Urethral Catheter Cath placed during this visit: yes, but has since been removed by the nurse Reason for continuing: Chronic Urinary Retention Insertion date: 03/19/18 Insertion time: 04:30 Removal date: 03/14/18 Removal time: 10:45 Straight Cath placed during this visit: yes, but has since been removed by the nurse Reason for continuing: Chronic Urinary Retention Insertion date: 03/19/18 Insertion time: 03:00 Removal date: 03/19/18 Removal time: 03:30 Results - Labs CBC & Chem 7: 04/13/18 10:10 04/13/18 10:10 - Procedures 03/11: T9, T10, T11, T12, and L1 posterior fusion; T10-11 laminectomy; T10-11 open reduction of the fracture subluxation; T9-L1 pedicle screw fixation; 03/13: Anterior cervical C3 and C4 partial corpectomies; C3-4 interbody fusion; anterior C3-4 cervical plate placement; C3-4 interbody cage placement Assessment and Plan - Assessment (1) Closed rib fracture Code(s): S22.39XA - Fracture of one rib, unspecified side, initial encounter for closed fracture Status: Acute (2) Traumatic compression fracture of T11 thoracic vertebra Code(s): S22.080A - Wedge compression fracture of T11-T12 vertebra, initial encounter for closed fracture Status: Acute (3) Burst fracture of thoracic spine at T10-T11 level Status: Acute (4) Complete lesion at T10 level of thoracic spinal cord Code(s): S24.113A - Complete lesion at T7-T10 level of thoracic spinal cord, initial encounter Status: Acute (5) Closed cervical spine fracture Code(s): S12.9XXA - Fracture of neck, unspecified, initial encounter Status: Acute (6) Stenosis of cervical spine with myelopathy Code(s): M47.12 - Other spondylosis with myelopathy, cervical region Status: Acute - Plan 62 year old male with AFIB, HLD neuropathy, depression, and BPH admitted on 03/10 as a trauma after falling from a seaw[place]. 04/15: no significant clinical change. Trauma/fall from seawall Injuries: * C3-4 spinal stenosis w/ disc protrusion and cord compression * C6 vertebral body fx * RIGHT clavicle fx (no-op) * T10 transverse process fx * T11 burst fx w/ cord contusion and compression * R rib fxs (4, 5, 7) * L rib fx (5) * Bilateral pulmonary contusions * Paraplegia Neurosurgery consulted earlier in course * 03/11: T9, T10, T11, T12, and L1 posterior fusion; T10-11 open reduction of the fracture subluxation; T9-L1 pedicle screw fixation; * 03/13: Anterior cervical C3 and C4 partial corpectomies; C3-4 interbody fusion; anterior C3-4 cervical plate placement; C3-4 interbody cage placement Supportive care Pain control, low-dose baclofen for spasms. PT/OT [place] J collar at all times OOB with TLSO brace. Incentive spirometer Atrial fibrillation Cardizem Pressure wounds: left buttock and gluteal cleft Change positions Q2H Wound care following Dressing changes Specialty bed Roho cushion when out of bed in chair Urinary retention Continue Flomax Continue Carrillo catheter EtOH abuse Prior counseling provided on abstaining DVT prophylaxis: Speedy Discussed Condition With: Discussed with patient, RN, Dr. Carlos. Discharge Planning: CM following for proper discharge arrangements. Patient is medically stable for discharge. (5) Closed cervical spine fracture Qualifiers: Encounter type: initial encounter Cervical vertebra fracture level: C6 Fracture alignment: nondisplaced
[2018-04-16] MEDS: dilTIAZem 60 MG Tablet PO SCH ×3 (01:46→16:55)
[2018-04-16] MEDS: oxyCODONE/Acetaminophen 10/325 Tablet PO PRN ×5 (01:46→23:32)
[2018-04-16] MEDS: Baclofen 10 MG Tablet PO SCH ×3 (06:21→21:02)
[2018-04-16] MEDS: Lidocaine 5% Patch T-DERMAL SCH (08:54)
[2018-04-16] MEDS: Enoxaparin Inj 30 MG/0.3 ML Syringe SQ SCH ×2 (08:56→21:02)
[2018-04-16] MEDS: Senna/Docusate Sodium 8.6/50 MG Tablet PO SCH ×2 (09:00→21:02)
[2018-04-16] MEDS: Collagenase Oint 30 GM Tube TOPICAL SCH (09:00)
[2018-04-16] MEDS: Gabapentin 300 MG Capsule PO SCH ×4 (09:00→18:48)
[2018-04-16] MEDS: Duloxetine 60 MG DR Capsule PO SCH (09:00)
--- NOTE | 2018-04-16 10:21 | P.PN ---
Subjective Interval history: Patient says he is doing fine. Has no complaints. Denies nausea vomiting. Physical Exam Vital signs: Vital Signs 04/15/18 12:00 04/15/18 13:32 04/15/18 16:00 Temperature 98.7 F 97.7 F Pulse Rate 82 87 Respiratory Rate 16 18 16 Blood Pressure 116/65 110/67 Pulse Oximetry 93 L 94 L 04/15/18 17:58 04/15/18 20:00 04/16/18 00:00 Temperature 98.4 F 97.8 F Pulse Rate 86 76 Respiratory Rate 17 19 19 Blood Pressure 110/59 L 111/61 Pulse Oximetry 94 L 96 04/16/18 08:00 Temperature 97.3 F L Pulse Rate 81 Respiratory Rate 16 Blood Pressure 107/62 Pulse Oximetry 95 Intake & Output 04/15/18 04/16/18 04/16/18 18:59 06:59 18:59 Intake Total 1560 / 1560 1000 / 1000 Output Total 1375 / 1375 600 / 600 Balance 185 / 185 400 / 400 Weight 107.5 kg Intake: Oral 1560 / 1560 1000 / 1000 Output: Urine 1375 / 1375 600 / 600 Other: Date of Last Bowel Movement 04/15/18 04/15/18 # Bowel Movements 2 Narrative: Heart sounds regular rate and rhythm, no murmurs Clear lungs bilaterally, unlabored breathing Energetic mood - Urinary Catheter Management Condom Cath placed during this visit: yes, but has since been removed by the nurse Reason for continuing: Decision to DC catheter Removal date: 03/18/18 Removal time: 14:30 Indwelling Urethral Catheter Cath placed during this visit: yes, but has since been removed by the nurse Reason for continuing: Chronic Urinary Retention Insertion date: 03/19/18 Insertion time: 04:30 Removal date: 03/14/18 Removal time: 10:45 Straight Cath placed during this visit: yes, but has since been removed by the nurse Reason for continuing: Chronic Urinary Retention Insertion date: 03/19/18 Insertion time: 03:00 Removal date: 03/19/18 Removal time: 03:30 Results - Labs CBC & Chem 7: 04/13/18 10:10 04/13/18 10:10 - Procedures 9/5: T9, T10, T11, T12, and L1 posterior fusion; T10-11 laminectomy; T10-11 open reduction of the fracture subluxation; T9-L1 pedicle screw fixation; 03/13: Anterior cervical C3 and C4 partial corpectomies; C3-4 interbody fusion; anterior C3-4 cervical plate placement; C3-4 interbody cage placement Assessment and Plan - Assessment (1) Closed rib fracture Code(s): S22.39XA - Fracture of one rib, unspecified side, initial encounter for closed fracture Status: Acute (2) Traumatic compression fracture of T11 thoracic vertebra Code(s): S22.080A - Wedge compression fracture of T11-T12 vertebra, initial encounter for closed fracture Status: Acute (3) Burst fracture of thoracic spine at T10-T11 level Status: Acute (4) Complete lesion at T10 level of thoracic spinal cord Code(s): S24.113A - Complete lesion at T7-T10 level of thoracic spinal cord, initial encounter Status: Acute (5) Closed cervical spine fracture Code(s): S12.9XXA - Fracture of neck, unspecified, initial encounter Status: Acute (6) Stenosis of cervical spine with myelopathy Code(s): M47.12 - Other spondylosis with myelopathy, cervical region Status: Acute - Plan 62 year old male with AFIB, HLD neuropathy, depression, and BPH admitted on 03/10 as a trauma after falling from a [place]. 04/16: no significant clinical change. Trauma/fall from seaw[place] Injuries: * C3-4 spinal stenosis w/ disc protrusion and cord compression * C6 vertebral body fx * RIGHT clavicle fx (no-op) * T10 transverse process fx * T11 burst fx w/ cord contusion and compression * R rib fxs (4, 5, 7) * L rib fx (5) * Bilateral pulmonary contusions * Paraplegia Neurosurgery consulted earlier in course * 03/11: T9, T10, T11, T12, and L1 posterior fusion; T10-11 open reduction of the fracture subluxation; T9-L1 pedicle screw fixation; * 03/13: Anterior cervical C3 and C4 partial corpectomies; C3-4 interbody fusion; anterior C3-4 cervical plate placement; C3-4 interbody cage placement Supportive care Pain control, low-dose baclofen for spasms. PT/OT [place] J collar at all times OOB with TLSO brace. Incentive spirometer Atrial fibrillation Cardizem Pressure wounds: left buttock and gluteal cleft Change positions Q2H Wound care following Dressing changes Specialty bed Roho cushion when out of bed in chair Urinary retention Continue Flomax Continue Carrillo catheter EtOH abuse Prior counseling provided on abstaining DVT prophylaxis: Lovenox Discussed Condition With: Discussed with patient, RN, Dr. Carlos. Discharge Planning: CM following for proper discharge arrangements. Patient is medically stable for discharge. (5) Closed cervical spine fracture Qualifiers: Encounter type: initial encounter Cervical vertebra fracture level: C6 Fracture alignment: nondisplaced
[2018-04-17] MEDS: dilTIAZem 60 MG Tablet PO SCH ×3 (00:43→17:56)
[2018-04-17] MEDS: Baclofen 10 MG Tablet PO SCH ×4 (04:56→21:58)
[2018-04-17] MEDS: Lidocaine 5% Patch T-DERMAL SCH (08:33)
[2018-04-17] MEDS: Enoxaparin Inj 30 MG/0.3 ML Syringe SQ SCH ×2 (08:34→21:58)
[2018-04-17] MEDS: Duloxetine 60 MG DR Capsule PO SCH (08:34)
[2018-04-17] MEDS: Gabapentin 300 MG Capsule PO SCH ×3 (08:35→17:56)
[2018-04-17] MEDS: Collagenase Oint 30 GM Tube TOPICAL SCH (08:37)
[2018-04-17] MEDS: oxyCODONE/Acetaminophen 10/325 Tablet PO PRN ×4 (08:44→21:59)
[2018-04-17] MEDS: Senna/Docusate Sodium 8.6/50 MG Tablet PO SCH ×2 (10:26→21:58)
--- NOTE | 2018-04-17 14:44 | P.PN ---
Subjective Interval history: Nursing denies any deterioration since last night patient has no new complaints. He is moving around with wheelchair. Physical Exam Vital signs: Vital Signs 04/16/18 20:00 04/17/18 00:00 04/17/18 04:00 Temperature 98.2 F 98.3 F Pulse Rate 91 H 85 Respiratory Rate 17 17 15 Blood Pressure 102/68 110/62 Pulse Oximetry 95 96 04/17/18 08:00 04/17/18 12:00 Temperature 98.4 F 98.3 F Pulse Rate 84 107 H Respiratory Rate 18 18 Blood Pressure 106/59 L 118/71 Pulse Oximetry 93 L 92 L Intake & Output 04/16/18 04/17/18 04/17/18 18:59 06:59 18:59 Intake Total 1000 / 1000 Output Total 675 / 675 Balance 325 / 325 Weight 107.4 kg Intake: Oral 1000 / 1000 Output: Urine 675 / 675 Narrative: Heart sounds regular rate rhythm, no murmurs Is clear lungs bilaterally, unlabored breathing - Urinary Catheter Management Condom Cath placed during this visit: yes, but has since been removed by the nurse Reason for continuing: Decision to DC catheter Removal date: 03/18/18 Removal time: 14:30 Indwelling Urethral Catheter Cath placed during this visit: yes, but has since been removed by the nurse Reason for continuing: Chronic Urinary Retention Insertion date: 03/19/18 Insertion time: 04:30 Removal date: 03/14/18 Removal time: 10:45 Straight Cath placed during this visit: yes, but has since been removed by the nurse Reason for continuing: Chronic Urinary Retention Insertion date: 03/19/18 Insertion time: 03:00 Removal date: 03/19/18 Removal time: 03:30 Results - Labs CBC & Chem 7: 04/13/18 10:10 04/13/18 10:10 - Procedures 03/11: T9, T10, T11, T12, and L1 posterior fusion; T10-11 laminectomy; T10-11 open reduction of the fracture subluxation; T9-L1 pedicle screw fixation; 03/13: Anterior cervical C3 and C4 partial corpectomies; C3-4 interbody fusion; anterior C3-4 cervical plate placement; C3-4 interbody cage placement Assessment and Plan - Assessment (1) Closed rib fracture Code(s): S22.39XA - Fracture of one rib, unspecified side, initial encounter for closed fracture Status: Acute (2) Traumatic compression fracture of T11 thoracic vertebra Code(s): S22.080A - Wedge compression fracture of T11-T12 vertebra, initial encounter for closed fracture Status: Acute (3) Burst fracture of thoracic spine at T10-T11 level Status: Acute (4) Complete lesion at T10 level of thoracic spinal cord Code(s): S24.113A - Complete lesion at T7-T10 level of thoracic spinal cord, initial encounter Status: Acute (5) Closed cervical spine fracture Code(s): S12.9XXA - Fracture of neck, unspecified, initial encounter Status: Acute (6) Stenosis of cervical spine with myelopathy Code(s): M47.12 - Other spondylosis with myelopathy, cervical region Status: Acute - Plan 62 year old male with AFIB, HLD neuropathy, depression, and BPH admitted on 03/10 as a trauma after falling from a seaw[place]. 04/17: no significant clinical change. Trauma/fall from seaw[place] Injuries: * C3-4 spinal stenosis w/ disc protrusion and cord compression * C6 vertebral body fx * RIGHT clavicle fx (no-op) * T10 transverse process fx * T11 burst fx w/ cord contusion and compression * R rib fxs (4, 5, 7) * L rib fx (5) * Bilateral pulmonary contusions * Paraplegia Neurosurgery consulted earlier in course * 03/11: T9, T10, T11, T12, and L1 posterior fusion; T10-11 open reduction of the fracture subluxation; T9-L1 pedicle screw fixation; * 03/13: Anterior cervical C3 and C4 partial corpectomies; C3-4 interbody fusion; anterior C3-4 cervical plate placement; C3-4 interbody cage placement Supportive care Pain control, low-dose baclofen for spasms. PT/OT [place] J collar at all times OOB with TLSO brace. Incentive spirometer Atrial fibrillation Cardizem Pressure wounds: left buttock and gluteal cleft Change positions Q2H Wound care following Dressing changes Specialty bed Roho cushion when out of bed in chair Urinary retention Continue Flomax Continue [place]illo catheter EtOH abuse Prior counseling provided on abstaining DVT prophylaxis: Lovenox Discussed Condition With: Discussed with patient, RN, Dr. Carlos. Discharge Planning: CM following for proper discharge arrangements. Patient is medically stable for discharge. (5) Closed cervical spine fracture Qualifiers: Encounter type: initial encounter Cervical vertebra fracture level: C6 Fracture alignment: nondisplaced
[2018-04-18] MEDS: dilTIAZem 60 MG Tablet PO SCH ×3 (04:23→17:48)
[2018-04-18] MEDS: Baclofen 10 MG Tablet PO SCH ×3 (05:09→23:09)
[2018-04-18] MEDS: oxyCODONE/Acetaminophen 10/325 Tablet PO PRN ×4 (05:09→19:49)
[2018-04-18] MEDS: Lidocaine 5% Patch T-DERMAL SCH (08:49)
[2018-04-18] MEDS: Duloxetine 60 MG DR Capsule PO SCH (08:49)
[2018-04-18] MEDS: Senna/Docusate Sodium 8.6/50 MG Tablet PO SCH ×2 (08:49→21:38)
[2018-04-18] MEDS: Enoxaparin Inj 30 MG/0.3 ML Syringe SQ SCH ×3 (08:49→21:38)
[2018-04-18] MEDS: Gabapentin 300 MG Capsule PO SCH ×3 (08:49→17:48)
[2018-04-18] MEDS: Collagenase Oint 30 GM Tube TOPICAL SCH (08:50)
--- NOTE | 2018-04-18 14:23 | P.PN ---
Subjective Interval history: Nursing denies any deterioration since last night. Patient himself has no new complaints. Nursing mentions a 30 days has passed for next Carrillo exchange. Physical Exam Vital signs: Vital Signs 04/17/18 16:00 04/17/18 20:00 04/17/18 23:00 Temperature 98.3 F 97.8 F Pulse Rate 86 86 Respiratory Rate 18 17 16 Blood Pressure 123/76 105/63 Pulse Oximetry 93 L 93 L 04/18/18 00:00 04/18/18 08:00 04/18/18 12:00 Temperature 97.6 F 98.3 F 97.9 F Pulse Rate 68 84 87 Respiratory Rate 17 17 17 Blood Pressure 110/62 101/63 114/70 Pulse Oximetry 95 93 L 93 L Intake & Output 04/17/18 04/18/18 04/18/18 18:59 06:59 18:59 Intake Total 1180 / 1180 1500 / 1500 Output Total 1000 / 1000 1000 / 1000 Balance 180 / 180 500 / 500 Weight 108.7 kg Intake: Oral 1180 / 1180 1500 / 1500 Output: Urine 1000 / 1000 1000 / 1000 Narrative: Clear lungs bilaterally, unlabored breathing Sitting up in chair, working on laptop - Urinary Catheter Management Condom Cath placed during this visit: yes, but has since been removed by the nurse Reason for continuing: Decision to DC catheter Removal date: 03/18/18 Removal time: 14:30 Indwelling Urethral Catheter Cath placed during this visit: yes, but has since been removed by the nurse Reason for continuing: Severe pressure ulcer/wound Insertion date: 03/19/18 Insertion time: 04:30 Removal date: 03/14/18 Removal time: 10:45 Straight Cath placed during this visit: yes, but has since been removed by the nurse Reason for continuing: Chronic Urinary Retention Insertion date: 03/19/18 Insertion time: 03:00 Removal date: 03/19/18 Removal time: 03:30 Results - Labs CBC & Chem 7: 04/13/18 10:10 04/13/18 10:10 - Procedures 03/11: T9, T10, T11, T12, and L1 posterior fusion; T10-11 laminectomy; T10-11 open reduction of the fracture subluxation; T9-L1 pedicle screw fixation; 03/13: Anterior cervical C3 and C4 partial corpectomies; C3-4 interbody fusion; anterior C3-4 cervical plate placement; C3-4 interbody cage placement Assessment and Plan - Assessment (1) Closed rib fracture Code(s): S22.39XA - Fracture of one rib, unspecified side, initial encounter for closed fracture Status: Acute (2) Traumatic compression fracture of T11 thoracic vertebra Code(s): S22.080A - Wedge compression fracture of T11-T12 vertebra, initial encounter for closed fracture Status: Acute (3) Burst fracture of thoracic spine at T10-T11 level Status: Acute (4) Complete lesion at T10 level of thoracic spinal cord Code(s): S24.113A - Complete lesion at T7-T10 level of thoracic spinal cord, initial encounter Status: Acute (5) Closed cervical spine fracture Code(s): S12.9XXA - Fracture of neck, unspecified, initial encounter Status: Acute (6) Stenosis of cervical spine with myelopathy Code(s): M47.12 - Other spondylosis with myelopathy, cervical region Status: Acute - Plan 62 year old male with AFIB, HLD neuropathy, depression, and BPH admitted on 03/10 as a trauma after falling from a [place]. 04/18: no significant clinical change. Carrillo exchange anticipated today Trauma/fall from [place] Injuries: * C3-4 spinal stenosis w/ disc protrusion and cord compression * C6 vertebral body fx * RIGHT clavicle fx (no-op) * T10 transverse process fx * T11 burst fx w/ cord contusion and compression * R rib fxs (4, 5, 7) * L rib fx (5) * Bilateral pulmonary contusions * Paraplegia Neurosurgery consulted earlier in course * 03/11: T9, T10, T11, T12, and L1 posterior fusion; T10-11 open reduction of the fracture subluxation; T9-L1 pedicle screw fixation; * 03/13: Anterior cervical C3 and C4 partial corpectomies; C3-4 interbody fusion; anterior C3-4 cervical plate placement; C3-4 interbody cage placement Supportive care Pain control, low-dose baclofen for spasms. PT/OT [place] J collar at all times OOB with TLSO brace. Incentive spirometer Atrial fibrillation Cardizem Pressure wounds: left buttock and gluteal cleft Change positions Q2H Wound care following Dressing changes Specialty bed Roho cushion when out of bed in chair Urinary retention Continue Flomax Continue Carrillo catheter, EtOH abuse Prior counseling provided on abstaining DVT prophylaxis: Speedy Discussed Condition With: Discussed with patient, RN, Dr. Carlos. Discharge Planning: CM following for proper discharge arrangements. Patient is medically stable for discharge. (5) Closed cervical spine fracture Qualifiers: Encounter type: initial encounter Cervical vertebra fracture level: C6 Fracture alignment: nondisplaced
[2018-04-19] MEDS: dilTIAZem 60 MG Tablet PO SCH ×3 (02:30→17:18)
[2018-04-19] MEDS: oxyCODONE/Acetaminophen 10/325 Tablet PO PRN ×4 (02:31→22:14)
[2018-04-19] MEDS: Baclofen 10 MG Tablet PO SCH ×4 (05:33→22:14)
[2018-04-19] MEDS: Enoxaparin Inj 30 MG/0.3 ML Syringe SQ SCH ×2 (08:59→20:34)
[2018-04-19] MEDS: Duloxetine 60 MG DR Capsule PO SCH (09:00)
[2018-04-19] MEDS: Lidocaine 5% Patch T-DERMAL SCH (09:00)
[2018-04-19] MEDS: Gabapentin 300 MG Capsule PO SCH ×3 (09:00→17:17)
[2018-04-19] MEDS: Senna/Docusate Sodium 8.6/50 MG Tablet PO SCH ×2 (09:00→20:35)
[2018-04-19] MEDS: Collagenase Oint 30 GM Tube TOPICAL SCH ×2 (10:36→17:21)
--- NOTE | 2018-04-19 12:41 | P.PN ---
Subjective Interval history: Nursing denies any deterioration since last night. Patient himself has no new complaints. Had his Carrillo exchanged yesterday. Physical Exam Vital signs: Vital Signs 04/18/18 16:00 04/18/18 20:00 04/18/18 21:37 Temperature 98.8 F 97.9 F Pulse Rate 94 H 85 Respiratory Rate 17 16 20 Blood Pressure 124/75 119/72 Pulse Oximetry 95 95 04/19/18 00:00 04/19/18 03:16 04/19/18 08:00 Temperature 98.0 F 97.7 F Pulse Rate 88 73 Respiratory Rate 16 20 17 Blood Pressure 111/65 107/67 Pulse Oximetry 92 L 95 04/19/18 12:00 Temperature 97.5 F L Pulse Rate 87 Respiratory Rate 17 Blood Pressure 115/70 Pulse Oximetry 96 Intake & Output 04/18/18 04/19/18 04/19/18 18:59 06:59 18:59 Intake Total 1678 / 1678 720 / 720 Output Total 850 / 850 600 / 600 Balance 828 / 828 120 / 120 Weight 107.7 kg Intake: Oral 1198 / 1198 720 / 720 Oral Supplement 480 / 480 Output: Urine 850 / 850 600 / 600 Other: Date of Last Bowel Movement 04/18/18 # Bowel Movements 1 Narrative: Lying in bed, no acute distress, unlabored breathing, clear lungs bilaterally - Urinary Catheter Management Condom Cath placed during this visit: yes, but has since been removed by the nurse Reason for continuing: Decision to DC catheter Removal date: 03/18/18 Removal time: 14:30 Indwelling Urethral Catheter Cath placed during this visit: yes, but has since been removed by the nurse Reason for continuing: Severe pressure ulcer/wound Insertion date: 04/18/18 Insertion time: 16:00 Removal date: 04/18/18 Removal time: 16:00 Straight Cath placed during this visit: yes, but has since been removed by the nurse Reason for continuing: Chronic Urinary Retention Insertion date: 03/19/18 Insertion time: 03:00 Removal date: 03/19/18 Removal time: 03:30 Results - Labs CBC & Chem 7: 04/13/18 10:10 04/13/18 10:10 - Procedures 9/5: T9, T10, T11, T12, and L1 posterior fusion; T10-11 laminectomy; T10-11 open reduction of the fracture subluxation; T9-L1 pedicle screw fixation; 03/13: Anterior cervical C3 and C4 partial corpectomies; C3-4 interbody fusion; anterior C3-4 cervical plate placement; C3-4 interbody cage placement Assessment and Plan - Assessment (1) Closed rib fracture Code(s): S22.39XA - Fracture of one rib, unspecified side, initial encounter for closed fracture Status: Acute (2) Traumatic compression fracture of T11 thoracic vertebra Code(s): S22.080A - Wedge compression fracture of T11-T12 vertebra, initial encounter for closed fracture Status: Acute (3) Burst fracture of thoracic spine at T10-T11 level Status: Acute (4) Complete lesion at T10 level of thoracic spinal cord Code(s): S24.113A - Complete lesion at T7-T10 level of thoracic spinal cord, initial encounter Status: Acute (5) Closed cervical spine fracture Code(s): S12.9XXA - Fracture of neck, unspecified, initial encounter Status: Acute (6) Stenosis of cervical spine with myelopathy Code(s): M47.12 - Other spondylosis with myelopathy, cervical region Status: Acute - Plan 62 year old male with AFIB, HLD neuropathy, depression, and BPH admitted on 03/10 as a trauma after falling from a [place]. 04/19: no significant clinical change. Carrillo exchange yesterday Trauma/fall from seawall Injuries: * C3-4 spinal stenosis w/ disc protrusion and cord compression * C6 vertebral body fx * RIGHT clavicle fx (no-op) * T10 transverse process fx * T11 burst fx w/ cord contusion and compression * R rib fxs (4, 5, 7) * L rib fx (5) * Bilateral pulmonary contusions * Paraplegia Neurosurgery consulted earlier in course * 03/11: T9, T10, T11, T12, and L1 posterior fusion; T10-11 open reduction of the fracture subluxation; T9-L1 pedicle screw fixation; * 03/13: Anterior cervical C3 and C4 partial corpectomies; C3-4 interbody fusion; anterior C3-4 cervical plate placement; C3-4 interbody cage placement Supportive care Pain control, low-dose baclofen for spasms. PT/OT [place] J collar at all times OOB with TLSO brace. Incentive spirometer Atrial fibrillation Cardizem Pressure wounds: left buttock and gluteal cleft Change positions Q2H Wound care following Dressing changes Specialty bed Roho cushion when out of bed in chair Urinary retention Continue Flomax Continue Carrillo catheter, EtOH abuse Prior counseling provided on abstaining DVT prophylaxis: Lovenox Discussed Condition With: Discussed with patient, RN, Dr. Carlos. Discharge Planning: CM following for proper discharge arrangements. Patient is medically stable for discharge. (5) Closed cervical spine fracture Qualifiers: Encounter type: initial encounter Cervical vertebra fracture level: C6 Fracture alignment: nondisplaced
[2018-04-20] MEDS: dilTIAZem 60 MG Tablet PO SCH ×3 (02:03→17:05)
[2018-04-20] MEDS: Baclofen 10 MG Tablet PO SCH ×2 (06:05→13:47)
[2018-04-20] MEDS: oxyCODONE/Acetaminophen 10/325 Tablet PO PRN ×3 (06:06→20:45)
[2018-04-20] MEDS: Duloxetine 60 MG DR Capsule PO SCH (09:03)
[2018-04-20] MEDS: Lidocaine 5% Patch T-DERMAL SCH (09:03)
[2018-04-20] MEDS: Gabapentin 300 MG Capsule PO SCH ×3 (09:03→17:05)
[2018-04-20] MEDS: Enoxaparin Inj 30 MG/0.3 ML Syringe SQ SCH ×2 (09:03→20:39)
[2018-04-20] MEDS: Collagenase Oint 30 GM Tube TOPICAL SCH (09:04)
[2018-04-20] MEDS: Senna/Docusate Sodium 8.6/50 MG Tablet PO SCH ×2 (09:04→20:46)
--- NOTE | 2018-04-20 12:33 | P.PN ---
Subjective Interval history: Nursing denies any deterioration since last night. Patient himself is about to undergo physical therapy, has no complaints. Physical Exam Vital signs: Vital Signs 04/19/18 16:00 04/19/18 20:00 04/19/18 23:28 Temperature 98 F 98.1 F Pulse Rate 91 H 84 Respiratory Rate 17 18 20 Blood Pressure 125/60 115/67 Pulse Oximetry 96 99 04/20/18 00:00 04/20/18 08:00 Temperature 98.6 F 98.0 F Pulse Rate 87 77 Respiratory Rate 20 18 Blood Pressure 105/59 L 114/56 L Pulse Oximetry 100 96 Intake & Output 04/19/18 04/20/18 04/20/18 18:59 06:59 18:59 Intake Total 1920 / 1920 860 / 860 Output Total 1150 / 1150 1100 / 1100 Balance 770 / 770 -240 / -240 Weight 109.4 kg Intake: Oral 1440 / 1440 860 / 860 Oral Supplement 480 / 480 Output: Urine 1150 / 1150 1100 / 1100 Other: Date of Last Bowel Movement 04/19/18 04/19/18 # Bowel Movements 1 Narrative: Clear lungs bilaterally, unlabored breathing Lying in bed flat comfortably - Urinary Catheter Management Condom Cath placed during this visit: yes, but has since been removed by the nurse Reason for continuing: Decision to DC catheter Removal date: 03/18/18 Removal time: 14:30 Indwelling Urethral Catheter Cath placed during this visit: yes, but has since been removed by the nurse Reason for continuing: Severe pressure ulcer/wound Insertion date: 04/18/18 Insertion time: 16:00 Removal date: 04/18/18 Removal time: 16:00 Straight Cath placed during this visit: yes, but has since been removed by the nurse Reason for continuing: Chronic Urinary Retention Insertion date: 03/19/18 Insertion time: 03:00 Removal date: 03/19/18 Removal time: 03:30 Results - Labs CBC & Chem 7: 04/13/18 10:10 04/13/18 10:10 - Procedures 03/11: T9, T10, T11, T12, and L1 posterior fusion; T10-11 laminectomy; T10-11 open reduction of the fracture subluxation; T9-L1 pedicle screw fixation; 03/13: Anterior cervical C3 and C4 partial corpectomies; C3-4 interbody fusion; anterior C3-4 cervical plate placement; C3-4 interbody cage placement Assessment and Plan - Assessment (1) Closed rib fracture Code(s): S22.39XA - Fracture of one rib, unspecified side, initial encounter for closed fracture Status: Acute (2) Traumatic compression fracture of T11 thoracic vertebra Code(s): S22.080A - Wedge compression fracture of T11-T12 vertebra, initial encounter for closed fracture Status: Acute (3) Burst fracture of thoracic spine at T10-T11 level Status: Acute (4) Complete lesion at T10 level of thoracic spinal cord Code(s): S24.113A - Complete lesion at T7-T10 level of thoracic spinal cord, initial encounter Status: Acute (5) Closed cervical spine fracture Code(s): S12.9XXA - Fracture of neck, unspecified, initial encounter Status: Acute (6) Stenosis of cervical spine with myelopathy Code(s): M47.12 - Other spondylosis with myelopathy, cervical region Status: Acute - Plan 62 year old male with AFIB, HLD neuropathy, depression, and BPH admitted on 03/10 as a trauma after falling from a seaw[place]. 04/20: no significant clinical change. Trauma/fall from seaw[place] Injuries: * C3-4 spinal stenosis w/ disc protrusion and cord compression * C6 vertebral body fx * RIGHT clavicle fx (no-op) * T10 transverse process fx * T11 burst fx w/ cord contusion and compression * R rib fxs (4, 5, 7) * L rib fx (5) * Bilateral pulmonary contusions * Paraplegia Neurosurgery consulted earlier in course * 03/11: T9, T10, T11, T12, and L1 posterior fusion; T10-11 open reduction of the fracture subluxation; T9-L1 pedicle screw fixation; * 03/13: Anterior cervical C3 and C4 partial corpectomies; C3-4 interbody fusion; anterior C3-4 cervical plate placement; C3-4 interbody cage placement Supportive care Pain control, low-dose baclofen for spasms. PT/OT [place] J collar at all times OOB with TLSO brace. Incentive spirometer Atrial fibrillation Cardizem Pressure wounds: left buttock and gluteal cleft Change positions Q2H Wound care following Dressing changes Specialty bed Roho cushion when out of bed in chair Urinary retention Continue Flomax Continue Carrillo catheter, EtOH abuse Prior counseling provided on abstaining DVT prophylaxis: Speedy Discussed Condition With: Discussed with patient, RN, Dr. Carlos. Discharge Planning: CM following for proper discharge arrangements. Patient is medically stable for discharge. (5) Closed cervical spine fracture Qualifiers: Encounter type: initial encounter Cervical vertebra fracture level: C6 Fracture alignment: nondisplaced
[2018-04-21] MEDS: Baclofen 10 MG Tablet PO SCH ×4 (00:54→20:20)
[2018-04-21] MEDS: oxyCODONE/Acetaminophen 10/325 Tablet PO PRN ×3 (00:55→20:20)
[2018-04-21] MEDS: dilTIAZem 60 MG Tablet PO SCH ×3 (00:55→17:36)
[2018-04-21] MEDS: Duloxetine 60 MG DR Capsule PO SCH (08:50)
[2018-04-21] MEDS: Lidocaine 5% Patch T-DERMAL SCH (08:50)
[2018-04-21] MEDS: Enoxaparin Inj 30 MG/0.3 ML Syringe SQ SCH ×2 (08:50→20:20)
[2018-04-21] MEDS: Senna/Docusate Sodium 8.6/50 MG Tablet PO SCH ×2 (08:51→20:25)
[2018-04-21] MEDS: Gabapentin 300 MG Capsule PO SCH ×3 (08:51→17:35)
[2018-04-21] MEDS: Collagenase Oint 30 GM Tube TOPICAL SCH (08:52)
--- NOTE | 2018-04-21 14:21 | P.PN ---
Subjective Interval history: Follow-up visit for traumatic fall resulting in cervical, thoracic, and lumbar injuries. Patient was seen and evaluated, laying in bed. Work with physical therapy this morning. States the pain is well controlled, no significant spasms at this time. No chest pain, no shortness of breath. Moving his bowels. No fever. Tolerating diet well. Physical Exam Vital signs: Vital Signs 04/20/18 16:00 04/20/18 20:00 04/21/18 00:00 Temperature 98.1 F 98.5 F 98.3 F Pulse Rate 88 80 82 Respiratory Rate Blood Pressure 121/61 106/66 124/69 Pulse Oximetry 94 L 92 L 96 04/21/18 04:00 04/21/18 08:00 04/21/18 12:00 Temperature 98.3 F 98.1 F Pulse Rate 77 88 Respiratory Rate 18 Blood Pressure 116/68 113/71 Pulse Oximetry 96 93 L Intake & Output 04/20/18 04/21/18 04/21/18 18:59 06:59 18:59 Intake Total 1800 / 1800 Output Total 700 / 700 1700 / 1700 Balance 1100 / 1100 -1700 / -1700 Weight 109.7 kg Intake: Oral 1800 / 1800 Output: Urine 700 / 700 1700 / 1700 Other: Date of Last Bowel Movement 04/19/18 04/19/18 # Bowel Movements 1 # Incontinent Bowel Movements 1 Narrative: GENERAL: Well-nourished, well-developed patient in no apparent distress. SKIN: Warm and dry. HEAD: Atraumatic. Normocephalic. EYES: Pupils equal and round. No scleral icterus. No injection or drainage. ENT: No nasal bleeding or discharge. Mucous membranes pink and moist. NECK: Cervical collar in place. CARDIOVASCULAR: Regular rate and rhythm. RESPIRATORY: No accessory muscle use. Clear to auscultation. Breath sounds equal bilaterally. GASTROINTESTINAL: Abdomen soft, non-tender, nondistended. MUSCULOSKELETAL: Bilateral lower extremities flaccid, pedal pulses 2+. NEUROLOGICAL: Awake, alert oriented x3. Speech is clear. PSYCHIATRIC: Appropriate mood and affect; insight and judgment normal. - Urinary Catheter Management Condom Cath placed during this visit: yes, but has since been removed by the nurse Reason for continuing: Decision to DC catheter Removal date: 09/12/18 Removal time: 14:30 Indwelling Urethral Catheter Cath placed during this visit: yes, but has since been removed by the nurse Reason for continuing: Severe pressure ulcer/wound Insertion date: 04/18/18 Insertion time: 16:00 Removal date: 04/18/18 Removal time: 16:00 Straight Cath placed during this visit: yes, but has since been removed by the nurse Reason for continuing: Chronic Urinary Retention Insertion date: 03/19/18 Insertion time: 03:00 Removal date: 03/19/18 Removal time: 03:30 Results - Labs CBC & Chem 7: 04/13/18 10:10 04/13/18 10:10 - Procedures 03/11: T9, T10, T11, T12, and L1 posterior fusion; T10-11 laminectomy; T10-11 open reduction of the fracture subluxation; T9-L1 pedicle screw fixation; 03/13: Anterior cervical C3 and C4 partial corpectomies; C3-4 interbody fusion; anterior C3-4 cervical plate placement; C3-4 interbody cage placement Assessment and Plan - Assessment (1) Closed rib fracture Code(s): S22.39XA - Fracture of one rib, unspecified side, initial encounter for closed fracture Status: Acute (2) Traumatic compression fracture of T11 thoracic vertebra Code(s): S22.080A - Wedge compression fracture of T11-T12 vertebra, initial encounter for closed fracture Status: Acute (3) Burst fracture of thoracic spine at T10-T11 level Status: Acute (4) Complete lesion at T10 level of thoracic spinal cord Code(s): S24.113A - Complete lesion at T7-T10 level of thoracic spinal cord, initial encounter Status: Acute (5) Closed cervical spine fracture Code(s): S12.9XXA - Fracture of neck, unspecified, initial encounter Status: Acute (6) Stenosis of cervical spine with myelopathy Code(s): M47.12 - Other spondylosis with myelopathy, cervical region Status: Acute - Plan 62 year old male with AFIB, HLD neuropathy, depression, and BPH admitted on 03/10 as a trauma after falling from a [place]. 04/21: no significant clinical change, continues to work with pt. Trauma/fall from [place] Injuries: * C3-4 spinal stenosis w/ disc protrusion and cord compression * C6 vertebral body fx * RIGHT clavicle fx (no-op) * T10 transverse process fx * T11 burst fx w/ cord contusion and compression * R rib fxs (4, 5, 7) * L rib fx (5) * Bilateral pulmonary contusions * Paraplegia Neurosurgery consulted earlier in course * 03/11: T9, T10, T11, T12, and L1 posterior fusion; T10-11 open reduction of the fracture subluxation; T9-L1 pedicle screw fixation; * 03/13: Anterior cervical C3 and C4 partial corpectomies; C3-4 interbody fusion; anterior C3-4 cervical plate placement; C3-4 interbody cage placement Supportive care Pain control, low-dose baclofen for spasms. PT/OT [place] J collar at all times OOB with TLSO brace. Incentive spirometer Atrial fibrillation Cardizem 30 mg po q 8h Pressure wounds: left buttock and gluteal cleft Change positions Q2H Wound care following Dressing changes Specialty bed Roho cushion when out of bed in chair Urinary retention Continue Flomax Continue Carrillo catheter, EtOH abuse Prior counseling provided on abstaining DVT prophylaxis: Lovenox Code Status: Full code Discussed Condition With: RN, pt, CM Discharge Planning: CM following for proper discharge arrangements. Patient is medically stable for discharge. (5) Closed cervical spine fracture Qualifiers: Encounter type: initial encounter Cervical vertebra fracture level: C6 Fracture alignment: nondisplaced
[2018-04-22] MEDS: Baclofen 10 MG Tablet PO SCH ×4 (00:41→21:25)
[2018-04-22] MEDS: dilTIAZem 60 MG Tablet PO SCH ×3 (03:34→17:01)
[2018-04-22] MEDS: oxyCODONE/Acetaminophen 10/325 Tablet PO PRN ×4 (05:53→21:26)
[2018-04-22] MEDS: Enoxaparin Inj 30 MG/0.3 ML Syringe SQ SCH ×2 (10:05→21:26)
[2018-04-22] MEDS: Gabapentin 300 MG Capsule PO SCH ×3 (10:06→17:01)
[2018-04-22] MEDS: Duloxetine 60 MG DR Capsule PO SCH (10:06)
[2018-04-22] MEDS: Senna/Docusate Sodium 8.6/50 MG Tablet PO SCH ×2 (10:07→21:26)
[2018-04-22] MEDS: Lidocaine 5% Patch T-DERMAL SCH (10:08)
[2018-04-22] MEDS: Collagenase Oint 30 GM Tube TOPICAL SCH (10:09)
--- NOTE | 2018-04-22 11:08 | P.PN ---
Subjective Interval history: Follow-up visit for traumatic fall resulting in cervical, thoracic, and lumbar injuries. Patient was seen and evaluated, laying in bed. Had severe spasms of legs this morning, however now better after taking medication. Pain well controlled. No chest pain, no shortness of breath, no fever. Eating well. Remains motivated with physical therapy. Physical Exam Vital signs: Vital Signs 04/21/18 12:00 04/21/18 16:00 04/21/18 20:00 Temperature 98.1 F 98.4 F 98.0 F Pulse Rate 88 80 77 Respiratory Rate 18 18 20 Blood Pressure 113/71 111/67 108/64 Pulse Oximetry 93 L 97 97 04/22/18 00:00 04/22/18 04:00 04/22/18 08:00 Temperature 98.1 F 97.7 F Pulse Rate 77 69 Respiratory Rate 18 17 Blood Pressure 101/55 L 108/58 L Pulse Oximetry 95 95 Intake & Output 04/21/18 04/22/18 04/22/18 18:59 06:59 18:59 Intake Total 4970 / 4970 1200 / 1200 Output Total 1750 / 1750 900 / 900 Balance 3220 / 3220 300 / 300 Weight 109 kg Intake: Oral 1800 / 1800 1200 / 1200 Oral Supplement 480 / 480 Tube Irrigant 40 / 40 Anesthesia Amount 0 / 0 Cell Saver Amount 600 / 600 Output: Urine 1700 / 1700 900 / 900 Estimated Blood Loss 50 / 50 Other: Post Void Residual 900 # Voids 0 Date of Last Bowel Movement 04/19/18 04/20/18 # Bowel Movements 1 # Incontinent Bowel Movements 1 Narrative: GENERAL: Well-nourished, well-developed patient in no apparent distress. SKIN: Warm and dry. HEAD: Atraumatic. Normocephalic. EYES: Pupils equal and round. No scleral icterus. No injection or drainage. ENT: No nasal bleeding or discharge. Mucous membranes pink and moist. NECK: Cervical collar in place. CARDIOVASCULAR: Regular rate and rhythm. RESPIRATORY: No accessory muscle use. Clear to auscultation. Breath sounds equal bilaterally. GASTROINTESTINAL: Abdomen soft, non-tender, nondistended. MUSCULOSKELETAL: Bilateral lower extremities flaccid, pedal pulses 2+. NEUROLOGICAL: Awake, alert oriented x3. Speech is clear. PSYCHIATRIC: Appropriate mood and affect; insight and judgment normal. - Urinary Catheter Management Condom Cath placed during this visit: yes, but has since been removed by the nurse Reason for continuing: Decision to DC catheter Removal date: 03/18/18 Removal time: 14:30 Indwelling Urethral Catheter Cath placed during this visit: yes, but has since been removed by the nurse Reason for continuing: Chronic Urinary Retention Insertion date: 04/18/18 Insertion time: 16:00 Removal date: 04/18/18 Removal time: 16:00 Straight Cath placed during this visit: yes, but has since been removed by the nurse Reason for continuing: Chronic Urinary Retention Insertion date: 03/19/18 Insertion time: 03:00 Removal date: 03/19/18 Removal time: 03:30 Results - Labs CBC & Chem 7: 04/13/18 10:10 04/13/18 10:10 - Procedures 03/11: T9, T10, T11, T12, and L1 posterior fusion; T10-11 laminectomy; T10-11 open reduction of the fracture subluxation; T9-L1 pedicle screw fixation; 03/13: Anterior cervical C3 and C4 partial corpectomies; C3-4 interbody fusion; anterior C3-4 cervical plate placement; C3-4 interbody cage placement Assessment and Plan - Assessment (1) Closed rib fracture Code(s): S22.39XA - Fracture of one rib, unspecified side, initial encounter for closed fracture Status: Acute (2) Traumatic compression fracture of T11 thoracic vertebra Code(s): S22.080A - Wedge compression fracture of T11-T12 vertebra, initial encounter for closed fracture Status: Acute (3) Burst fracture of thoracic spine at T10-T11 level Status: Acute (4) Complete lesion at T10 level of thoracic spinal cord Code(s): S24.113A - Complete lesion at T7-T10 level of thoracic spinal cord, initial encounter Status: Acute (5) Closed cervical spine fracture Code(s): S12.9XXA - Fracture of neck, unspecified, initial encounter Status: Acute (6) Stenosis of cervical spine with myelopathy Code(s): M47.12 - Other spondylosis with myelopathy, cervical region Status: Acute - Plan 62 year old male with AFIB, HLD neuropathy, depression, and BPH admitted on 03/10 as a trauma after falling [place] a [place]. 04/21: no significant clinical change, continues to work with pt. 04/22: No changes today, occasionally has spasms which are controlled with baclofen. Trauma/fall from [place] Injuries: * C3-4 spinal stenosis w/ disc protrusion and cord compression * C6 vertebral body fx * RIGHT clavicle fx (no-op) * T10 transverse process fx * T11 burst fx w/ cord contusion and compression * R rib fxs (4, 5, 7) * L rib fx (5) * Bilateral pulmonary contusions * Paraplegia Neurosurgery consulted earlier in course * 03/11: T9, T10, T11, T12, and L1 posterior fusion; T10-11 open reduction of the fracture subluxation; T9-L1 pedicle screw fixation; * 03/13: Anterior cervical C3 and C4 partial corpectomies; C3-4 interbody fusion; anterior C3-4 cervical plate placement; C3-4 interbody cage placement Supportive care Pain control, low-dose baclofen for spasms. PT/OT [place] J collar at all times OOB with TLSO brace. Incentive spirometer Atrial fibrillation Cardizem 30 mg po q 8h Pressure wounds: left buttock and gluteal cleft Change positions Q2H Wound care following Dressing changes Specialty bed Roho cushion when out of bed in chair Urinary retention Continue Flomax Continue Carrillo catheter, EtOH abuse Prior counseling provided on abstaining DVT prophylaxis: Lovenox Labs in the morning Code Status: Full code Discussed Condition With: RN, patient, case management Discharge Planning: CM following for proper discharge arrangements. Patient is medically stable for discharge. (5) Closed cervical spine fracture Qualifiers: Encounter type: initial encounter Cervical vertebra fracture level: C6 Fracture alignment: nondisplaced
[2018-04-22] MEDS ORDERED: Lidocaine 5% Patch T-DERMAL SCH (17:30)
[2018-04-22] MEDS ORDERED: Lidocaine 5% Patch T-DERMAL ONE (18:00)
[2018-04-23] MEDS: dilTIAZem 60 MG Tablet PO SCH ×3 (01:10→17:10)
[2018-04-23] MEDS: Baclofen 10 MG Tablet PO SCH ×3 (05:44→21:44)
[2018-04-23 07:44] LABS: Hematocrit 33.6 % (39.0-51.0); Mean Corpuscular HGB Conc 32.6 % (32.0-36.0); Mean Corpuscular Hemoglobin 28.5 pg (27.0-34.0); Mean Corpuscular Volume 87.5 fL (80.0-100.0); Mean Platelet Volume 7.7 fL (7.0-11.0); Platelet Count 345 th/mm3 (150-450); Red Blood Count 3.84 mil/mm3 (4.50-5.90); Red Cell Distribution Width 15.8 % (11.6-17.2); White Blood Count 7.8 th/mm3 (4.0-11.0)
[2018-04-23 08:14] LABS: Anion Gap 6 meq/L (5-15); Blood Urea Nitrogen 11 mg/dL (7-18); Calcium 8.9 mg/dL (8.5-10.1); Carbon Dioxide 32.7 meq/L (21.0-32.0); Chloride 103 meq/L (98-107); Glomerular Filtration Rate Greater Than 89 mL/min (>89); Glucose,Random 91 mg/dL (74-106); Potassium 3.7 meq/L (3.5-5.1); Sodium 142 meq/L (136-145)
[2018-04-23] MEDS: Duloxetine 60 MG DR Capsule PO SCH (08:42)
[2018-04-23] MEDS: Gabapentin 300 MG Capsule PO SCH ×3 (08:42→17:10)
[2018-04-23] MEDS: Enoxaparin Inj 30 MG/0.3 ML Syringe SQ SCH ×2 (08:43→21:44)
[2018-04-23] MEDS: Senna/Docusate Sodium 8.6/50 MG Tablet PO SCH ×2 (08:43→21:44)
[2018-04-23] MEDS: Lidocaine 5% Patch T-DERMAL SCH (08:44)
[2018-04-23] MEDS: Collagenase Oint 30 GM Tube TOPICAL SCH (08:45)
[2018-04-23] MEDS: oxyCODONE/Acetaminophen 10/325 Tablet PO PRN ×3 (08:49→21:44)
--- NOTE | 2018-04-23 10:36 | P.PN ---
Subjective Interval history: Follow-up visit for traumatic fall resulting in cervical, thoracic, and lumbar injuries. Patient was seen and evaluated, laying in bed. Had severe spasms of legs last night, better today. Pain stable. No fever. No cp, no sob. No acute changes overnight Physical Exam Vital signs: Vital Signs 04/22/18 12:00 04/22/18 16:00 04/22/18 20:00 Temperature 98.2 F 97.7 F 98.2 F Pulse Rate 114 H 72 85 Respiratory Rate 18 17 20 Blood Pressure 144/74 H 109/60 102/59 L Pulse Oximetry 95 98 95 04/22/18 23:42 04/23/18 08:00 Temperature 98.1 F 97.8 F Pulse Rate 81 80 Respiratory Rate 20 16 Blood Pressure 102/59 L 116/61 Pulse Oximetry 97 95 Intake & Output 04/22/18 04/23/18 04/23/18 18:59 06:59 18:59 Intake Total 1999 / 1999 Output Total 1600 / 1600 Balance 400 / 400 Weight 109 kg Intake: Oral 1999 Output: Urine 1600 / 1600 Other: Date of Last Bowel Movement 04/21/17 Narrative: GENERAL: Well-nourished, well-developed patient in no apparent distress. SKIN: Warm and dry. HEAD: Atraumatic. Normocephalic. EYES: Pupils equal and round. No scleral icterus. No injection or drainage. ENT: No nasal bleeding or discharge. Mucous membranes pink and moist. NECK: Cervical collar in place. CARDIOVASCULAR: Regular rate and rhythm. RESPIRATORY: No accessory muscle use. Clear to auscultation. Breath sounds equal bilaterally. GASTROINTESTINAL: Abdomen soft, non-tender, nondistended. MUSCULOSKELETAL: Bilateral lower extremities flaccid, pedal pulses 2+. NEUROLOGICAL: Awake, alert oriented x3. Speech is clear. PSYCHIATRIC: Appropriate mood and affect; insight and judgment normal. - Urinary Catheter Management Condom Cath placed during this visit: yes, but has since been removed by the nurse Reason for continuing: Decision to DC catheter Removal date: 03/18/18 Removal time: 14:30 Indwelling Urethral Catheter Cath placed during this visit: yes, but has since been removed by the nurse Reason for continuing: Chronic Urinary Retention Insertion date: 04/18/18 Insertion time: 16:00 Removal date: 04/18/18 Removal time: 16:00 Straight Cath placed during this visit: yes, but has since been removed by the nurse Reason for continuing: Chronic Urinary Retention Insertion date: 03/19/18 Insertion time: 03:00 Removal date: 03/19/18 Removal time: 03:30 Results - Labs CBC & Chem 7: 04/23/18 04:41 04/23/18 04:41 Laboratory Results - last 24 hr 04/23/18 04/23/18 04:41 04:41 WBC 7.8 RBC 3.84 L Hgb 11.0 L Hct 33.6 L MCV 87.5 MCH 28.5 MCHC 32.6 RDW 15.8 Plt Count 345 MPV 7.7 Sodium 142 Potassium 3.7 Chloride 103 Carbon Dioxide 32.7 H Anion Gap 6 BUN 11 Creatinine 0.65 Estimated GFR Greater than 89 Random Glucose 91 Calcium 8.9 - Procedures 03/11: T9, T10, T11, T12, and L1 posterior fusion; T10-11 laminectomy; T10-11 open reduction of the fracture subluxation; T9-L1 pedicle screw fixation; 03/13: Anterior cervical C3 and C4 partial corpectomies; C3-4 interbody fusion; anterior C3-4 cervical plate placement; C3-4 interbody cage placement Assessment and Plan - Assessment (1) Closed rib fracture Code(s): S22.39XA - Fracture of one rib, unspecified side, initial encounter for closed fracture Status: Acute (2) Traumatic compression fracture of T11 thoracic vertebra Code(s): S22.080A - Wedge compression fracture of T11-T12 vertebra, initial encounter for closed fracture Status: Acute (3) Burst fracture of thoracic spine at T10-T11 level Status: Acute (4) Complete lesion at T10 level of thoracic spinal cord Code(s): S24.113A - Complete lesion at T7-T10 level of thoracic spinal cord, initial encounter Status: Acute (5) Closed cervical spine fracture Code(s): S12.9XXA - Fracture of neck, unspecified, initial encounter Status: Acute (6) Stenosis of cervical spine with myelopathy Code(s): M47.12 - Other spondylosis with myelopathy, cervical region Status: Acute - Plan 62 year old male with AFIB, HLD neuropathy, depression, and BPH admitted on 03/10 as a trauma after falling [place] a [place]. 10/16: no significant clinical change, continues to work with pt. 04/22: No changes today, occasionally has spasms which are controlled with baclofen. 04/23: no changes in clinical condition. Trauma/fall from [place] Injuries: * C3-4 spinal stenosis w/ disc protrusion and cord compression * C6 vertebral body fx * RIGHT clavicle fx (no-op) * T10 transverse process fx * T11 burst fx w/ cord contusion and compression * R rib fxs (4, 5, 7) * L rib fx (5) * Bilateral pulmonary contusions * Paraplegia Neurosurgery consulted earlier in course * 03/11: T9, T10, T11, T12, and L1 posterior fusion; T10-11 open reduction of the fracture subluxation; T9-L1 pedicle screw fixation; * 03/13: Anterior cervical C3 and C4 partial corpectomies; C3-4 interbody fusion; anterior C3-4 cervical plate placement; C3-4 interbody cage placement Supportive care Pain control, low-dose baclofen for spasms. PT/OT [place] J collar at all times OOB with TLSO brace. Incentive spirometer Atrial fibrillation Cardizem 30 mg po q 8h Pressure wounds: left buttock and gluteal cleft Change positions Q2H Wound care following Dressing changes Specialty bed Roho cushion when out of bed in chair Urinary retention Continue Flomax Continue Carrillo catheter, EtOH abuse Prior counseling provided on abstaining DVT prophylaxis: Lovenox Labs reviewed, stable. Code Status: Full code Discussed Condition With: RN, pt. Discharge Planning: CM following for proper discharge arrangements. Patient is medically stable for discharge. (5) Closed cervical spine fracture Qualifiers: Encounter type: initial encounter Cervical vertebra fracture level: C6 Fracture alignment: nondisplaced
[2018-04-24] MEDS: dilTIAZem 60 MG Tablet PO SCH ×3 (01:30→18:00)
[2018-04-24] MEDS: Baclofen 10 MG Tablet PO SCH ×3 (05:45→21:00)
[2018-04-24] MEDS: oxyCODONE/Acetaminophen 10/325 Tablet PO PRN ×4 (05:46→20:55)
[2018-04-24] MEDS: Senna/Docusate Sodium 8.6/50 MG Tablet PO SCH ×2 (09:16→20:55)
[2018-04-24] MEDS: Duloxetine 60 MG DR Capsule PO SCH (09:16)
[2018-04-24] MEDS: Gabapentin 300 MG Capsule PO SCH ×3 (09:17→18:00)
[2018-04-24] MEDS: Enoxaparin Inj 30 MG/0.3 ML Syringe SQ SCH ×2 (09:17→20:55)
[2018-04-24] MEDS: Lidocaine 5% Patch T-DERMAL SCH (10:49)
[2018-04-24] MEDS: Collagenase Oint 30 GM Tube TOPICAL SCH (10:50)
--- NOTE | 2018-04-24 11:48 | P.PN ---
Subjective Interval history: Follow-up visit for traumatic fall resulting in cervical, thoracic, and lumbar injuries. Patient was seen and evaluated, out of bed in wheelchair. Has no complaints. Pain well controlled. No acute changes overnight. Physical Exam Vital signs: Vital Signs 04/23/18 16:00 04/23/18 19:54 04/23/18 20:00 Temperature 98.1 F 97.2 F L Pulse Rate 80 81 Respiratory Rate 18 20 20 Blood Pressure 102/60 110/63 Pulse Oximetry 97 94 L 04/24/18 00:00 04/24/18 07:27 Temperature 97.9 F 97.5 F L Pulse Rate 58 L 64 Respiratory Rate 20 20 Blood Pressure 107/68 110/65 Pulse Oximetry 94 L 98 Intake & Output 04/23/18 04/24/18 04/24/18 18:59 06:59 18:59 Intake Total 2400 / 2400 1100 / 1100 Output Total 1325 / 1325 750 / 750 Balance 1075 / 1075 350 / 350 Weight 108 kg Intake: Oral 2160 / 2160 1100 / 1100 Oral Supplement 240 / 240 Output: Urine 1325 / 1325 750 / 750 Other: Date of Last Bowel Movement 04/23/18 04/23/18 # Bowel Movements 1 Narrative: GENERAL: Well-nourished, well-developed patient in no apparent distress. SKIN: Warm and dry. HEAD: Atraumatic. Normocephalic. EYES: Pupils equal and round. No scleral icterus. No injection or drainage. ENT: No nasal bleeding or discharge. Mucous membranes pink and moist. NECK: Cervical collar in place. CARDIOVASCULAR: Regular rate and rhythm. RESPIRATORY: No accessory muscle use. Clear to auscultation. Breath sounds equal bilaterally. GASTROINTESTINAL: Abdomen soft, non-tender, nondistended. MUSCULOSKELETAL: Bilateral lower extremities flaccid, pedal pulses 2+. NEUROLOGICAL: Awake, alert oriented x3. Speech is clear. PSYCHIATRIC: Appropriate mood and affect; insight and judgment normal. - Urinary Catheter Management Condom Cath placed during this visit: yes, but has since been removed by the nurse Reason for continuing: Decision to DC catheter Removal date: 03/18/18 Removal time: 14:30 Indwelling Urethral Catheter Cath placed during this visit: yes, but has since been removed by the nurse Reason for continuing: Chronic Urinary Retention Insertion date: 04/18/18 Insertion time: 16:00 Removal date: 04/18/18 Removal time: 16:00 Straight Cath placed during this visit: yes, but has since been removed by the nurse Reason for continuing: Chronic Urinary Retention Insertion date: 03/19/18 Insertion time: 03:00 Removal date: 03/19/18 Removal time: 03:30 Results - Labs CBC & Chem 7: 04/23/18 04:41 04/23/18 04:41 - Procedures 03/11: T9, T10, T11, T12, and L1 posterior fusion; T10-11 laminectomy; T10-11 open reduction of the fracture subluxation; T9-L1 pedicle screw fixation; 03/13: Anterior cervical C3 and C4 partial corpectomies; C3-4 interbody fusion; anterior C3-4 cervical plate placement; C3-4 interbody cage placement Assessment and Plan - Assessment (1) Closed rib fracture Code(s): S22.39XA - Fracture of one rib, unspecified side, initial encounter for closed fracture Status: Acute (2) Traumatic compression fracture of T11 thoracic vertebra Code(s): S22.080A - Wedge compression fracture of T11-T12 vertebra, initial encounter for closed fracture Status: Acute (3) Burst fracture of thoracic spine at T10-T11 level Status: Acute (4) Complete lesion at T10 level of thoracic spinal cord Code(s): S24.113A - Complete lesion at T7-T10 level of thoracic spinal cord, initial encounter Status: Acute (5) Closed cervical spine fracture Code(s): S12.9XXA - Fracture of neck, unspecified, initial encounter Status: Acute (6) Stenosis of cervical spine with myelopathy Code(s): M47.12 - Other spondylosis with myelopathy, cervical region Status: Acute - Plan 62 year old male with AFIB, HLD neuropathy, depression, and BPH admitted on 03/10 as a trauma after falling [place] a [place]. 04/21: no significant clinical change, continues to work with pt. 04/22: No changes today, occasionally has spasms which are controlled with baclofen. 04/23: no changes in clinical condition. 04/24: No changes in clinical condition [place]uma/fall from [place] Injuries: * C3-4 spinal stenosis w/ disc protrusion and cord compression * C6 vertebral body fx * RIGHT clavicle fx (no-op) * T10 transverse process fx * T11 burst fx w/ cord contusion and compression * R rib fxs (4, 5, 7) * L rib fx (5) * Bilateral pulmonary contusions * Paraplegia Neurosurgery consulted earlier in course * 03/11: T9, T10, T11, T12, and L1 posterior fusion; T10-11 open reduction of the fracture subluxation; T9-L1 pedicle screw fixation; * 03/13: Anterior cervical C3 and C4 partial corpectomies; C3-4 interbody fusion; anterior C3-4 cervical plate placement; C3-4 interbody cage placement Supportive care Pain control, low-dose baclofen for spasms. PT/OT [place] J collar at all times OOB with TLSO brace. Incentive spirometer Atrial fibrillation Cardizem 30 mg po q 8h Pressure wounds: left buttock and gluteal cleft Change positions Q2H Wound care following Dressing changes Specialty bed Roho cushion when out of bed in chair Urinary retention Continue Flomax Continue Carrillo catheter, EtOH abuse Prior counseling provided on abstaining DVT prophylaxis: Lovenox Labs reviewed, stable. Code Status: Full code Discussed Condition With: RN, patient, case management Discharge Planning: CM following for proper discharge arrangements. Patient is medically stable for discharge. (5) Closed cervical spine fracture Qualifiers: Encounter type: initial encounter Cervical vertebra fracture level: C6 Fracture alignment: nondisplaced
[2018-04-25] MEDS: dilTIAZem 60 MG Tablet PO SCH ×3 (02:27→17:03)
[2018-04-25] MEDS: oxyCODONE/Acetaminophen 10/325 Tablet PO PRN ×4 (02:27→20:29)
[2018-04-25] MEDS: Baclofen 10 MG Tablet PO SCH ×3 (06:31→21:36)
[2018-04-25] MEDS: Gabapentin 300 MG Capsule PO SCH ×3 (08:47→17:03)
[2018-04-25] MEDS: Duloxetine 60 MG DR Capsule PO SCH (08:47)
[2018-04-25] MEDS: Senna/Docusate Sodium 8.6/50 MG Tablet PO SCH ×2 (08:47→20:28)
[2018-04-25] MEDS: Lidocaine 5% Patch T-DERMAL SCH (08:48)
[2018-04-25] MEDS: Enoxaparin Inj 30 MG/0.3 ML Syringe SQ SCH ×2 (08:48→20:28)
[2018-04-25] MEDS: Collagenase Oint 30 GM Tube TOPICAL SCH (08:51)
--- NOTE | 2018-04-25 10:04 | P.PN ---
Subjective Interval history: Follow-up visit for traumatic fall resulting in cervical, thoracic, and lumbar injuries. Patient was seen and evaluated, spasms better today. Pain is stable. No acute changes overnight Physical Exam Vital signs: Vital Signs 04/24/18 12:00 04/24/18 16:00 04/24/18 20:00 Temperature 97.9 F 97.4 F L 98.1 F Pulse Rate 72 75 77 Respiratory Rate 18 18 18 Blood Pressure 117/65 107/66 110/56 L Pulse Oximetry 95 96 96 04/25/18 00:00 04/25/18 08:00 Temperature 97.9 F 97.7 F Pulse Rate 73 70 Respiratory Rate 18 16 Blood Pressure 110/58 L 112/58 L Pulse Oximetry 95 96 Intake & Output 04/24/18 04/25/18 04/25/18 18:59 06:59 18:59 Intake Total 1920 / 1920 480 / 480 Output Total 1100 / 1100 Balance 1920 / 1920 -620 / -620 Weight 110 kg Intake: Oral 1440 / 1440 480 / 480 Oral Supplement 480 / 480 Output: Urine Amount (Catheter) 1100 / 1100 Indwelling Urethral Catheter 1100 / 1100 Other: # Voids 1,000 Date of Last Bowel Movement 04/23/18 04/23/18 Narrative: GENERAL: This is a 62-year-old male lying in bed. No distress noted. SKIN: Warm and dry. HEAD: Atraumatic. Normocephalic. EYES: PERRLA ENT: No nasal bleeding or discharge. Mucous membranes pink and moist. NECK: [place] J collar in place. Trachea midline. No JVD. CARDIOVASCULAR: Regular rate and rhythm. RESPIRATORY: No accessory muscle use. Lungs are clear to auscultation. Breath sounds equal bilaterally. No distress or dyspnea. GASTROINTESTINAL: BS + x 4 quads. Abdomen soft, non-tender, nondistended. MUSCULOSKELETAL: Extremities without cyanosis, or edema. TLSO brace in place. + peripheral pulses x 4 extremities. Warm with good capillary refill and sensation. Patient is able to move bilateral upper extremities well, equal and to command. Patient is not able to move lower bilateral extremities spontaneously or to command, however withdraws to pain in bilateral lower extremities. NEUROLOGICAL: Awake and alert. Normal speech and pattern. - Urinary Catheter Management Condom Cath placed during this visit: yes, but has since been removed by the nurse Reason for continuing: Not indwelling catheter Removal date: 03/18/18 Removal time: 14:30 Indwelling Urethral Catheter Cath placed during this visit: yes, but has since been removed by the nurse Reason for continuing: Acute urinary retention Insertion date: 03/16/18 Insertion time: 04:30 Removal date: 03/14/18 Removal time: 10:45 Straight Cath placed during this visit: yes, but has since been removed by the nurse Reason for continuing: Acute urinary retention Insertion date: 03/17/18 Insertion time: 03:30 Removal date: 03/16/18 Removal time: 17:40 Results - Labs CBC & Chem 7: 04/23/18 04:41 04/23/18 04:41 - Procedures 03/11: T9, T10, T11, T12, and L1 posterior fusion; T10-11 laminectomy; T10-11 open reduction of the fracture subluxation; T9-L1 pedicle screw fixation; 03/13: Anterior cervical C3 and C4 partial corpectomies; C3-4 interbody fusion; anterior C3-4 cervical plate placement; C3-4 interbody cage placement Assessment and Plan - Assessment (1) Closed rib fracture Code(s): S22.39XA - Fracture of one rib, unspecified side, initial encounter for closed fracture Status: Acute (2) Traumatic compression fracture of T11 thoracic vertebra Code(s): S22.080A - Wedge compression fracture of T11-T12 vertebra, initial encounter for closed fracture Status: Acute (3) Burst fracture of thoracic spine at T10-T11 level Status: Acute (4) Complete lesion at T10 level of thoracic spinal cord Code(s): S24.113A - Complete lesion at T7-T10 level of thoracic spinal cord, initial encounter Status: Acute (5) Closed cervical spine fracture Code(s): S12.9XXA - Fracture of neck, unspecified, initial encounter Status: Acute (6) Stenosis of cervical spine with myelopathy Code(s): M47.12 - Other spondylosis with myelopathy, cervical region Status: Acute - Plan 62 year old male with AFIB, HLD neuropathy, depression, and BPH admitted on 03/10 as a trauma after falling [place] a [place]. 04/21: no significant clinical change, continues to work with pt. 04/22: No changes today, occasionally has spasms which are controlled with baclofen. 04/23: no changes in clinical condition. 04/24: No changes in clinical condition 04/25: no changes [place]uma[place] Injuries: * C3-4 spinal stenosis w/ disc protrusion and cord compression * C6 vertebral body fx * RIGHT clavicle fx (no-op) * T10 transverse process fx * T11 burst fx w/ cord contusion and compression * R rib fxs (4, 5, 7) * L rib fx (5) * Bilateral pulmonary contusions * Paraplegia Neurosurgery consulted earlier in course * 03/11: T9, T10, T11, T12, and L1 posterior fusion; T10-11 open reduction of the fracture subluxation; T9-L1 pedicle screw fixation; * 03/13: Anterior cervical C3 and C4 partial corpectomies; C3-4 interbody fusion; anterior C3-4 cervical plate placement; C3-4 interbody cage placement Supportive care Pain control, low-dose baclofen for spasms. PT/OT [place] J collar at all times OOB with TLSO brace. Incentive spirometer Atrial fibrillation Cardizem 30 mg po q 8h Pressure wounds: left buttock and gluteal cleft Change positions Q2H Wound care following Dressing changes Specialty bed Roho cushion when out of bed in chair Urinary retention Continue Flomax Continue Carrillo catheter, EtOH abuse Prior counseling provided on abstaining DVT prophylaxis: Lovenox Code Status: Full code Discussed Condition With: RN, pt Discharge Planning: CM following for proper discharge arrangements. Patient is medically stable for discharge. (5) Closed cervical spine fracture Qualifiers: Encounter type: initial encounter Cervical vertebra fracture level: C6 Fracture alignment: nondisplaced
[2018-04-26] MEDS: dilTIAZem 60 MG Tablet PO SCH ×3 (00:51→17:13)
[2018-04-26] MEDS: oxyCODONE/Acetaminophen 10/325 Tablet PO PRN ×4 (00:52→20:11)
[2018-04-26] MEDS: Baclofen 10 MG Tablet PO SCH ×3 (05:46→21:55)
[2018-04-26] MEDS: Enoxaparin Inj 30 MG/0.3 ML Syringe SQ SCH ×2 (10:01→20:12)
[2018-04-26] MEDS: Senna/Docusate Sodium 8.6/50 MG Tablet PO SCH ×2 (10:01→20:11)
[2018-04-26] MEDS: Gabapentin 300 MG Capsule PO SCH ×3 (10:01→17:12)
[2018-04-26] MEDS: Duloxetine 60 MG DR Capsule PO SCH (10:02)
[2018-04-26] MEDS: Lidocaine 5% Patch T-DERMAL SCH (10:02)
[2018-04-26] MEDS: Collagenase Oint 30 GM Tube TOPICAL SCH (10:05)
--- NOTE | 2018-04-26 15:27 | P.PN ---
Subjective Interval history: Follow-up visit for traumatic fall resulting in cervical, thoracic, and lumbar injuries. Patient was seen and evaluated, having some shoulder pain, indicates that he did a couple more laps than usual on wheelchair. No other changes overnight. Physical Exam Vital signs: Vital Signs 04/25/18 16:00 04/25/18 20:00 04/25/18 21:36 Temperature 98.7 F 98 F Pulse Rate 86 88 Respiratory Rate 16 17 19 Blood Pressure 115/65 111/60 Pulse Oximetry 95 94 L 04/26/18 00:00 04/26/18 08:00 04/26/18 12:00 Temperature 98.6 F 97.7 F 97.1 F L Pulse Rate 90 72 76 Respiratory Rate 17 17 16 Blood Pressure 98/56 L 115/72 131/65 Pulse Oximetry 93 L 97 96 Intake & Output 04/25/18 04/26/18 04/26/18 18:59 06:59 18:59 Intake Total 720 / 720 480 / 480 Output Total 2100 / 2100 550 / 550 Balance -1380 / -1380 -70 / -70 Weight 110 kg Intake: Oral 720 / 720 480 / 480 Output: Urine 2100 / 2100 Urine Amount (Catheter) 550 / 550 Indwelling Urethral Catheter 550 / 550 Other: Date of Last Bowel Movement 04/25/18 Narrative: GENERAL: This is a 62-year-old male lying in bed. No distress noted. SKIN: Warm and dry. HEAD: Atraumatic. Normocephalic. EYES: PERRLA ENT: No nasal bleeding or discharge. Mucous membranes pink and moist. NECK: [place] J collar in place. Trachea midline. No JVD. CARDIOVASCULAR: Regular rate and rhythm. RESPIRATORY: No accessory muscle use. Lungs are clear to auscultation. Breath sounds equal bilaterally. No distress or dyspnea. GASTROINTESTINAL: BS + x 4 quads. Abdomen soft, non-tender, nondistended. MUSCULOSKELETAL: Extremities without cyanosis, or edema. TLSO brace in place. + peripheral pulses x 4 extremities. Warm with good capillary refill and sensation. Patient is able to move bilateral upper extremities well, equal and to command. Patient is not able to move lower bilateral extremities spontaneously or to command, however withdraws to pain in bilateral lower extremities. NEUROLOGICAL: Awake and alert. Normal speech and pattern. - Urinary Catheter Management Condom Cath placed during this visit: yes, but has since been removed by the nurse Reason for continuing: Not indwelling catheter Removal date: 03/18/18 Removal time: 14:30 Indwelling Urethral Catheter Cath placed during this visit: yes, but has since been removed by the nurse Reason for continuing: Chronic Urinary Retention Insertion date: 03/16/18 Insertion time: 04:30 Removal date: 03/14/18 Removal time: 10:45 Straight Cath placed during this visit: yes, but has since been removed by the nurse Reason for continuing: Acute urinary retention Insertion date: 03/17/18 Insertion time: 03:30 Removal date: 03/16/18 Removal time: 17:40 Results - Labs CBC & Chem 7: 04/23/18 04:41 04/23/18 04:41 - Procedures 03/11: T9, T10, T11, T12, and L1 posterior fusion; T10-11 laminectomy; T10-11 open reduction of the fracture subluxation; T9-L1 pedicle screw fixation; 03/13: Anterior cervical C3 and C4 partial corpectomies; C3-4 interbody fusion; anterior C3-4 cervical plate placement; C3-4 interbody cage placement Assessment and Plan - Assessment (1) Closed rib fracture Code(s): S22.39XA - Fracture of one rib, unspecified side, initial encounter for closed fracture Status: Acute (2) Traumatic compression fracture of T11 thoracic vertebra Code(s): S22.080A - Wedge compression fracture of T11-T12 vertebra, initial encounter for closed fracture Status: Acute (3) Burst fracture of thoracic spine at T10-T11 level Status: Acute (4) Complete lesion at T10 level of thoracic spinal cord Code(s): S24.113A - Complete lesion at T7-T10 level of thoracic spinal cord, initial encounter Status: Acute (5) Closed cervical spine fracture Code(s): S12.9XXA - Fracture of neck, unspecified, initial encounter Status: Acute (6) Stenosis of cervical spine with myelopathy Code(s): M47.12 - Other spondylosis with myelopathy, cervical region Status: Acute - Plan 62 year old male with AFIB, HLD neuropathy, depression, and BPH admitted on 03/10 as a trauma after [place]. 04/21: no significant clinical change, continues to work with pt. 04/22: No changes today, occasionally has spasms which are controlled with baclofen. 04/23: no changes in clinical condition. 04/24: No changes in clinical condition 04/25: no changes 04/26: No changes. Trauma[place] Injuries: * C3-4 spinal stenosis w/ disc protrusion and cord compression * C6 vertebral body fx * RIGHT clavicle fx (no-op) * T10 transverse process fx * T11 burst fx w/ cord contusion and compression * R rib fxs (4, 5, 7) * L rib fx (5) * Bilateral pulmonary contusions * Paraplegia Neurosurgery consulted earlier in course * 03/11: T9, T10, T11, T12, and L1 posterior fusion; T10-11 open reduction of the fracture subluxation; T9-L1 pedicle screw fixation; * 03/13: Anterior cervical C3 and C4 partial corpectomies; C3-4 interbody fusion; anterior C3-4 cervical plate placement; C3-4 interbody cage placement Supportive care Pain control, low-dose baclofen for spasms. PT/OT [place] J collar at all times OOB with TLSO brace. Incentive spirometer Atrial fibrillation Cardizem 30 mg po q 8h Pressure wounds: left buttock and gluteal cleft Change positions Q2H Wound care following Dressing changes Specialty bed Roho cushion when out of bed in chair Urinary retention Continue Flomax Continue Carrillo catheter, EtOH abuse Prior counseling provided on abstaining DVT prophylaxis: Lovenox Code Status: Full code Discussed Condition With: RN, patient Discharge Planning: CM following for proper discharge arrangements. Patient is medically stable for discharge. (5) Closed cervical spine fracture Qualifiers: Encounter type: initial encounter Cervical vertebra fracture level: C6 Fracture alignment: nondisplaced
[2018-04-27] MEDS: dilTIAZem 60 MG Tablet PO SCH ×3 (00:45→18:07)
[2018-04-27] MEDS: oxyCODONE/Acetaminophen 10/325 Tablet PO PRN ×4 (05:48→22:03)
[2018-04-27] MEDS: Baclofen 10 MG Tablet PO SCH ×3 (05:48→18:07)
[2018-04-27] MEDS: Duloxetine 60 MG DR Capsule PO SCH (10:26)
[2018-04-27] MEDS: Gabapentin 300 MG Capsule PO SCH ×3 (10:28→18:06)
[2018-04-27] MEDS: Enoxaparin Inj 30 MG/0.3 ML Syringe SQ SCH ×2 (10:28→22:02)
[2018-04-27] MEDS: Senna/Docusate Sodium 8.6/50 MG Tablet PO SCH ×2 (10:28→22:03)
[2018-04-27] MEDS: Lidocaine 5% Patch T-DERMAL SCH (10:28)
[2018-04-27] MEDS: Collagenase Oint 30 GM Tube TOPICAL SCH (10:33)
--- NOTE | 2018-04-27 16:37 | P.PN ---
Subjective Interval history: Follow-up visit for traumatic fall resulting in cervical, thoracic, and lumbar injuries. Patient was seen and examined, continues to have spasms, sometimes so severe his legs move to his chest. Pain well controlled. No fever. Physical Exam Vital signs: Vital Signs 04/26/18 20:00 04/27/18 00:00 04/27/18 08:00 Temperature 97.1 F L 97.6 F 97.9 F Pulse Rate 83 72 73 Respiratory Rate 17 17 17 Blood Pressure 118/67 100/59 L 110/68 Pulse Oximetry 95 95 94 L 04/27/18 12:00 04/27/18 16:00 Temperature 98.1 F 97.8 F Pulse Rate 84 80 Respiratory Rate 18 17 Blood Pressure 111/71 113/67 Pulse Oximetry 96 97 Intake & Output 04/26/18 04/27/18 04/27/18 18:59 06:59 18:59 Intake Total 480 / 480 Output Total 1949 Balance -1470 / -1470 Weight 110 kg Intake: Oral 480 / 480 Output: Urine Amount (Catheter) 1949 Indwelling Urethral Catheter 1949 Other: Date of Last Bowel Movement 04/25/18 Narrative: GENERAL: This is a 62-year-old male lying in bed. No distress noted. SKIN: Warm and dry. HEAD: Atraumatic. Normocephalic. EYES: PERRLA ENT: No nasal bleeding or discharge. Mucous membranes pink and moist. NECK: [place] J collar in place. Trachea midline. No JVD. CARDIOVASCULAR: Regular rate and rhythm. RESPIRATORY: No accessory muscle use. Lungs are clear to auscultation. Breath sounds equal bilaterally. No distress or dyspnea. GASTROINTESTINAL: BS + x 4 quads. Abdomen soft, non-tender, nondistended. MUSCULOSKELETAL: Extremities without cyanosis, or edema. TLSO brace in place. + peripheral pulses x 4 extremities. Warm with good capillary refill and sensation. Patient is able to move bilateral upper extremities well, equal and to command. Patient is not able to move lower bilateral extremities spontaneously or to command, however withdraws to pain in bilateral lower extremities. Noted with involuntary spasms both legs NEUROLOGICAL: Awake and alert. Normal speech and pattern. - Urinary Catheter Management Condom Cath placed during this visit: yes, but has since been removed by the nurse Reason for continuing: Not indwelling catheter Removal date: 03/18/18 Removal time: 14:30 Indwelling Urethral Catheter Cath placed during this visit: yes, but has since been removed by the nurse Reason for continuing: Chronic Urinary Retention Insertion date: 03/16/18 Insertion time: 04:30 Removal date: 03/14/18 Removal time: 10:45 Straight Cath placed during this visit: yes, but has since been removed by the nurse Reason for continuing: Acute urinary retention Insertion date: 03/17/18 Insertion time: 03:30 Removal date: 03/16/18 Removal time: 17:40 Results - Labs CBC & Chem 7: 04/23/18 04:41 04/23/18 04:41 - Procedures 03/11: T9, T10, T11, T12, and L1 posterior fusion; T10-11 laminectomy; T10-11 open reduction of the fracture subluxation; T9-L1 pedicle screw fixation; 03/13: Anterior cervical C3 and C4 partial corpectomies; C3-4 interbody fusion; anterior C3-4 cervical plate placement; C3-4 interbody cage placement Assessment and Plan - Assessment (1) Closed rib fracture Code(s): S22.39XA - Fracture of one rib, unspecified side, initial encounter for closed fracture Status: Acute (2) Traumatic compression fracture of T11 thoracic vertebra Code(s): S22.080A - Wedge compression fracture of T11-T12 vertebra, initial encounter for closed fracture Status: Acute (3) Burst fracture of thoracic spine at T10-T11 level Status: Acute (4) Complete lesion at T10 level of thoracic spinal cord Code(s): S24.113A - Complete lesion at T7-T10 level of thoracic spinal cord, initial encounter Status: Acute (5) Closed cervical spine fracture Code(s): S12.9XXA - Fracture of neck, unspecified, initial encounter Status: Acute (6) Stenosis of cervical spine with myelopathy Code(s): M47.12 - Other spondylosis with myelopathy, cervical region Status: Acute - Plan 62 year old male with AFIB, HLD neuropathy, depression, and BPH admitted on 03/10 as a trauma after falling from a [place]. 04/21: no significant clinical change, continues to work with pt. 04/22: No changes today, occasionally has spasms which are controlled with baclofen. 04/23: no changes in clinical condition. 04/24: No changes in clinical condition 04/25: no changes 04/26: No changes. Trauma/fall from [place] Injuries: * C3-4 spinal stenosis w/ disc protrusion and cord compression * C6 vertebral body fx * RIGHT clavicle fx (no-op) * T10 transverse process fx * T11 burst fx w/ cord contusion and compression * R rib fxs (4, 5, 7) * L rib fx (5) * Bilateral pulmonary contusions * Paraplegia Neurosurgery consulted earlier in course * 03/11: T9, T10, T11, T12, and L1 posterior fusion; T10-11 open reduction of the fracture subluxation; T9-L1 pedicle screw fixation; * 03/13: Anterior cervical C3 and C4 partial corpectomies; C3-4 interbody fusion; anterior C3-4 cervical plate placement; C3-4 interbody cage placement Supportive care Pain control, low-dose baclofen for spasms. PT/OT [place] J collar at all times OOB with TLSO brace. Incentive spirometer -Increase baclofen to 20 mg every 6 for increased spasms. Atrial fibrillation Cardizem 30 mg po q 8h Pressure wounds: left buttock and gluteal cleft Change positions Q2H Wound care following Dressing changes Specialty bed Roho cushion when out of bed in chair Urinary retention Continue Flomax Continue Carrillo catheter, EtOH abuse Prior counseling provided on abstaining DVT prophylaxis: Lovenox Code Status: Full code Discussed Condition With: RN, pt Discharge Planning: CM following for proper discharge arrangements. Patient is medically stable for discharge. (5) Closed cervical spine fracture Qualifiers: Encounter type: initial encounter Cervical vertebra fracture level: C6 Fracture alignment: nondisplaced
[2018-04-28] MEDS: dilTIAZem 60 MG Tablet PO SCH ×3 (00:02→18:00)
[2018-04-28] MEDS: Baclofen 10 MG Tablet PO SCH ×4 (00:02→18:00)
[2018-04-28] MEDS: Collagenase Oint 30 GM Tube TOPICAL SCH (08:11)
[2018-04-28] MEDS: Lidocaine 5% Patch T-DERMAL SCH (08:12)
[2018-04-28] MEDS: Gabapentin 300 MG Capsule PO SCH ×3 (08:13→18:00)
[2018-04-28] MEDS: Enoxaparin Inj 30 MG/0.3 ML Syringe SQ SCH ×2 (08:14→20:10)
[2018-04-28] MEDS: Duloxetine 60 MG DR Capsule PO SCH (08:14)
[2018-04-28] MEDS: Senna/Docusate Sodium 8.6/50 MG Tablet PO SCH ×2 (08:14→20:12)
[2018-04-28] MEDS: oxyCODONE/Acetaminophen 10/325 Tablet PO PRN ×3 (08:23→20:09)
--- NOTE | 2018-04-28 14:55 | P.PNIM ---
Subjective Interval history: No concerns overnight. Tolerating diet and doing physical therapy. Physical Exam Vital signs: Vital Signs 04/27/18 16:00 04/27/18 20:00 04/28/18 00:00 Temperature 97.8 F 97.3 F L 97.5 F L Pulse Rate 80 74 77 Respiratory Rate 17 16 16 Blood Pressure 113/67 116/72 112/72 Pulse Oximetry 97 95 96 04/28/18 08:00 04/28/18 11:49 Temperature 97.2 F L 97.6 F Pulse Rate 74 90 Respiratory Rate 18 17 Blood Pressure 122/70 98/54 L Pulse Oximetry 97 94 L Intake & Output 04/27/18 04/28/18 04/28/18 18:59 06:59 18:59 Intake Total 1080 / 1080 1500 / 1500 Output Total 1000 / 1000 1100 / 1100 Balance 80 / 80 400 / 400 Weight 110 kg Intake: Oral 1080 / 1080 1500 / 1500 Output: Urine 1000 / 1000 1100 / 1100 Other: Date of Last Bowel Movement 04/26/18 Narrative: GENERAL: This is a 62-year-old male lying in bed. No distress noted. NECK: [place] J collar in place. Trachea midline. No JVD. CARDIOVASCULAR: Regular rate and rhythm. RESPIRATORY: No accessory muscle use. Lungs are clear to auscultation. Breath sounds equal bilaterally. No distress or dyspnea. GASTROINTESTINAL: Abdomen soft, non-tender, nondistended. Normoactive bowel sounds MUSCULOSKELETAL: Extremities without cyanosis, or edema. NEUROLOGICAL: Awake and alert. Normal speech and pattern. Unable to move bilateral lower extremities. Good motor strength 5 out of 5 bilateral upper extremities - Urinary Catheter Management Condom Cath placed during this visit: yes, but has since been removed by the nurse Reason for continuing: Not indwelling catheter Removal date: 03/18/18 Removal time: 14:30 Indwelling Urethral Catheter Cath placed during this visit: yes, but has since been removed by the nurse Reason for continuing: Chronic Urinary Retention Insertion date: 03/16/18 Insertion time: 04:30 Removal date: 03/14/18 Removal time: 10:45 Straight Cath placed during this visit: yes, but has since been removed by the nurse Reason for continuing: Acute urinary retention Insertion date: 03/17/18 Insertion time: 03:30 Removal date: 03/16/18 Removal time: 17:40 Results - Labs CBC & Chem 7: 04/23/18 04:41 04/23/18 04:41 - Procedures 03/11: T9, T10, T11, T12, and L1 posterior fusion; T10-11 laminectomy; T10-11 open reduction of the fracture subluxation; T9-L1 pedicle screw fixation; 03/13: Anterior cervical C3 and C4 partial corpectomies; C3-4 interbody fusion; anterior C3-4 cervical plate placement; C3-4 interbody cage placement Assessment and Plan - Assessment (1) Closed rib fracture Code(s): S22.39XA - Fracture of one rib, unspecified side, initial encounter for closed fracture Status: Acute (2) Traumatic compression fracture of T11 thoracic vertebra Code(s): S22.080A - Wedge compression fracture of T11-T12 vertebra, initial encounter for closed fracture Status: Acute (3) Burst fracture of thoracic spine at T10-T11 level Status: Acute (4) Complete lesion at T10 level of thoracic spinal cord Code(s): S24.113A - Complete lesion at T7-T10 level of thoracic spinal cord, initial encounter Status: Acute (5) Closed cervical spine fracture Code(s): S12.9XXA - Fracture of neck, unspecified, initial encounter Status: Acute (6) Stenosis of cervical spine with myelopathy Code(s): M47.12 - Other spondylosis with myelopathy, cervical region Status: Acute - Plan 62 year old male with AFIB, HLD neuropathy, depression, and BPH admitted on 03/10 as a trauma after falling from a [place]. Trauma/fall from [place] Injuries: * C3-4 spinal stenosis w/ disc protrusion and cord compression * C6 vertebral body fx * RIGHT clavicle fx (no-op) * T10 transverse process fx * T11 burst fx w/ cord contusion and compression * R rib fxs (4, 5, 7) * L rib fx (5) * Bilateral pulmonary contusions * Paraplegia Neurosurgery consulted earlier in course * 03/11: T9, T10, T11, T12, and L1 posterior fusion; T10-11 open reduction of the fracture subluxation; T9-L1 pedicle screw fixation; * 03/13: Anterior cervical C3 and C4 partial corpectomies; C3-4 interbody fusion; anterior C3-4 cervical plate placement; C3-4 interbody cage placement Supportive care Pain control, low-dose baclofen for spasms. PT/OT [place] J collar at all times OOB with TLSO brace. Incentive spirometer -Continue baclofen to 20 mg every 6 for increased spasms. Atrial fibrillation -rate controlled Cardizem 30 mg po q 8h Add aspirin to regimen Pressure wounds: left buttock and gluteal cleft Change positions Q2H Wound care following Dressing changes Specialty bed Roho cushion when out of bed in chair Urinary retention Continue Flomax Continue Carrillo catheter, EtOH abuse Prior counseling provided on abstaining DVT prophylaxis: Lovenox (5) Closed cervical spine fracture Qualifiers: Encounter type: initial encounter Cervical vertebra fracture level: C6 Fracture alignment: nondisplaced
--- NOTE | 2018-04-28 15:45 | XR ---
EXAM DATE: 04/28/2018 12:00 AM EDT AGE/SEX: 62 years / Male INDICATIONS: Evaluate cervical spine C6 fracture. Post cervical spine surgery. CLINICAL DATA: This is the patient's subsequent encounter. Patient reports that signs and symptoms h ave been present for 2 weeks and indicates a pain score of 4/10. MEDICAL/SURGICAL HISTORY: . C6 fracture. T11 fracture. Lower leg paralysis. . Cervical fusion. Thoracic fusion. COMPARISON: [facility] – [place], CERVICAL SPINE [facility], 03/13/2018. . FINDINGS: No appreciable subluxation or soft tissue swelling is seen. Surgical screws traverse the bodies of C3-4 with a plate placed anteriorly and evidence for anterior fusion. Significant degenerative spo ndylosis is present with large osteophyte formation and calcifications of anterior longitudinal ligam ent from C4 down to C7. CONCLUSION: No appreciable subluxation. Electronically signed by: Kelli Galvan MD 04/28/2018 3:44 PM EDT
--- NOTE | 2018-04-28 15:48 | XR ---
EXAM DATE: 04/28/2018 12:00 AM EDT AGE/SEX: 62 years / Male INDICATIONS: Evaluate T11 fracture. Post thoracic fusion. CLINICAL DATA: This is the patient's subsequent encounter. Patient reports that signs and symptoms h ave been present for 2 weeks and indicates a pain score of 5/10. MEDICAL/SURGICAL HISTORY: . C6 fracture. T11 fracture. Lower leg paralysis. . Cervical fusion. Thoracic fusion. COMPARISON: [facility] [place] THORACIC SPINE [facility], 03/10/2018. . FINDINGS: Transpedicular screws traverse the bodies of T9, T10, T12, L1 with posterior stabilization hardware i n place with excellent anatomical alignment and the previously seen anterolisthesis T10-11 has comple tely been reduced. Fracture of T11 vertebrae is again seen with slight anterior wedging. CONCLUSION: Reduction of the previously seen traumatic anterolisthesis T10-11 since the prior examination with sl ight wedging of anterior vertebrae of T11. Otherwise not significantly changed. Electronically signed by: Kelli Galvan MD 04/28/2018 3:47 PM EDT
[2018-04-29] MEDS: dilTIAZem 60 MG Tablet PO SCH ×3 (01:03→16:21)
[2018-04-29] MEDS: Baclofen 10 MG Tablet PO SCH ×4 (01:03→18:09)
[2018-04-29] MEDS: oxyCODONE/Acetaminophen 10/325 Tablet PO PRN ×3 (09:30→20:55)
[2018-04-29] MEDS: Duloxetine 60 MG DR Capsule PO SCH (10:00)
[2018-04-29] MEDS: Senna/Docusate Sodium 8.6/50 MG Tablet PO SCH ×2 (10:00→20:57)
[2018-04-29] MEDS: Gabapentin 300 MG Capsule PO SCH ×3 (10:00→18:09)
[2018-04-29] MEDS: Enoxaparin Inj 30 MG/0.3 ML Syringe SQ SCH ×2 (10:01→20:55)
[2018-04-29] MEDS: Lidocaine 5% Patch T-DERMAL SCH (10:01)
[2018-04-29] MEDS: Collagenase Oint 30 GM Tube TOPICAL SCH (10:04)
--- NOTE | 2018-04-29 10:25 | P.PNWCN ---
Wound Care Nurse Consult Description: Received wound care reconsult for L buttock pressure injury from Doctor Jc Communicated with: MIKE Shelton nazareth and Doctor Greene Recommendation: 1. please apply Dakin's 0.125% soaked gauze to wound on L buttock and a leave in place for 10 minutes. Cleanse wound with normal saline and gauze pad. 2. Apply Santyl mejia thickness to wound bed and cover with maxorb II cut to fit over wound bed avoiding contact with skin surrounding wound. 3.Apply Cavilon spray to skin surrounding wound bed 4.Secure dressing in place with bordered gauze. 5. Change dressing daily. 6. Please turn patient every 2 hours and PRN for comfort and offloading of pressure from chen prominences. Wound/Pressure Injury - Patient Status Premedicated for Pain Prior to Dressing Change: Yes - Wound Left Buttocks Wound Staging: Stage III Wound Assessment: Ongoing Wound Type: Pressure Injury Is This a Chronic Wound: No Requested from Provider a Wound Care Consult: Yes (Wound care is following patient) Length (cm): 4.9 (cm) Width (cm): 7 (cm) Depth (cm): 0.1 (cm) Wound Bed Appearance: Red, Yellow Wound Bed Appearance: Wound bed presents with ~80% red granulation tissue, ~10% adipose tissue, and ~ 10% biofilm. Surrounding Tissue Appearance: Erythema, Indurated (from 10 to 2 o'clockl) Surrounding Tissue Temperature: Warm Drainage Description: Green (Green/Serosanguinous) Drainage Amount: Moderate Drainage Odor: Slight Odor Dressing Status: Changed Cleansing Solution: Saline Topical: Enzymatic Debridement Ointment (Santyl) Primary Dressing: Maxorb II Cover Dressing: Bordered gauze Wound Dressing Change Date: 04/29/18 Wound Margin Description: Wound margins are well defined and open - Additional Information Patient was seen on for follow up of worsening wound to L buttock. Wound previously seen on 03/30/2018 by Namrata PELAEZ, and she noted stage III pressure injury to L buttock and stage IV to gluteal cleft.Patient is laying on a [facility] bed. Patient positioned to the R side with minimal assist from board writer. Removed transparent dressing and gauze dressing to L buttock to reveal open wound to L buttock. Wound is still a stage 3 pressure. Gluteal cleft wound has improved and is now presenting as a shallow fissure like wound with 100% pink tissue. Full wound description of L buttock with measurements is noted above. Wound is indurated from 10 to 2 o'clock. Green/ sero-sanguinous drainage is noted to saturated old dressing. Wound has a slight odor, with blanchable erythema to periwound with heat. Wound was cleansed with normal saline and patted dry. Wound culture was obtained of L buttock wound. Applied skin barrier film to periwound.Applied Santyl mejia thickness to wound bed and covered wound with Maxorb II cut to fit, avoiding surround intact skin and secured dressing with bordered gauze.Alecia tolerated well and was positioned to R side before leaving the room with pillows for support.
--- NOTE | 2018-04-29 11:20 | P.PNIM ---
Subjective Interval history: Reports he is hurting in his shoulder which is normal for him in the morning. No fevers or chills. Tolerating diet. Physical Exam Vital signs: Vital Signs 04/28/18 11:49 04/28/18 20:00 04/28/18 21:30 Temperature 97.6 F 97.8 F Pulse Rate 90 84 Respiratory Rate 17 17 20 Blood Pressure 98/54 L 100/64 Pulse Oximetry 94 L 95 04/29/18 00:00 04/29/18 08:00 Temperature 98.1 F 97.5 F L Pulse Rate 79 75 Respiratory Rate 17 17 Blood Pressure 101/57 L 130/76 Pulse Oximetry 96 96 Intake & Output 04/28/18 04/29/18 04/29/18 18:59 06:59 18:59 Intake Total 860 / 860 1500 / 1500 Output Total 700 / 700 1800 / 1800 Balance 160 / 160 -300 / -300 Weight 106.9 kg Intake: Oral 860 / 860 1500 / 1500 Output: Urine 700 / 700 1800 / 1800 Narrative: GENERAL: This is a 62-year-old male lying in bed. No distress noted. NECK: [place] J collar in place. Trachea midline. No JVD. CARDIOVASCULAR: Regular rate and rhythm. RESPIRATORY: No accessory muscle use. Lungs are clear to auscultation. Breath sounds equal bilaterally. No distress or dyspnea. GASTROINTESTINAL: Abdomen soft, non-tender, nondistended. Normoactive bowel sounds MUSCULOSKELETAL: Extremities without cyanosis, or edema. NEUROLOGICAL: Awake and alert to person place and time. Normal speech and pattern. Unable to move bilateral lower extremities. Good motor strength 5 out of 5 bilateral upper extremities - Urinary Catheter Management Condom Cath placed during this visit: yes, but has since been removed by the nurse Reason for continuing: Not indwelling catheter Removal date: 03/18/18 Removal time: 14:30 Indwelling Urethral Catheter Cath placed during this visit: yes, but has since been removed by the nurse Reason for continuing: Hourly intake/output Insertion date: 03/16/18 Insertion time: 04:30 Removal date: 03/14/18 Removal time: 10:45 Straight Cath placed during this visit: yes, but has since been removed by the nurse Reason for continuing: Acute urinary retention Insertion date: 03/17/18 Insertion time: 03:30 Removal date: 03/16/18 Removal time: 17:40 Results - Labs CBC & Chem 7: 04/23/18 04:41 04/23/18 04:41 - Imaging Impressions Cervical Spine X-Ray 04/28/18 00:00 CONCLUSION: No appreciable subluxation. Thoracic Spine X-Ray 04/28/18 00:00 CONCLUSION: Reduction of the previously seen traumatic anterolisthesis T10-11 since the prior examination with slight wedging of anterior vertebrae of T11. Otherwise not significantly changed. - Procedures 03/11: T9, T10, T11, T12, and L1 posterior fusion; T10-11 laminectomy; T10-11 open reduction of the fracture subluxation; T9-L1 pedicle screw fixation; 03/13: Anterior cervical C3 and C4 partial corpectomies; C3-4 interbody fusion; anterior C3-4 cervical plate placement; C3-4 interbody cage placement Assessment and Plan - Assessment (1) Closed rib fracture Code(s): S22.39XA - Fracture of one rib, unspecified side, initial encounter for closed fracture Status: Acute (2) Traumatic compression fracture of T11 thoracic vertebra Code(s): S22.080A - Wedge compression fracture of T11-T12 vertebra, initial encounter for closed fracture Status: Acute (3) Burst fracture of thoracic spine at T10-T11 level Status: Acute (4) Complete lesion at T10 level of thoracic spinal cord Code(s): S24.113A - Complete lesion at T7-T10 level of thoracic spinal cord, initial encounter Status: Acute (5) Closed cervical spine fracture Code(s): S12.9XXA - Fracture of neck, unspecified, initial encounter Status: Acute (6) Stenosis of cervical spine with myelopathy Code(s): M47.12 - Other spondylosis with myelopathy, cervical region Status: Acute - Plan 62 year old male with AFIB, HLD neuropathy, depression, and BPH admitted on 03/10 as a trauma after falling from a [place]. Trauma/fall from [place] Injuries: * C3-4 spinal stenosis w/ disc protrusion and cord compression * C6 vertebral body fx * RIGHT clavicle fx (no-op) * T10 transverse process fx * T11 burst fx w/ cord contusion and compression * R rib fxs (4, 5, 7) * L rib fx (5) * Bilateral pulmonary contusions * Paraplegia Neurosurgery consulted earlier in course * 03/11: T9, T10, T11, T12, and L1 posterior fusion; T10-11 open reduction of the fracture subluxation; T9-L1 pedicle screw fixation; * 03/13: Anterior cervical C3 and C4 partial corpectomies; C3-4 interbody fusion; anterior C3-4 cervical plate placement; C3-4 interbody cage placement Supportive care Pain control, low-dose baclofen for spasms. PT/OT [place] J collar at all times OOB with TLSO brace. Incentive spirometer -Continue baclofen to 20 mg every 6 for increased spasms. Atrial fibrillation -rate controlled Cardizem 30 mg po q 8h Add aspirin to regimen Pressure wounds: left buttock and gluteal cleft Change positions Q2H Wound care following Reconsult wound care nurse due to changes in wound per nursing staff Dressing changes to use dakins 0.125% solution daily to assist with debridement Report given of induration changes from 10 to 2:00 Specialty bed Roho cushion when out of bed in chair Urinary retention Continue Flomax Continue Carrillo catheter, EtOH abuse Prior counseling provided on abstaining DVT prophylaxis: Lovenox (5) Closed cervical spine fracture Qualifiers: Encounter type: initial encounter Cervical vertebra fracture level: C6 Fracture alignment: nondisplaced
[2018-04-29] MEDS: Sodium Hypochlorite 0.125% Top Soln 500 ML Bottle IRRIGATION SCH (14:41)
[2018-04-30] MEDS: Baclofen 10 MG Tablet PO SCH ×4 (00:16→18:46)
[2018-04-30] MEDS: dilTIAZem 60 MG Tablet PO SCH ×3 (00:16→17:07)
[2018-04-30] MEDS: oxyCODONE/Acetaminophen 10/325 Tablet PO PRN ×4 (06:30→21:18)
[2018-04-30] MEDS: Lidocaine 5% Patch T-DERMAL SCH (09:24)
[2018-04-30] MEDS: Senna/Docusate Sodium 8.6/50 MG Tablet PO SCH ×2 (09:24→21:17)
[2018-04-30] MEDS: Gabapentin 300 MG Capsule PO SCH ×3 (09:24→17:07)
[2018-04-30] MEDS: Enoxaparin Inj 30 MG/0.3 ML Syringe SQ SCH ×2 (09:24→21:17)
[2018-04-30] MEDS: Sodium Hypochlorite 0.125% Top Soln 500 ML Bottle IRRIGATION SCH (09:25)
[2018-04-30] MEDS: Duloxetine 60 MG DR Capsule PO SCH (09:25)
[2018-04-30] MEDS: Collagenase Oint 30 GM Tube TOPICAL SCH (09:26)
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
[2018-05-01] MEDS: Baclofen 10 MG Tablet PO SCH ×4 (00:35→18:34)
[2018-05-01] MEDS: dilTIAZem 60 MG Tablet PO SCH ×3 (00:35→18:34)
[2018-05-01] MEDS: oxyCODONE/Acetaminophen 10/325 Tablet PO PRN ×4 (05:45→20:28)
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
[2018-05-01] MEDS: Lidocaine 5% Patch T-DERMAL SCH (09:51)
[2018-05-01] MEDS: Gabapentin 300 MG Capsule PO SCH ×3 (09:52→18:33)
[2018-05-01] MEDS: Duloxetine 60 MG DR Capsule PO SCH (09:52)
[2018-05-01] MEDS: Senna/Docusate Sodium 8.6/50 MG Tablet PO SCH ×2 (09:53→20:29)
[2018-05-01] MEDS: Enoxaparin Inj 30 MG/0.3 ML Syringe SQ SCH ×2 (09:54→20:29)
[2018-05-01] MEDS: Collagenase Oint 30 GM Tube TOPICAL SCH (13:42)
[2018-05-01] MEDS: Sodium Hypochlorite 0.125% Top Soln 500 ML Bottle IRRIGATION SCH (13:43)
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
--- NOTE | 2018-05-01 17:44 | P.PNNS ---
Subjective Interval history: Pt awake and alert. Not complaining of back pain. No sensation from waist down to toes. Pt working with PT and doing transfers to wheelchair. Physical Exam Vital signs: Vital Signs 04/30/18 20:00 05/01/18 00:00 05/01/18 03:15 Temperature 98.3 F 98.3 F Pulse Rate 82 74 Respiratory Rate 18 18 19 Blood Pressure 113/55 L 113/70 Pulse Oximetry 96 94 L 05/01/18 08:00 05/01/18 12:00 05/01/18 16:00 Temperature 98.0 F 97.8 F 97.7 F Pulse Rate 76 84 90 Respiratory Rate 16 16 16 Blood Pressure 112/73 131/83 113/83 Pulse Oximetry 96 94 L 97 Intake & Output 04/30/18 05/01/18 05/01/18 18:59 06:59 18:59 Intake Total 840 / 840 Output Total 1100 / 1100 1100 / 1100 Balance -260 / -260 -1100 / -1100 Weight 109.2 kg Intake: Oral 840 / 840 Output: Urine 1100 / 1100 1100 / 1100 Other: Date of Last Bowel Movement 04/30/18 # Bowel Movements 1 - Constitutional no acute distress - Routine HEENT Exam Head: Present: normocephalic Eye: Present: PERRL - Routine Respiratory Exam Present: CTA bilaterally. Absent: respiratory distress, rhonchi, wheezes - Routine Cardiovascular Exam Present: RRR, S1, S2. Absent: murmur - Routine Abdominal Exam Present: soft, normoactive bowel sounds. Absent: distended, firm - Routine Extremities Exam Absent: cyanosis - Routine Skin Exam Absent: cyanosis, erythema Comments: Thoracic incision healed without signs of infection. - Routine Neurological Exam Present: alert, sensory deficit (No sensation in LEs.), motor deficit (No movement in LEs. ), normal speech. Absent: altered mental status, moving all extremities - Routine Psychiatric Exam Present: normal affect, cooperative, good insight. Absent: anxious, agitated - Urinary Catheter Management Condom Cath placed during this visit: yes, but has since been removed by the nurse Reason for continuing: Not indwelling catheter Removal date: 03/18/18 Removal time: 14:30 Indwelling Urethral Catheter Cath placed during this visit: yes, but has since been removed by the nurse Reason for continuing: Chronic Urinary Retention Insertion date: 03/16/18 Insertion time: 04:30 Removal date: 03/14/18 Removal time: 10:45 Straight Cath placed during this visit: yes, but has since been removed by the nurse Reason for continuing: Acute urinary retention Insertion date: 03/17/18 Insertion time: 03:30 Removal date: 03/16/18 Removal time: 17:40 Assessment and Plan - Assessment (1) Closed rib fracture Code(s): S22.39XA - Fracture of one rib, unspecified side, initial encounter for closed fracture Status: Acute (2) Traumatic compression fracture of T11 thoracic vertebra Code(s): S22.080A - Wedge compression fracture of T11-T12 vertebra, initial encounter for closed fracture Status: Acute (3) Fracture of rib Code(s): S22.39XA - Fracture of one rib, unspecified side, initial encounter for closed fracture Status: Acute (4) Burst fracture of thoracic spine at T10-T11 level Status: Acute (5) Complete lesion at T10 level of thoracic spinal cord Code(s): S24.113A - Complete lesion at T7-T10 level of thoracic spinal cord, initial encounter Status: Acute (6) Closed spinal subluxation with complete thoracic cord lesion Status: Acute (7) Closed cervical spine fracture Code(s): S12.9XXA - Fracture of neck, unspecified, initial encounter Status: Acute Qualifiers: Encounter type: initial encounter Cervical vertebra fracture level: C6 Fracture alignment: nondisplaced - Plan A/P: 62 yo s/p T9-L1 fusion for T11 burst fracture on 03/12, s/p C3-4 ACDF on 03/13 Follow up x-rays of cervical and Thoracic spine are stable. P: -Collar and TLSO at all times. -PT/OT OOB with TLSO brace. -pain control Neurosurgically stable for rehab placement. Follow up in 2 months with F/E x- rays of cervical and thoracic/lumbar spine. Call office for follow up appt. .
[2018-05-02] MEDS: oxyCODONE/Acetaminophen 10/325 Tablet PO PRN ×5 (00:22→23:00)
[2018-05-02] MEDS: Baclofen 10 MG Tablet PO SCH ×5 (00:22→23:01)
[2018-05-02] MEDS: dilTIAZem 60 MG Tablet PO SCH ×3 (00:23→18:41)
[2018-05-02] MEDS: Lidocaine 5% Patch T-DERMAL SCH (09:44)
[2018-05-02] MEDS: Enoxaparin Inj 30 MG/0.3 ML Syringe SQ SCH ×2 (09:45→20:36)
[2018-05-02] MEDS: Gabapentin 300 MG Capsule PO SCH ×3 (09:45→18:40)
[2018-05-02] MEDS: Duloxetine 60 MG DR Capsule PO SCH (09:45)
[2018-05-02] MEDS: Senna/Docusate Sodium 8.6/50 MG Tablet PO SCH ×2 (09:46→20:37)
--- NOTE | 2018-05-02 12:20 | P.PNIM ---
Subjective Interval history: The patient was resting in bed comfortably. He was about to eat lunch. He said that he was getting used to the wheelchair. He had no acute complaints. Discussed with nursing. Physical Exam Vital signs: Vital Signs 05/01/18 16:00 05/01/18 20:00 05/02/18 00:00 Temperature 97.7 F 98.0 F 98.0 F Pulse Rate 90 83 71 Respiratory Rate 16 18 20 Blood Pressure 113/83 116/56 L 112/59 L Pulse Oximetry 97 95 97 05/02/18 04:00 05/02/18 08:00 05/02/18 12:00 Temperature 97.3 F L 98.0 F Pulse Rate 70 74 Respiratory Rate 16 18 18 Blood Pressure 114/63 128/75 Pulse Oximetry 98 94 L Intake & Output 05/01/18 05/02/18 05/02/18 18:59 06:59 18:59 Intake Total 2200 / 2200 500 / 500 Output Total 1200 / 1200 800 / 800 Balance 1000 / 1000 -300 / -300 Weight 109.2 kg Intake: Oral 2200 / 2200 500 / 500 Output: Urine 800 / 800 Urine Amount (Catheter) 1200 / 1200 Indwelling Urethral Catheter 1200 / 1200 Other: # Bowel Movements 1 Narrative: GENERAL: Well-developed, well-nourished male laying in bed in no apparent distress SKIN: Warm and dry. Mid back incision healing well. CARDIOVASCULAR: Regular rate and rhythm. RESPIRATORY: No accessory muscle use. Clear to auscultation. Breath sounds equal bilaterally. GASTROINTESTINAL: Abdomen soft, non-tender, nondistended. MUSCULOSKELETAL: Extremities without clubbing, cyanosis, or edema. No obvious deformities. NEUROLOGICAL: Awake and alert and oriented x3. Generalized weakness moving upper extremity 5 out of 5 strength, unable to move bilateral lower extremities. Multi-podus boots in place. Normal speech. PSYCHIATRIC: Appropriate mood and affect, pleasant, cooperative - Urinary Catheter Management Condom Cath placed during this visit: yes, but has since been removed by the nurse Reason for continuing: Not indwelling catheter Removal date: 03/18/18 Removal time: 14:30 Indwelling Urethral Catheter Cath placed during this visit: yes, but has since been removed by the nurse Reason for continuing: Chronic Urinary Retention Insertion date: 03/16/18 Insertion time: 04:30 Removal date: 03/14/18 Removal time: 10:45 Straight Cath placed during this visit: yes, but has since been removed by the nurse Reason for continuing: Acute urinary retention Insertion date: 03/17/18 Insertion time: 03:30 Removal date: 03/16/18 Removal time: 17:40 Results - Labs CBC & Chem 7: 04/23/18 04:41 04/23/18 04:41 Microbiology 04/29/18 11:14 Abscess - Buttock Gram Stain - Final 04/29/18 11:14 Abscess - Buttock Wound Culture - Final Escherichia coli Staphylococcus aureus - Procedures 03/11: T9, T10, T11, T12, and L1 posterior fusion; T10-11 laminectomy; T10-11 open reduction of the fracture subluxation; T9-L1 pedicle screw fixation; 03/13: Anterior cervical C3 and C4 partial corpectomies; C3-4 interbody fusion; anterior C3-4 cervical plate placement; C3-4 interbody cage placement Assessment and Plan - Assessment (1) Closed rib fracture Code(s): S22.39XA - Fracture of one rib, unspecified side, initial encounter for closed fracture Status: Acute (2) Traumatic compression fracture of T11 thoracic vertebra Code(s): S22.080A - Wedge compression fracture of T11-T12 vertebra, initial encounter for closed fracture Status: Acute (3) Burst fracture of thoracic spine at T10-T11 level Status: Acute (4) Complete lesion at T10 level of thoracic spinal cord Code(s): S24.113A - Complete lesion at T7-T10 level of thoracic spinal cord, initial encounter Status: Acute (5) Closed cervical spine fracture Code(s): S12.9XXA - Fracture of neck, unspecified, initial encounter Status: Acute (6) Stenosis of cervical spine with myelopathy Code(s): M47.12 - Other spondylosis with myelopathy, cervical region Status: Acute - Plan 62 year old male with AFIB, HLD neuropathy, depression, and BPH admitted on 03/10 as a trauma after falling from a [place]. Trauma/fall from seaw[place] Injuries: C3-4 spinal stenosis w/ disc protrusion and cord compression C6 vertebral body fx RIGHT clavicle fx (no-op) T10 transverse process fx T11 burst fx w/ cord contusion and compression R rib fxs (4, 5, 7) L rib fx (5) Bilateral pulmonary contusions Paraplegia Neurosurgery consult appreciated 03/11: T9, T10, T11, T12, and L1 posterior fusion; T10-11 open reduction of the fracture subluxation; T9-L1 pedicle screw fixation; 03/13: Anterior cervical C3 and C4 partial corpectomies; C3-4 interbody fusion ; anterior C3-4 cervical plate placement; C3-4 interbody cage placement Supportive care PT/OT rehab per protocol [place] collar at all times OOB with TLSO brace. Encourage use of incentive spirometer Pain control. -Continue baclofen 20 mg every 6 for increased spasms. Atrial fibrillation Heart Rate controlled Cardizem 30 mg po q 8h. Consider switching to long-acting. -Continue aspirin -Continue monitor heart rate Pressure wounds: left buttock and gluteal cleft Wound induration changes from 10 to 2 o'clock Wound culture: Gram-negative rods/staph aureus Change positions Q2H Wound care following -Reconsulted wound care nurse due to changes in wound per nursing staff 04/29 Dressing changes to use Dakins 0.125% solution daily to assist with debridement Specialty bed Roho cushion when out of bed in chair Urinary retention Continue Flomax Continue Carrillo catheter, EtOH abuse Prior counseling provided on abstaining DVT prophylaxis: Lovenox (5) Closed cervical spine fracture Qualifiers: Encounter type: initial encounter Cervical vertebra fracture level: C6 Fracture alignment: nondisplaced
[2018-05-02] MEDS: Sodium Hypochlorite 0.125% Top Soln 500 ML Bottle IRRIGATION SCH (13:46)
[2018-05-02] MEDS: Collagenase Oint 30 GM Tube TOPICAL SCH (13:46)
[2018-05-03] MEDS: dilTIAZem 60 MG Tablet PO SCH ×3 (01:33→18:18)
[2018-05-03] MEDS: Baclofen 10 MG Tablet PO SCH (05:24)
[2018-05-03] MEDS: oxyCODONE/Acetaminophen 10/325 Tablet PO PRN ×4 (05:24→22:25)
[2018-05-03] MEDS: Enoxaparin Inj 30 MG/0.3 ML Syringe SQ SCH ×2 (08:23→22:25)
[2018-05-03] MEDS: Duloxetine 60 MG DR Capsule PO SCH (08:23)
[2018-05-03] MEDS: Gabapentin 300 MG Capsule PO SCH ×3 (08:23→18:18)
[2018-05-03] MEDS: Sodium Hypochlorite 0.125% Top Soln 500 ML Bottle IRRIGATION SCH (08:25)
[2018-05-03] MEDS: Lidocaine 5% Patch T-DERMAL SCH (08:25)
[2018-05-03] MEDS: Collagenase Oint 30 GM Tube TOPICAL SCH (08:25)
[2018-05-03] MEDS ORDERED: Baclofen 10 MG Tablet PO PRN (12:21)
--- NOTE | 2018-05-03 12:23 | P.PNIM ---
Subjective Interval history: The patient was curious about his imaging of his neck. He wanted to know if he could certainly and sit ups to help strengthen his core. He said he has been getting around in his wheelchair. No acute complaints. Physical Exam Vital signs: Vital Signs 05/02/18 16:00 05/02/18 20:00 05/03/18 00:00 Temperature 97.4 F L 97.9 F 97.3 F L Pulse Rate 80 72 69 Respiratory Rate 18 20 20 Blood Pressure 98/67 L 116/72 115/62 Pulse Oximetry 96 95 96 05/03/18 04:00 05/03/18 08:00 05/03/18 12:00 Temperature 97.7 F 97.3 F L 98.0 F Pulse Rate 77 74 84 Respiratory Rate 18 17 17 Blood Pressure 122/73 120/68 96/63 L Pulse Oximetry 95 94 L 96 Intake & Output 05/02/18 05/03/18 05/03/18 18:59 06:59 18:59 Intake Total 957 / 957 Output Total 1375 / 1375 700 / 700 Balance -418 / -418 -700 / -700 Weight 110.4 kg Intake: Oral 957 / 957 Output: Urine 1375 / 1375 Urine Amount (Catheter) 700 / 700 Indwelling Urethral Catheter 700 / 700 Other: Date of Last Bowel Movement 05/02/18 05/03/18 Narrative: GENERAL: Well-developed, well-nourished male laying in bed in no apparent distress. HEENT: In cervical collar. SKIN: Warm and dry. Mid back incision healing well. CARDIOVASCULAR: Regular rate and rhythm. RESPIRATORY: No accessory muscle use. Clear to auscultation. Breath sounds equal bilaterally. GASTROINTESTINAL: Abdomen soft, non-tender, nondistended. MUSCULOSKELETAL: Extremities without clubbing, cyanosis, or edema. No obvious deformities. NEUROLOGICAL: Awake and alert and oriented x3. Generalized weakness moving upper extremity 5 out of 5 strength, unable to move bilateral lower extremities. Multi-podus boots in place. Normal speech. PSYCHIATRIC: Appropriate mood and affect, pleasant, cooperative. - Urinary Catheter Management Condom Cath placed during this visit: yes, but has since been removed by the nurse Reason for continuing: Not indwelling catheter Removal date: 03/18/18 Removal time: 14:30 Indwelling Urethral Catheter Cath placed during this visit: yes, but has since been removed by the nurse Reason for continuing: Chronic Urinary Retention Insertion date: 03/16/18 Insertion time: 04:30 Removal date: 03/14/18 Removal time: 10:45 Straight Cath placed during this visit: yes, but has since been removed by the nurse Reason for continuing: Acute urinary retention Insertion date: 03/17/18 Insertion time: 03:30 Removal date: 03/16/18 Removal time: 17:40 Results - Labs CBC & Chem 7: 04/23/18 04:41 04/23/18 04:41 Assessment and Plan - Assessment (1) Closed rib fracture Code(s): S22.39XA - Fracture of one rib, unspecified side, initial encounter for closed fracture Status: Acute (2) Traumatic compression fracture of T11 thoracic vertebra Code(s): S22.080A - Wedge compression fracture of T11-T12 vertebra, initial encounter for closed fracture Status: Acute (3) Burst fracture of thoracic spine at T10-T11 level Status: Acute (4) Complete lesion at T10 level of thoracic spinal cord Code(s): S24.113A - Complete lesion at T7-T10 level of thoracic spinal cord, initial encounter Status: Acute (5) Closed cervical spine fracture Code(s): S12.9XXA - Fracture of neck, unspecified, initial encounter Status: Acute (6) Stenosis of cervical spine with myelopathy Code(s): M47.12 - Other spondylosis with myelopathy, cervical region Status: Acute - Plan 62 year old male with AFIB, HLD neuropathy, depression, and BPH admitted on 03/10 as a trauma after falling from a seaw[place]. Trauma/fall from seaw[place] Injuries: C3-4 spinal stenosis w/ disc protrusion and cord compression C6 vertebral body fx RIGHT clavicle fx (no-op) T10 transverse process fx T11 burst fx w/ cord contusion and compression R rib fxs (4, 5, 7) L rib fx (5) Bilateral pulmonary contusions Paraplegia Neurosurgery consult appreciated 03/11: T9, T10, T11, T12, and L1 posterior fusion; T10-11 open reduction of the fracture subluxation; T9-L1 pedicle screw fixation; 03/13: Anterior cervical C3 and C4 partial corpectomies; C3-4 interbody fusion ; anterior C3-4 cervical plate placement; C3-4 interbody cage placement Supportive care PT/OT rehab per protocol [place] J collar at all times OOB with TLSO brace. Encourage use of incentive spirometer. Pain control. -Continue baclofen 20 mg every 6 for increased spasms. Atrial fibrillation Heart Rate controlled. Cardizem 30 mg po q 8h. Consider switching to long-acting if blood pressure improves. -Continue aspirin. Pressure wounds: left buttock and gluteal cleft Wound induration changes from 10 to 2 o'clock Wound culture: Gram-negative rods/staph aureus Change positions Q2H. -Reconsulted wound care nurse due to changes in wound per nursing staff 04/29. Dressing changes to use Dakins 0.125% solution daily to assist with debridement. Specialty bed. Roho cushion when out of bed in chair. Urinary retention Continue Flomax. Continue Carrillo catheter. EtOH abuse Prior counseling provided on abstaining DVT prophylaxis: Lovenox (5) Closed cervical spine fracture Qualifiers: Encounter type: initial encounter Cervical vertebra fracture level: C6 Fracture alignment: nondisplaced
[2018-05-03] MEDS: Senna/Docusate Sodium 8.6/50 MG Tablet PO SCH ×2 (12:24→22:25)
[2018-05-04] MEDS: dilTIAZem 60 MG Tablet PO SCH ×3 (00:23→17:36)
[2018-05-04] MEDS: Lidocaine 5% Patch T-DERMAL SCH (09:25)
[2018-05-04] MEDS: Duloxetine 60 MG DR Capsule PO SCH (09:26)
[2018-05-04] MEDS: Enoxaparin Inj 30 MG/0.3 ML Syringe SQ SCH ×2 (09:26→21:42)
[2018-05-04] MEDS: Gabapentin 300 MG Capsule PO SCH ×3 (09:27→17:35)
[2018-05-04] MEDS: Senna/Docusate Sodium 8.6/50 MG Tablet PO SCH ×2 (09:27→21:42)
[2018-05-04] MEDS: Collagenase Oint 30 GM Tube TOPICAL SCH (09:29)
[2018-05-04] MEDS: Sodium Hypochlorite 0.125% Top Soln 500 ML Bottle IRRIGATION SCH (09:29)
--- NOTE | 2018-05-04 12:57 | P.PNIM ---
Subjective Interval history: The patient has been ambulating in his wheelchair. He was washing himself up. He denied any acute complaints. Physical Exam Vital signs: Vital Signs 05/03/18 16:00 05/03/18 20:00 05/04/18 00:00 Temperature 98.2 F 98.1 F 98.1 F Pulse Rate 88 83 70 Respiratory Rate 17 18 18 Blood Pressure 104/62 135/73 119/59 L Pulse Oximetry 95 96 95 05/04/18 04:00 05/04/18 08:00 Temperature 98.7 F Pulse Rate 75 Respiratory Rate 18 18 Blood Pressure 127/68 Pulse Oximetry 98 Intake & Output 05/03/18 05/04/18 05/04/18 18:59 06:59 18:59 Intake Total 1100 / 1100 200 / 200 Output Total 675 / 675 1400 / 1400 Balance 425 / 425 -1200 / -1200 Weight 109.3 kg Intake: Oral 1100 / 1100 200 / 200 Output: Urine 675 / 675 Urine Amount (Catheter) 1400 / 1400 Indwelling Urethral Catheter 1400 / 1400 Other: Date of Last Bowel Movement 05/03/18 Narrative: GENERAL: Well-developed, well-nourished male in no apparent distress. HEENT: In cervical collar. SKIN: Warm and dry. Mid back incision healing well. CARDIOVASCULAR: Regular rate and rhythm. RESPIRATORY: No accessory muscle use. Clear to auscultation. Breath sounds equal bilaterally. GASTROINTESTINAL: Abdomen soft, non-tender, nondistended. MUSCULOSKELETAL: Extremities without clubbing, cyanosis, or edema. No obvious deformities. NEUROLOGICAL: Awake and alert and oriented x3. Generalized weakness moving upper extremity 5 out of 5 strength, unable to move bilateral lower extremities. Multi-podus boots in place. Normal speech. PSYCHIATRIC: Appropriate mood and affect, pleasant, cooperative. - Urinary Catheter Management Condom Cath placed during this visit: yes, but has since been removed by the nurse Reason for continuing: Not indwelling catheter Removal date: 03/18/18 Removal time: 14:30 Indwelling Urethral Catheter Cath placed during this visit: yes, but has since been removed by the nurse Reason for continuing: Chronic Urinary Retention Insertion date: 03/16/18 Insertion time: 04:30 Removal date: 03/14/18 Removal time: 10:45 Straight Cath placed during this visit: yes, but has since been removed by the nurse Reason for continuing: Acute urinary retention Insertion date: 03/17/18 Insertion time: 03:30 Removal date: 03/16/18 Removal time: 17:40 Results - Labs CBC & Chem 7: 04/23/18 04:41 04/23/18 04:41 Assessment and Plan - Assessment (1) Closed rib fracture Code(s): S22.39XA - Fracture of one rib, unspecified side, initial encounter for closed fracture Status: Acute (2) Traumatic compression fracture of T11 thoracic vertebra Code(s): S22.080A - Wedge compression fracture of T11-T12 vertebra, initial encounter for closed fracture Status: Acute (3) Burst fracture of thoracic spine at T10-T11 level Status: Acute (4) Complete lesion at T10 level of thoracic spinal cord Code(s): S24.113A - Complete lesion at T7-T10 level of thoracic spinal cord, initial encounter Status: Acute (5) Closed cervical spine fracture Code(s): S12.9XXA - Fracture of neck, unspecified, initial encounter Status: Acute (6) Stenosis of cervical spine with myelopathy Code(s): M47.12 - Other spondylosis with myelopathy, cervical region Status: Acute - Plan 62 year old male with AFIB, HLD neuropathy, depression, and BPH admitted on 03/10 as a trauma after falling from a [place]. 05/04: No changes. Ambulating well in the wheelchair. Continue current management. Trauma/fall from [place] Injuries: C3-4 spinal stenosis w/ disc protrusion and cord compression C6 vertebral body fx RIGHT clavicle fx (no-op) T10 transverse process fx T11 burst fx w/ cord contusion and compression R rib fxs (4, 5, 7) L rib fx (5) Bilateral pulmonary contusions Paraplegia Neurosurgery consult appreciated 03/11: T9, T10, T11, T12, and L1 posterior fusion; T10-11 open reduction of the fracture subluxation; T9-L1 pedicle screw fixation; 03/13: Anterior cervical C3 and C4 partial corpectomies; C3-4 interbody fusion ; anterior C3-4 cervical plate placement; C3-4 interbody cage placement Supportive care PT/OT rehab per protocol [place] J collar at all times OOB with TLSO brace. Encourage use of incentive spirometer. Pain control. -Continue baclofen 20 mg every 6 for increased spasms. Atrial fibrillation Heart Rate controlled. Cardizem 30 mg po q 8h. -Continue aspirin. Pressure wounds: left buttock and gluteal cleft Wound induration changes from 10 to 2 o'clock Wound culture: Gram-negative rods/staph aureus Change positions Q2H. -Reconsulted wound care nurse due to changes in wound per nursing staff 04/29. Dressing changes to use Dakins 0.125% solution daily to assist with debridement. Specialty bed. Roho cushion when out of bed in chair. Urinary retention Continue Flomax. Continue Carrillo catheter. EtOH abuse Prior counseling provided on abstaining DVT prophylaxis: Lovenox (5) Closed cervical spine fracture Qualifiers: Encounter type: initial encounter Cervical vertebra fracture level: C6 Fracture alignment: nondisplaced
[2018-05-04] MEDS: oxyCODONE/Acetaminophen 10/325 Tablet PO PRN ×2 (17:36→21:41)
[2018-05-05] MEDS: dilTIAZem 60 MG Tablet PO SCH ×3 (00:39→18:35)
[2018-05-05] MEDS: Lidocaine 5% Patch T-DERMAL SCH (08:47)
[2018-05-05] MEDS: oxyCODONE/Acetaminophen 10/325 Tablet PO PRN ×4 (08:48→23:03)
[2018-05-05] MEDS: Gabapentin 300 MG Capsule PO SCH ×3 (08:48→18:35)
[2018-05-05] MEDS: Enoxaparin Inj 30 MG/0.3 ML Syringe SQ SCH ×2 (08:54→21:52)
[2018-05-05] MEDS: Duloxetine 60 MG DR Capsule PO SCH (08:54)
[2018-05-05] MEDS: Senna/Docusate Sodium 8.6/50 MG Tablet PO SCH ×2 (08:54→21:52)
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
[2018-05-05] MEDS: Collagenase Oint 30 GM Tube TOPICAL SCH (14:47)
[2018-05-05] MEDS: Sodium Hypochlorite 0.125% Top Soln 500 ML Bottle IRRIGATION SCH (14:47)
[2018-05-06] MEDS: dilTIAZem 60 MG Tablet PO SCH ×3 (00:27→17:14)
[2018-05-06] MEDS: Gabapentin 300 MG Capsule PO SCH ×3 (09:27→17:14)
[2018-05-06] MEDS: Lidocaine 5% Patch T-DERMAL SCH ×2 (09:27→10:14)
[2018-05-06] MEDS: Enoxaparin Inj 30 MG/0.3 ML Syringe SQ SCH ×2 (09:27→20:26)
[2018-05-06] MEDS: Duloxetine 60 MG DR Capsule PO SCH (09:28)
[2018-05-06] MEDS: Senna/Docusate Sodium 8.6/50 MG Tablet PO SCH ×2 (09:28→20:27)
[2018-05-06] MEDS: Sodium Hypochlorite 0.125% Top Soln 500 ML Bottle IRRIGATION SCH (09:28)
[2018-05-06] MEDS: Collagenase Oint 30 GM Tube TOPICAL SCH (09:28)
[2018-05-06] MEDS: oxyCODONE/Acetaminophen 10/325 Tablet PO PRN ×2 (09:37→21:49)
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
[2018-05-07] MEDS: dilTIAZem 60 MG Tablet PO SCH ×3 (01:04→17:59)
[2018-05-07] MEDS: Gabapentin 300 MG Capsule PO SCH ×3 (09:24→18:00)
[2018-05-07] MEDS: Senna/Docusate Sodium 8.6/50 MG Tablet PO SCH ×2 (09:24→21:59)
[2018-05-07] MEDS: Lidocaine 5% Patch T-DERMAL SCH (09:25)
[2018-05-07] MEDS: Duloxetine 60 MG DR Capsule PO SCH (09:25)
[2018-05-07] MEDS: Enoxaparin Inj 30 MG/0.3 ML Syringe SQ SCH ×2 (09:25→21:59)
[2018-05-07] MEDS: oxyCODONE/Acetaminophen 10/325 Tablet PO PRN ×2 (09:28→19:26)
[2018-05-07] MEDS: Collagenase Oint 30 GM Tube TOPICAL SCH (09:30)
[2018-05-07] MEDS: Sodium Hypochlorite 0.125% Top Soln 500 ML Bottle IRRIGATION SCH (09:30)
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
[2018-05-07] MEDS ORDERED: Influenza (Quadrivalent) Vaccine 0.5 ML Syringe IM ONE (18:00)
[2018-05-07] MEDS ORDERED: Pneumococcal-23 Polyvalent Vaccine Inj 25 MCG/0.5 ML Syringe IM ONE (18:00)
[2018-05-08] MEDS: dilTIAZem 60 MG Tablet PO SCH ×3 (01:04→17:33)
[2018-05-08] MEDS: Enoxaparin Inj 30 MG/0.3 ML Syringe SQ SCH ×2 (08:54→21:07)
[2018-05-08] MEDS: Collagenase Oint 30 GM Tube TOPICAL SCH (08:54)
[2018-05-08] MEDS: Gabapentin 300 MG Capsule PO SCH ×3 (08:55→17:33)
[2018-05-08] MEDS: Duloxetine 60 MG DR Capsule PO SCH (08:56)
[2018-05-08] MEDS: Senna/Docusate Sodium 8.6/50 MG Tablet PO SCH ×3 (08:56→21:08)
[2018-05-08] MEDS: Sodium Hypochlorite 0.125% Top Soln 500 ML Bottle IRRIGATION SCH (09:04)
[2018-05-08] MEDS: Lidocaine 5% Patch T-DERMAL SCH (09:04)
--- NOTE | 2018-05-08 11:49 | P.PNIM ---
Subjective Interval history: Follow-up trauma, fall from a seawall, AFIB, HLD neuropathy, depression, urinary retention and BPH. Patient seen and examined sitting on the side of the bed, physical therapy in the room for exercises. Patient denies any pain or discomfort with moving upper body without difficulty with a lumbar brace and neck brace. Patient denies any sensation on bilateral lower extremity from the lower hip down to the leg and foot. Patient stated he have some small sensation above the hip line and no problem going up. Patient complains about constipation and have difficulty and going to the bathroom. Patient denies any nausea or vomiting denies any abdominal pain. Patient denies any headache or dizziness, pain, chest pain or shortness of breath. Patient denies any fever or chills. Physical Exam Vital signs: Vital Signs 05/07/18 12:00 05/07/18 16:00 05/07/18 19:56 Temperature 97.9 F 98 F Pulse Rate 83 87 Respiratory Rate 17 17 18 Blood Pressure 110/55 L 100/66 Pulse Oximetry 96 96 05/07/18 20:00 05/08/18 00:00 05/08/18 08:00 Temperature 98.5 F 97.8 F 97.6 F Pulse Rate 91 H 84 74 Respiratory Rate 18 18 17 Blood Pressure 106/66 112/65 115/72 Pulse Oximetry 93 L 95 95 Intake & Output 05/07/18 05/08/18 05/08/18 18:59 06:59 18:59 Intake Total 720 / 720 240 / 240 Output Total 850 / 850 600 / 600 Balance -130 / -130 -360 / -360 Weight 108.2 kg Intake: Oral 720 / 720 240 / 240 Output: Urine 850 / 850 Urine Amount (Catheter) 600 / 600 Indwelling Urethral Catheter 600 / 600 Other: Date of Last Bowel Movement 05/06/18 05/07/18 Narrative: GENERAL: Well-developed, well-nourished, male in no apparent distress SKIN: Warm and dry. Left buttocks wound, stage 3 HEAD: Atraumatic. Normocephalic. Neck/cervical collar EYES: Pupils equal and round. No scleral icterus. No injection or drainage. ENT: No nasal bleeding or discharge. Mucous membranes pink and moist. NECK: Trachea midline. No JVD. CARDIOVASCULAR: Regular rate and rhythm. RESPIRATORY: No accessory muscle use. Clear to auscultation. Breath sounds equal bilaterally. GASTROINTESTINAL: Abdomen soft, non-tender, nondistended. Hepatic and splenic margins not palpable. MUSCULOSKELETAL: Extremities without clubbing, cyanosis, or edema. No obvious deformities. NEUROLOGICAL: Awake and alert and oriented x3. Generalized weakness, moving upper extremities with 5 out of 5 strength, unable to move bilateral lower extremities. Multi-Podus boots in place. Normal speech. PSYCHIATRIC: Appropriate mood and affect; cooperative, irritable with questions - Urinary Catheter Management Condom Cath placed during this visit: yes, but has since been removed by the nurse Reason for continuing: Not indwelling catheter Removal date: 03/18/18 Removal time: 14:30 Indwelling Urethral Catheter Cath placed during this visit: yes, but has since been removed by the nurse Reason for continuing: Chronic Urinary Retention Insertion date: 03/16/18 Insertion time: 04:30 Removal date: 03/14/18 Removal time: 10:45 Straight Cath placed during this visit: yes, but has since been removed by the nurse Reason for continuing: Acute urinary retention Insertion date: 03/17/18 Insertion time: 03:30 Removal date: 03/16/18 Removal time: 17:40 Results - Labs CBC & Chem 7: 04/23/18 04:41 04/23/18 04:41 Assessment and Plan - Assessment (1) Closed rib fracture Code(s): S22.39XA - Fracture of one rib, unspecified side, initial encounter for closed fracture Status: Acute (2) Traumatic compression fracture of T11 thoracic vertebra Code(s): S22.080A - Wedge compression fracture of T11-T12 vertebra, initial encounter for closed fracture Status: Acute (3) Burst fracture of thoracic spine at T10-T11 level Status: Acute (4) Complete lesion at T10 level of thoracic spinal cord Code(s): S24.113A - Complete lesion at T7-T10 level of thoracic spinal cord, initial encounter Status: Acute (5) Closed cervical spine fracture Code(s): S12.9XXA - Fracture of neck, unspecified, initial encounter Status: Acute (6) Stenosis of cervical spine with myelopathy Code(s): M47.12 - Other spondylosis with myelopathy, cervical region Status: Acute - Plan 62 year old male with AFIB, HLD neuropathy, depression, and BPH admitted on 9/4 as a trauma after falling from a seawall. Continue current treatment. Trauma/fall from seawall Injuries: * C3-4 spinal stenosis w/ disc protrusion and cord compression * C6 vertebral body fx * RIGHT clavicle fx (no-op) * T10 transverse process fx * T11 burst fx w/ cord contusion and compression * R rib fxs (4, 5, 7) * L rib fx (5) * Bilateral pulmonary contusions * Paraplegia Neurosurgery consulted earlier in course * 03/11: T9, T10, T11, T12, and L1 posterior fusion; T10-11 open reduction of the fracture subluxation; T9-L1 pedicle screw fixation; * 03/13: Anterior cervical C3 and C4 partial corpectomies; C3-4 interbody fusion; anterior C3-4 cervical plate placement; C3-4 interbody cage placement Supportive care PT/OT rehab per protocol [place] J collar and TLSO at all times OOB with TLSO brace. Encourage use of incentive spirometer Pain control with bowel regimen -continue Flexeril for muscle spasm, improving, monitor response Atrial fibrillation -Heart Rate controlled Cardizem 30 mg po q 8h -Continue aspirin -Continue monitor heart rate Pressure wounds: left buttock and gluteal cleft Wound induration changes from 10 to 2 o'clock Wound culture: Gram-negative rods/staph aureus Change positions Q2H Wound care following -Reconsulted wound care nurse due to changes in wound per nursing staff 04/29 Dressing changes to use Dakins 0.125% solution daily to assist with debridement -continue santyl, MaxorbII, Cavilon spray Specialty bed Roho cushion when out of bed in chair Urinary retention Continue Flomax Continue Lora catheter, daily lora care, change q 3 weeks EtOH abuse Prior counseling provided on abstaining DVT prophylaxis: Lovenox Neuro recommendation: Neurosurgically stable for rehab placement. Follow up in 2 months with F/E x-rays of cervical and thoracic/lumbar spine. Call office for follow up appt. [phone]. Code Status: full code Discussed Condition With: patient, nurse PT Discharge Planning: Plan to discharge to [facility] on Friday (5) Closed cervical spine fracture Qualifiers: Encounter type: initial encounter Cervical vertebra fracture level: C6 Fracture alignment: nondisplaced
[2018-05-08] MEDS: oxyCODONE/Acetaminophen 10/325 Tablet PO PRN (21:37)
[2018-05-09] MEDS: dilTIAZem 60 MG Tablet PO SCH ×3 (01:30→17:32)
[2018-05-09] MEDS: Enoxaparin Inj 30 MG/0.3 ML Syringe SQ SCH ×2 (08:53→20:48)
[2018-05-09] MEDS: Gabapentin 300 MG Capsule PO SCH ×3 (08:54→17:33)
[2018-05-09] MEDS: Senna/Docusate Sodium 8.6/50 MG Tablet PO SCH ×2 (08:54→20:48)
[2018-05-09] MEDS: Duloxetine 60 MG DR Capsule PO SCH (08:54)
[2018-05-09] MEDS: oxyCODONE/Acetaminophen 10/325 Tablet PO PRN ×3 (08:55→21:44)
[2018-05-09] MEDS: Lidocaine 5% Patch T-DERMAL SCH (08:55)
[2018-05-09] MEDS: Collagenase Oint 30 GM Tube TOPICAL SCH (08:55)
[2018-05-09] MEDS: Sodium Hypochlorite 0.125% Top Soln 500 ML Bottle IRRIGATION SCH (08:55)
--- NOTE | 2018-05-09 12:02 | P.PNIM ---
Subjective Interval history: Follow-up trauma, fall from a seawall, AFIB, HLD neuropathy, depression, urinary retention and BPH. Patient seen and examined sitting in the bed using his laptop computer pain. Patient stated he feels the same, still cannot move his legs. Patient stated still having some low back pain and muscle spasms, wants to have something else to help him move his legs. Discussed the course of treatment. She denies any headache or dizziness, denies any chest pain or shortness of breath, denies any abdominal pain, nausea, vomiting, diarrhea or constipation. Patient denies any fever or chills. Discussed discharge planning to rehab facility, patient looking forward to. Physical Exam Vital signs: Vital Signs 05/08/18 12:00 05/08/18 16:00 05/08/18 20:00 Temperature 98.1 F 97.8 F 98.7 F Pulse Rate 89 91 H 89 Respiratory Rate 17 17 20 Blood Pressure 112/65 99/60 L 111/71 Pulse Oximetry 95 96 94 L 05/09/18 00:00 05/09/18 04:53 05/09/18 08:00 Temperature 98.2 F 97.1 F L Pulse Rate 95 H 76 Respiratory Rate 20 18 16 Blood Pressure 111/63 125/66 Pulse Oximetry 95 94 L Intake & Output 05/08/18 05/09/18 05/09/18 18:59 06:59 18:59 Intake Total 1440 / 1440 240 / 240 Output Total 650 / 650 1000 / 1000 Balance 790 / 790 -760 / -760 Weight 110.4 kg Intake: Oral 1440 / 1440 240 / 240 Output: Urine 650 / 650 Urine Amount (Catheter) 1000 / 1000 Indwelling Urethral Catheter 1000 / 1000 Other: Date of Last Bowel Movement 05/07/18 05/07/18 Narrative: GENERAL: Well-developed, well-nourished, male in no apparent distress SKIN: Warm and dry. Left buttocks wound, stage 3 HEAD: Atraumatic. Normocephalic. Neck/cervical collar in place EYES: Pupils equal and round. No scleral icterus. No injection or drainage. ENT: No nasal bleeding or discharge. Mucous membranes pink and moist. NECK: Trachea midline. No JVD. CARDIOVASCULAR: Regular rate and rhythm. RESPIRATORY: No accessory muscle use. Clear to auscultation. Breath sounds equal bilaterally. GASTROINTESTINAL: Abdomen soft, non-tender, nondistended. Hepatic and splenic margins not palpable. MUSCULOSKELETAL: Extremities without clubbing, cyanosis, or edema. No obvious deformities. NEUROLOGICAL: Awake and alert and oriented x3. Generalized weakness, moving upper extremities with 5 out of 5 strength, unable to move bilateral lower extremities. Lower leg with some involuntary movements. Multi-Podus boots in place. Normal speech. PSYCHIATRIC: Appropriate mood and affect; cooperative, irritable with questions - Urinary Catheter Management Condom Cath placed during this visit: yes, but has since been removed by the nurse Reason for continuing: Not indwelling catheter Removal date: 03/18/18 Removal time: 14:30 Indwelling Urethral Catheter Cath placed during this visit: yes, but has since been removed by the nurse Reason for continuing: Chronic Urinary Retention Insertion date: 03/16/18 Insertion time: 04:30 Removal date: 03/14/18 Removal time: 10:45 Straight Cath placed during this visit: yes, but has since been removed by the nurse Reason for continuing: Acute urinary retention Insertion date: 03/17/18 Insertion time: 03:30 Removal date: 03/16/18 Removal time: 17:40 Results - Labs CBC & Chem 7: 04/23/18 04:41 04/23/18 04:41 Assessment and Plan - Assessment (1) Closed rib fracture Code(s): S22.39XA - Fracture of one rib, unspecified side, initial encounter for closed fracture Status: Acute (2) Traumatic compression fracture of T11 thoracic vertebra Code(s): S22.080A - Wedge compression fracture of T11-T12 vertebra, initial encounter for closed fracture Status: Acute (3) Burst fracture of thoracic spine at T10-T11 level Status: Acute (4) Complete lesion at T10 level of thoracic spinal cord Code(s): S24.113A - Complete lesion at T7-T10 level of thoracic spinal cord, initial encounter Status: Acute (5) Closed cervical spine fracture Code(s): S12.9XXA - Fracture of neck, unspecified, initial encounter Status: Acute (6) Stenosis of cervical spine with myelopathy Code(s): M47.12 - Other spondylosis with myelopathy, cervical region Status: Acute - Plan 62 year old male with AFIB, HLD neuropathy, depression, and BPH admitted on 03/10 as a trauma after falling from a seawall. Continue current treatment. Trauma/fall from seawall Injuries: * C3-4 spinal stenosis w/ disc protrusion and cord compression * C6 vertebral body fx * RIGHT clavicle fx (no-op) * T10 transverse process fx * T11 burst fx w/ cord contusion and compression * R rib fxs (4, 5, 7) * L rib fx (5) * Bilateral pulmonary contusions * Paraplegia Neurosurgery consulted earlier in course * 03/11: T9, T10, T11, T12, and L1 posterior fusion; T10-11 open reduction of the fracture subluxation; T9-L1 pedicle screw fixation; * 03/13: Anterior cervical C3 and C4 partial corpectomies; C3-4 interbody fusion; anterior C3-4 cervical plate placement; C3-4 interbody cage placement Supportive care PT/OT rehab per protocol [place] J collar and TLSO at all times OOB with TLSO brace. Encourage use of incentive spirometer Pain control with bowel regimen -continue Flexeril for muscle spasm, improving, monitor response -Continue gabapentin, and PRN pain medication with bowel regimen Atrial fibrillation -Heart Rate controlled Cardizem 30 mg po q 8h -Continue aspirin -Continue monitor heart rate Pressure wounds: left buttock and gluteal cleft Wound induration changes from 10 to 2 o'clock Wound culture: Gram-negative rods/staph aureus Change positions Q2H Wound care following -Reconsulted wound care nurse due to changes in wound per nursing staff 04/29 Dressing changes to use Dakins 0.125% solution daily to assist with debridement -continue santyl, MaxorbII, Cavilon spray Specialty bed, turn every 2 hours, avoid laying in the bottom Roho cushion when out of bed in chair Urinary retention/neurogenic bladder Continue Flomax Continue Lora catheter, daily lora care, change q 3 weeks EtOH abuse Prior counseling provided on abstaining DVT prophylaxis: Lovenox Neuro recommendation: Neurosurgically stable for rehab placement. Follow up in 2 months with F/E x-rays of cervical and thoracic/lumbar spine. Call office for follow up appt. [phone]. Code Status: Full code Discussed Condition With: Patient and nurse Discharge Planning: Plan to discharge to [facility] on Friday (5) Closed cervical spine fracture Qualifiers: Encounter type: initial encounter Cervical vertebra fracture level: C6 Fracture alignment: nondisplaced
[2018-05-10] MEDS: dilTIAZem 60 MG Tablet PO SCH ×3 (01:01→16:34)
[2018-05-10] MEDS: oxyCODONE/Acetaminophen 10/325 Tablet PO PRN ×4 (07:49→20:10)
[2018-05-10] MEDS: Duloxetine 60 MG DR Capsule PO SCH (08:16)
[2018-05-10] MEDS: Lidocaine 5% Patch T-DERMAL SCH (08:16)
[2018-05-10] MEDS: Enoxaparin Inj 30 MG/0.3 ML Syringe SQ SCH ×2 (08:16→20:04)
[2018-05-10] MEDS: Senna/Docusate Sodium 8.6/50 MG Tablet PO SCH ×2 (08:17→20:04)
[2018-05-10] MEDS: Gabapentin 300 MG Capsule PO SCH ×3 (08:17→17:35)
[2018-05-10] MEDS: Sodium Hypochlorite 0.125% Top Soln 500 ML Bottle IRRIGATION SCH (08:18)
[2018-05-10] MEDS: Collagenase Oint 30 GM Tube TOPICAL SCH (08:19)
[2018-05-10 09:52] LABS: Baso % (Auto) 0.2 % (0.0-2.0); Eos # (Auto) 0.2 th/mm3 (0.0-0.4); Eos % (Auto) 1.8 % (0.0-4.0); Hematocrit 36.4 % (39.0-51.0); Lymph # (Auto) 1.3 th/mm3 (1.0-4.8); Lymph % (Auto) 15.4 % (9.0-44.0); Mean Corpuscular HGB Conc 32.9 % (32.0-36.0); Mean Corpuscular Hemoglobin 28.4 pg (27.0-34.0); Mean Corpuscular Volume 86.3 fL (80.0-100.0); Mean Platelet Volume 8.4 fL (7.0-11.0); Mono # (Auto) 0.9 th/mm3 (0.0-0.9); Neut # (Auto) 6.3 th/mm3 (1.8-7.7); Neut % (Auto) 72.6 % (16.0-70.0); Platelet Count 258 th/mm3 (150-450); Red Blood Count 4.21 mil/mm3 (4.50-5.90); White Blood Count 8.7 th/mm3 (4.0-11.0)
--- NOTE | 2018-05-10 10:01 | P.PNIM ---
Subjective Interval history: Follow-up trauma, fall from a seawall, AFIB, HLD neuropathy, depression, urinary retention and BPH. Patient seen and examined laying in bed, stated pain is a lot better, had taken medication for his muscle spasm and feeling better however patient stated he is not feeling anything on his leg and did not even realize that the lower legs are moving. Patient's negative neck pain control, neck brace in place. Patient denies any headache or dizziness, denies any chest pain or shortness of breath, denies any abdominal pain, nausea, vomiting or diarrhea. Patient complains of constipation stated still did not go yet stated to use had a small bowel movement. And still complained of constipation. Patient denies any fever or chills. Starting to have feelings from the waist up. Discussed discharge planning with the patient to discharge to a rehab in [place] patient stated that they did not coordinate with him and did not know anything about it. And he was communicating with the rehab and tied straight and plan to go there just waiting for one paperwork for Social Security. Will discuss with social work professor. Need assistance from social work professor to coordinate discharge to rehab facility. Physical Exam Vital signs: Vital Signs 05/09/18 12:00 05/09/18 16:00 05/09/18 20:00 Temperature 98.6 F 97.6 F 98.3 F Pulse Rate 84 80 90 Respiratory Rate 17 16 17 Blood Pressure 115/74 118/62 111/61 Pulse Oximetry 92 L 95 95 05/10/18 08:00 Temperature 98.1 F Pulse Rate 88 Respiratory Rate 16 Blood Pressure 113/61 Pulse Oximetry 97 Intake & Output 05/09/18 05/10/18 05/10/18 19:59 06:59 18:59 Intake Total Output Total Balance Weight Intake: Oral Output: Urine Other: Date of Last Bowel Movement Narrative: GENERAL: Well-developed, well-nourished, male in no apparent distress SKIN: Warm and dry. Left buttocks wound, stage 3 HEAD: Atraumatic. Normocephalic. Neck/cervical collar in place EYES: Pupils equal and round. No scleral icterus. No injection or drainage. ENT: No nasal bleeding or discharge. Mucous membranes pink and moist. NECK: Trachea midline. No JVD. CARDIOVASCULAR: Regular rate and rhythm. RESPIRATORY: No accessory muscle use. Clear to auscultation. Breath sounds equal bilaterally. GASTROINTESTINAL: Abdomen soft, non-tender, nondistended. Hepatic and splenic margins not palpable. MUSCULOSKELETAL: Extremities without clubbing, cyanosis, or edema. No obvious deformities. NEUROLOGICAL: Awake and alert and oriented x3. Generalized weakness, moving upper extremities with 5 out of 5 strength, unable to move bilateral lower extremities. Lower leg with some involuntary movements. Multi-Podus boots in place. Normal speech. PSYCHIATRIC: Appropriate mood and affect; cooperative, irritable with questions - Urinary Catheter Management Condom Cath placed during this visit: yes, but has since been removed by the nurse Reason for continuing: Not indwelling catheter Removal date: 03/18/18 Removal time: 14:30 Indwelling Urethral Catheter Cath placed during this visit: yes, but has since been removed by the nurse Reason for continuing: Acute urinary retention Insertion date: 03/16/18 Insertion time: 04:30 Removal date: 03/14/18 Removal time: 10:45 Straight Cath placed during this visit: yes, but has since been removed by the nurse Reason for continuing: Acute urinary retention Insertion date: 03/17/18 Insertion time: 03:30 Removal date: 03/16/18 Removal time: 17:40 Results - Labs CBC & Chem 7: 05/10/18 07:42 04/23/18 04:41 Laboratory Results - last 24 hr 05/10/18 07:42 WBC 8.7 RBC 4.21 L Hgb 12.0 L Hct 36.4 L MCV 86.3 MCH 28.4 MCHC 32.9 RDW 16.0 Plt Count 258 MPV 8.4 Neut % (Auto) 72.6 H Lymph % (Auto) 15.4 [place] % (Auto) 10.0 H Eos % (Auto) 1.8 Baso % (Auto) 0.2 Neut # (Auto) 6.3 Lymph # (Auto) 1.3 [place] # (Auto) 0.9 Eos # (Auto) 0.2 Baso # (Auto) 0.0 WBC Differential . Differential Comment Auto diff final Assessment and Plan - Assessment (1) Closed rib fracture Code(s): S22.39XA - Fracture of one rib, unspecified side, initial encounter for closed fracture Status: Acute (2) Traumatic compression fracture of T11 thoracic vertebra Code(s): S22.080A - Wedge compression fracture of T11-T12 vertebra, initial encounter for closed fracture Status: Acute (3) Burst fracture of thoracic spine at T10-T11 level Status: Acute (4) Complete lesion at T10 level of thoracic spinal cord Code(s): S24.113A - Complete lesion at T7-T10 level of thoracic spinal cord, initial encounter Status: Acute (5) Closed cervical spine fracture Code(s): S12.9XXA - Fracture of neck, unspecified, initial encounter Status: Acute (6) Stenosis of cervical spine with myelopathy Code(s): M47.12 - Other spondylosis with myelopathy, cervical region Status: Acute - Plan 62 year old male with AFIB, HLD neuropathy, depression, and BPH admitted on 03/10 as a trauma after falling from a seawall. Continue current treatment. Trauma/fall from seawall Injuries: * C3-4 spinal stenosis w/ disc protrusion and cord compression * C6 vertebral body fx * RIGHT clavicle fx (no-op) * T10 transverse process fx * T11 burst fx w/ cord contusion and compression * R rib fxs (4, 5, 7) * L rib fx (5) * Bilateral pulmonary contusions * Paraplegia Neurosurgery consulted earlier in course * 03/11: T9, T10, T11, T12, and L1 posterior fusion; T10-11 open reduction of the fracture subluxation; T9-L1 pedicle screw fixation; * 03/13: Anterior cervical C3 and C4 partial corpectomies; C3-4 interbody fusion; anterior C3-4 cervical plate placement; C3-4 interbody cage placement Supportive care PT/OT rehab per protocol [place] J collar and TLSO at all times OOB with TLSO brace. Encourage use of incentive spirometer Pain control with bowel regimen -continue Flexeril for muscle spasm, improving, monitor response -Continue gabapentin, and PRN pain medication with bowel regimen Atrial fibrillation -Heart Rate controlled Cardizem 30 mg po q 8h -Continue aspirin -Continue monitor heart rate Pressure wounds: left buttock and gluteal cleft Wound induration changes from 10 to 2 o'clock Wound culture: Gram-negative rods/staph aureus Change positions Q2H Wound care following -Reconsulted wound care nurse due to changes in wound per nursing staff 04/29 Dressing changes to use Dakins 0.125% solution daily to assist with debridement -continue santyl, MaxorbII, Cavilon spray Specialty bed, turn every 2 hours, avoid laying in the bottom Roho cushion when out of bed in chair Urinary retention/neurogenic bladder Continue Flomax Continue Lora catheter, daily lora care, change q 3 weeks EtOH abuse Prior counseling provided on abstaining DVT prophylaxis: Lovenox Neuro recommendation: Neurosurgically stable for rehab placement. Follow up in 2 months with F/E x-rays of cervical and thoracic/lumbar spine. Call office for follow up appt. [phone]. Code Status: Full code Discussed Condition With: Patient and nurse Discharge Planning: Plan to discharge to [facility] on Friday (5) Closed cervical spine fracture Qualifiers: Encounter type: initial encounter Cervical vertebra fracture level: C6 Fracture alignment: nondisplaced
[2018-05-10 10:08] LABS: Anion Gap 9 meq/L (5-15); Blood Urea Nitrogen 13 mg/dL (7-18); Calcium 9.3 mg/dL (8.5-10.1); Carbon Dioxide 31.1 meq/L (21.0-32.0); Chloride 101 meq/L (98-107); Glomerular Filtration Rate Greater Than 89 mL/min (>89); Glucose,Random 82 mg/dL (74-106); Sodium 141 meq/L (136-145)
[2018-05-11] MEDS: dilTIAZem 60 MG Tablet PO SCH ×4 (01:42→18:02)
[2018-05-11] MEDS: oxyCODONE/Acetaminophen 10/325 Tablet PO PRN ×2 (09:06→14:06)
[2018-05-11] MEDS: Lidocaine 5% Patch T-DERMAL SCH (09:08)
[2018-05-11] MEDS: Enoxaparin Inj 30 MG/0.3 ML Syringe SQ SCH (09:09)
[2018-05-11] MEDS: Gabapentin 300 MG Capsule PO SCH ×3 (09:11→18:02)
[2018-05-11] MEDS: Senna/Docusate Sodium 8.6/50 MG Tablet PO SCH (09:11)
[2018-05-11] MEDS: Duloxetine 60 MG DR Capsule PO SCH (09:12)
[2018-05-11] MEDS: Sodium Hypochlorite 0.125% Top Soln 500 ML Bottle IRRIGATION SCH (09:14)
[2018-05-11] MEDS: Collagenase Oint 30 GM Tube TOPICAL SCH (09:14)
--- NOTE | 2018-05-11 10:21 | P.PNIM ---
Subjective Interval history: Follow-up trauma, fall from a seawall, AFIB, HLD neuropathy, depression, urinary retention and BPH. Patient seen and examined sitting on the bed, stated everything the same. Eating well, sleeping well. Patient complains about the lower back pain and spasm better with pain medication and rest. Patient denies any headache or dizziness, denies any chest pain or shortness of breath, denies any abdominal pain, nausea, vomiting, diarrhea. Constipation improving. Patient denied denies any fever or chills. Discharge planning discussed with the patient states that he is waiting for a paper from somewhere to get approved. Discussed with health social work professor Physical Exam Vital signs: Vital Signs 05/10/18 12:00 05/10/18 16:00 05/10/18 20:00 Temperature 98.5 F 98.4 F 97.7 F Pulse Rate 82 80 93 H Respiratory Rate 16 17 18 Blood Pressure 112/64 101/59 L 112/72 Pulse Oximetry 94 L 96 96 05/11/18 00:00 05/11/18 08:00 Temperature 98.2 F 98.6 F Pulse Rate 81 85 Respiratory Rate 18 19 Blood Pressure 111/67 123/76 Pulse Oximetry 95 97 Intake & Output 05/10/18 05/11/18 05/11/18 18:59 06:59 18:59 Intake Total 1300 / 1300 480 / 480 Output Total 1000 / 1000 350 / 350 Balance 300 / 300 130 / 130 Weight 108.2 kg Intake: Oral 1300 / 1300 480 / 480 Output: Urine 1000 / 1000 Urine Amount (Catheter) 350 / 350 Indwelling Urethral Catheter 350 / 350 Narrative: GENERAL: Well-developed, well-nourished, male in no apparent distress SKIN: Warm and dry. Left buttocks wound, stage 3 HEAD: Atraumatic. Normocephalic. Neck/cervical collar in place EYES: Pupils equal and round. No scleral icterus. No injection or drainage. ENT: No nasal bleeding or discharge. Mucous membranes pink and moist. NECK: Trachea midline. No JVD. CARDIOVASCULAR: Regular rate and rhythm. RESPIRATORY: No accessory muscle use. Clear to auscultation. Breath sounds equal bilaterally. GASTROINTESTINAL: Abdomen soft, non-tender, nondistended. Hepatic and splenic margins not palpable. MUSCULOSKELETAL: Extremities without clubbing, cyanosis, or edema. No obvious deformities. NEUROLOGICAL: Awake and alert and oriented x3. Generalized weakness, moving upper extremities with 5 out of 5 strength, unable to move bilateral lower extremities. Lower leg with some involuntary movements. Multi-Podus boots in place. Normal speech. PSYCHIATRIC: Appropriate mood and affect; cooperative, irritable with questions - Urinary Catheter Management Condom Cath placed during this visit: yes, but has since been removed by the nurse Reason for continuing: Not indwelling catheter Removal date: 03/18/18 Removal time: 14:30 Indwelling Urethral Catheter Cath placed during this visit: yes, but has since been removed by the nurse Reason for continuing: Acute urinary retention Insertion date: 03/16/18 Insertion time: 04:30 Removal date: 03/14/18 Removal time: 10:45 Straight Cath placed during this visit: yes, but has since been removed by the nurse Reason for continuing: Acute urinary retention Insertion date: 03/17/18 Insertion time: 03:30 Removal date: 03/16/18 Removal time: 17:40 Results - Labs CBC & Chem 7: 05/10/18 07:42 05/10/18 07:42 Assessment and Plan - Assessment (1) Closed rib fracture Code(s): S22.39XA - Fracture of one rib, unspecified side, initial encounter for closed fracture Status: Acute (2) Traumatic compression fracture of T11 thoracic vertebra Code(s): S22.080A - Wedge compression fracture of T11-T12 vertebra, initial encounter for closed fracture Status: Acute (3) Burst fracture of thoracic spine at T10-T11 level Status: Acute (4) Complete lesion at T10 level of thoracic spinal cord Code(s): S24.113A - Complete lesion at T7-T10 level of thoracic spinal cord, initial encounter Status: Acute (5) Closed cervical spine fracture Code(s): S12.9XXA - Fracture of neck, unspecified, initial encounter Status: Acute (6) Stenosis of cervical spine with myelopathy Code(s): M47.12 - Other spondylosis with myelopathy, cervical region Status: Acute - Plan 62 year old male with AFIB, HLD neuropathy, depression, and BPH admitted on 03/10 as a trauma after falling from a seawall. Continue current treatment. Trauma/fall from seawall Injuries: * C3-4 spinal stenosis w/ disc protrusion and cord compression * C6 vertebral body fx * RIGHT clavicle fx (no-op) * T10 transverse process fx * T11 burst fx w/ cord contusion and compression * R rib fxs (4, 5, 7) * L rib fx (5) * Bilateral pulmonary contusions * Paraplegia Neurosurgery consulted earlier in course * 03/11: T9, T10, T11, T12, and L1 posterior fusion; T10-11 open reduction of the fracture subluxation; T9-L1 pedicle screw fixation; * 03/13: Anterior cervical C3 and C4 partial corpectomies; C3-4 interbody fusion; anterior C3-4 cervical plate placement; C3-4 interbody cage placement Supportive care PT/OT rehab per protocol Clarence J collar and TLSO at all times OOB with TLSO brace. Encourage use of incentive spirometer Pain control with bowel regimen -continue Flexeril for muscle spasm, improving, monitor response -Continue gabapentin, and PRN pain medication with bowel regimen Atrial fibrillation -Heart Rate controlled Cardizem 30 mg po q 8h -Continue aspirin -Continue monitor heart rate Pressure wounds: left buttock and gluteal cleft Wound induration changes from 10 to 2 o'clock Wound culture: Gram-negative rods/staph aureus Change positions Q2H Wound care following -Reconsulted wound care nurse due to changes in wound per nursing staff 04/29 Dressing changes to use Dakins 0.125% solution daily to assist with debridement -continue santyl, MaxorbII, Cavilon spray Specialty bed, turn every 2 hours, avoid laying in the bottom Roho cushion when out of bed in chair Urinary retention/neurogenic bladder Continue Flomax Continue Lora catheter, daily lora care, change q 3 weeks EtOH abuse Prior counseling provided on abstaining DVT prophylaxis: Lovenox Neuro recommendation: Neurosurgically stable for rehab placement. Follow up in 2 months with F/E x-rays of cervical and thoracic/lumbar spine. Call office for follow up appt. [phone]. Code Status: full code Discussed Condition With: tamera and nurse Rehab Tech Discharge Planning: Plan to discharge to /SNF?REHAB/ [facility] when available (5) Closed cervical spine fracture Qualifiers: Encounter type: initial encounter Cervical vertebra fracture level: C6 Fracture alignment: nondisplaced
--- NOTE | 2018-05-11 14:52 | P.DS ---
Date of admission: 03/10/18 11:06 Primary care physician: UNKNOWN Attending physician on discharge: Lisa Hermosillo Anticipated date of discharge: 05/11/18 Brief History from admission: S/P Fall Patient update on day of discharge: Follow-up trauma, fall from a seawall, AFIB, HLD neuropathy, depression, urinary retention and BPH. Patient seen and examined sitting on the bed, stated everything the same. Eating well, sleeping well. Patient complains about the lower back pain and spasm better with pain medication and rest. Patient denies any headache or dizziness, denies any chest pain or shortness of breath, denies any abdominal pain, nausea, vomiting, diarrhea. Constipation improving. Patient denied denies any fever or chills. Discharge planning discussed with the patient states that he is waiting for a paper from somewhere to get approved. Discussed discharge planning with social worker assistant. DS: Diagnosis - Discharge Diagnosis (1) Closed rib fracture Status: Acute (2) Traumatic compression fracture of T11 thoracic vertebra Status: Acute (3) Burst fracture of thoracic spine at T10-T11 level Status: Acute (4) Complete lesion at T10 level of thoracic spinal cord Status: Acute (5) Closed cervical spine fracture Status: Acute (6) Stenosis of cervical spine with myelopathy Status: Acute DS: Summary Hospital Course: 62 year old male with AFIB, HLD neuropathy, depression, and BPH admitted on 03/10 as a trauma after falling from a seawall. Trauma/fall from seawall Injuries: * C3-4 spinal stenosis w/ disc protrusion and cord compression * C6 vertebral body fx * RIGHT clavicle fx (no-op) * T10 transverse process fx * T11 burst fx w/ cord contusion and compression * R rib fxs (, 5, 7) * L rib fx (5) * Bilateral pulmonary contusions * Paraplegia Neurosurgery consulted earlier in course * 03/11: T9, T10, T11, T12, and L1 posterior fusion; T10-11 open reduction of the fracture subluxation; T9-L1 pedicle screw fixation; * 03/13: Anterior cervical C3 and C4 partial corpectomies; C3-4 interbody fusion; anterior C3-4 cervical plate placement; C3-4 interbody cage placement PT/OT rehab per protocol,Carter J collar and TLSO at all times, OOB with TLSO brace. Encourage use of incentive spirometer,Pain control with bowel regimen,- continue Flexeril for muscle spasm, improving, monitor response Pressure wounds: left buttock and gluteal cleft Wound induration changes from 10 to 2 o'clock Wound culture: Gram-negative rods/staph aureus Change positions Q2H Dressing changes to use Dakins 0.125% solution daily to assist with debridement -continue santyl, MaxorbII, Cavilon spray Specialty bed, turn every 2 hours, avoid laying in the bottom Roho cushion when out of bed in chair Urinary retention/neurogenic bladder Continue Flomax Continue Lora catheter, daily lora care, change q 3 weeks EtOH abuse Prior counseling provided on abstaining - Time Spent with Patient Total time spent providing and/or coordinating discharge services: Greater than 30 minutes - Quality: VTE Deep Vein Thrombosis/Pulmonary Embolism Present on Admission: No Exam Vital signs: Vital Signs 05/10/18 16:00 05/10/18 20:00 05/11/18 00:00 Temperature 98.4 F 97.7 F 98.2 F Pulse Rate 80 93 H 81 Respiratory Rate 17 18 18 Blood Pressure 101/59 L 112/72 111/67 Pulse Oximetry 96 96 95 05/11/18 08:00 05/11/18 09:36 05/11/18 12:00 Temperature 98.6 F 98.5 F Pulse Rate 85 95 H Respiratory Rate 19 18 17 Blood Pressure 123/76 132/74 Pulse Oximetry 97 96 Intake & Output 05/10/18 05/11/18 05/11/18 18:59 06:59 18:59 Intake Total 1300 / 1300 480 / 480 Output Total 1000 / 1000 350 / 350 Balance 300 / 300 130 / 130 Weight 108.2 kg Intake: Oral 1300 / 1300 480 / 480 Output: Urine 1000 / 1000 Urine Amount (Catheter) 350 / 350 Indwelling Urethral Catheter 350 / 350 Other: Date of Last Bowel Movement 05/08/18 Narrative: GENERAL: Well-developed, well-nourished, male in no apparent distress SKIN: Warm and dry. Left buttocks wound, stage 3 HEAD: Atraumatic. Normocephalic. Neck/cervical collar in place EYES: Pupils equal and round. No scleral icterus. No injection or drainage. ENT: No nasal bleeding or discharge. Mucous membranes pink and moist. NECK: Trachea midline. No JVD. CARDIOVASCULAR: Regular rate and rhythm. RESPIRATORY: No accessory muscle use. Clear to auscultation. Breath sounds equal bilaterally. GASTROINTESTINAL: Abdomen soft, non-tender, nondistended. Hepatic and splenic margins not palpable. MUSCULOSKELETAL: Extremities without clubbing, cyanosis, or edema. No obvious deformities. NEUROLOGICAL: Awake and alert and oriented x3. Generalized weakness, moving upper extremities with 5 out of 5 strength, unable to move bilateral lower extremities. Lower leg with some involuntary movements. Multi-Podus boots in place. Normal speech. PSYCHIATRIC: Appropriate mood and affect; cooperative, irritable with questions Results Procedures completed during hospitalization: 03/11: T9, T10, T11, T12, and L1 posterior fusion; T10-11 open reduction of the fracture subluxation; T9-L1 pedicle screw fixation; 03/13: Anterior cervical C3 and C4 partial corpectomies; C3-4 interbody fusion; anterior C3-4 cervical plate placement; C3-4 interbody cage placement - Impressions ITS Impressions Abdomen/Pelvis CT 03/10/18 00:00 CONCLUSION: 1. Severe comminuted compression fracture involving the body of T11. 2. Nondisplaced fracture involving the left transverse process of T10 and the right transverse process of T11. 3. Grade 2 anterior spondylolisthesis of T10 over T11 creating spinal canal stenosis at this level. 4. Diffuse fatty infiltration of the liver. 5. Midline anterior abdominal wall hernia containing loop of transverse colon without obstruction at this time. Pelvis X-Ray 03/10/18 09:10 CONCLUSION: The bony structures are grossly intact on this limited single AP view. Chest CT 03/10/18 09:23 CONCLUSION: 1. Severely comminuted fracture through the body of T11. 2. Grade 2 anterior spondylolisthesis of T10 over T11 with locked facets bilaterally causing spinal canal stenosis.. 3. Nondisplaced fractures involving the left transverse process of T10 and the right transverse process of T11. 4. Nondisplaced fractures involving bilateral ribs. 5. Nonspecific infiltrate right perihilar area and bibasilar atelectasis. Cervical Spine CT 03/10/18 09:24 CONCLUSION: 1. Nondisplaced fracture of the left aspect of C6 vertebral body. 2. No spondylolisthesis. 3. Degenerative changes. Head CT 03/10/18 09:24 CONCLUSION: 1. Unremarkable CT scan of the brain. . Lumbar Spine CT 03/10/18 09:24 CONCLUSION: 1. No fracture or subluxation. 2. Multilevel protrusions as above. Thoracic Spine CT 03/10/18 09:24 CONCLUSION: 1. Severely comminuted fracture through the body of T11. 2. Grade 2 anterior spondylolisthesis of T10 over T11 with bilateral locked facets. This is causing focal severe spinal canal stenosis at this level. There are some fractures of the posterior facets at T10. 3. Nondisplaced fractures involving the left transverse process of T10 and the right transverse process of T11. 4. Diffuse paraspinal soft tissue swelling. Cervical Spine MRI 03/10/18 11:31 CONCLUSION: 1. Moderate spinal stenosis and bilateral foraminal narrowing at C3-4. 2. Mild bilateral foraminal narrowing at C5-6 and C6-7 as well as mild left neuroforaminal narrowing at C4-5. Lumbar Spine MRI 03/10/18 11:31 CONCLUSION: 1. Mild to moderate spinal stenosis and bilateral foraminal narrowing at L2-3. 2. Mild to moderate bilateral foraminal narrowing at L3-4 and L4-5 without spinal stenosis. 3. Degenerative disc disease from L2 through S1. Thoracic Spine MRI 03/10/18 11:31 CONCLUSION: 1. Comminuted fracture involving the T11 vertebral body, better visualized on comparison CT. There is anterolisthesis of T10 with respect to T11 resulting in cord compression and abnormal increased T2 signal identified within the cord. There is extensive anterior posterior paraspinal hematoma present. Thoracolumbar Spine 03/11/18 00:00 CONCLUSION: Status post fusion from T9 through L1 with stable compression deformity of T11 and hardware in good position. Chest X-Ray 03/21/18 00:00 CONCLUSION: 1. Improved aeration in the left lower lung zone. Cervical Spine X-Ray 04/28/18 00:00 CONCLUSION: No appreciable subluxation. Thoracic Spine X-Ray 04/28/18 00:00 CONCLUSION: Reduction of the previously seen traumatic anterolisthesis T10-11 since the prior examination with slight wedging of anterior vertebrae of T11. Otherwise not significantly changed. Discharge Plan - Discharge Disposition Patient Disposition: 64 Rehab Inpatient - Discharge Condition Condition: Stable - Discharge Order Discharge Orders: Discharge Order (Routine); Ordered 03/17/18 Ordered By: Joceline Abdul - Physicians Team Primary Care Provider: UNKNOWN, Attending Provider: Lisa Hermosillo Other Providers: Rayray Mclean MD ; [facility] ; [facility],[place] ; Stevie Vargas, PhD ; Evan Sorto DO ; [facility],[place] ; [facility],[place]
== END 2018-05-11 18:24 ==
LOC: NEPI 09:08 → NEDA 11:06 → EDBD 11:06 → N03 12:07 → N07 03-14 12:52
PROVIDERS: ADMIT Internal Medicine; ATTEND Internal Medicine